=== PATIENT | female | born 1950 | race Caucasian/White ===

== ENCOUNTER → 2016-12-14 | Outpatient (CLI) | payer BC ==
[~2016-12-14] MED LIST: DICY20TA10 PO; Dulera Inhaler; FEXO1TAB49 PO; FEXO30OR PO; FLUT16SP22; FLUT1DIS28 IH; GLYC2TAB; HYDR-3583 PO; LIDO20SO20 PO; LOSA100T7 PO; LVT.025T PO; MOME13HF2 INH; NITR100C3 PO; OMEP-10 PO; ONDAN4ODT PO; PANT40TA PO; PHEN16.297 PO; ROBINAL; SPRN25T PO; SULF1TAB38 PO; TRM50T PO; ZOLP10TA5 PO; [UNRECOGNIZED DRUG - REMARK]
--- NOTE | 2016-12-14 15:50 | Diagnostic Imaging Report ---
PA and lateral views of the chest. INDICATION: Shortness of breath. FINDINGS: The lungs are clear. The heart size is normal. No effusion or pneumothorax. The mediastinum and yaneth appear unremarkable. IMPRESSION: Unremarkable exam. Dictated by: Dictated on workstation # [id number]
== END ==
LOC: RAD 14:52
PROVIDERS: ATTEND Nurse Practitioner Family
DX: R06.02 Shortness of breath (principal)
CPT/HCPCS: 71020

== ENCOUNTER → 2017-01-11 | Outpatient (CLI) | payer BC ==
--- NOTE | 2017-01-11 15:22 | Diagnostic Imaging Report ---
PROCEDURE: CT sinuses without contrast TECHNIQUE: Multiple contiguous axial images were obtained through the sinuses without the use of intravenous contrast. Coronal and sagittal reformations were then performed. INDICATION: Chronic sinusitis. FINDINGS: There is mild mucosal thickening seen in the inferior aspect of the maxillary sinus bilaterally. There is patency of the ostiomeatal complex on both sides. The frontal sinuses and the ethmoidal air cells are clear. There is mild nasal septal deviation to the right side and mild mucosal thickening in the middle and inferior turbinates. The sphenoidal sinuses are clear. The mastoid air cells visualized portions and the middle ear cavities appear clear. IMPRESSION: 1. Mild mucosal thickening in the inferior aspect of the maxillary sinus on both sides. 2. Mild mucosal thickening along the middle and inferior turbinates. Nasal septal deviation to the right side. Dictated by: Dictated on workstation # [id number]
== END ==
LOC: RAD 13:48
PROVIDERS: ATTEND Otolaryngology Otolaryngology/Facial Plastic Surgery
DX: J32.9 Chronic sinusitis, unspecified (principal); J34.2 Deviated nasal septum
CPT/HCPCS: 70486

== ENCOUNTER → 2017-05-17 | Outpatient (CLI) | payer BC ==
[~2017-05-17] MED LIST changes: +ALBU2.5V4 NEB; +ALPR0.5T7 PO; +CEFD300C3 PO; +DILT120C53 PO; +FLUT16SP22 NS; +FLUT1BLS INH; +GUAI600T43 PO; +IPRA3AMP IH; +L.AC1CAP6 PO; +LEVO25TA5 PO; +LEVO5TAB12 PO; +LOSA100T28 PO; +MELA10TA2 PO; +MONT10TA24 PO; +PANT40TA3 PO; +PRD20T PO; +RT-ALBUINH INH; +TIOT4MIS5 IH; +[UNRECOGNIZED DRUG - REMARK] MC
--- NOTE | 2017-05-17 18:08 | Diagnostic Imaging Report ---
Bilateral screening mammogram 2D views with tomosynthesis. The current study was also evaluated with a Computer Aided Detection (CAD) system. INDICATION: Screening. No current complaints stated on the questionnaire. COMPARISON: 04/01/2015. FINDINGS: The breasts are composed of heterogeneously dense parenchyma which may decrease mammographic sensitivity. There are occasional benign-appearing calcifications seen. Allowing for technique and positional differences, no suspicious change is seen. IMPRESSION: Dense breasts with no definite change. ACR BI-RADS Category 2: Benign findings. Result letter will be mailed to the patient. Note: At least 10% of breast cancer is not imaged by mammography. Dictated by: Dictated on workstation # [id number]
== END ==
LOC: RAD 15:52
PROVIDERS: ATTEND Nurse Practitioner Family
DX: Z12.31 Encounter for screening mammogram for malignant neoplasm of breast (principal)
CPT/HCPCS: 77067

== ENCOUNTER → 2017-08-01 | Outpatient (CLI) | payer BC, MEDICARE ==
[~2017-08-01] MED LIST changes: +IOHEXOL 350 MG/ML 150 ML (OMNIPAQUE 350) VIAL IV ONE; +NS 100 ML (IVPB) BAG IV ONE
[2017-08-01 08:32] LABS: CREATININE SERUM 0.97 MG/DL (0.60-1.30)
--- NOTE | 2017-08-01 10:21 | Diagnostic Imaging Report ---
PROCEDURE: CT angiography of the chest with contrast. TECHNIQUE: Multiple contiguous axial images were obtained through the chest after uneventful bolus administration of intravenous contrast. Reconstructed CTA MIP acquisitions were also performed. INDICATION: Allergic rhinitis. Cough. 125 mL of Omnipaque 350 is administered intravenously. FINDINGS: The pulmonary arteries demonstrate good opacification with no filling defects to suggest pulmonary embolism. The thoracic aorta is normal in caliber with no dissection or aneurysm. The heart size is normal. No pericardial or pleural effusion. There is no mediastinal mass. No axillary, mediastinal or hilar lymphadenopathy seen. Calcified granuloma in the infracarinal region and in the right hilum however is noted. The lungs demonstrate no significant consolidation. There is scarring and mild bronchiectasis however in the lung bases more prominent on the left side similar to 03/07/2014 exam. No emphysema changes. No mass or suspicious pulmonary nodule is identified. Sections in the upper abdomen demonstrate a large hepatic cyst in the upper lobe and bilobed hepatic cyst exophytic from the upper pole of the right kidney up to 3.7 cm in size. Cholecystectomy clips are seen. The osseous structures appear grossly unremarkable. IMPRESSION: 1. No PE or aortic dissection. 2. Mild bibasilar scarring and bronchiectasis more prominent on the left side, stable from 2014 exam. Dictated by: Dictated on workstation # [id number]
== END ==
LOC: RAD 07:44
PROVIDERS: ATTEND Nurse Practitioner Family
DX: J47.9 Bronchiectasis, uncomplicated (principal); J45.909 Unspecified asthma, uncomplicated; B37.0 Candidal stomatitis
CPT/HCPCS: 36415; 71275; 82565; 84520

== ENCOUNTER → 2017-08-23 | Outpatient (CLI) | payer BC, MEDICARE ==
[~2017-08-23] MED LIST changes: -IOHEXOL 350 MG/ML 150 ML (OMNIPAQUE 350) VIAL IV ONE; -NS 100 ML (IVPB) BAG IV ONE
[2017-08-23 12:49] LABS: BASOPHILS # (AUTO) 0.1 10^3/uL (0.0-0.1); BASOPHILS % (AUTO) 1 % (0-10); EOSINOPHILS # (AUTO) 0.3 10^3/uL (0.0-0.3); EOSINOPHILS % (AUTO) 4 % (0-10); LYMPHOCYTES # (AUTO) 2.1 X 10^3 (1.0-4.0); LYMPHOCYTES % (AUTO) 30 % (12-44); MEAN CORPUSCULAR HEMOGLOBIN 30 PG (25-34); MEAN CORPUSCULAR HGB CONC 33 G/DL (32-36); MEAN CORPUSCULAR VOLUME 92 FL (80-99); MEAN PLATELET VOLUME 9.9 FL (7.4-10.4); MONOCYTES # (AUTO) 0.5 X 10^3 (0.0-1.0); MONOCYTES % (AUTO) 7 % (0-12); NEUTROPHILS # (AUTO) 4.1 X 10^3 (1.8-7.8); NEUTROPHILS % (AUTO) 59 % (42-75); PLATELET COUNT 326 10^3/uL (130-400); RED BLOOD COUNT 4.59 10^6/uL (4.35-5.85); RED CELL DISTRIBUTION WIDTH 14.3 % (10.0-14.5); WHITE BLOOD COUNT 6.9 10^3/uL (4.3-11.0)
[2017-08-23 22:23] LABS: IGE DETAIL 11.2 IU/mL
[2017-08-24 06:32] LABS: INT IGE See Footnote
[2017-08-24 12:45] LABS: ANCA PATTERN Not Indicated; ANTI NEUTROPHIL CYTOPLASM <1:20 (<1:20)
[2017-08-25 07:13] LABS: ALLERGEN INTERP SEE FOOTNOTE; CAT DANDER CL CLASS 0; CAT DANDER RAST <0.35 kU/L (<0.35); DOG DANDER CL CLASS 2; DOG DANDER RAST 0.77 H KU/L (0.00-0.34); DUST MITE CL CLASS 0; DUST MITE RAST <0.35 kU/L (<0.35)
[2017-08-25 07:14] LABS: BERMUDA CL CLASS 0; BERMUDA GRASS RAST <0.35 kU/L (<0.35); ELM TREE <0.35 kU/L (<0.35); ELM TREE CL CLASS 0; JOHNSON GR CL CLASS 0; JOHNSON GRASS RAST <0.35 kU/L (<0.35); MARSH ELDER RAST <0.35 kU/L (<0.35); PECAN TR CL CLASS 0; RAGWEED CL CLASS 0; RAGWEED RAST <0.35 kU/L (<0.35); ROUGH MARSH CL CLASS 0
[2017-08-25 07:15] LABS: ALT TEN CL CLASS 1; CLADOSPORIUM CL CLASS 0; CLADOSPORIUM MOLD RAST <0.35 kU/L (<0.35); KENT BLUE CL CLASS 0; KENTUCKY BLUE GRASS RAST <0.35 kU/L (<0.35); OAK TREE <0.35 kU/L (<0.35); OAK TREE CL CLASS 0
== END ==
LOC: LAB 12:12
PROVIDERS: ATTEND Nurse Practitioner Family
DX: J45.909 Unspecified asthma, uncomplicated (principal); R05 Cough
CPT/HCPCS: 36415; 82785; 85025; 86003; 86021; 86606

== ENCOUNTER → 2018-01-15 | Outpatient (CLI) | payer BC, MEDICARE ==
--- NOTE | 2018-01-15 14:40 | Diagnostic Imaging Report ---
PROCEDURE: US Renal Bilateral. TECHNIQUE: Multiple real-time grayscale images were obtained over the kidneys in various projections bilaterally. INDICATION: Microscopic hematuria and back pain. FINDINGS: Right kidney measures 9.1 x 4.7 x 4.8 cm and the left kidney measures 8.9 x 5.1 x 5.8 cm. Cortical thickness and echogenicity is normal bilaterally. No calculi or hydronephrosis is identified. Images of the urinary bladder unremarkable. The ureteral jets were not visualized. IMPRESSION: Unremarkable renal ultrasound. Dictated by: Dictated on workstation # [id number]
== END ==
LOC: RAD 12:06
PROVIDERS: ATTEND Nurse Practitioner Family
DX: N39.0 Urinary tract infection, site not specified (principal); I10 Essential (primary) hypertension
CPT/HCPCS: 76770

== ENCOUNTER → 2018-01-19 | Outpatient (CLI) | payer BC, MEDICARE ==
--- NOTE | 2018-01-19 16:28 | Diagnostic Imaging Report ---
EXAMINATION: Supine abdomen at 2:05 p.m. INDICATION: Left flank pain. Two supine views were obtained. FINDINGS: There is some gas in both the large and small bowel in a nonspecific fashion. There also appears to be a fair amount of fecal material throughout the colon. These findings are similar to the rubber press tender film from the CT abdomen/pelvis exam of 05/22/2016. There is no evidence for a bowel obstruction. There is no mass or organomegaly appreciated. There are no pathological calcifications identified either. The renal ultrasound exam performed on 01/15/2018 failed to show any sign of nephrolithiasis or for an acute abnormality of either kidney. The postsurgical changes involving the lower lumbar spine seen previously are again evident and no different. Surgical clips are also again visualized overlying the right upper quadrant and right pelvis. IMPRESSION: 1. The bowel gas pattern is nonspecific. There is no acute abnormality identified. 2. If clinical concern regarding an underlying abnormality persists, then CT of the abdomen and pelvis would be recommended for further study. Dictated by: Dictated on workstation # [id number]
== END ==
LOC: RAD 13:32
PROVIDERS: ATTEND Nurse Practitioner Family
DX: R10.9 Unspecified abdominal pain (principal)
CPT/HCPCS: 74018

== ENCOUNTER → 2018-06-21 | Outpatient (CLI) | payer BC, MEDICARE ==
[~2018-06-21] MED LIST changes: -IPRA3AMP IH; +IPRA3AMP31 IH; -LOSA100T28 PO; +LOSA100T8 PO
--- NOTE | 2018-06-21 15:51 | Diagnostic Imaging Report ---
PROCEDURE: CT abdomen and pelvis without contrast. TECHNIQUE: Multiple contiguous axial images were obtained through the abdomen and pelvis without the use of intravenous contrast. INDICATION: Persistent left-sided abdominal pain. Comparison is made with prior CT from 05/22/2016. FINDINGS: The lung bases are clear. Large cyst involving the dome of the liver has increased in size measuring 7.4 cm AP compared with 6.4 cm on prior. No new liver mass is seen. The gallbladder is surgically absent. No biliary ductal dilatation is seen. The pancreas and spleen are unremarkable. No adrenal mass is identified. The bilobed cyst at the upper pole of right kidney appears stable. No renal calculi are identified. There is no hydronephrosis. The aorta is nonaneurysmal. Bowel loops are nondilated and without evidence of obstruction. There is moderate stool in the colon. There is no ascites. No inflammatory process is identified. 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 No herniated bowel loops are seen. The bladder is decompressed. There are postop changes in the lower lumbosacral spine with spinal instrumentation noted. IMPRESSION: 1. Slight increase in size of large hepatic cyst since exam from 05/22/2016. A right renal bilobed cyst is stable. 2. Otherwise, stable CT of the abdomen and pelvis without contrast. No acute feature is detected. Dictated by: Dictated on workstation # [id number]
== END ==
LOC: RAD 15:04
PROVIDERS: ATTEND Internal Medicine Nephrology
DX: N28.1 Cyst of kidney, acquired (principal); K76.89 Other specified diseases of liver; I12.9 Hypertensive chronic kidney disease with stage 1 through stage 4 chronic kidney disease, or unspecified chronic kidney disease; J45.909 Unspecified asthma, uncomplicated; N17.9 Acute kidney failure, unspecified; N18.2 Chronic kidney disease, stage 2 (mild); Z79.1 Long term (current) use of non-steroidal anti-inflammatories (NSAID)
CPT/HCPCS: 74176

== ENCOUNTER → 2018-09-04 | Outpatient (CLI) | payer BC, MEDICARE ==
--- NOTE | 2018-09-04 10:29 | Diagnostic Imaging Report ---
PROCEDURE: US Hepatic (Liver). TECHNIQUE: Multiple real-time grayscale images were obtained over the right upper quadrant in various projections. INDICATION: Hepatic cyst. The CT abdomen/pelvis exam performed on 06/21/2018 noted that the cyst in the right lobe of the liver seen on the previous CT exam of 05/22/2016 had increased in size somewhat. The cyst measures approximately 7.4 cm in maximum diameter. On this exam this cyst is again identified. The cyst measures 5.5 x 6.9 cm and has a generally benign appearance. The liver is otherwise unremarkable. It is noted on the CT exam that the gallbladder is surgically absent. The common bile duct is not dilated although the distal portion of the duct was obscured. The pancreas was also secured by bowel gas. The CT exam also identified a cyst associated with the right kidney. On this study there is a bilobed cyst along the superior pole of the right kidney. The cyst was not measured but it appears similar in size to the previous CT chest exam of 08/01/2017. At that time the cyst measured approximately 3.7 cm. The right kidney is otherwise unremarkable. IMPRESSION: 1. There are benign-appearing cysts in the right lobe of the liver and along the superior pole of the right kidney. 2. There is no acute abnormality of the right upper quadrant. 3. The gallbladder is surgically absent. Dictated by: Dictated on workstation # [id number]
== END ==
LOC: RAD 08:05
PROVIDERS: ATTEND Nurse Practitioner Family
DX: K76.89 Other specified diseases of liver (principal); N28.1 Cyst of kidney, acquired; Z90.49 Acquired absence of other specified parts of digestive tract
CPT/HCPCS: 76705

== ENCOUNTER → 2019-03-11 | Outpatient (CLI) | payer BC, MEDICARE ==
[~2019-03-11] MED LIST changes: +LOSA100T57 PO; -LOSA100T8 PO
--- NOTE | 2019-03-11 17:02 | Diagnostic Imaging Report ---
CLINICAL INDICATION: Evaluate thyroid nodules. COMPARISONS: Ultrasound of the thyroid gland dated 04/12/2016. FINDINGS: THYROID NODULES: There is a 7 mm x 5 mm x 7 mm anechoic nodule involving the mid to upper portion of the left thyroid gland. This nodule has slightly increased in size compared to the prior study measured at 5 mm x 5 mm x 4 mm. There is a 5 mm x 5 mm x 8mm heterogeneous nodule involving the upper pole of the left thyroid gland which has significantly changed in size or appearance. There is a 3 mm x 3 mm x 4 mm hypoechoic nodule involving the inferior portion of the right thyroid gland which previously measured 4 mm x 5 mm x 4 mm and has not significantly changed in size. THYROID GLAND: Besides the thyroid nodules, the thyroid gland has normal size, shape and echogenicity. The right lobe measures 3.7 cm x 1.6 cm x 1.3 cm and the left lobe measures 3.7 cm x 1.4 cm x 1.1 cm in their three dimensions. ISTHMUS: The isthmus is unremarkable and measures 3 mm in thickness. IMPRESSION: There are multiple bilateral subcentimeter thyroid nodules involving the thyroid gland. There is slight increased size of the 7 mm nodule involving the right thyroid gland. Otherwise , there is no significant change in size of the other nodules. The thyroid nodules do not have suspicious characteristics. Dictated by: Dictated on workstation # [id number]
== END ==
LOC: RAD 15:27
PROVIDERS: ATTEND Nurse Practitioner Family
DX: E04.2 Nontoxic multinodular goiter (principal)
CPT/HCPCS: 76536

== ENCOUNTER → 2019-03-12 | Outpatient (CLI) | payer BC, MEDICARE ==
--- NOTE | 2019-03-12 16:58 | Diagnostic Imaging Report ---
INDICATION: Right hand injury FINDINGS: Three views of the right hand show no fracture, dislocation or other acute abnormalities. IMPRESSION: Negative right hand. Dictated by: Dictated on workstation # [id number]
== END ==
LOC: RAD 15:20
PROVIDERS: ATTEND Nurse Practitioner Family
DX: S69.91XA Unspecified injury of right wrist, hand and finger(s), initial encounter (principal)
CPT/HCPCS: 73130

== ENCOUNTER → 2019-10-02 | Outpatient (CLI) | payer BC, MEDICARE ==
--- NOTE | 2019-10-02 11:00 | Diagnostic Imaging Report ---
PROCEDURE: US Hepatic (Liver). TECHNIQUE: Multiple real-time grayscale images were obtained over the right upper quadrant in various projections. INDICATION: Liver cyst. COMPARISON: Comparison is made with CT study from 06/21/2018. FINDINGS: Liver is normal in size at 16.1 cm. There is a cyst in the dome of the liver measuring 6.5 x 6.5 x 6.7 cm. This compares with approximately 7.4 x 6.[address] No other liver lesions are seen. The gallbladder is surgically absent. No biliary ductal dilatation is seen. The pancreas, aorta, and IVC are obscured by bowel gas. There are cysts in the upper pole of the right kidney, largest approximately 3.3 x 2.7 cm. No calculus or hydronephrosis is seen. There is no ascites. IMPRESSION: 1. Large hepatic cyst, measuring smaller than prior CT from 06/21/2018. 2. Right renal cysts. Dictated by: Dictated on workstation # [id number]
== END ==
LOC: RAD 08:01
PROVIDERS: ATTEND Nurse Practitioner Family
DX: K76.89 Other specified diseases of liver (principal); N28.1 Cyst of kidney, acquired
CPT/HCPCS: 76705

== ENCOUNTER → 2020-04-03 | Outpatient (CLI) | payer BC, MEDICARE ==
[~2020-04-03] MED LIST changes: -MONT10TA24 PO; +MONT10TA26 PO
--- NOTE | 2020-04-03 15:14 | Diagnostic Imaging Report ---
PROCEDURE: US Thyroid. TECHNIQUE: Multiple real-time grayscale images were obtained of the thyroid in various projections. INDICATION: Thyroid nodules, follow-up. CORRELATION is made with prior thyroid ultrasound from 03/11/2019. Right lobe of the thyroid measures 4.7 x 1.5 x 1.3 cm and the left lobe measures 4.1 x 0.9 x 1.0 cm. Isthmus is 2 mm in thickness. Right lobe of the thyroid contains a small cyst in the lower pole approximately 4 mm in size. There are 2 nodules in the left lobe. A cystic nodule upper pole measures approximately 10 mm x 9 mm x 7 mm. This is minimally larger when compared with prior exam with measurements of 7 mm x 5 mm x 7 mm. Solid nodule lower poles approximately 9 mm x 7 mm x 5 mm. This correlates with 5 mm x 5 mm x 8 mm on prior. No new nodules are seen. IMPRESSION: Bilateral thyroid nodules, similar to perhaps minimally increased since one year earlier. Continued follow-up is recommended. Dictated by: Dictated on workstation # [id number]
== END ==
LOC: RAD 12:26
PROVIDERS: ATTEND Nurse Practitioner Family
DX: E04.2 Nontoxic multinodular goiter (principal)
CPT/HCPCS: 76536

== ENCOUNTER → 2020-08-04 | Outpatient (CLI) | payer BC, MEDICARE ==
[~2020-08-04] MED LIST changes: -MONT10TA26 PO; +MONT10TA97 PO; -PANT40TA3 PO; +PANT40TA52 PO
[2020-08-04 09:48] LABS: BILIRUBIN,TOTAL 0.4 MG/DL (0.1-1.0); CALCIUM 8.7 MG/DL (8.5-10.1); CREATININE SERUM 1.02 MG/DL (0.60-1.30); POTASSIUM 4.1 MMOL/L (3.6-5.0); TOTAL PROTEIN 6.4 GM/DL (6.4-8.2)
== END ==
LOC: RAD 09:45
PROVIDERS: ATTEND Internal Medicine Gastroenterology
DX: K46.9 Unspecified abdominal hernia without obstruction or gangrene (principal); K31.84 Gastroparesis
CPT/HCPCS: 36415; 80053

== ENCOUNTER → 2020-08-06 | Outpatient (CLI) | payer BC, MEDICARE ==
[~2020-08-06] MED LIST changes: +HOLD METFORMIN - RECEIVED CONTRAST 20 ML VIAL IV SCH; +IOHEXOL 350 MG/ML 100 ML (OMNIPAQUE 350) VIAL IV ONE; +NS 100 ML (IVPB) BAG IV ONE
--- NOTE | 2020-08-06 09:30 | Diagnostic Imaging Report ---
PROCEDURE: CT abdomen and pelvis with and without contrast. TECHNIQUE: Precontrast acquisitions were acquired through the abdomen and pelvis. Multiple contiguous axial images were obtained through the abdomen and pelvis after the administration of intravenous contrast. Auto Exposure Controls were utilized during the CT exam to meet ALARA standards for radiation dose reduction. INDICATION: Left lower quadrant pain and abdominal discomfort. COMPARISON: Comparison is made with prior CT from 06/21/2018. FINDINGS: Lung bases are clear. Large cyst in right lobe of the liver measures approximately 9.9 cm AP x 8.0 cm transverse compared with 7.4 cm x 6.9 cm. No other liver masses are seen. The gallbladder is surgically absent. No biliary ductal dilatation is seen. Pancreas and spleen are unremarkable. No adrenal mass is detected. A bilobed cyst in the upper pole of the right kidney measures 2.7 x 4.1 cm compared with 3.3 x 2.5 cm. Kidneys are otherwise unremarkable. Aorta is nonaneurysmal. No central retroperitoneal or mesenteric lymphadenopathy is detected. Small and large bowel loops are normal in caliber. There appears to be a small hernia at the level of the umbilicus in midline. Small bowel loops protrude slightly through the defect. No definite strangulation or evidence of bowel obstruction is seen. There is moderate stool throughout the colon. No free fluid or fluid collection is identified. Bladder is decompressed. There are fat-containing inguinal hernias bilaterally. No pelvic lymphadenopathy is identified. Postop changes to the lower lumbar spine are noted. IMPRESSION: 1. Slight increase in size of hepatic and renal cysts. 2. Umbilical hernia containing small bowel loop. No strangulation or obstruction is identified. 3. Bilateral fat-containing inguinal hernias. Dictated by: Dictated on workstation # [id number]
--- NOTE | 2020-08-06 14:01 | Diagnostic Imaging Report ---
GASTRIC EMPTYING TIME SCAN Technique: Anterior and posterior planar scintigraphic images of the stomach were obtained after the patient ingested 0.99 mCi of technetium 99m sulfur collate mixed with eggs. Indication: Gastroparesis Comparison: None available. Findings: A time activity curve was calculated for the stomach with the following values of retained activity in the stomach post ingestion: 1 hour: 75% (delayed if greater than 90% retained) 2 hour: 69% (delayed if greater than 60% retained) 3 hour: 40% (delayed if greater than 30% retained) 4 hour: 20% (delayed if greater than 10%) The half-time (T1/2) for gastric emptying was 152 minutes, which is delayed. Impression:Delayed gastric emptying is compatible with gastroparesis. Dictated by: Dictated on workstation # [id number]
== END ==
LOC: CARD 08:15
PROVIDERS: ATTEND Internal Medicine Gastroenterology
DX: K31.84 Gastroparesis (principal); N28.1 Cyst of kidney, acquired; K76.89 Other specified diseases of liver; K42.9 Umbilical hernia without obstruction or gangrene; K40.20 Bilateral inguinal hernia, without obstruction or gangrene, not specified as recurrent; K46.9 Unspecified abdominal hernia without obstruction or gangrene
CPT/HCPCS: 74178; 78264; A9541

== ENCOUNTER → 2020-08-06 | Outpatient (CLI) | payer MEDICARE ==
[~2020-08-06] MED LIST changes: +CATHETER FLUSH 10 ML SYR IV PRN
== END ==
LOC: RAD 08:15
PROVIDERS: ATTEND Internal Medicine Gastroenterology
DX: Z53.9 Procedure and treatment not carried out, unspecified reason (principal)

== ENCOUNTER → 2021-01-12 | Outpatient (CLI) | payer MEDICARE ==
[~2021-01-12] MED LIST changes: -CATHETER FLUSH 10 ML SYR IV PRN; -HOLD METFORMIN - RECEIVED CONTRAST 20 ML VIAL IV SCH; -IOHEXOL 350 MG/ML 100 ML (OMNIPAQUE 350) VIAL IV ONE; +MONT10TA32 PO; -MONT10TA97 PO; -NS 100 ML (IVPB) BAG IV ONE
--- NOTE | 2021-01-12 18:52 | Diagnostic Imaging Report ---
INDICATION: Chronic low back pain. History of previous lumbar fusion and laminectomy. Comparison with 09/17/2014 lumbar spine series. FINDINGS: Three views. There is fusion at L4-L5 with bilateral pedicle screws and rods. Intervertebral disc spacer is present in good position. No evidence of hardware loosening or fractures. Laminectomy noted. There is good alignment of the lumbar vertebral bodies. Body heights are well-maintained. Disc spaces are well-preserved. Facets show good alignment. No hypertrophic bony changes are demonstrated. The SI joints are symmetrical with minimal sclerotic change. IMPRESSION: Postsurgical laminectomy and fusion at L4-L5 with no evidence of hardware complications. Remaining vertebral bodies and disc spaces appear normal without hypertrophic change. Dictated by: Dictated on workstation # [id number]
== END ==
LOC: RAD 13:16
PROVIDERS: ATTEND Nurse Practitioner Family
DX: M54.40 Lumbago with sciatica, unspecified side (principal); Z98.1 Arthrodesis status
CPT/HCPCS: 72100

== ENCOUNTER → 2021-01-21 | Outpatient (CLI) | payer MEDICARE ==
--- NOTE | 2021-01-21 15:13 | Diagnostic Imaging Report ---
Clinical indication: Patient with low back pain with history of previous lumbar spine surgery. Exam: MRI of the lumbar spine performed without IV contrast. Sagittal T2, sagittal T1, sagittal T2 fat-sat, and axial T2. Comparison: MRI of the lumbar spine without contrast dated 11/16/2010. Findings: There is interval postoperative changes with placement of L4-L5 posterior lumbar interbody fusion and L4-L5 laminectomies. There is no significant paraspinal fluid collection. There is interval decompression of thecal sac posteriorly. Besides postoperative changes, there is no significant paraspinal soft tissue abnormality. The visualized portions of the distal thoracic spinal cord, conus medullaris, and cauda equina nerve roots are unremarkable. The conus medullaris tip is seen at the T12-L1 intervertebral level. L1-L2: There is no significant central spinal canal or neural foramen narrowing. L2-L3: There is no significant central spinal canal or neural foramen narrowing. L3-L4: There is interval development of grade 1 retrolisthesis of L3 on L4. There is interval development of a diffuse disk bulge and slight progression of moderate bilateral facet arthropathy. There are bilateral facet effusions which has increased in the right. There is no significant central canal stenosis. There is moderate right neural foramen narrowing and severe left neural foramen narrowing which has progressed. There is no significant central canal stenosis. L4-L5: There is interval decompression of thecal sac with no significant central canal stenosis. There is bilateral facet arthropathy. There is no significant neural foramen narrowing which has improved in the interim. L5-S1: There is no significant disk bulge. There is moderate right facet arthropathy and mild left facet arthropathy. There is no significant central canal stenosis. IMPRESSION: 1: There is interval posterior changes with placement of L4-L5 posterior lumbar interbody fusion and L4-L5 laminectomies. There is interval decompression of the central canal at this level. There is also improved size of the bilateral neural foramen regions. 2: There is interval development of grade 1 retrolisthesis of L3 on L4 with progression of diffuse disk bulge and progression of facet arthropathy. There is interval progression of now moderate right neural foramen narrowing and severe left neural foramen narrowing. 3: The remainder of the lumbar spine changes are described above. Dictated by: Dictated on workstation # [id number]
== END ==
LOC: RAD 14:00
PROVIDERS: ATTEND Nurse Practitioner Family
DX: M47.816 Spondylosis without myelopathy or radiculopathy, lumbar region (principal); M43.16 Spondylolisthesis, lumbar region; G95.29 Other cord compression; Z98.1 Arthrodesis status
CPT/HCPCS: 72148

== ENCOUNTER → 2021-04-07 | Outpatient (CLI) | payer MEDICARE ==
--- NOTE | 2021-04-07 15:03 | Diagnostic Imaging Report ---
INDICATION: Low back pain. EXAMINATION: Lumbar spine. FINDINGS: AP and lateral views of the lumbar spine show post surgical changes from laminectomy, discectomy, and dorsal fusion of L4-L5. The patient has bipedicular screws and rods which appear to be in good position. There is some narrowing of the L3-L4 disc space posteriorly. There are no compression fractures. IMPRESSION: Postop changes from dorsal fusion and discectomy at L4-L5 with some adjacent level degenerative disc changes at L3-L4. Dictated by: Dictated on workstation # [id number]
== END ==
LOC: RAD 14:08
PROVIDERS: ATTEND Nurse Practitioner
DX: M51.36 Other intervertebral disc degeneration, lumbar region (principal); M70.62 Trochanteric bursitis, left hip; Z98.1 Arthrodesis status
CPT/HCPCS: 72100

== ENCOUNTER → 2021-04-07 | Outpatient (CLI) | payer MEDICARE ==
--- NOTE | 2021-04-07 15:42 | Diagnostic Imaging Report ---
PROCEDURE: US Thyroid. TECHNIQUE: Multiple real-time grayscale images were obtained of the thyroid in various projections. INDICATION: Thyroid nodules. COMPARISON: 04/03/2020. FINDINGS: Right thyroid lobe measures an unchanged 4.6 x 1.4 x 1.1 cm. It contains a tiny 5 mm cystic nodule in its lower pole, unchanged, benign. The left thyroid lobe measured 4.1 x 0.9 x 1.4 cm. It contains a midpole nodule of 8 mm, cystic, stable and benign. A left lower pole nodule has mixed solid and cystic component with few coarse calcifications unchanged at 9 mm. IMPRESSION: Stable subcentimeter benign thyroid nodules. Dictated by: Dictated on workstation # [id number]
== END ==
LOC: RAD 14:11
PROVIDERS: ATTEND Family Medicine
DX: E04.2 Nontoxic multinodular goiter (principal)
CPT/HCPCS: 76536

== ENCOUNTER 2021-06-05 11:15 | Emergency (ER) | payer MEDICARE, BC ==
[~2021-06-05] VITALS: Ht 162.5 cm; Wt 63.0 kg
--- NOTE | 2021-06-05 11:27 | ED Head Injury ---
General Chief Complaint: Head/Cervical Problems Stated Complaint: FALL/HEAD LAC Source: patient Exam Limitations: no limitations History of Present Illness Date Seen by Provider: Jun 05, 2021 Time Seen by Provider: 11:24 Initial Comments To ER by private vehicle with reports of a head injury. She was out seeing her horse when it turned its head causing her to fall backwards and strike her head on the concrete. She has a bruise over the right elbow but full range of motion. No loss of consciousness no vomiting. No anticoagulants. She complains of a severe headache. She is not sure when her last tetanus vaccine was. I did suggest that we update that today but she states "no, I dont want you to". Occurred: just prior to arrival Severity: moderate Location: parietal Method of Injury: fell Loss of Consciousness: no loss of consciousness Associated Systoms: Headaches Allergies and Home Medications Allergies Coded Allergies: ciprofloxacin (Verified Allergy, Mild, 03/07/14) clarithromycin (Verified Allergy, Mild, 03/07/14) codeine (Verified Allergy, Mild, 03/07/14) Penicillins (Verified Allergy, Unknown, 03/07/14) iodine (Verified Allergy, Unknown, 03/07/14) facial swelling meperidine HCl (Verified Allergy, Unknown, 03/07/14) Nitrofurantoin Macrocrystal (Verified Adverse Reaction, Mild, N/V, 03/07/14) chlorthalidone (Verified Adverse Reaction, Unknown, BODY ACHES;MUSCLE ACHE S;JOINT ACHES;SOA;COULDN'T MOVE ARMS, 03/07/14) tramadol (Verified Adverse Reaction, Unknown, 03/07/14) Patient Home Medication List Home Medication List Reviewed: Yes Albuterol Sulfate (Proair Hfa) 1 Puff Puff, 1-2 PUFF INH Q4H PRN for SHORTNESS OF BREATH Prescribed by: RAMIN SULLIVAN on 06/02/17937 Alprazolam (Alprazolam) 0.5 Mg Tablet, 0.5 MG PO DAILY PRN for FLYING Prescribed by: RAMIN SULLIVAN on 06/02/17937 Cefdinir (Cefdinir) 300 Mg Capsule, 300 MG PO BID Prescribed by: RAMIN SULLIVAN on 06/02/17937 Dicyclomine HCl (Dicyclomine HCl) 20 Mg Tablet, 20 MG PO DAILY PRN for CRAMPS, (Reported) Entered as Reported by: WILBERT ORDAZ on 06/01/17 1431 Diltiazem HCl (Cartia Xt) 120 Mg Cap.er.24h, 120 MG PO DAILY, (Reported) Entered as Reported by: WILBERT ORDAZ on 06/01/17 133 Fluticasone Propionate (Fluticasone Propionate) 16 Gm [place].susp, 1 SPRAY NS DAILY, (Reported) Entered as Reported by: WILBERT ORDAZ on 06/01/17 124 Fluticasone/Vilanterol (Breo Ellipta 200-25 Mcg INH) 1 Each Blst.w.dev, 1 PUFF INH DAILY, (Reported) Entered as Reported by: WILBERT ORDAZ on 06/01/17 124 Guaifenesin (Mucinex) 600 Mg Tab.er.12h, 600 MG PO BID PRN for CONGESTION, (Reported) Entered as Reported by: WILBERT ORDAZ on 06/01/17 133 Ipratropium/Albuterol Sulfate (Iprat-Albut 0.5-3(2.5) mg/3 ml) 3 Ml Ampul.neb, 3 ML IH QID Prescribed by: RAMIN SULLIVAN on 06/02/17 0938 L.acidoph & Paracasei,B.lactis (Probiotic) 1 Each Capsule, 1 CAP PO DAILY, (Reported) Entered as Reported by: WILBERT ORDAZ on 06/01/17 1338 Levocetirizine Dihydrochloride (Levocetirizine Dihydrochloride) 5 Mg Tablet, 5 MG PO HS, (Reported) Entered as Reported by: WILBERT ORDAZ on 06/01/17 1248 Levothyroxine Sodium (Levothyroxine Sodium) 25 Mcg Tablet, 25 MCG PO DAILY, (Reported) Entered as Reported by: WILBERT ORDAZ on 06/01/17 1418 Losartan Potassium (Losartan Potassium) 100 Mg Tablet, 100 MG PO HS, (Reported) Entered as Reported by: WILBERT ORDAZ on 06/01/17 124 Melatonin (Melatonin) 10 Mg Tablet, 20 MG PO HS, (Reported) Entered as Reported by: WILBERT ORDAZ on 06/01/17 133 Montelukast Sodium (Montelukast Sodium) 10 Mg Tablet, 10 MG PO HS, (Reported) Entered as Reported by: WILBERT ORDAZ on 06/01/171247 Pantoprazole Sodium (Pantoprazole Sodium) 40 Mg Tablet.dr, 40 MG PO BID Prescribed by: RAMIN SULLIVAN on 06/02/17937 Prednisone (Prednisone) 20 Mg Tab, 20 MG PO DAILY Prescribed by: RAMIN SULLIVAN on 06/02/17937 Tiotropium [place] (Spiriva Respimat 1.25MCG/ACTUATION) 4 Gm Mist.inhal, 2 PUFF IH DAILY Prescribed by: RAMIN SULLIVAN on 06/02/17937 Zolpidem Tartrate (Zolpidem Tartrate) 10 Mg Tablet, 5-10 MG PO HS PRN for SLEEP, (Reported) Entered as Reported by: WILBERT ORDAZ on 06/01/171247 [ Note] 1 PATCH, 1 MC 1 Prescribed by: RAMIN SULLIVAN on 06/02/17937 Review of Systems Review of Systems Constitutional: see HPI Eyes: No Symptoms Reported Ears, Nose, Mouth, Throat: no symptoms reported Respiratory: no symptoms reported Cardiovascular: no symptoms reported Genitourinary: no symptoms reported Musculoskeletal: no symptoms reported Skin: no symptoms reported Psychiatric/Neurological: No Symptoms Reported Past Ooiiahw-Fjszwl-Bfkvjh Hx Seasonal Allergies Seasonal Allergies: No Past Medical History Surgeries: Yes (BUNION SURG) Orthopedic Respiratory: Yes Asthma Cardiac: Yes Hypertension Neurological: Yes Reproductive Disorders: No 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, 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 Sexually Transmitted Disease: No HIV/AIDS: No Genitourinary: No Kidney Infection Gastrointestinal: Yes Gastroesophageal Reflux Musculoskeletal: Yes Arthritis, Chronic Back Pain Endocrine: Yes Hypothyroidsim Cancer: No Psychosocial: No Integumentary: No Blood Disorders: No Family Medical History Cancer (dad had kidney cancer) 19 FATHER Cataract 19 FATHER 19 MOTHER Chest pain 19 FATHER Dementia 19 MOTHER Family history: Allergy 19 MOTHER Family history: Arthritis 19 MOTHER Family history: Asthma (daughter and son have asthma) 19 MOTHER Family history: Cardiovascular disease 19 FATHER Family history: Diabetes mellitus 19 FATHER 19 MOTHER Family history: Gastrointestinal disease 19 MOTHER Family history: Hypertension 19 FATHER Family history: Osteoporosis 19 MOTHER Family history: Thyroid disorder 19 MOTHER Headache (daughter) Heart disease 19 FATHER History of - anemia (daughter) History of - respiratory disease 19 MOTHER Kidney disease 19 FATHER Myocardial infarction 19 FATHER Stroke 19 FATHER Heart Disease, Cancer, CVA, Diabetes, Hypertension Physical Exam Vital Signs Vital Signs - First Documented 06/05/21 11:20 Temp 35.9 Pulse 63 Resp 20 B/P (MAP) 118/67 (84) Capillary Refill : Height, Weight, BMI Height: 5'4.00" Weight: 127lbs. 4.0oz. 57.172052he; 21.6 BMI Method:Stated General Appearance: WD/WN, no apparent distress, other (Alert and oriented, controlled bleeding to the posterior scalp) HEENT: PERRL/EOMI, normal ENT inspection, TMs normal Neck: non-tender, full range of motion Respiratory: normal breath sounds, no respiratory distress, no accessory muscle use Extremities: normal range of motion, non-tender Psychiatric: alert, oriented x 3 Crainal Nerves: normal hearing, normal speech, PERRL Coordination/Gait: normal finger to nose Motor/Sensory: no motor deficit, no sensory deficit Skin: normal color, warm/dry Sushma Coma Score Best Eye Response: (4) Open Spontaneously Best Verbal Response: (5) Oriented Best Motor Response: (6) Obeys Commands [place] Total: 15 Progress/Results/Core Measures Results/Orders My Orders Orders - DALLIN BETHEA APRN Ct Head/Cervical Spine Wo (06/05/21 11:22) Ct Maxillofacial Wo (06/05/21 11:36) Hydrocodone/Apap 5/325 Tablet (Lortab 5 (06/05/21 12:15) Medications Given in ED Current Medications Medications Dose Ordered Sig/Jose Rafael Route Start Time Stop Time Status Last Admin Dose Admin Acetaminophen/ Hydrocodone Bitart 1 ea ONCE ONCE PO 06/05/21 12:15 06/05/21 12:17 DC 06/05/21 12:09 1 EA Vital Signs/I&O 06/05/21 11:20 Temp 35.9 Pulse 63 Resp 20 B/P (MAP) 118/67 (84) Departure Communication (Admissions) Posterior right sided scalp laceration was anesthetized with 1 mL of lidocaine on each side totaling 2 mL of lidocaine without epinephrine. Scrubbed with chlorhexidine/saline solution and irrigated with 60 mL of saline. No foreign body identified. Closed loosely with 6 gretchen. I did discuss with the patient and the possibility of a nondisplaced occult fracture versus nutrient channel within the bone. No treatment even if this is a skull fracture. Impression Primary Impression: Scalp laceration Disposition: 01 HOME, SELF-CARE Condition: Stable Departure-Patient Inst. Decision time for Depature: 12:31 Referrals: RAMIN SULLIVAN MD (PCP/Family) Primary Care Physician Patient Instructions: Laceration Repair With Gretchen (DC) Add. Discharge Instructions: 1. Return to ER in about 7 days to have the gretchen removed. You can shower letting water run over your hair starting this evening. Pain medication as directed. All discharge instructions reviewed with patient and/or family. Voiced understanding. Scripts Oxycodone HCl/Acetaminophen (Percocet 5-325 mg Tablet) 1 Each Tablet 1 TAB PO Q4H for PAIN-MODERATE MDD 6 TABS for 7 Days, #14 TAB Prov: DALLIN BETHEA APRN 06/05/21 Ondansetron (Ondansetron Odt) 8 Mg Tab.rapdis 8 MG PO Q6H PRN for NAUSEA/VOMITING, #14 TAB Prov: DALLIN BETHEA APRN 06/05/21 DALLIN BETHEA APRN Jun 05, 2021 11:27
--- NOTE | 2021-06-05 12:02 | Diagnostic Imaging Report ---
PROCEDURE: CT head and CT cervical spine without contrast. TECHNIQUE: Multiple contiguous axial images were obtained through the brain and cervical spine without the use of intravenous contrast. Sagittal and coronal reformations through the cervical spine were then performed. Auto Exposure Controls were utilized during the CT exam to meet ALARA standards for radiation dose reduction. INDICATION: Injury. Head and neck pain. CT HEAD: There are small linear lucencies along the posterior aspect of the occipital bone near midline (image 12 of 60). These findings are more likely related to vascular grooves than to fractures. Even so, clinical follow-up is recommended. There is no intracranial mass, shift of the midline or hemorrhage noted. The ventricles are not abnormally dilated and stable in size when compared to the prior exam of 03/07/2014. The orbits are symmetrical and within normal limits. The sinuses where visualized are clear. IMPRESSION: 1. The small linear lucencies involving the occipital bone near midline are more likely due to vascular grooves than to nondisplaced fractures. Clinical follow-up is recommended. 2. There is no acute intracranial abnormality noted. 3. If clinical concern regarding an underlying abnormality persists, MRI would be recommended for further study. CT CERVICAL SPINE There are no prior studies available for comparison. The reconstructed parasagittal images show reversal of the normal lordosis of the cervical spine. This may be secondary to muscle spasm and/or positioning. There is moderate degenerative disc and bony disease at C5-C6 and C6-C7 and mild degenerative disc and bony disease at C4-C5. The thecal sac seems relatively generous and there is no evidence for a high-grade central stenosis. There is no fracture or acute bony abnormality appreciated. There is no sign of retropharyngeal edema. The thyroid gland was not well-visualized. There does appear to be a low density nodule measuring approximately 7 mm in the inferior pole of the left lobe. Ultrasound would be recommended for further study. The lung apices are clear. IMPRESSION: 1. There is no evidence for an acute bony abnormality of the cervical spine. 2. The small area of low density in the inferior pole of the left lobe of the thyroid is of uncertain etiology. Ultrasound would be recommended to better characterize this finding. Dictated by: Dictated on workstation # [id number]
--- NOTE | 2021-06-05 12:03 | Diagnostic Imaging Report ---
PROCEDURE: CT maxillofacial without contrast. TECHNIQUE: Multiple contiguous axial images were obtained through the facial bones without the use of intravenous contrast. Auto Exposure Controls were utilized during the CT exam to meet ALARA standards for radiation dose reduction. INDICATION: Fall. Head pain. Jaw pain. COMPARISON: 01/11/2017. FINDINGS: No acute facial fractures are identified. The mandible, zygomatic arches, and pterygoid plates are intact. The bilateral TMJs demonstrate normal alignment. The bilateral nasal bones are unremarkable without acute fracture. There is rightward deviation of the nasal septum without fracture. A lucency is seen in the anterior aspect of the right maxillary sinus, stable compared to the prior exam from 2017 and representing a prominent nutrient foramen. No acute fractures are seen in the paranasal sinuses. Retained secretions are seen in the antrum of the bilateral maxillary sinuses. The globes and orbits are symmetric and unremarkable. The included intracranial contents demonstrate no acute abnormalities. The upper cervical spine is unremarkable. IMPRESSION: 1. No acute facial fractures are identified. 2. Small amount of retained secretions in the antrum of the bilateral maxillary sinuses. Dictated by: Dictated on workstation # [id number]
[2021-06-05] MEDS ORDERED: HYDROcodone/APAP 5 MG/325 MG (LORTAB) TAB PO ONE (12:15)
[2021-06-05] MEDS ORDERED: ONDA8TAB13 PO ×2 (12:33→12:49)
[2021-06-05] MEDS ORDERED: OXYC1TAB87 PO ×2 (12:33→12:49)
[2021-06-05 12:56] VITALS: BP 118/67
[2021-06-05] MEDS ORDERED: ONDANSETRON 4 MG (ZOFRAN) ORAL DISSOLVE TAB PO ONE (13:00)
== END 2021-06-05 12:58 | disposition home or self-care (01) ==
LOC: EDUNIT# 11:15 → ER 11:16
DX: S01.01XA Laceration without foreign body of scalp, initial encounter (principal); J45.909 Unspecified asthma, uncomplicated; I10 Essential (primary) hypertension; E03.9 Hypothyroidism, unspecified; K21.9 Gastro-esophageal reflux disease without esophagitis; R40.2410 Glasgow coma scale score 13-15, unspecified time; Z79.890 Hormone replacement therapy; Z79.52 Long term (current) use of systemic steroids; Z79.899 Other long term (current) drug therapy; W22.8XXA Striking against or struck by other objects, initial encounter
CPT/HCPCS: 12001; 70450; 70486; 72125

== ENCOUNTER 2021-06-12 14:54 | Emergency (ER) | payer MEDICARE, BC ==
[~2021-06-12] VITALS: Ht 167.7 cm; Wt 64.4 kg
[~2021-06-12 14:54] MED LIST changes: +ONDA8TAB13 PO; +OXYC1TAB87 PO
[2021-06-12 15:05] VITALS: BP 139/73
== END 2021-06-12 15:21 | disposition home or self-care (01) ==
LOC: EDUNIT# 14:54 → ER 14:56
DX: Z48.02 Encounter for removal of sutures (principal)

== ENCOUNTER → 2021-07-01 | Outpatient (CLI) | payer MEDICARE ==
--- NOTE | 2021-07-01 16:33 | Diagnostic Imaging Report ---
PROCEDURE: US carotid duplex, bilateral. TECHNIQUE: Multiple real-time grayscale images were obtained over the carotid arteries in various projections, bilaterally. Additional spectral analysis and color Doppler duplex images were also obtained. INDICATION: Carotid bruit. COMPARISON: 09/16/2013 FINDINGS: Minimal scattered plaque is noted within the bilateral carotid and arterial systems. Peak systolic velocities throughout the bilateral carotid and arterial systems are within normal limits. Additionally, the bilateral internal carotid artery to common carotid artery ratios are within normal limits. Antegrade flow within the bilateral vertebral arteries. IMPRESSION: No evidence of hemodynamically significant stenosis. Antegrade flow within the bilateral vertebral arteries. Parameters based on the consensus panel Vo-Scale and Doppler ultrasound criteria published June 2003, Radiology, Volume 229. DOPPLER (peak systolic velocity M/S Right Left CCA 0.53 0.61 ICA Proximal .50 .55 ICA Mid .57 .46 ICA Distal .38 .52 RATIO 1.08 .91 ECA .63 .40 VERT .32 .36 Dictated by: Dictated on workstation # [id number]
== END ==
LOC: RAD 12:30
PROVIDERS: ATTEND Nurse Practitioner Family
DX: R09.89 Other specified symptoms and signs involving the circulatory and respiratory systems (principal); R07.9 Chest pain, unspecified
CPT/HCPCS: 93005; 93880

== ENCOUNTER → 2021-09-02 | Outpatient (CLI) | payer MEDICARE ==
[~2021-09-02] MED LIST changes: +DICY20TA PO; +MONT-40 PO; -MONT10TA32 PO
--- NOTE | 2021-09-02 14:08 | Diagnostic Imaging Report ---
INDICATION: Cough and wheezing PA and lateral chest Heart size and pulmonary vascularity are normal. Lungs are clear. There are no effusions or pneumothoraces. IMPRESSION: No acute abnormalities in the chest. Dictated by: Dictated on workstation # [id number]
== END ==
LOC: RAD 13:31
PROVIDERS: ATTEND Family Medicine
DX: J45.909 Unspecified asthma, uncomplicated (principal)
CPT/HCPCS: 71046

== ENCOUNTER → 2021-11-24 | Outpatient (CLI) | payer MEDICARE ==
--- NOTE | 2021-11-25 18:50 | Diagnostic Imaging Report ---
PROCEDURE: MRI left joint lower extremity without contrast. TECHNIQUE: Multiplanar, multisequence non contrast-enhanced MRI of the left lower extremity was accomplished. INDICATION: Chronic left hip pain. EXAMINATION: MRI of the left hip 11/24/2021 FINDINGS: The osseous structures demonstrate normal signal intensity with no fractures appreciated. There are no dislocations. The hip joint spaces bilaterally symmetric in appearance. Labrum poorly characterized without contrast. There is mild T2 hyperintensity at the origin of the left hamstrings tendons likely due to a strain or small partial tear. There is no discontinuity or retraction. The hamstrings tendon origin on the right unremarkable. Iliopsoas tendons and musculature unremarkable as visualized. The insertion of the tendons at the left greater trochanter intact. The visualized intrapelvic structures unremarkable. Postoperative changes noted in the visualized lumbar spine causing susceptibility artifact. There is a fat-containing right inguinal hernia. The visualized intrapelvic structures appear unremarkable. IMPRESSION: 1. Likely strain if not partial tear of the hamstrings tendon origin on the left with no discontinuity or retraction. 2. Incidentally noted is a fat-containing right inguinal hernia. Dictated by: Dictated on workstation # [id number]
== END ==
LOC: RAD 13:15
PROVIDERS: ATTEND Nurse Practitioner Family
DX: M25.552 Pain in left hip (principal); K40.90 Unilateral inguinal hernia, without obstruction or gangrene, not specified as recurrent; G89.29 Other chronic pain
CPT/HCPCS: 73721

== ENCOUNTER → 2022-05-09 | Outpatient (CLI) | payer MEDICARE ==
[~2022-05-09] VITALS: Ht 162 cm; Wt 62.7 kg
[~2022-05-09] MED LIST changes: +FLUT1BLS3 IH
== END | disposition home or self-care (01) ==
LOC: PREOP 05:33
PROVIDERS: ATTEND Specialist
DX: Z01.818 Encounter for other preprocedural examination (principal)

== ENCOUNTER 2022-05-13 07:42 | Day surgery (SDC) | payer MEDICARE ==
[~2022-05-13] VITALS: Ht 162 cm; Wt 62.7 kg
[2022-05-13] MEDS: TETRACAINE 0.5% OPHTH SOLN 4 ML BTL (SINGLE DOSE ONLY) OU PRN ×4 (07:57→08:16)
[2022-05-13 08:00] VITALS: BP 122/83
[2022-05-13] MEDS ORDERED: TIMOLOL MALEATE 0.5% 5 ML (TIMOPTIC) BTL OU PRN (08:00)
[2022-05-13] MEDS ORDERED: MOXIFLOXACIN OPHTH SOLN 5 MG/ML 0.3 ML SYRINGE OP ONE (08:00)
[2022-05-13] MEDS ORDERED: POVIDONE (BETADINE) OPHTH SOLN 5% 30 ML OP ONE (08:00)
[2022-05-13] MEDS ORDERED: acetaZOLAMIDE ER 500 MG CAP (DIAMOX SEQUELS) PO ONE (08:00)
[2022-05-13] MEDS: TROPICAMIDE 1% OPH SOLN (MYDRIACYL) 15 ML BTL OP SCH ×3 (08:03→08:16)
[2022-05-13] MEDS: PHENYLEPHRINE 10% OPHTH (NEO-SYN) 5 ML BTL OU SCH ×3 (08:03→08:16)
[2022-05-13] MEDS ORDERED: MIDAZOLAM 2 MG/2 ML (VERSED) VIAL ONE (08:22)
--- NOTE | 2022-05-13 08:40 | Ophthalmologist Pre-Op Note ---
Pre-Operative Progress Note H&P Reviewed The H&P was reviewed, patient examined and no changes noted. Date H&P Reviewed: May 13, 2022 Time H&P Reviewed: 08:40 Pre-Op Dx Cataract, Right Eye SAMEERA RASHID MD May 13, 2022 08:40
--- NOTE | 2022-05-13 09:00 | Ophthalmology Operative Report ---
Cataract removal/placement IOL PREOPERATIVE DIAGNOSIS: Cataract Right Eye POSTOPERATIVE DIAGNOSIS: Cataract Right Eye PROCEDURE: Cataract removal and placement of posterior chamber implant, right eye SURGEON: Manav Rashid ANESTHESIA: Topical with sedation COMPLICATIONS: None ESTIMATED BLOOD LOSS: Minimal DESCRIPTION OF PROCEDURE: After proper informed consent was obtained, the patient, a 71 female, was taken to the Operating Room and the right eye was anesthetized with tetracaine. The right eye was then prepped and draped in the usual manner. A wire lid speculum was placed. A paracentesis was made at the left hand position. Preservative free lidocaine was injected into the anterior chamber followed by viscoelastic. A clear corneal incision was made in the temporal position. A capsulorrhexis was preformed and the central nuclear and cortical material were removed. The posterior capsule was polished and Kike AU00T0 20.0 IOL was placed into the capsular bag. The residual viscoelastic was aspirated and balanced saline solution was injected into the anterior chamber. Moxifloxacin was injected into the anterior chamber. The wound was checked and found to be water tight. The patient tolerated the procedure well without complications. MANAV RASHID MD May 13, 2022 09:00
[2022-05-13 09:06] VITALS: BP 123/72
--- NOTE | 2022-05-13 14:40 | Anesthesia-General Post-Op ---
MAC Patient Condition Mental Status/LOC: Same as Preop Cardiovascular: Satisfactory Nausea/Vomiting: Absent Respiratory: Satisfactory Pain: Controlled Complications: Absent Post Op Complications Complications None Follow Up Care/Instructions Patient Instructions None needed. Anesthesiology Discharge Order Discharge Order Patient is doing well, no complaints, stable vital signs, no apparent adverse anesthesia problems. No complications reported per nursing. MANSI ARMAS CRNA May 13, 2022 14:40
== END 2022-05-13 09:07 | disposition home or self-care (01) ==
LOC: SDC 07:42
PROVIDERS: ATTEND Specialist
DX: H25.9 Unspecified age-related cataract (principal)
CPT/HCPCS: 66984; V2632

== ENCOUNTER 2022-06-24 11:44 | Outpatient (CLI) | payer MEDICARE ==
[~2022-06-24 11:44] MED LIST changes: +ALBU8.5H6 INH; -RT-ALBUINH INH
== END 2022-06-29 18:23 | disposition home or self-care (01) ==
LOC: PREOP 11:44
PROVIDERS: ATTEND Specialist
DX: Z01.818 Encounter for other preprocedural examination (principal)

== ENCOUNTER 2022-07-01 06:40 | Day surgery (SDC) | payer MEDICARE ==
[~2022-07-01] VITALS: Ht 162 cm; Wt 62.7 kg
[2022-07-01 06:40] VITALS: BP 108/80
[2022-07-01] MEDS ORDERED: MIDAZOLAM 2 MG/2 ML (VERSED) VIAL ONE (06:51)
[2022-07-01] MEDS: TETRACAINE 0.5% OPHTH SOLN 4 ML BTL (SINGLE DOSE ONLY) OU PRN ×4 (06:57→07:09)
[2022-07-01] MEDS ORDERED: POVIDONE (BETADINE) OPHTH SOLN 5% 30 ML OP ONE (07:00)
[2022-07-01] MEDS ORDERED: MOXIFLOXACIN OPHTH SOLN 5 MG/ML 0.3 ML SYRINGE OP ONE (07:00)
[2022-07-01] MEDS ORDERED: TIMOLOL MALEATE 0.5% 5 ML (TIMOPTIC) BTL OU PRN (07:00)
[2022-07-01] MEDS: PHENYLEPHRINE 10% OPHTH (NEO-SYN) 5 ML BTL OU SCH ×3 (07:04→07:10)
[2022-07-01] MEDS: TROPICAMIDE 1% OPH SOLN (MYDRIACYL) 15 ML BTL OP SCH ×3 (07:04→07:10)
--- NOTE | 2022-07-01 07:42 | Ophthalmologist Pre-Op Note ---
Pre-Operative Progress Note H&P Reviewed The H&P was reviewed, patient examined and no changes noted. Date H&P Reviewed: Jul 01, 2022 Time H&P Reviewed: 07:42 Pre-Op Dx Cataract, Left Eye SAMEERA RASHID MD Jul 01, 2022 07:42
--- NOTE | 2022-07-01 08:04 | Ophthalmology Operative Report ---
Cataract removal/placement IOL PREOPERATIVE DIAGNOSIS: Cataract Left Eye POSTOPERATIVE DIAGNOSIS: Cataract Left Eye PROCEDURE: Cataract removal and placement of posterior chamber implant, left eye SURGEON: Manav Rashid ANESTHESIA: Topical with sedation COMPLICATIONS: None ESTIMATED BLOOD LOSS: Minimal DESCRIPTION OF PROCEDURE: After proper informed consent was obtained, the patient, a 71 female, was taken to the Operating Room and the left eye was anesthetized with tetracaine. The left eye was then prepped and draped in the usual manner. A wire lid speculum was placed. A paracentesis was made at the left hand position. Preservative free lidocaine was injected into the anterior chamber followed by viscoelastic. A clear corneal incision was made in the temporal position. A capsulorrhexis was preformed and the central nuclear and cortical material were removed. The posterior capsule was polished and an Kike 19.5 AU00T0 was placed into the capsular bag. The residual viscoelastic was aspirated and balanced saline solution was injected into the anterior chamber. Moxifloxacin was injected into the anterior chamber. The wound was checked and found to be water tight. The patient tolerated the procedure well without complications. MANAV RASHID MD Jul 01, 2022 08:04
[2022-07-01 08:12] VITALS: BP 122/79
[2022-07-01] MEDS ORDERED: acetaZOLAMIDE ER 500 MG CAP (DIAMOX SEQUELS) PO ONE (09:30)
--- NOTE | 2022-07-01 12:35 | Anesthesia-General Post-Op ---
MAC Patient Condition Mental Status/LOC: Same as Preop Cardiovascular: Satisfactory Nausea/Vomiting: Absent Respiratory: Satisfactory Pain: Controlled Complications: Absent Post Op Complications Complications None Follow Up Care/Instructions Patient Instructions None needed. Anesthesiology Discharge Order Discharge Order Patient is doing well, no complaints, stable vital signs, no apparent adverse anesthesia problems. No complications reported per nursing. GONZALO DESAI CRNA Jul 01, 2022 12:35
== END 2022-07-01 08:13 | disposition home or self-care (01) ==
LOC: SDC 06:40
PROVIDERS: ATTEND Specialist
DX: H25.9 Unspecified age-related cataract (principal)
CPT/HCPCS: 66984; V2632

== ENCOUNTER → 2022-07-04 | Outpatient (CLI) | payer MEDICARE ==
--- NOTE | 2022-07-04 17:39 | Diagnostic Imaging Report ---
PROCEDURE: MRI lumbar spine. TECHNIQUE: Multiplanar, multisequence MRI of the lumbar spine was performed without contrast. INDICATION: Lumbar pain COMPARISON: Lumbar spine MRI from 01/21/2021. FINDINGS: Alignment of the lumbar spine is unchanged with laminectomies and posterior instrumented fusion of L4-L5. Interbody fusion has also been performed at L4-L5. The interbody spacers in stable position without subsidence. Modic type II endplate changes at L4-L5 are stable in appearance. No fracture or concerning marrow replacing process. No sacral insufficiency fracture. L1-L2: No spinal canal or neuroforaminal stenosis. L2-L3: No spinal canal or neuroforaminal stenosis. L3-L4: Disc bulge with posterior annular tear causes mild spinal canal stenosis and narrowing of the neural foramen. Overall appearance has not changed since the prior examination. L4-L5: Discectomy with no residual posterior disc material. Laminectomy results in good spinal canal decompression. There is no intrathecal nerve root impingement. No impingement of the exiting nerve roots. L5-S1: No spinal canal or neuroforaminal stenosis. IMPRESSION: 1. Stable posterior lumbar interbody fusion with instrument supplementation of L4-L5. No residual spinal canal stenosis or neuroforaminal narrowing at this level. 2. Adjacent segment disease of L3-L4 is similar in appearance to prior examination of 2020 with results in mild spinal canal and [id number] neuroforaminal stenosis. Dictated by: Dictated on workstation # [id number]
--- NOTE | 2022-07-05 08:38 | Diagnostic Imaging Report ---
3-D bilateral screening mammogram with coronary artery disease CAD is utilized. The current study was also evaluated with a Computer Aided Detection (CAD) system. This study was compared to the prior exams of 05/17/2017 and 04/01/2015. At this time there are no current complaints. The current study was also evaluated with a Computer Aided Detection (CAD) system. FINDINGS: The fibroglandular tissue in both breasts is heterogeneously dense. This does limit the sensitivity of this exam. Overall, there does not appear to have been any significant change when compared to the prior study. No primary or secondary sign of malignancy is noted. IMPRESSION: There is no radiographic evidence for malignancy. Patient should have her annual bilateral screening mammogram on schedule in June 2023 ACR BI-RADS Category 1: Negative. Result letter will be mailed to the patient. Note: At least 10% of breast cancer is not imaged by mammography. Dictated by: Dictated on workstation # [id number]
== END ==
LOC: RAD 09:52
PROVIDERS: ATTEND Nurse Practitioner Family
DX: Z12.31 Encounter for screening mammogram for malignant neoplasm of breast (principal); M48.061 Spinal stenosis, lumbar region without neurogenic claudication; Z98.1 Arthrodesis status
CPT/HCPCS: 72148; 77063; 77067

== ENCOUNTER 2022-08-23 15:55 | Outpatient (RCR) | payer MEDICARE ==
[~2022-08-23] VITALS: Ht 162.6 cm; Wt 62.7 kg
[2022-08-23 16:00] VITALS: BP 110/78
[2022-08-23] MEDS ORDERED: MEPOLIZUMAB 100 MG (NUCALA) VIAL SQ SCH (16:30)
== END 2022-08-27 | disposition home or self-care (01) ==
LOC: SDC 15:55
PROVIDERS: ATTEND Internal Medicine Critical Care Medicine
DX: J82.83 Eosinophilic asthma (principal)
CPT/HCPCS: 96372

== ENCOUNTER 2022-09-22 11:25 | Outpatient (RCR) | payer MEDICARE ==
[~2022-09-22] VITALS: Wt 62.7 kg
[2022-09-22 11:37] VITALS: BP 126/78
[2022-09-22] MEDS ORDERED: CATHETER FLUSH 10 ML SYR IVP PRN (11:45)
[2022-09-22] MEDS ORDERED: NS IV 1000 ML 1,000 ML IV SCH (12:00)
[2022-09-22] MEDS ORDERED: MEPOLIZUMAB 100 MG (NUCALA) VIAL SQ SCH (12:00)
== END 2022-09-27 | disposition home or self-care (01) ==
LOC: SDC 11:25
PROVIDERS: ATTEND Internal Medicine Critical Care Medicine
DX: J82.83 Eosinophilic asthma (principal); J45.998 Other asthma
CPT/HCPCS: 96372

== ENCOUNTER 2022-10-21 12:01 | Outpatient (RCR) | payer MEDICARE ==
[2022-10-21 12:20] VITALS: BP 118/97
[2022-10-21] MEDS ORDERED: MEPOLIZUMAB 100 MG (NUCALA) VIAL SQ SCH (12:20)
[2022-10-21] MEDS ORDERED: CATHETER FLUSH 10 ML SYR IVP PRN (12:20)
[2022-10-21] MEDS ORDERED: NS IV 1000 ML 1,000 ML IV SCH (12:20)
== END 2022-10-25 | disposition home or self-care (01) ==
LOC: SDC 12:01
PROVIDERS: ATTEND Internal Medicine Critical Care Medicine
DX: J45.998 Other asthma (principal); J82.83 Eosinophilic asthma
CPT/HCPCS: 96372

== ENCOUNTER 2022-11-21 13:58 | Outpatient (RCR) | payer MEDICARE ==
[~2022-11-21] VITALS: Ht 162.6 cm; Wt 61.8 kg
[2022-11-21] MEDS ORDERED: NS IV 1000 ML 1,000 ML IV SCH (14:15)
[2022-11-21] MEDS ORDERED: CATHETER FLUSH 10 ML SYR IVP PRN (14:15)
[2022-11-21] MEDS ORDERED: MEPOLIZUMAB 100 MG (NUCALA) VIAL SQ SCH (14:15)
[2022-11-21 14:40] VITALS: BP 119/82
== END 2022-11-21 14:40 | disposition home or self-care (01) ==
LOC: SDC 13:58
PROVIDERS: ATTEND Internal Medicine Critical Care Medicine
DX: J45.998 Other asthma (principal); J82.83 Eosinophilic asthma
CPT/HCPCS: 96372

== ENCOUNTER → 2022-12-20 | Outpatient (CLI) | payer MEDICARE ==
[~2022-12-20] VITALS: Wt 61.8 kg
[~2022-12-20] MED LIST changes: +CATHETER FLUSH 10 ML SYR IVP PRN; +MEPOLIZUMAB 100 MG (NUCALA) VIAL SQ SCH; +NS IV 1000 ML 1,000 ML IV SCH
[2022-12-20 11:29] VITALS: BP 132/78
== END ==
LOC: EDSTATUS 12-19 11:00 → SDC 11:16
PROVIDERS: ATTEND Internal Medicine Critical Care Medicine
DX: J82.83 Eosinophilic asthma (principal); J45.998 Other asthma
CPT/HCPCS: 96372

== ENCOUNTER → 2023-01-24 | Outpatient (CLI) | payer MEDICARE ==
[~2023-01-24] MED LIST changes: -CATHETER FLUSH 10 ML SYR IVP PRN; -MEPOLIZUMAB 100 MG (NUCALA) VIAL SQ SCH; -NS IV 1000 ML 1,000 ML IV SCH
--- NOTE | 2023-01-24 08:56 | Diagnostic Imaging Report ---
INDICATION: Postmenopausal screening COMPARISON: None FINDINGS: AP Spine L1-L4: [BMD (g/cm2): na] [T-Score: na] [Z-Score: na] [BMD Previous: na] [BMD % Change: na] LT Hip Neck: [BMD (g/cm2): 0.702] [T-Score: -2.4] [Z-Score: -0.7] LT Hip Total: [BMD (g/cm2):0.811] [T-Score:-1.6] [Z-Score: 0.0] [BMD Previous: na] [BMD % Change: na] RT Hip Neck: [BMD (g/cm2):0.767] [T-Score:-1.9] [Z-Score:-0.2] RT Hip Total: [BMD (g/cm2):0.896] [T-score:-0.9] [Z-Score:0.7] [BMD Previous:na] [BMD % Change:na] *Indicates significant change from prior examination based on 95% confidence level. World Health Organization criteria for BMD interpretation classify patients as Normal (T-score at or above -1.0), Osteopenic (T-score between -1.0 and -2.5) or Osteoporotic (T-score at or below -2.5). LIMITATIONS AND MODIFICATION: None. FRACTURE RISK (FRAX SCORE): The ten year probability of (%): Major Osteoporotic Fracture: [22.9] Hip Fracture: [8.2] IMPRESSION: 1. Osteopenia (Low bone mass). 2. See below National Osteoporosis Foundation guidelines on when to potentially initiate pharmacologic therapy. Based on the National Osteoporosis Foundation Guidelines, pharmacologic treatment should be initiated in any of the following, unless clinical conditions suggest otherwise: * Any patient with prior fragility fracture of the hip or vertebrae. A spine fracture indicates 5X risk for subsequent spine fracture and 2X risk for subsequent hip fracture. * Osteoporosis (T-score <-2.5). * Postmenopausal women and men age 50 and older with low bone mass/osteopenia (T-score between -1.0 and -2.5) by DXA and 10-year major osteoporotic fracture greater than 20% or a 10-year probability of hip fracture greater than 3%. These fracture risks are supplied above in the FRAX score, if applicable. * Clinician judgement and/or patient preferences may indicate treatment for people with 10-year fracture probabilities above or below these levels. Dictated by: Dictated on workstation # [id number]
== END ==
LOC: RAD 08:30
PROVIDERS: ATTEND Family Medicine
DX: M85.80 Other specified disorders of bone density and structure, unspecified site (principal); Z79.51 Long term (current) use of inhaled steroids
CPT/HCPCS: 77080

== ENCOUNTER 2023-01-25 11:36 | Outpatient (RCR) | payer MEDICARE ==
[2023-01-25] MEDS ORDERED: MEPOLIZUMAB 100 MG (NUCALA) VIAL SQ SCH (12:00)
[2023-01-25 12:07] VITALS: BP 119/82
== END 2023-01-25 12:15 | disposition home or self-care (01) ==
LOC: SDC 11:36
PROVIDERS: ATTEND Internal Medicine Critical Care Medicine
DX: J45.998 Other asthma (principal); J82.83 Eosinophilic asthma
CPT/HCPCS: 96372

== ENCOUNTER 2023-02-24 11:39 | Outpatient (RCR) | payer MEDICARE ==
[~2023-02-24 11:39] MED LIST changes: -LOSA100T57 PO; +LOSA100T58 PO
[2023-02-24 11:50] VITALS: BP 121/73
[2023-02-24] MEDS ORDERED: MEPOLIZUMAB 100 MG (NUCALA) VIAL SQ SCH (12:00)
== END 2023-02-24 12:25 | disposition home or self-care (01) ==
LOC: SDC 11:39
PROVIDERS: ATTEND Internal Medicine Critical Care Medicine
DX: J82.83 Eosinophilic asthma (principal); J45.998 Other asthma
CPT/HCPCS: 96372

== ENCOUNTER 2023-03-08 22:20 | Emergency (ER) | payer MEDICARE ==
[2023-03-08] MEDS ORDERED: NS IV 500 ML 500 ML IV STA (22:38)
--- NOTE | 2023-03-08 22:44 | ED Abdominal Pain ---
General Chief Complaint: Abdominal/GI Problems Stated Complaint: LEFT SIDE PAIN/VOMITING Nursing Triage Note: PT TO RM 6 BY WC WITH CC OF LLQ ABD PAIN APPROX 1930 THIS EVENING. PT REPORTS NAUSEA AND VOMITING. PT STATES PAIN RADIATES TO MIDDLE ABD. PT A&OX4 Source of Information: Patient Exam Limitations: No Limitations History of Present Illness Date Seen by Provider: Mar 08, 2023 Time Seen by Provider: 22:22 Initial Comments 72-year-old female with left-sided abdominal and left flank pain with associated nausea and nonbloody nonbilious vomiting that started over 3 hours prior to arrival. Has never really had pain like this before, its been more constant, she does have hematuria but that is chronic for her. Denies any dysuria associated with this, fever, chest pain, shortness of breath, or any other concerns. She has had a hysterectomy in the past, no history of bowel obstructions. Last ate earlier this morning, had a bowel movement this morning, is passing flatus today. Allergies and Home Medications Allergies Coded Allergies: ciprofloxacin (Verified Allergy, Mild, 05/10/22) clarithromycin (Verified Allergy, Mild, 05/10/22) codeine (Verified Allergy, Mild, 05/10/22) Penicillins (Verified Allergy, Unknown, 05/10/22) iodine (Verified Allergy, Unknown, 05/10/22) facial swelling meperidine HCl (Verified Allergy, Unknown, 05/10/22) Nitrofurantoin Macrocrystal (Verified Adverse Reaction, Mild, N/V, 05/10/22) chlorthalidone (Verified Adverse Reaction, Unknown, BODY ACHES;MUSCLE AC HES;JOINT ACHES;SOA;COULDN'T MOVE ARMS, 05/10/22) tramadol (Verified Adverse Reaction, Unknown, 05/10/22) Patient Home Medication List Home Medication List Reviewed: Yes Albuterol Sulfate (Ventolin Hfa) 1 Puff Puff, 1-2 PUFF INH Q4H PRN for SHORTNESS OF BREATH Prescribed by: RAMIN SULLIVAN on 06/02/17937 Alprazolam (Alprazolam) 0.5 Mg Tablet, 0.5 MG PO DAILY PRN for FLYING Prescribed by: RAMIN SULLIVAN on 06/02/17937 Dicyclomine HCl (Dicyclomine HCl) 20 Mg Tablet, 20 MG PO DAILY PRN for CRAMPS, (Reported) Entered as Reported by: WILBERT ORDAZ on 06/01/17 1431 Diltiazem HCl (Cartia Xt) 120 Mg Cap.er.24h, 120 MG PO DAILY, (Reported) Entered as Reported by: WILBERT ORDAZ on 06/01/17 1338 Fluticasone/Umeclidin/Vilanter (Trelegy Ellipta 100-62.5-25) 100-62.5 Blst.w.dev, 1 EACH IH, (Reported) Entered as Reported by: ALONDRA TERAN on 05/10/22 1715 Hydrocodone/Acetaminophen (Hydrocodone-Acetamin 5-325 mg) 5 Mg-325 Mg Tablet, 1 TAB PO Q6H PRN for PAIN-MODERATE (5-7) Prescribed by: TERRA GORDON on 03/09/23 0059 Ipratropium/Albuterol Sulfate (Iprat-Albut 0.5-3(2.5) mg/3 ml) 3 Ml Ampul.neb, 3 ML IH QID Prescribed by: RAMIN SULLIVAN on 06/02/17 0938 L.acidoph & Paracasei,B.lactis (Probiotic) 1 Each Capsule, 1 CAP PO DAILY, (Reported) Entered as Reported by: WILBERT ORDAZ on 06/01/17 1338 Levocetirizine Dihydrochloride (Levocetirizine Dihydrochloride) 5 Mg Tablet, 5 MG PO HS, (Reported) Entered as Reported by: WILBERT ORDAZ on 06/01/17 1248 Levothyroxine Sodium (Levothyroxine Sodium) 25 Mcg Tablet, 25 MCG PO DAILY, (Reported) Entered as Reported by: WILBERT ORDAZ on 06/01/17 1418 Losartan Potassium (Losartan Potassium) 100 Mg Tablet, 100 MG PO HS, (Reported) Entered as Reported by: WILBERT ORDAZ on 06/01/17 1248 Melatonin (Melatonin) 10 Mg Tablet, 20 MG PO HS, (Reported) Entered as Reported by: WILBERT ORDAZ on 06/01/17 1338 Montelukast Sodium (Montelukast Sodium) 10 Mg Tablet, 10 MG PO HS, (Reported) Entered as Reported by: WILBERT ORDAZ on 06/01/17 1248 Ondansetron (Ondansetron Odt) 4 Mg Tab.rapdis, 4 MG SL Q4H PRN for NAUSEA/VOMITING-1ST LINE Prescribed by: TERRA GORDON on 03/09/2355 Pantoprazole Sodium (Pantoprazole Sodium) 40 Mg Tablet.dr, 40 MG PO BID Prescribed by: RAMIN SULLIVAN on 06/02/17937 Promethazine HCl (Promethazine Suppository) 25 Mg Supp.rect, 25 MG RC Q8H PRN for NAUSEA/VOMITING-2ND LINE Prescribed by: TERRA GORDON on 03/09/2355 Sulfamethoxazole/Trimethoprim (Bactrim Ds Tablet) 1 Each Tablet, 1 EACH PO BID Prescribed by: TERRA GORDON on 03/09/2355 Zolpidem Tartrate (Zolpidem Tartrate) 10 Mg Tablet, 5-10 MG PO HS PRN for SLEEP, (Reported) Entered as Reported by: WILBERT ORDAZ on 06/01/171247 [Dr Note] 1 PATCH, 1 MC 1 Prescribed by: ARMIN SULLIVAN on 06/02/17937 Review of Systems Review of Systems Constitutional: No fever EENTM: No Symptoms Reported Respiratory: No Symptoms Reported Cardiovascular: No Symptoms Reported Gastrointestinal: See HPI Genitourinary: See HPI Musculoskeletal: no symptoms reported Skin: no symptoms reported Psychiatric/Neurological: No Symptoms Reported Endocrine: No Symptoms Reported Hematologic/Lymphatic: No Symptoms Reported Past Lmvjprx-Uzzpfa-Rwqren Hx Patient Social History Tobacco Use?: No Substance use?: No Alcohol Use?: Yes Alcohol type: Beer Alcohol Frequency: Rarely Pt feels they are or have been: No Immunizations Up To Date First/Initial COVID19 Vaccinat: OCTOBER 2020 Second COVID19 Vaccination Shawn: NOVEMBER 2020 Third COVID19 Vaccination Date: OCTOBER 2020 Seasonal Allergies Seasonal Allergies: No Past Medical History Surgery/Hospitalization HX: ASTHMA, HTN Surgeries: Yes (BUNION SURG) Orthopedic Respiratory: Yes Asthma Cardiac: Yes Hypertension Neurological: Yes Reproductive Disorders: No DISEASE AND INSECT CONTROL BOSS History: Hysterectomy, Menopausal Sexually Transmitted Disease: No HIV/AIDS: No Genitourinary: No Kidney Infection Gastrointestinal: Yes Gastroesophageal Reflux Musculoskeletal: Yes Arthritis, Chronic Back Pain Endocrine: Yes Hypothyroidsim Cancer: No Psychosocial: No Integumentary: No Blood Disorders: No Family Medical History Cancer (dad had kidney cancer) 19 FATHER Cataract 19 FATHER 19 MOTHER Chest pain 19 FATHER Dementia 19 MOTHER Family history: Allergy 19 MOTHER Family history: Arthritis 19 MOTHER Family history: Asthma (daughter and son have asthma) 19 MOTHER Family history: Cardiovascular disease 19 FATHER Family history: Diabetes mellitus 19 FATHER 19 MOTHER Family history: Gastrointestinal disease 19 MOTHER Family history: Hypertension 19 FATHER Family history: Osteoporosis 19 MOTHER Family history: Thyroid disorder 19 MOTHER Headache (daughter) Heart disease 19 FATHER History of - anemia (daughter) History of - respiratory disease 19 MOTHER Kidney disease 19 FATHER Myocardial infarction 19 FATHER Stroke 19 FATHER Heart Disease, Cancer, CVA, Diabetes, Hypertension Physical Exam Vital Signs Vital Signs - First Documented 03/08/23 22:25 Pulse 71 Resp 18 B/P (MAP) 121/71 (88) Pulse Ox 93 O2 Delivery Room Air Capillary Refill : Less Than 3 Seconds Height/Weight/BMI Height: 5'4.00" Weight: 127lbs. 4.0oz. 57.032417rk; 23.71 BMI Method:Actual General Appearance: WD/WN, mild distress HEENT: PERRL/EOMI, normal ENT inspection, pharynx normal Neck: non-tender, full range of motion, supple, normal inspection Respiratory: chest non-tender, lungs clear, normal breath sounds, no respiratory distress, no accessory muscle use Cardiovascular: regular rate, rhythm, no edema Gastrointestinal: normal bowel sounds, non tender, soft; No distended, No guarding, No rebound Extremities: normal range of motion, non-tender, normal inspection, no pedal edema, no calf tenderness, normal capillary refill Back: normal inspection, CVA tenderness (L) Neurologic/Psychiatric: no motor/sensory deficits, alert, normal mood/affect Skin: normal color, warm/dry Focused Exam Lactate Level 03/09/23 01:09: Lactic Acid Level 2.22*H Lactic Acid Level Laboratory Tests Test 03/09/23 01:09 Lactic Acid Level 2.22 MMOL/L (0.50-2.00) *H Progress/Results/Core Measures Results/Orders Lab Results Laboratory Tests Test 03/08/23 22:40 03/09/23 01:09 03/09/23 01:20 Range/Units White Blood Count 18.1 H 4.3-11.0 10^3/uL Red Blood Count 4.23 3.80-5.11 10^6/uL Hemoglobin 13.1 11.5-16.0 g/dL Hematocrit 40 35-52 % Mean Corpuscular Volume 95 80-99 fL Mean Corpuscular Hemoglobin 31 25-34 pg Mean Corpuscular Hemoglobin Concent 33 32-36 g/dL Red Cell Distribution Width 12.6 10.0-14.5 % Platelet Count 294 130-400 10^3/uL Mean Platelet Volume 9.7 9.0-12.2 fL Immature Granulocyte % (Auto) 0 % Neutrophils (%) (Auto) 76 H 42-75 % Lymphocytes (%) (Auto) 21 12-44 % Monocytes (%) (Auto) 2 0-12 % Eosinophils (%) (Auto) 0 0-10 % Basophils (%) (Auto) 0 0-10 % Neutrophils # (Auto) 13.7 H 1.8-7.8 10^3/uL Lymphocytes # (Auto) 3.8 1.0-4.0 10^3/uL Monocytes # (Auto) 0.4 0.0-1.0 10^3/uL Eosinophils # (Auto) 0.0 0.0-0.3 10^3/uL Basophils # (Auto) 0.0 0.0-0.1 10^3/uL Immature Granulocyte # (Auto) 0.1 0.0-0.1 10^3/uL Neutrophils % (Manual) 65 % Lymphocytes % (Manual) 23 % Monocytes % (Manual) 3 % Band Neutrophils 8 % Reactive Lymphocytes 1 % Platelet Estimate ADEQUATE Poikilocytosis SLIGHT Moon Cells SLIGHT Sodium Level 140 135-145 MMOL/L Potassium Level 3.9 3.6-5.0 MMOL/L Chloride Level 109 H 98-107 MMOL/L Carbon Dioxide Level 20 L 21-32 MMOL/L Anion Gap 11 5-14 MMOL/L Blood Urea Nitrogen 24 H 7-18 MG/DL Creatinine 1.05 0.60-1.30 MG/DL Estimat Glomerular Filtration Rate 57 BUN/Creatinine Ratio 23 Glucose Level 115 H 70-105 MG/DL Calcium Level 10.1 8.5-10.1 MG/DL Corrected Calcium 10.2 H 8.5-10.1 MG/DL Magnesium Level 2.8 H 1.6-2.4 MG/DL Total Bilirubin 0.4 0.1-1.0 MG/DL Aspartate Amino Transf (AST/SGOT) 23 5-34 U/L Alanine Aminotransferase (ALT/SGPT) 17 0-55 U/L Alkaline Phosphatase 63 40-136 U/L Total Protein 6.5 6.4-8.2 GM/DL Albumin 3.9 3.2-4.5 GM/DL Lipase 34 8-78 U/L Lactic Acid Level 2.22 *H 0.50-2.00 MMOL/L Urine Color YELLOW Urine Clarity CLEAR Urine pH 6.0 5-9 Urine Specific [place] 1.025 H 1.016-1.022 Urine Protein 1+ H NEGATIVE Urine Glucose (UA) NEGATIVE NEGATIVE Urine Ketones TRACE H NEGATIVE Urine Nitrite NEGATIVE NEGATIVE Urine Bilirubin 1+ H NEGATIVE Urine Urobilinogen 4.0 < = 1.0 MG/DL Urine Leukocyte Esterase NEGATIVE NEGATIVE Urine RBC (Auto) NEGATIVE NEGATIVE Urine RBC NONE /HPF Urine WBC 0-2 /HPF Urine Squamous Epithelial Cells 0-2 /HPF Urine Crystals NONE /LPF Urine Bacteria FEW H /HPF Urine Casts PRESENT /LPF Urine Hyaline Casts 0-2 H /LPF Urine Mucus NEGATIVE /LPF Urine Culture Indicated YES My Orders Orders - TERRA GORDON MD Cbc With Automated Diff (03/08/23 22:38) Comprehensive Metabolic Panel (03/08/23 22:38) Lipase (03/08/23 22:38) Magnesium (03/08/23 22:38) Ua Culture If Indicated (03/08/23 22:38) Fentanyl Inj (Sublimaze Injection) (03/08/23 22:45) Ondansetron Injection (Zofran Injectio (03/08/23 22:45) Ns Iv 500 Ml (Sodium Chloride 0.9%) (03/08/23 22:38) Ct Abd/Pelvis Wo(Kidney Stone) (03/08/23 22:38) Manual Differential (03/08/23 22:40) Morphine Injection (Morphine Injection (03/08/23 23:25) Ketorolac Injection (Toradol Injection) (03/08/23 23:30) Promethazine Injection (Phenergan Injec (03/08/23 23:30) Lactated Ringers (Lr 1000 Ml Iv Solution (03/09/23 00:11) Lactic Acid Analyzer (03/09/23 00:59) Urine Culture (03/09/23 01:20) Medications Given in ED Current Medications Medications Dose Ordered Sig/Jose Rafael Route Start Time Stop Time Status Last Admin Dose Admin Fentanyl Citrate 50 mcg ONCE ONCE IVP 03/08/23 22:45 03/08/23 22:46 DC 03/08/23 22:50 50 MCG Ketorolac Tromethamine 15 mg ONCE ONCE IVP 03/08/23 23:30 03/08/23 23:31 DC 03/08/23 23:36 15 MG Ondansetron HCl 4 mg ONCE ONCE IVP 03/08/23 22:45 03/08/23 22:46 DC 03/08/23 22:51 4 MG Promethazine HCl 12.5 mg ONCE ONCE IVP 03/08/23 23:30 03/08/23 23:31 DC 03/08/23 23:34 12.5 MG Vital Signs/I&O 03/08/23 22:25 Pulse 71 Resp 18 B/P (MAP) 121/71 (88) Pulse Ox 93 O2 Delivery Room Air Blood Pressure Mean: 88 Progress Progress Note : Progress Note 72-year-old female with above history coming in due to abdominal pain and vomiting. ABCs were intact and vitals were stable on presentation although the patient was actively vomiting. An IV was placed and she was initially given Zofran and fentanyl for pain control. Pain continued and she continued to vomit. She was then given morphine and Phenergan. She became very relaxed and sedated at that point, blood pressure did trend down with her sedation. When she woke up, blood pressure trended up appropriately. She was then given a bolus of IV fluids. Basic labs significant for leukocytosis, normal kidney function, electrolytes unremarkable. CT abdomen pelvis via stat rad concerning for transverse and descending colitis with no perforation. There was a questionable read for a very small amounts of pneumatosis, but they favor that it was peripherally oriented gas. The patient is feeling much better, clinically does not have any signs of symptoms of pneumatosis or ischemic colitis. Lactic acid just above 2 which is reassuring as well. Patient feeling significantly better, she states she is essentially back to her baseline. Rep eat abdominal exam reassuring with no signs of peritonitis. Due to numerous allergies, she will go home on Bactri for this. I believe she is otherwise stable for discharge with outpatient follow-up. She was sent home with strict return precautions. Diagnostic Imaging Diagonstic Imaging: CT (abd/pelvis) Departure Impression Primary Impression: Colitis Additional Impression: Vomiting in adult Disposition: 01 HOME, SELF-CARE Condition: Improved Departure-Patient Inst. Decision time for Depature: 01:45 Referrals: RAMIN SULLIVAN MD (PCP/Family) Primary Care Physician Patient Instructions: Colitis (DC) Add. Discharge Instructions: Antibiotics will be sent to your pharmacy as well as nausea medications. If things are getting worse, particularly if the abdominal pain is not showing improvement in the next day or so, we would want you to be referred back to the ER or your regular doctor. Take hydrocodone as needed for severe pain. Scripts Oxycodone HCl/Acetaminophen (Percocet 5-325 mg Tablet) 1 Each Tablet 1 TAB PO Q6H for PAIN-MODERATE MDD 6 TABS for 3 Days, #12 TAB Prov: TERRA GORDON MD 03/09/23 Promethazine HCl (Promethazine Suppository) 25 Mg Supp.rect 25 MG RC Q8H PRN for NAUSEA/VOMITING-2ND LINE for 5 Days, #15 SUPP.RECT Prov: TERRA GORDON MD 03/09/23 Ondansetron (Ondansetron Odt) 4 Mg Tab.rapdis 4 MG SL Q4H PRN for NAUSEA/VOMITING-1ST LINE for 5 Days, #20 TAB Prov: TERRA GORDON MD 03/09/23 Sulfamethoxazole/Trimethoprim (Bactrim Ds Tablet) 1 Each Tablet 1 EACH PO BID for 7 Days, #14 TAB Prov: TERRA GORDON MD 03/09/23 TERRA GORDON MD Mar 08, 2023 22:44
[2023-03-08] MEDS ORDERED: ONDANSETRON 4 MG/2 ML (SDV) Z0FRAN IVP ONE (22:45)
[2023-03-08] MEDS ORDERED: fentaNYL INJ 100 MCG/2 ML AMP IVP ONE (22:45)
[2023-03-08 22:48] LABS: BASOPHILS % (AUTO) 0 % (0-10); EOSINOPHILS % (AUTO) 0 % (0-10); HEMATOCRIT 40 % (35-52); HEMOGLOBIN 13.1 g/dL (11.5-16.0); LYMPHOCYTES # (AUTO) 3.8 10^3/uL (1.0-4.0); LYMPHOCYTES % (AUTO) 21 % (12-44); MEAN CORPUSCULAR HEMOGLOBIN 31 pg (25-34); MEAN CORPUSCULAR HGB CONC 33 g/dL (32-36); MEAN CORPUSCULAR VOLUME 95 fL (80-99); MEAN PLATELET VOLUME 9.7 fL (9.0-12.2); MONOCYTES # (AUTO) 0.4 10^3/uL (0.0-1.0); MONOCYTES % (AUTO) 2 % (0-12); NEUTROPHILS # (AUTO) 13.7 10^3/uL (1.8-7.8); NEUTROPHILS % (AUTO) 76 % (42-75); PLATELET COUNT 294 10^3/uL (130-400); WHITE BLOOD COUNT 18.1 10^3/uL (4.3-11.0)
[2023-03-08 23:02] LABS: ALBUMIN 3.9 GM/DL (3.2-4.5); POTASSIUM 3.9 MMOL/L (3.6-5.0)
[2023-03-08 23:03] LABS: CALCIUM 10.1 MG/DL (8.5-10.1)
[2023-03-08 23:05] LABS: TOTAL PROTEIN 6.5 GM/DL (6.4-8.2)
[2023-03-08 23:07] LABS: BILIRUBIN,TOTAL 0.4 MG/DL (0.1-1.0)
[2023-03-08 23:08] LABS: CREATININE SERUM 1.05 MG/DL (0.60-1.30)
[2023-03-08 23:11] LABS: MAGNESIUM 2.8 MG/DL (1.6-2.4)
[2023-03-08] MEDS ORDERED: morphine INJ 10 MG/ML 1ML (SYR OR VIAL) IVP STA (23:25)
[2023-03-08] MEDS ORDERED: PROMETHAZINE INJ 25 MG/ML (PHENERGAN) AMP IVP ONE (23:30)
[2023-03-08] MEDS ORDERED: KETOROLAC 30 MG/ML VIAL IVP ONE (23:30)
[2023-03-09 00:03] LABS: BAND NEUTROPHILS 8 %; LYMPHOCYTES % (MANUAL) 23 %; MONOCYTES % (MANUAL) 3 %; NEUTROPHILS % (MANUAL) 65 %
[2023-03-09 00:04] LABS: BURR CELLS SLIGHT; PLATELET ESTIMATE ADEQUATE; POIKILOCYTOSIS SLIGHT; REACTIVE LYMPHOCYTES 1 %
[2023-03-09] MEDS ORDERED: LACTATED RINGERS 1,000 ML IV STA (00:11)
[2023-03-09] MEDS ORDERED: SULF1TAB38 PO (00:56)
[2023-03-09] MEDS ORDERED: ONDA4TAB11 SL (00:56)
[2023-03-09] MEDS ORDERED: PROM25SU44 RC (00:56)
[2023-03-09] MEDS ORDERED: ACHD5005 PO (00:58)
[2023-03-09 01:25] LABS: BILIRUBIN,URINE 1+ (NEGATIVE); CLARITY,URINE CLEAR; COLOR,URINE YELLOW; GLUCOSE, URINE (UA) NEGATIVE (NEGATIVE); KETONES,URINE TRACE (NEGATIVE); LEUKOCYTE ESTERASE ,URINE NEGATIVE (NEGATIVE); NITRITE,URINE NEGATIVE (NEGATIVE); PROTEIN,URINE 1+ (NEGATIVE)
[2023-03-09 01:29] LABS: BACTERIA,URINE FEW /HPF; HYALINE CASTS, URINE 0-2 /LPF; SQUAMOUS EPITHELIAL CELL,UR 0-2 /HPF; WBC,URINE 0-2 /HPF
[2023-03-09] MEDS ORDERED: OXYC1TAB87 PO (01:43)
[2023-03-09 01:47] VITALS: BP 94/78
--- NOTE | 2023-03-09 08:22 | Diagnostic Imaging Report ---
PROCEDURE: CT urinary tract, rule out kidney stone. TECHNIQUE: Multiple contiguous axial images were obtained through the abdomen and pelvis without the use of intravenous contrast. Auto Exposure Controls were utilized during the CT exam to meet ALARA standards for radiation dose reduction. INDICATION: Abdominal pain. COMPARISON: CT abdomen pelvis 08/06/2022 Included views of the lung bases demonstrate bibasilar dependent atelectasis. Moderate hiatal hernia. Cardiomegaly. The liver demonstrates a 3 cm cyst. Gallbladder is postsurgical. The spleen, adrenal glands, and pancreas are normal. The kidneys demonstrate bilateral renal cysts. There is diffuse wall thickening throughout the transverse and descending colon with possible pneumatosis involving the splenic flexure. No free intraperitoneal air or loculated fluid collections. No ascites in the abdomen. Moderate fat-containing right inguinal hernia. The osseous structures demonstrate no lytic or sclerotic bone lesion. Post surgical changes from prior posterior fusion laminectomy at L4-L5. IMPRESSION: Diffuse wall thickening of the transverse and descending colon with possible pneumatosis at the splenic flexure concerning for infectious, inflammatory, or ischemic colitis. Recommend clinical correlation with lactic acid and other laboratory markers as well as close imaging and clinical follow-up. Dictated by: Dictated on workstation # [id number]
[2023-03-09] MEDS ORDERED: FLUT1BLS15 INH (15:57)
[2023-03-09] MEDS ORDERED: PRAV20TA3 PO (15:57)
[2023-03-09] MEDS ORDERED: LORA10TA7 PO (15:57)
[2023-03-09] MEDS ORDERED: DIPH25CA79 PO (15:57)
[2023-03-09] MEDS ORDERED: FLUT16SP22 NSEACH (15:57)
[2023-03-09] MEDS ORDERED: SERT-413 PO (15:57)
[2023-03-09] MEDS ORDERED: FURO20TA4 PO (15:57)
[2023-03-09] MEDS ORDERED: RALO60TA12 PO (15:57)
[2023-03-09] MEDS ORDERED: PANT40TA52 PO (15:57)
[2023-03-09] MEDS ORDERED: ALPR0.5T7 PO (15:57)
[2023-03-09] MEDS ORDERED: DILT-27 PO (15:57)
== END 2023-03-09 01:49 | disposition home or self-care (01) ==
LOC: EDUNIT# 22:20 → ER 22:22
DX: K52.9 Noninfective gastroenteritis and colitis, unspecified (principal); R11.2 Nausea with vomiting, unspecified; Z88.2 Allergy status to sulfonamides; Z88.0 Allergy status to penicillin; Z88.5 Allergy status to narcotic agent
CPT/HCPCS: 36415; 74176; 80053; 81000; 83605; 83690; 83735; 85007; 85027; 87088

== ENCOUNTER 2023-03-09 09:00 | Inpatient (IN) | payer MEDICARE ==
[~2023-03-09] VITALS: Ht 162 cm; Wt 67.9 kg
[2023-03-09] VITALS (9 sets, daily range): BP systolic 93–115; BP diastolic 70–99
[~2023-03-09 09:00] MED LIST changes: +ACHD5005 PO; +ONDA4TAB11 SL; +PROM25SU44 RC
[2023-03-09] MEDS ORDERED: NS IV 1000 ML 1,000 ML IV STA (09:41)
--- NOTE | 2023-03-09 09:53 | Diagnostic Imaging Report ---
EXAM: CHEST 1 VIEW, AP/PA ONLY INDICATION: Central line placement. COMPARISON: 06/02/2017 FINDINGS: Normal heart size and central pulmonary vascularity. Stable elevation of the right hemidiaphragm. Mild atelectasis or infiltrate in the right lung base. No pleural effusion or pneumothorax. Right IJ CVC tip near the RA/SVC junction. No acute osseous findings. IMPRESSION: 1. Right IJ CVC tip near the RA/SVC junction. 2. Low lung volumes and elevation of the right hemidiaphragm. Mild atelectasis or infiltrate in the right lung base. Dictated by: Dictated on workstation # [id number]
[2023-03-09] MEDS ORDERED: metroNIDAZOLE 500MG/100ML IVPB 100 ML IV ONE (10:00)
[2023-03-09] MEDS ORDERED: CIPROFLOXACIN IV 400MG/200ML 200 ML IV ONE (10:00)
[2023-03-09 10:01] LABS: BASOPHILS % (AUTO) 0 % (0-10); EOSINOPHILS % (AUTO) 0 % (0-10); HEMATOCRIT 47 % (35-52); HEMOGLOBIN 15.1 g/dL (11.5-16.0); LYMPHOCYTES # (AUTO) 1.2 10^3/uL (1.0-4.0); LYMPHOCYTES % (AUTO) 13 % (12-44); MEAN CORPUSCULAR HEMOGLOBIN 31 pg (25-34); MEAN CORPUSCULAR HGB CONC 32 g/dL (32-36); MEAN CORPUSCULAR VOLUME 96 fL (80-99); MEAN PLATELET VOLUME 10.2 fL (9.0-12.2); MONOCYTES % (AUTO) 11 % (0-12); NEUTROPHILS % (AUTO) 76 % (42-75); PLATELET COUNT 310 10^3/uL (130-400); WHITE BLOOD COUNT 9.2 10^3/uL (4.3-11.0)
[2023-03-09 10:05] LABS: BILIRUBIN,URINE 1+ (NEGATIVE); CLARITY,URINE CLEAR; COLOR,URINE DARK YELLOW; GLUCOSE, URINE (UA) NEGATIVE (NEGATIVE); KETONES,URINE TRACE (NEGATIVE); LEUKOCYTE ESTERASE ,URINE NEGATIVE (NEGATIVE); NITRITE,URINE NEGATIVE (NEGATIVE); PH,URINE 5.5 (5-9); PROTEIN,URINE NEGATIVE (NEGATIVE)
[2023-03-09 10:11] LABS: ALBUMIN 3.1 GM/DL (3.2-4.5)
[2023-03-09 10:12] LABS: INR 1.1 (0.8-1.4); POTASSIUM 4.5 MMOL/L (3.6-5.0); PROTHROMBIN TIME PATIENT 14.4 SEC (12.2-14.7)
[2023-03-09 10:13] LABS: CALCIUM 9.6 MG/DL (8.5-10.1)
[2023-03-09 10:14] LABS: TOTAL PROTEIN 5.2 GM/DL (6.4-8.2)
[2023-03-09 10:18] LABS: CREATININE SERUM 1.96 MG/DL (0.60-1.30)
[2023-03-09 10:23] LABS: BACTERIA,URINE NEGATIVE /HPF; CALCIUM OXALATE CRYSTALS,UR RARE /LPF; RBC,URINE 0-2 /HPF; SQUAMOUS EPITHELIAL CELL,UR 0-2 /HPF
--- NOTE | 2023-03-09 10:44 | History & Physical ---
History of Present Illness Exam Limitations: clinical condition Date Seen 03/09/23 Time Seen by a Provider: 11:00 Attending Physician Liliana Nguyen MD PCP Admitting Physician: Attending Physician: Referring Physician Date of Admission Home Medications & Allergies Home Medications Reviewed patient Home Medication Reconciliation performed by pharmacy medication reconciliations environmental services technician and/or nursing. Patients Allergies have been reviewed. Allergies Allergies Coded Allergies ciprofloxacin (Verified Allergy, Mild, 05/10/22) clarithromycin (Verified Allergy, Mild, 05/10/22) codeine (Verified Allergy, Mild, 05/10/22) Penicillins (Verified Allergy, Unknown, 05/10/22) iodine (Verified Allergy, Unknown, 05/10/22) facial swelling meperidine HCl (Verified Allergy, Unknown, 05/10/22) Nitrofurantoin Macrocrystal (Verified Adverse Reaction, Mild, N/V, 05/10/22) chlorthalidone (Verified Adverse Reaction, Unknown, BODY ACHES;MUSCLE ACHES;JOINT ACHES;SOA;COULDN'T MOVE ARMS, 05/10/22) tramadol (Verified Adverse Reaction, Unknown, 05/10/22) Past Bbcylrg-Uivusg-Vfyhyt Hx Patient Social History 2nd Hand Smoke Exposure: No Recent Hopitalizations: No Immunizations Up To Date Date of Pneumonia Vaccine: Aug 28, 2009 Seasonal Allergies Seasonal Allergies: No Past Medical History Surgeries: Orthopedic Respiratory: Asthma Cardiac: Hypertension Reproductive: No Sexually Transmitted Disease: No HIV/AIDS: No Hysterectomy, Menopausal Genitourinary: Kidney Infection Gastrointestinal: Gastroesophageal Reflux Musculoskeletal: Arthritis, Chronic Back Pain Endocrine: Hypothyroidsim History of Blood Disorders: No Family History Cancer (dad had kidney cancer) 19 FATHER Cataract 19 FATHER 19 MOTHER Chest pain 19 FATHER Dementia 19 MOTHER Family history: Allergy 19 MOTHER Family history: Arthritis 19 MOTHER Family history: Asthma (daughter and son have asthma) 19 MOTHER Family history: Cardiovascular disease 19 FATHER Family history: Diabetes mellitus 19 FATHER 19 MOTHER Family history: Gastrointestinal disease 19 MOTHER Family history: Hypertension 19 FATHER Family history: Osteoporosis 19 MOTHER Family history: Thyroid disorder 19 MOTHER Headache (daughter) Heart disease 19 FATHER History of - anemia (daughter) History of - respiratory disease 19 MOTHER Kidney disease 19 FATHER Myocardial infarction 19 FATHER Stroke 19 FATHER Heart Disease, Cancer, CVA, Diabetes, Hypertension Physical Exam Physical Exam Vital Signs Vital Signs - First Documented 03/09/23 03/09/23 03/09/23 09:07 09:10 13:48 Temp 37.6 Pulse 90 Resp 26 B/P (MAP) 71/43 (52) Pulse Ox 86 O2 Delivery Nasal Cannula O2 Flow Rate 6.00 FiO2 40 Capillary Refill : Less Than 3 Seconds Height, Weight, BMI Height: 5'4.00" Weight: 127lbs. 4.0oz. 57.271363gw; 23.00 BMI Method:Actual Results Results/Procedures Labs Laboratory Tests 03/09/23 09:54 Patient resulted labs reviewed. LARISA GONZALEZ DO Mar 09, 2023 10:44
--- NOTE | 2023-03-09 11:05 | Diagnostic Imaging Report ---
Clinical indications: Patient with increased abdominal pain and low blood pressure. Patient has history of hysterectomy. Exam: CT exam of the abdomen and pelvis is performed without IV or oral contrast using stone protocol. Coronal and sagittal reformatted images were created. Auto Exposure Controls were utilized during the CT exam to meet ALARA standards for radiation dose reduction. Comparisons: CT scan of the abdomen and pelvis without contrast dated 03/08/2023. Findings: There is interval progression of atelectasis and/or scarring involving the posterior aspects of both lung bases with the right-side more than the left. There is lower lumbar spine facet arthropathy. There is L4-L5 posterior lumbar interbody fusion hardware noted. Stable cyst involving the right lobe of the liver. Liver is otherwise unremarkable and stable. There is interval development of free fluid adjacent to the liver. The spleen, adrenal glands, and pancreas are unremarkable. Gallbladder is surgically resected. Again seen, lobulated cystic structure involving the upper aspect of the right kidney. There is a grossly 1.5 cm cyst involving the inferior aspect of the left kidney. Both kidneys are otherwise stable with no interval acute abnormality. There is no hydronephrosis. There is interval development of a small amount of free fluid in the pelvis. There is diffuse wall thickening involving the rectum extending all the way to the cecum. The previously seen stool load throughout the colon has significantly decreased with air-fluid levels which are mildly distended. Previously seen concern for pneumatosis in the region of the splenic flexure has resolved. The terminal ileum and the small bowel showed no significant abnormality. There is a Nair catheter within the bladder. Bladder is decompressed and unremarkable, as visualized. The remainder of this exam shows no significant interval change compared to the prior study of comparison. IMPRESSION: 1: There is diffuse wall thickening seen from the rectum all the way through to the cecum which is also noted on the prior study. Previously seen stool load throughout the colon has significantly decreased. There is now mildly fluid-distended air-fluid levels throughout the colon. The previously seen area concerning for pneumatosis in the region of the splenic flexure is not seen on this exam and resolved. These findings are concerning for colitis. 2: There is interval development of a small amount of free fluid within the pelvis and perihepatic region. 3: The remainder of this exam shows no significant interval change compared to the prior study of comparison. Dictated by: Dictated on workstation # [id number]
[2023-03-09 11:18] LABS: BAND NEUTROPHILS 18 %; BASOPHILS % (MANUAL) 0 %; EOSINOPHILS % (MANUAL) 0 %; LYMPHOCYTES % (MANUAL) 19 %; MONOCYTES % (MANUAL) 9 %; NEUTROPHILS % (MANUAL) 54 %; RBC MORPH NORMAL
--- NOTE | 2023-03-09 11:18 | ED General ---
General Chief Complaint: Cardiac/General Problems Stated Complaint: ABD PAIN Nursing Triage Note: PT TO RM 3 BY [facility] WITH CC OF ABD PAIN AND HYPOTENSION, 50"S OVER 30'S BY EMS, FLUIDS RUNING ON ARRIVAL. PT WAS SEEN HERE LAST NIGHT FOR CONSTIPATION, PT STATES DIARRHEA THAT STARTED LAST NIGHT, 71/43 ON ARRIVAL TO ER. PT IS ALERT X'S 4 Source of Information: EMS History of Present Illness Date Seen by Provider: Mar 09, 2023 Time Seen by Provider: 08:50 Initial Comments Patient is a 72-year-old female who presents to the emergency department with a chief complaint of abdominal pain, diarrhea all night long. EMS called and reported blood pressures in the 50s systolic. IVs established prior to arrival, normal saline running and her blood pressure is 77 systolic upon arrival to the emergency department. Patient is complaining of severe diffuse abdominal pain. She is awake, alert, oriented. She is not tachycardic. She states that she had diarrhea all night long. She was seen in the emergency department last evening around 10 PM with complaints of abdominal pain and nausea. Had CT abdomen and pelvis done which showed findings concerning for colitis. Placed on antibiotics, given nausea medications, pain medications. Patient has been unable to eat or drink. Feels profoundly weak. Timing/Duration: 12 Hours Severity: Severe Associated Systoms: Malaise, Weakness, Other (abdominal pain) Allergies and Home Medications Allergies Coded Allergies: ciprofloxacin (Verified Allergy, Mild, 05/10/22) clarithromycin (Verified Allergy, Mild, 05/10/22) codeine (Verified Allergy, Mild, 05/10/22) Penicillins (Verified Allergy, Unknown, 05/10/22) iodine (Verified Allergy, Unknown, 05/10/22) facial swelling meperidine HCl (Verified Allergy, Unknown, 05/10/22) Nitrofurantoin Macrocrystal (Verified Adverse Reaction, Mild, N/V, 05/10) chlorthalidone (Verified Adverse Reaction, Unknown, BODY ACHES;MUSCLE ACHES;JOINT ACHES;SOA;COULDN'T MOVE ARMS, 05/10/22) tramadol (Verified Adverse Reaction, Unknown, 05/10/22) Patient Home Medication List Home Medication List Reviewed: Yes Albuterol Sulfate (Ventolin Hfa) 1 Puff Puff, 1-2 PUFF INH Q4H PRN for SHORTNESS OF BREATH Prescribed by: RAMIN SULLIVAN on 06/02/17 0938 Alprazolam (Alprazolam) 0.5 Mg Tablet, 0.5 MG PO DAILY PRN for FLYING Prescribed by: RAMIN SULLIVAN on 06/02/17 0938 Dicyclomine HCl (Dicyclomine HCl) 20 Mg Tablet, 20 MG PO DAILY PRN for CRAMPS, (Reported) Entered as Reported by: WILBERT ORDAZ on 06/01/17 1431 Diltiazem HCl (Cartia Xt) 120 Mg Cap.er.24h, 120 MG PO DAILY, (Reported) Entered as Reported by: WILBERT ORDAZ on 06/01/17 1338 Fluticasone/Umeclidin/Vilanter (Trelegy Ellipta 100-62.5-25) 100-62.5 Blst.w.dev, 1 EACH IH, (Reported) Entered as Reported by: ALONDRA TERAN on 05/10/22 1715 Ipratropium/Albuterol Sulfate (Iprat-Albut 0.5-3(2.5) mg/3 ml) 3 Ml Ampul.neb, 3 ML IH QID Prescribed by: RAMIN SULLIVAN on 06/02/17 09 L.acidoph & Paracasei,B.lactis (Probiotic) 1 Each Capsule, 1 CAP PO DAILY, (Reported) Entered as Reported by: WILBERT ORDAZ on 06/01/17 1338 Levocetirizine Dihydrochloride (Levocetirizine Dihydrochloride) 5 Mg Tablet, 5 MG PO HS, (Reported) Entered as Reported by: WILBERT ORDAZ on 06/01/17 1248 Levothyroxine Sodium (Levothyroxine Sodium) 25 Mcg Tablet, 25 MCG PO DAILY, (Reported) Entered as Reported by: WILBERT ORDAZ on 06/01/17 1418 Losartan Potassium (Losartan Potassium) 100 Mg Tablet, 100 MG PO HS, (Reported) Entered as Reported by: WILBERT ORDAZ on 06/01/17 1248 Melatonin (Melatonin) 10 Mg Tablet, 20 MG PO HS, (Reported) Entered as Reported by: WILBERT ORDAZ on 06/01/17 1338 Montelukast Sodium (Montelukast Sodium) 10 Mg Tablet, 10 MG PO HS, (Reported) Entered as Reported by: WILBERT ORDAZ on 06/01/171247 Ondansetron (Ondansetron Odt) 4 Mg Tab.rapdis, 4 MG SL Q4H PRN for NAUSEA/VOMITING-1ST LINE Prescribed by: TERRA GORDON on 03/09/2355 Oxycodone HCl/Acetaminophen (Percocet 5-325 mg Tablet) 1 Each Tablet, 1 TAB PO Q6H Prescribed by: TERRA GORDON on 03/09/23 014 Pantoprazole Sodium (Pantoprazole Sodium) 40 Mg Tablet.dr, 40 MG PO BID Prescribed by: RAMIN SULLIVAN on 06/02/17937 Promethazine HCl (Promethazine Suppository) 25 Mg Supp.rect, 25 MG RC Q8H PRN for NAUSEA/VOMITING-2ND LINE Prescribed by: TERRA GORDON on 03/09/2355 Sulfamethoxazole/Trimethoprim (Bactrim Ds Tablet) 1 Each Tablet, 1 EACH PO BID Prescribed by: TERRA GORDON on 03/09/2355 Zolpidem Tartrate (Zolpidem Tartrate) 10 Mg Tablet, 5-10 MG PO HS PRN for SLEEP, (Reported) Entered as Reported by: WILBERT ORDAZ on 06/01/171247 [Dr Note] 1 PATCH, 1 MC 1 Prescribed by: RAMIN SULLIVAN on 06/02/17937 Discontinued Medications Hydrocodone/Acetaminophen (Hydrocodone-Acetamin 5-325 mg) 5 Mg-325 Mg Tablet, 1 TAB PO Q6H PRN for PAIN-MODERATE (5-7) Prescribed by: TERRA GORDON on 03/09/2358 Review of Systems Review of Systems Constitutional: see HPI, malaise, weakness EENTM: no symptoms reported Respiratory: no symptoms reported Cardiovascular: no symptoms reported Gastrointestinal: abdominal pain, diarrhea, nausea Genitourinary: no symptoms reported Musculoskeletal: back pain, joint pain (Right shoulder pain) Skin: no symptoms reported All Other Systems Reviewed Negative Unless Noted: Yes Past Orxjgej-Lfpbgs-Gwjcby Hx Patient Social History Tobacco Use?: No Substance use?: No Alcohol Use?: No Immunizations Up To Date First/Initial COVID19 Vaccinat: OCTOBER 2020 Second COVID19 Vaccination Shawn: NOVEMBER 2020 Third COVID19 Vaccination Date: OCTOBER 2020 Seasonal Allergies Seasonal Allergies: No Past Medical History Surgery/Hospitalization HX: ASTHMA, HTN Surgeries: Yes (BUNION SURG) Orthopedic Respiratory: Yes Asthma Cardiac: Yes Hypertension Neurological: Yes Reproductive Disorders: 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, 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 Sexually Transmitted Disease: No HIV/AIDS: No Genitourinary: No Kidney Infection Gastrointestinal: Yes Gastroesophageal Reflux Musculoskeletal: Yes Arthritis, Chronic Back Pain Endocrine: Yes Hypothyroidsim Cancer: No Psychosocial: No Integumentary: No Blood Disorders: No Family Medical History Cancer (dad had kidney cancer) 19 FATHER Cataract 19 FATHER 19 MOTHER Chest pain 19 FATHER Dementia 19 MOTHER Family history: Allergy 19 MOTHER Family history: Arthritis 19 MOTHER Family history: Asthma (daughter and son have asthma) 19 MOTHER Family history: Cardiovascular disease 19 FATHER Family history: Diabetes mellitus 19 FATHER 19 MOTHER Family history: Gastrointestinal disease 19 MOTHER Family history: Hypertension 19 FATHER Family history: Osteoporosis 19 MOTHER Family history: Thyroid disorder 19 MOTHER Headache (daughter) Heart disease 19 FATHER History of - anemia (daughter) History of - respiratory disease 19 MOTHER Kidney disease 19 FATHER Myocardial infarction 19 FATHER Stroke 19 FATHER Heart Disease, Cancer, CVA, Diabetes, Hypertension Physical Exam Vital Signs Vital Signs - First Documented 03/09/23 03/09/23 09:07 09:10 Temp 37.6 Pulse 90 Resp 26 B/P (MAP) 71/43 (52) Pulse Ox 86 O2 Delivery Nasal Cannula O2 Flow Rate 6.00 Capillary Refill : Less Than 3 Seconds Height, Weight, BMI Height: 5'4.00" Weight: 127lbs. 4.0oz. 57.608078tz; 23.00 BMI Method:Actual General Appearance: WD/WN, Moderate Distress Eyes: Bilateral Eye Normal Inspection, Bilateral Eye PERRL, Bilateral Eye EOMI HEENT: PERRL/EOMI Neck: Normal Inspection Respiratory: Lungs Clear, Normal Breath Sounds, No Accessory Muscle Use, No Respiratory Distress Cardiovascular: Regular Rate, Rhythm, Normal Peripheral Pulses (We will pulses bilaterally) Gastrointestinal: Soft, Abnormal Bowel Sounds (no audible BS), Distended, Guarding, Tenderness (diffuse) Extremity: Normal Inspection, Non Tender, No Pedal Edema Neurologic/Psychiatric: Alert, Oriented x3, No Motor/Sensory Deficits Skin: Warm/Dry, Pallor Focused Exam Lactate Level 03/09/23 09:54: Lactic Acid Level 3.29*H Lactic Acid Level Laboratory Tests Test 03/09/23 09:54 Lactic Acid Level 3.29 MMOL/L (0.50-2.00) *H Procedures/Interventions Lumen: triple Central Line Procedure: betadine prep, sterile drapes applied, sterile dressing applied Position: internal jugular (R) Anesthesia: Lidocaine Volume Anesthetic (ccs): 2 Complications: none Post Position: sutured, good blood return, position confirmed w/ CXR Progress/Results/Core Measures Suspected Sepsis SIRS Temperature: Pulse: 90 Respiratory Rate: 26 Laboratory Tests 03/09/23 09:54: White Blood Count 9.2 Blood Pressure 71 /43 Mean: 52 03/09/23 09:54: Lactic Acid Level 3.29*H Laboratory Tests 03/09/23 09:54: Creatinine 1.96H, INR Comment 1.1, Platelet Count 310, Total Bilirubin 1.0 Results/Orders Lab Results Laboratory Tests Test 03/09/23 09:54 03/09/23 09:59 Range/Units White Blood Count 9.2 4.3-11.0 10^3/uL Red Blood Count 4.89 3.80-5.11 10^6/uL Hemoglobin 15.1 11.5-16.0 g/dL Hematocrit 47 35-52 % Mean Corpuscular Volume 96 80-99 fL Mean Corpuscular Hemoglobin 31 25-34 pg Mean Corpuscular Hemoglobin Concent 32 32-36 g/dL Red Cell Distribution Width 13.0 10.0-14.5 % Platelet Count 310 130-400 10^3/uL Mean Platelet Volume 10.2 9.0-12.2 fL Immature Granulocyte % (Auto) 0 % Neutrophils (%) (Auto) 76 H 42-75 % Lymphocytes (%) (Auto) 13 12-44 % Monocytes (%) (Auto) 11 0-12 % Eosinophils (%) (Auto) 0 0-10 % Basophils (%) (Auto) 0 0-10 % Neutrophils # (Auto) 7.0 1.8-7.8 10^3/uL Lymphocytes # (Auto) 1.2 1.0-4.0 10^3/uL Monocytes # (Auto) 1.0 0.0-1.0 10^3/uL Eosinophils # (Auto) 0.0 0.0-0.3 10^3/uL Basophils # (Auto) 0.0 0.0-0.1 10^3/uL Immature Granulocyte # (Auto) 0.0 0.0-0.1 10^3/uL Neutrophils % (Manual) 54 % Lymphocytes % (Manual) 19 % Monocytes % (Manual) 9 % Eosinophils % (Manual) 0 % Basophils % (Manual) 0 % Band Neutrophils 18 % Toxic Granulation 1+ Blood Morphology Comment NORMAL Prothrombin Time 14.4 12.2-14.7 SEC INR Comment 1.1 0.8-1.4 Activated Partial Thromboplast Time 36 H 24-35 SEC Sodium Level 138 135-145 MMOL/L Potassium Level 4.5 3.6-5.0 MMOL/L Chloride Level 113 H 98-107 MMOL/L Carbon Dioxide Level 14 L 21-32 MMOL/L Anion Gap 11 5-14 MMOL/L Blood Urea Nitrogen 35 H 7-18 MG/DL Creatinine 1.96 H 0.60-1.30 MG/DL Estimat Glomerular Filtration Rate 27 BUN/Creatinine Ratio 18 Glucose Level 125 H 70-105 MG/DL Lactic Acid Level 3.29 *H 0.50-2.00 MMOL/L Calcium Level 9.6 8.5-10.1 MG/DL Corrected Calcium 10.3 H 8.5-10.1 MG/DL Total Bilirubin 1.0 0.1-1.0 MG/DL Aspartate Amino Transf (AST/SGOT) 62 H 5-34 U/L Alanine Aminotransferase (ALT/SGPT) 33 0-55 U/L Alkaline Phosphatase 52 40-136 U/L Total Protein 5.2 L 6.4-8.2 GM/DL Albumin 3.1 L 3.2-4.5 GM/DL Urine Color DARK YELLOW Urine Clarity CLEAR Urine pH 5.5 5-9 Urine Specific [place] 1.020 1.016-1.022 Urine Protein NEGATIVE NEGATIVE Urine Glucose (UA) NEGATIVE NEGATIVE Urine Ketones TRACE H NEGATIVE Urine Nitrite NEGATIVE NEGATIVE Urine Bilirubin 1+ H NEGATIVE Urine Urobilinogen 1.0 < = 1.0 MG/DL Urine Leukocyte Esterase NEGATIVE NEGATIVE Urine RBC (Auto) NEGATIVE NEGATIVE Urine RBC 0-2 /HPF Urine WBC NONE /HPF Urine Squamous Epithelial Cells 0-2 /HPF Urine Crystals PRESENT H /LPF Urine Calcium Oxalate Crystals RARE H /LPF Urine Bacteria NEGATIVE /HPF Urine Casts NONE /LPF Urine Mucus NEGATIVE /LPF Urine Culture Indicated NO My Orders Orders - JOSHUA DELCID MD Chest 1 View, Ap/Pa Only (03/09/23 09:30) Cbc With Automated Diff (03/09/23 09:41) Comprehensive Metabolic Panel (03/09/23 09:41) Blood Culture (03/09/23 09:41) Sputum Culture (03/09/23 09:41) Urinalysis (03/09/23 09:41) Urine Culture (03/09/23 09:41) Protime With Inr (03/09/23 09:41) Partial Thromboplastin Time (03/09/23 09:41) Ed Iv/Invasive Line Start (03/09/23 09:41) Ed Iv/Invasive Line Start (03/09/23 09:41) Vital Signs Adult Sepsis Patie Q15M (03/09/23 09:41) O2 (03/09/23 09:41) Remove Rings In Anticipation O (03/09/23 09:41) Lactic Acid Analyzer (03/09/23 09:41) Ns Iv 1000 Ml (Sodium Chloride 0.9%) (03/09/23 09:41) Ciprofloxacin Iv 400mg/200ml (Cipro Iv S (03/09/23 10:00) Metronidazole 500mg/100ml Ivpb (Flagyl 5 (03/09/23 10:00) Ct Abdomen/Pelvis Wo (03/09/23 09:46) Manual Differential (03/09/23 09:54) Ed Admission (Communication) (03/09/23 11:19) Norepinephrine 8 Mg/250 Ml (Norepinephri (03/09/23 11:45) Ondansetron Injection (Zofran Injectio (03/09/23 11:45) Medications Given in ED Current Medications Medications Dose Ordered Sig/Jose Rafael Route Start Time Stop Time Status Last Admin Dose Admin Ciprofloxacin/ Dextrose 200 ml @ 200 mls/hr ONCE ONCE IV 03/09/23 10:00 03/09/23 10:59 DC 03/09/23 10:18 200 MLS/HR Metronidazole 100 ml @ 100 mls/hr ONCE ONCE IV 03/09/23 10:00 03/09/23 10:59 DC 03/09/23 10:18 100 MLS/HR Ondansetron HCl 4 mg ONCE ONCE IVP 03/09/23 11:45 03/09/23 11:46 DC 03/09/23 11:54 4 MG Vital Signs/I&O 03/09/23 03/09/23 03/09/23 09:07 09:10 11:50 Temp 37.6 Pulse 90 90 Resp 26 B/P (MAP) 71/43 (52) 86/57 Pulse Ox 86 O2 Delivery Nasal Cannula OxyMask O2 Flow Rate 6.00 Capillary Refill : Less Than 3 Seconds Blood Pressure Mean: 52 Progress Note : Time: 11:27 Progress Note Patient seen and evaluated by me. Evaluation today includes review of medical record from last evening, physical exam, "sepsis work-up" to include CBC, blood cultures, Chem-12, lactic acid, urinalysis, chest x-ray, CT abdomen and pelvis noncontrast. Pertinent physical exam findings -patient appears somnolent/weak and pale. She does open her eyes and answer questions and follow commands. Heart is regular, lungs are clear. Abdomen is significantly tender to even light palpation and appears distended. I cannot auscultate any bowel sounds. No focal neurologic deficits. She is quite hypotensive with blood pressure of 7 0 systolic. Differential diagnosis based on history and physical exam, septic shock, perforated viscus, acute intra-abdominal hemorrhage. Labs independently reviewed and interpreted by me, her CBC shows a total white blood count of 9.2 with a hemoglobin of 15.1, hematocrit of 47. Platelet count of 310. 76% neutrophils. Chem-12 shows a sodium of 138 potassium of 4.5, chloride 113, CO2 of 14 BUN of 35 creatinine of 1.96. Her glucose is 125. AST slightly elevated at 62 otherwise normal liver functions. PT of 14.4 INR 1.1 PTT of 36. Lactic acid increased from last night from 2.2-3.29. Urinalysis shows specific gravity 1.020, trace ketones and 1+ bilirubin no evidence of infection. Central line was placed due to patient's persistent hypotension in spite of EMS fluid challenge. Right IJ central line placed without difficulty confirmed on chest x-ray. She appears to have some atelectasis in the right lung base. Patient was treated with aggressive fluid hydration and seemed to be a little responsive. However once fluid boluses were discontinued and prior to maintenance fluids being hung her pressure dropped back down into the low 70s. Levophed was started and additional fluids given. CT scan of the abdomen and pelvis shows new collection of fluid around the liver in the right upper quadrant according to the radiology read. No concerning findings of significant inflammatory change in the colon. No significant amount of free fluid in the pelvis. No perforation identified. Patient was also given ciprofloxacin 400 mg IV, she states that she has an allergy to Cipro however this is only "nausea". Confirmed by her . She was also given 500 mg of Flagyl IV. Case was discussed with Dr. Glasgow on for the hospitalist service for [facility] who accepts the patient for admission to the ICU. I also discussed the case with Dr. Fountain general surgery who will consult. Consultation also made to the ICU for ICU management. I updated the family on findings and plan of care. They are agreeable. Uncertain etiology specifically of the patient's circulatory shock however no identifiable bowel acute hemorrhage, certainly no significant bacterial infection suspected at this time. Familyno recent out of country travel or cruises. She did have a trip to [facility] a couple of weeks ago. No sick contacts at home. [place]. No similar symptoms in the past. Diagnostic Imaging Diagonstic Imaging: CT Comments [facility] [place], [place] NAME: [facility] REC#: [id number] PT STATUS: REG ER : 1950 PHYSICIAN: JOSHUA DELCID MD ADMIT DATE: 03/09/23/ER Draft Date of Exam:03/09/23 CT ABDOMEN/PELVIS WO Clinical indications: Patient with increased abdominal pain and low blood pressure. Patient has history of hysterectomy. Exam: CT exam of the abdomen and pelvis is performed without IV or oral contrast using stone protocol. Coronal and sagittal reformatted images were created. Auto Exposure Controls were utilized during the CT exam to meet ALARA standards for radiation dose reduction. Comparisons: CT scan of the abdomen and pelvis without contrast dated 03/08/2023. Findings: There is interval progression of atelectasis and/or scarring involving the posterior aspects of both lung bases with the right-side more than the left. There is lower lumbar spine facet arthropathy. There is L4-L5 posterior lumbar interbody fusion hardware noted. Stable cyst involving the right lobe of the liver. Liver is otherwise unremarkable and stable. There is interval development of free fluid adjacent to the liver. The spleen, adrenal glands, and pancreas are unremarkable. Gallbladder is surgically resected. Again seen, lobulated cystic structure involving the upper aspect of the right kidney. There is a grossly 1.5 cm cyst involving the inferior aspect of the left kidney. Both kidneys are otherwise stable with no interval acute abnormality. There is no hydronephrosis. There is interval development of a small amount of free fluid in the pelvis. There is diffuse wall thickening involving the rectum extending all the way to the cecum. The previously seen stool load throughout the colon has significantly decreased with air-fluid levels which are mildly distended. Previously seen concern for pneumatosis in the region of the splenic flexure has resolved. The terminal ileum and the small bowel showed no significant abnormality. The remainder of this exam shows no significant interval change compared to the prior study of comparison. IMPRESSION: 1: There is diffuse wall thickening seen from the rectum all the way through to the cecum which is also noted on the prior study. Previously seen stool load throughout the colon has significantly decreased. There is now mildly fluid-distended air-fluid levels throughout the colon. The previously seen area concerning for pneumatosis in the region of the splenic flexure is not seen on this exam and resolved. These findings are concerning for colitis. 2: There is interval development of a small amount of free fluid within the pelvis and perihepatic region. 3: The remainder of this exam shows no significant interval change compared to the prior study of comparison. There is a Nair catheter within the bladder. Bladder is decompressed and unremarkable, as visualized. Dictated on workstation # [id number] Dict: 03/09/23 1047 Trans: 03/09/23 1104 [facility] [id number] Interpreted by: MITCHELL CHRISTIANSON MD Electronically signed by: Diagonstic Imaging: Xray Plain Films/CT/US/NM/MRI: chest Comments [facility] [place], [place] NAME: [facility] REC#: [id number] PT STATUS: REG ER : 1950 PHYSICIAN: JOSHUA DELCID MD ADMIT DATE: 03/09/23/ER Signed Date of Exam:03/09/23 CHEST 1 VIEW, AP/PA ONLY EXAM: CHEST 1 VIEW, AP/PA ONLY INDICATION: Central line placement. COMPARISON: 06/02/2017 FINDINGS: Normal heart size and central pulmonary vascularity. Stable elevation of the right hemidiaphragm. Mild atelectasis or infiltrate in the right lung base. No pleural effusion or pneumothorax. Right IJ CVC tip near the RA/SVC junction. No acute osseous findings. IMPRESSION: 1. Right IJ CVC tip near the RA/SVC junction. 2. Low lung volumes and elevation of the right hemidiaphragm. Mild atelectasis or infiltrate in the right lung base. Dictated by: Dictated on workstation # [id number] Dict: 03/09/23 0950 Trans: 03/09/23 1000 [facility] [id number] Interpreted by: DEWEY CATHERINE MD Electronically signed by: DEWEY CATHERINE MD 03/09/23 1000 Departure Communication (Admissions) Time/Spoke to Admitting Phy: 10:[address] Glasgow (hospitalist) Time/Spoke to Consulting Phy: 10:[address] Fountain (general surgery) Impression Primary Impression: Shock circulatory Additional Impressions: Abdominal pain Qualified Codes: R10.84 - Generalized abdominal pain Colitis Acute kidney injury Disposition: ADMITTED INPATIENT Condition: Critical Admissions Decision to Admit Reason: Admit from ER (General) Decision to Admit/Date: Mar 09, 2023 Time/Decision to Admit Time: 11:21 Departure-Patient Inst. Referrals: RAMIN SULLIVAN MD (PCP/Family) Primary Care Physician JOSHUA DELCID MD Mar 09, 2023 11:18
[2023-03-09 11:19] LABS: TOXIC GRANULATION/VACUOLAZATIO 1+
[2023-03-09] MEDS ORDERED: NOREPINEPHRINE 8 MG/250 ML 250 ML IV SCH ×2 (11:45→12:30)
[2023-03-09] MEDS ORDERED: ONDANSETRON 4 MG/2 ML (SDV) Z0FRAN IVP ONE (11:45)
--- NOTE | 2023-03-09 12:20 | History & Physical ---
MELVIN PANDYA 03/09/23 1220: History of Present Illness History of Present Illness Reason for visit/HPI Yari Grove is a 72yo F with past medical history of asthma, HTN, GERD, and hypothyroidism who presented to the ED on 03/09. She was recently seen in the ED on 03/08 with complaints of abdominal pain, N/V, and diarrhea that began the evening of 03/08. She was examined and found to have leukocytosis, elevated lactic acid, and a CT of the abdomen revealed evidence of transverse and descending colitis with potential area of pneumatosis. According to previous ED report this area was thought to be peripherally oriented gas rather than true pneumatosis. She was discharged after receiving pain medication, anti nausea medication, and was given a script for bactrim. She did not take any of the bactrim and came back to the ED this morning with worsening of her abdominal pain, N/V, and diarrhea. She was hypotensive at home with EMS reporting a systolic of 50. In the ED she was given metronidazole, ciprofloxacin, fluids and zofran. She remained hypotensive and required initiation of a pressor. CT ab/pelv revealed evidence for colitis with wall thickening from the rectum to cecum. No pneumatosis. Some free fluid in the pelvis and around the liver. Patient was seen at bedside with complaints of continued abdominal pain that is diffuse and worsened since her ED visit last night. She still feels nauseous like she could vomit any minute. Her and her report she had several episodes of diarrhea and emesis since her symptom onset around 7pm 03/08. The diarrhea is brown and liquid according to the . Denies blood in stool or purulence. Vomit has been mostly clear/green liquid with no blood identified by patient or her . She reports shortness of breath and is currently on an oxymask. Does wear oxygen at home at night. She has no appetite and has not eaten much since her symptom onset. She denies any chest pain, palpitations, fever, or chills. She denies any episodes like this in the past. She has not been on abx recently. Reports hx of diverticulitis but has not had abdominal surgery other than hernia repair in [place] several years ago and a hysterectomy. Denies personal and family hx of colon cancer, Chron's, and ulcerative colitis. Date of Admission Mar 09, 2023 at 12:07 Date Seen by a Provider: Mar 09, 2023 Time Seen by a Provider: 12:15 I consulted on this patient on 03/09/23 12:15 Attending Physician Ramin Nguyen MD Admitting Physician Admitting Physician: Azalea Gonzalez DO Attending Physician: Azalea Gonzalez DO Consult Allergies and Home Medications Allergies Coded Allergies: ciprofloxacin (Verified Allergy, Mild, 05/10/22) clarithromycin (Verified Allergy, Mild, 05/10/22) codeine (Verified Allergy, Mild, 05/10/22) Penicillins (Verified Allergy, Unknown, 05/10/22) iodine (Verified Allergy, Unknown, 05/10/22) facial swelling meperidine HCl (Verified Allergy, Unknown, 05/10/22) Nitrofurantoin Macrocrystal (Verified Adverse Reaction, Mild, N/V, 05/10/22) chlorthalidone (Verified Adverse Reaction, Unknown, BODY ACHES;MUSCLE ACHES;JOINT ACHES;SOA;COULDN'T MOVE ARMS, 05/10/22) tramadol (Verified Adverse Reaction, Unknown, 05/10/22) Patient Home Medication List Home Medication List Reviewed: Yes Alprazolam (Alprazolam) 0.5 Mg Tablet, 0.5 MG PO HS PRN for ANXIETY, (Reported) Entered as Reported by: RHA EARLY on 03/09/231556 Last Action: Reviewed Diltiazem HCl (Diltiazem 24Hr ER) 120 Mg Cap.er.24h, 120 MG PO DAILY, (Reported) Entered as Reported by: RAH EARLY on 03/09/231556 Last Action: Reviewed Diphenhydramine HCl (Benadryl) 25 Mg Capsule, 25-50 MG PO Q8H PRN for ALLERGY SYMPTOMS, (Reported) Entered as Reported by: RAH EARLY on 03/09/231556 Last Action: Reviewed Fluticasone Propionate (Fluticasone Propionate) 50 Mcg/Actuation [place].susp, 1 SPRAY NSEACH DAILY, (Reported) Entered as Reported by: RAH EARLY on 03/09/231556 Last Action: Reviewed Fluticasone/Umeclidin/Vilanter (Trelegy Ellipta 200-62.5-25) 200-62.5 Blst.w.dev, 1 PUFF INH DAILY, (Reported) Entered as Reported by: RAH EARLY on 03/09/231556 Last Action: Reviewed Furosemide (Furosemide) 20 Mg Tablet, 20 MG PO DAILY PRN for FLUID RETENTION, (Reported) Entered as Reported by: RAH EARLY on 03/09/231556 Last Action: Reviewed Levothyroxine Sodium (Levothyroxine Sodium) 25 Mcg Tablet, 25 MCG PO DAILY, (Reported) Entered as Reported by: WILBERT ORDAZ on 06/01/17 1418 Last Action: Reviewed Loratadine (Loratadine) 10 Mg Tablet, 10 MG PO DAILY PRN for ALLERGY SYMPTOMS, (Reported) Entered as Reported by: RAH EARLY on 03/09/231556 Last Action: Reviewed Losartan Potassium (Losartan Potassium) 100 Mg Tablet, 100 MG PO DAILY, (Reported) Entered as Reported by: WILBERT ORDAZ on 06/01/17 1248 Last Action: Reviewed Pantoprazole Sodium (Pantoprazole Sodium) 40 Mg Tablet.dr, 40 MG PO DAILY, (Reported) Entered as Reported by: RAH EARLY on 03/09/231556 Last Action: Reviewed Pravastatin Sodium (Pravastatin Sodium) 20 Mg Tablet, 20 MG PO HS, (Reported) Entered as Reported by: RAH EARLY on 03/09/231556 Last Action: Reviewed Raloxifene HCl (Raloxifene HCl) 60 Mg Tablet, 60 MG PO DAILY, (Reported) Entered as Reported by: RAH EARLY on 03/09/231556 Last Action: Reviewed Sertraline HCl (Sertraline HCl) 50 Mg Tablet, 50 MG PO HS, (Reported) Entered as Reported by: RAH EARLY on 03/09/231556 Last Action: Reviewed Discontinued Medications Albuterol Sulfate (Ventolin Hfa) 1 Puff Puff, 1-2 PUFF INH Q4H PRN for SHORTNESS OF BREATH Discontinued Reason: No Longer Taking Prescribed by: RAMIN NGUYEN on 06/02/17937 Last Action: Discontinued Alprazolam (Alprazolam) 0.5 Mg Tablet, 0.5 MG PO DAILY PRN for FLYING Discontinued Reason: No Longer Taking Prescribed by: RAMIN NGUYEN on 06/02/17937 Last Action: Discontinued Dicyclomine HCl (Dicyclomine HCl) 20 Mg Tablet, 20 MG PO DAILY PRN for CRAMPS, (Reported) Discontinued Reason: No Longer Taking Entered as Reported by: WILBERT ORDAZ on 06/01/17 1431 Last Action: Discontinued Diltiazem HCl (Cartia Xt) 120 Mg Cap.er.24h, 120 MG PO DAILY, (Reported) Discontinued Reason: No Longer Taking Entered as Reported by: WILBERT ORDAZ on 06/01/171337 Last Action: Discontinued Fluticasone/Umeclidin/Vilanter (Trelegy Ellipta 100-62.5-25) 100-62.5 Blst.w.dev, 1 EACH IH, (Reported) Discontinued Reason: No Longer Taking Entered as Reported by: ALONDRA TERAN on 05/10/22 1715 Last Action: Discontinued Hydrocodone/Acetaminophen (Hydrocodone-Acetamin 5-325 mg) 5 Mg-325 Mg Tablet, 1 TAB PO Q6H PRN for PAIN-MODERATE (5-7) Prescribed by: TERRA GORDON on 03/09/23 0059 Ipratropium/Albuterol Sulfate (Iprat-Albut 0.5-3(2.5) mg/3 ml) 3 Ml Ampul.neb, 3 ML IH QID Discontinued Reason: No Longer Taking Prescribed by: RAMIN NGUYEN on 06/02/17 0938 Last Action: Discontinued L.acidoph & Paracasei,B.lactis (Probiotic) 1 Each Capsule, 1 CAP PO DAILY, (Reported) Discontinued Reason: No Longer Taking Entered as Reported by: WILBERT ORDAZ on 06/01/171337 Last Action: Discontinued Levocetirizine Dihydrochloride (Levocetirizine Dihydrochloride) 5 Mg Tablet, 5 MG PO HS, (Reported) Discontinued Reason: No Longer Taking Entered as Reported by: WILBERT ORDAZ on 06/01/17 1248 Last Action: Discontinued Melatonin (Melatonin) 10 Mg Tablet, 20 MG PO HS, (Reported) Discontinued Reason: No Longer Taking Entered as Reported by: WILBERT ORDAZ on 06/01/171337 Last Action: Discontinued Montelukast Sodium (Montelukast Sodium) 10 Mg Tablet, 10 MG PO HS, (Reported) Discontinued Reason: No Longer Taking Entered as Reported by: WILBERT ORDAZ on 06/01/171247 Last Action: Discontinued Ondansetron (Ondansetron Odt) 4 Mg Tab.rapdis, 4 MG SL Q4H PRN for [place] SEA/VOMITING-1ST LINE Discontinued Reason: No Longer Taking Prescribed by: TERRA GORDON on 03/09/2355 Last Action: Discontinued Oxycodone HCl/Acetaminophen (Percocet 5-325 mg Tablet) 1 Each Tablet, 1 TAB PO Q6H Discontinued Reason: No Longer Taking Prescribed by: TERRA GORDON on 03/09/23142 Last Action: Discontinued Pantoprazole Sodium (Pantoprazole Sodium) 40 Mg Tablet.dr, 40 MG PO BID Discontinued Reason: No Longer Taking Prescribed by: RAMIN NGUYEN on 06/02/17937 Last Action: Discontinued Promethazine HCl (Promethazine Suppository) 25 Mg Supp.rect, 25 MG RC Q8H PRN for NAUSEA/VOMITING-2ND LINE Discontinued Reason: No Longer Taking Prescribed by: TERRA GORDON on 03/09/2355 Last Action: Discontinued Sulfamethoxazole/Trimethoprim (Bactrim Ds Tablet) 1 Each Tablet, 1 EACH PO BID Discontinued Reason: No Longer Taking Prescribed by: TERRA GORDON on 03/09/2355 Last Action: Discontinued Zolpidem Tartrate (Zolpidem Tartrate) 10 Mg Tablet, 5-10 MG PO HS PRN for SLEEP, (Reported) Discontinued Reason: No Longer Taking Entered as Reported by: WILBERT ORDAZ on 06/01/171247 Last Action: Discontinued [ Note] 1 PATCH, 1 MC 1 Discontinued Reason: No Longer Taking Prescribed by: RAMIN NGUYEN on 06/02/17937 Last Action: Discontinued Past Zymaion-Zzppkf-Hkbymy Hx Patient Social History Marrital Status: Tobacco Use?: No Substance use?: No Alcohol Use?: No Immunizations Up To Date First/Initial COVID19 Vaccinat: OCTOBER 2020 Second COVID19 Vaccination Shawn: NOVEMBER 2020 Tetanus Booster (TDap): More Than 5 Years Date of Pneumonia Vaccine: Aug 28, 2009 Seasonal Allergies Seasonal Allergies: No Current Status Primary Language: Icelandic Preferred Spoken Language: Icelandic Past Medical History Surgeries: Abdominal (Hernia repair. 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 Sexually Transmitted Disease: No HIV/AIDS: No Kidney Infection Gastroesophageal Reflux Arthritis, Chronic Back Pain Hypothyroidsim Blood Disorders: No Family Medical History Cancer (dad had kidney cancer) 19 FATHER Cataract 19 FATHER 19 MOTHER Chest pain 19 FATHER Dementia 19 MOTHER Family history: Allergy 19 MOTHER Family history: Arthritis 19 MOTHER Family history: Asthma (daughter and son have asthma) 19 MOTHER Family history: Cardiovascular disease 19 FATHER Family history: Diabetes mellitus 19 FATHER 19 MOTHER Family history: Gastrointestinal disease 19 MOTHER Family history: Hypertension 19 FATHER Family history: Osteoporosis 19 MOTHER Family history: Thyroid disorder 19 MOTHER Headache (daughter) Heart disease 19 FATHER History of - anemia (daughter) History of - respiratory disease 19 MOTHER Kidney disease 19 FATHER Myocardial infarction 19 FATHER Stroke 19 FATHER Heart Disease (father), Cancer (father had renal cancer), CVA (father), Diabetes (father and mother), Hypertension (father), Other Conditions/Hx Review of Systems Constitutional: chills; No diaphoresis; fever (improved) EENTM: No hearing loss, No vision loss, No hoarseness Respiratory: No cough; short of breath; No wheezing Cardiovascular: No chest pain, No palpitations Gastrointestinal: abdominal pain (diffuse, began in [place]), diarrhea; No hematemesis; loss of appetite; No melena; nausea, vomiting Genitourinary: No dysuria; hematuria (chronic issue according to patient, unclear cause) Skin: No change in color, No dryness, No hx of skin cancer Psychiatric/Neurological: Denies Headache, Denies Pre-Existing Deficit Physical Exam Vital Signs Vital Signs - First Documented 03/09/23 03/09/23 09:07 09:10 Temp 37.6 Pulse 90 Resp 26 B/P (MAP) 71/43 (52) Pulse Ox 86 O2 Delivery Nasal Cannula O2 Flow Rate 6.00 Capillary Refill : Less Than 3 Seconds Height, Weight, BMI Height: 5'4.00" Weight: 127lbs. 4.0oz. [id number]; 23.00 BMI Method:Actual General Appearance: WD/WN, Mild Distress HEENT: PERRL/EOMI, Moist Mucous Membranes Neck: Supple Respiratory: Lungs Clear, Normal Breath Sounds, No Accessory Muscle Use Cardiovascular: Regular Rate, Rhythm, No Edema; No JVD Gastrointestinal: Soft; No Distended, No Guarding, No Mass; Tenderness Rectal: Deferred Extremity: No Pedal Edema Neurologic/Psychiatric: Alert, Oriented x3, Normal Mood/Affect Skin: Normal Color (may have slight pallor), Warm/Dry; No Diaphoresis Assessment/Plan Assessment and Plan Colitis Sepsis with septic shock Lactic acidosis Admit to ICU TeleICU and general surgery consulted appreciate recs CT abdomen/pelvis revealed evidence of extensive colitis with some free fluid in pelvis and around liver. Air fluid levels present in distended colon Hypotension in spite of adequate fluid bolus, Norepi started in ED Continue to monitor blood pressure and titrate pressors as needed WBC was 18 yesterday with 9.2 today Lactic acid elevated at 3.29 Blood cultures pending Started empirically on metronidazole and cipro Afebrile ABG pending UA negative CXR revealed atelectasis in R base Central line in place No recent abx use, do not suspect psuedomembranous colitis NPO in case of need for surgical intervention Nausea with Vomit Diarrhea Abdominal pain zofran prn pain control EDDIE creatinine elevated at 1.96 from baseline around 1 likely prerenal eddie due to kidney hypoperfusion in setting of hypotension continue to monitor Blood pressure support and IV fluids will hopefully correct catheter in place, monitor urine output DVT ppx- lovenox Diet- npo for now Admission Diagnosis Admission Status: Inpatient Order (span 2 midnights) Reason for Inpatient Admission: colitis septic shock GONZALEZBRANDEE DUGANNelly ST 03/09/232126: Allergies and Home Medications Allergies Coded Allergies: ciprofloxacin (Verified Allergy, Mild, 05/10/22) clarithromycin (Verified Allergy, Mild, 05/10/22) codeine (Verified Allergy, Mild, 05/10/22) Penicillins (Verified Allergy, Unknown, 05/10/22) iodine (Verified Allergy, Unknown, 05/10/22) facial swelling meperidine HCl (Verified Allergy, Unknown, 05/10/22) Nitrofurantoin Macrocrystal (Verified Adverse Reaction, Mild, N/V, 05/10/22) chlorthalidone (Verified Adverse Reaction, Unknown, BODY ACHES;MUSCLE ACHES;JOINT ACHES;SOA;COULDN'T MOVE ARMS, 05/10/22) tramadol (Verified Adverse Reaction, Unknown, 05/10/22) Patient Home Medication List Alprazolam (Alprazolam) 0.5 Mg Tablet, 0.5 MG PO HS PRN for ANXIETY, (Reported) Entered as Reported by: RAH EARLY on 03/09/231556 Last Action: Reviewed Diltiazem HCl (Diltiazem 24Hr ER) 120 Mg Cap.er.24h, 120 MG PO DAILY, (Reported) Entered as Reported by: RAH EARLY on 03/09/231556 Last Action: Reviewed Diphenhydramine HCl (Benadryl) 25 Mg Capsule, 25-50 MG PO Q8H PRN for ALLERGY SYMPTOMS, (Reported) Entered as Reported by: RAH EARLY on 03/09/231556 Last Action: Reviewed Fluticasone Propionate (Fluticasone Propionate) 50 Mcg/Actuation [place].susp, 1 SPRAY NSEACH DAILY, (Reported) Entered as Reported by: RAH EARLY on 03/09/231556 Last Action: Reviewed Fluticasone/Umeclidin/Vilanter (Trelegy Ellipta 200-62.5-25) 200-62.5 Blst.w.dev, 1 PUFF INH DAILY, (Reported) Entered as Reported by: RAH EARLY on 03/09/231556 Last Action: Reviewed Furosemide (Furosemide) 20 Mg Tablet, 20 MG PO DAILY PRN for FLUID RETENTION, (Reported) Entered as Reported by: RAH EARLY on 03/09/231556 Last Action: Reviewed Levothyroxine Sodium (Levothyroxine Sodium) 25 Mcg Tablet, 25 MCG PO DAILY, (Reported) Entered as Reported by: WILBERT ORDAZ on 06/01/17 1418 Last Action: Reviewed Loratadine (Loratadine) 10 Mg Tablet, 10 MG PO DAILY PRN for ALLERGY SYMPTOMS, (Reported) Entered as Reported by: RAH EARLY on 03/09/231556 Last Action: Reviewed Losartan Potassium (Losartan Potassium) 100 Mg Tablet, 100 MG PO DAILY, (Reported) Entered as Reported by: WILBERT ORDAZ on 06/01/17 1248 Last Action: Reviewed Pantoprazole Sodium (Pantoprazole Sodium) 40 Mg Tablet.dr, 40 MG PO DAILY, (Reported) Entered as Reported by: RAH EARLY on 03/09/231556 Last Action: Reviewed Pravastatin Sodium (Pravastatin Sodium) 20 Mg Tablet, 20 MG PO HS, (Reported) Entered as Reported by: RAH EARLY on 03/09/231556 Last Action: Reviewed Raloxifene HCl (Raloxifene HCl) 60 Mg Tablet, 60 MG PO DAILY, (Reported) Entered as Reported by: RAH EARLY on 03/09/231556 Last Action: Reviewed Sertraline HCl (Sertraline HCl) 50 Mg Tablet, 50 MG PO HS, (Reported) Entered as Reported by: RAH EARLY on 03/09/231556 Last Action: Reviewed Discontinued Medications Albuterol Sulfate (Ventolin Hfa) 1 Puff Puff, 1-2 PUFF INH Q4H PRN for SHORTNESS OF BREATH Discontinued Reason: No Longer Taking Prescribed by: RAMIN NGUYEN on 06/02/17937 Last Action: Discontinued Alprazolam (Alprazolam) 0.5 Mg Tablet, 0.5 MG PO DAILY PRN for FLYING Discontinued Reason: No Longer Taking Prescribed by: RAMIN NGUYEN on 06/02/17937 Last Action: Discontinued Dicyclomine HCl (Dicyclomine HCl) 20 Mg Tablet, 20 MG PO DAILY PRN for CRAMPS, (Reported) Discontinued Reason: No Longer Taking Entered as Reported by: WILBERT ORDAZ on 06/01/17 1431 Last Action: Discontinued Diltiazem HCl (Cartia Xt) 120 Mg Cap.er.24h, 120 MG PO DAILY, (Reported) Discontinued Reason: No Longer Taking Entered as Reported by: WILBERT ORDAZ on 06/01/17 1338 Last Action: Discontinued Fluticasone/Umeclidin/Vilanter (Trelegy Ellipta 100-62.5-25) 100-62.5 Blst.w.dev, 1 EACH IH, (Reported) Discontinued Reason: No Longer Taking Entered as Reported by: ALONDRA TERAN on 05/10/22 1715 Last Action: Discontinued Hydrocodone/Acetaminophen (Hydrocodone-Acetamin 5-325 mg) 5 Mg-325 Mg Tablet, 1 TAB PO Q6H PRN for PAIN-MODERATE (5-7) Prescribed by: TERRA GORDON on 03/09/23 0059 Ipratropium/Albuterol Sulfate (Iprat-Albut 0.5-3(2.5) mg/3 ml) 3 Ml Ampul.neb, 3 ML IH QID Discontinued Reason: No Longer Taking Prescribed by: RAMIN NGUYEN on 06/02/17937 Last Action: Discontinued L.acidoph & Paracasei,B.lactis (Probiotic) 1 Each Capsule, 1 CAP PO DAILY, (Reported) Discontinued Reason: No Longer Taking Entered as Reported by: WILBERT ORDAZ on 06/01/171337 Last Action: Discontinued Levocetirizine Dihydrochloride (Levocetirizine Dihydrochloride) 5 Mg Tablet, 5 MG PO HS, (Reported) Discontinued Reason: No Longer Taking Entered as Reported by: WILBERT ORDAZ on 06/01/171247 Last Action: Discontinued Melatonin (Melatonin) 10 Mg Tablet, 20 MG PO HS, (Reported) Discontinued Reason: No Longer Taking Entered as Reported by: WILBERT ORDAZ on 06/01/171337 Last Action: Discontinued Montelukast Sodium (Montelukast Sodium) 10 Mg Tablet, 10 MG PO HS, (Reported) Discontinued Reason: No Longer Taking Entered as Reported by: WILBERT ORDAZ on 06/01/171247 Last Action: Discontinued Ondansetron (Ondansetron Odt) 4 Mg Tab.rapdis, 4 MG SL Q4H PRN for NAUSEA/VOMITING-1ST LINE Discontinued Reason: No Longer Taking Prescribed by: TERRA GORDON on 03/09/2355 Last Action: Discontinued Oxycodone HCl/Acetaminophen (Percocet 5-325 mg Tablet) 1 Each Tablet, 1 TAB PO Q6H Discontinued Reason: No Longer Taking Prescribed by: TERRA GORDON on 03/09/23 014 Last Action: Discontinued Pantoprazole Sodium (Pantoprazole Sodium) 40 Mg Tablet.dr, 40 MG PO BID Discontinued Reason: No Longer Taking Prescribed by: RAMIN NGUYEN on 06/02/17937 Last Action: Discontinued Promethazine HCl (Promethazine Suppository) 25 Mg Supp.rect, 25 MG RC Q8H PRN for NAUSEA/VOMITING-2ND LINE Discontinued Reason: No Longer Taking Prescribed by: TERRA GORDON on 03/09/2355 Last Action: Discontinued Sulfamethoxazole/Trimethoprim (Bactrim Ds Tablet) 1 Each Tablet, 1 EACH PO BID Discontinued Reason: No Longer Taking Prescribed by: TERRA GORDON on 03/09/23 0056 Last Action: Discontinued Zolpidem Tartrate (Zolpidem Tartrate) 10 Mg Tablet, 5-10 MG PO HS PRN for SLEEP, (Reported) Discontinued Reason: No Longer Taking Entered as Reported by: WILBERT ORDAZ on 06/01/17 1248 Last Action: Discontinued [Dr Note] 1 PATCH, 1 MC 1 Discontinued Reason: No Longer Taking Prescribed by: RAMIN NGUYEN on 06/02/17 0938 Last Action: Discontinued Past Lmvosxy-Tfmxfs-Msybbc Hx Family Medical History Cancer (dad had kidney cancer) 19 FATHER Cataract 19 FATHER 19 MOTHER Chest pain 19 FATHER Dementia 19 MOTHER Family history: Allergy 19 MOTHER Family history: Arthritis 19 MOTHER Family history: Asthma (daughter and son have asthma) 19 MOTHER Family history: Cardiovascular disease 19 FATHER Family history: Diabetes mellitus 19 FATHER 19 MOTHER Family history: Gastrointestinal disease 19 MOTHER Family history: Hypertension 19 FATHER Family history: Osteoporosis 19 MOTHER Family history: Thyroid disorder 19 MOTHER Headache (daughter) Heart disease 19 FATHER History of - anemia (daughter) History of - respiratory disease 19 MOTHER Kidney disease 19 FATHER Myocardial infarction 19 FATHER Stroke 19 FATHER Assessment/Plan Assessment and Plan assessment: Septic shock Acute colitis Acute kidney injury Dehydration Plan: ICU care Septic shock management Admission Diagnosis Admission Status: Inpatient Order (span 2 midnights) Reason for Inpatient Admission: septic shock Supervisory-Addendum Brief Verification & Attestation Participated in pt care: history, MDM, physical Personally performed: exam, history, MDM, supervision of care Care discussed with: Medical Student Procedures: n/a Results interpretation: Verified all documentation Verification and Attestation of Medical Student E/M Service A medical student performed and documented this service in my presence. I reviewed and verified all information documented by the medical student and made modifications to such information, when appropriate. I personally performed the physical exam and medical decision making. Azalea Gonzalez, Mar 09, 2023,21:25 MELVIN PANDYA Mar 09, 2023 12:20 AZALEA GONZALEZ DO Mar 09, 2023 21:27
[2023-03-09] MEDS ORDERED: ONDANSETRON 4 MG/2 ML (SDV) Z0FRAN IV PRN (12:30)
[2023-03-09] MEDS ORDERED: diphenhydrAMINE 50 MG/ML INJ (BENADRYL) IVP PRN (12:30)
[2023-03-09] MEDS ORDERED: MELATONIN 3 MG TABLET PO PRN (12:30)
[2023-03-09] MEDS: NS IV 1000 ML 1,000 ML IV SCH ×4 (12:30→23:11)
[2023-03-09] MEDS ORDERED: ENOXAPARIN 40 MG/0.4 ML (LOVENOX) SYR SC SCH (12:30)
[2023-03-09] MEDS ORDERED: ONDANSETRON 4 MG (ZOFRAN) ORAL DISSOLVE TAB PO PRN (12:30)
[2023-03-09] MEDS ORDERED: MILK OF MAGNESIA 400 MG/5 ML 30 ML UDC PO PRN (12:30)
[2023-03-09] MEDS ORDERED: BISACODYL 10 MG SUPP (DULCOLAX) PR PRN (12:30)
[2023-03-09] MEDS ORDERED: diphenhydrAMINE 25 MG TAB (BENADRYL) PO PRN (12:30)
[2023-03-09] MEDS ORDERED: DexMEDEtomidine 250 ML DRIP 250 ML IV SCH (12:30)
[2023-03-09] MEDS ORDERED: NS IV 500 ML 500 ML IV PRN (12:30)
[2023-03-09] MEDS ORDERED: CALCIUM CARBONATE 500 MG (TUMS) TAB.CHEW PO PRN (12:30)
[2023-03-09] MEDS ORDERED: LACTULOSE SYRUP 10GM/15ML (ENULOSE) 30ML UDC PO PRN (12:30)
[2023-03-09] MEDS ORDERED: ACETAMINOPHEN 325 MG TABLET PO PRN (12:30)
[2023-03-09] MEDS ORDERED: polyethylene glycoL POWDER 17 GM (MIRALAX) PACK PO PRN (12:30)
[2023-03-09] MEDS ORDERED: ANTACID SUSP 30 ML UDC (MYLANTA) PO PRN (12:30)
[2023-03-09] MEDS ORDERED: ENOXAPARIN INJECTION 30 MG/0.3 ML SYR SC SCH (13:00)
[2023-03-09 13:59] LABS: ABG PCO2 47 MMHG (35-45); ABG TCO2 16.8 MMOL/L (21.0-31.0)
[2023-03-09 14:06] LABS: ABG PH 7.14 (7.37-7.43); ABG PO2 34 MMHG (79-93)
[2023-03-09 14:09] LABS: ALLENS TEST YES-POS; INSPIRED O2 5; PATIENT TEMP 36.8; VENTILATOR NO
[2023-03-09 14:11] LABS: ABG OXYGEN SATURATION 45 % (94-100)
[2023-03-09] MEDS ORDERED: RT-ALBUTEROL HFA 8.5 GM INHALER IH PRN (14:15)
--- NOTE | 2023-03-09 14:22 | Tele-ICU Consult ---
History of Present Illness History of Present Illness Date Seen by Provider: Mar 09, 2023 Time Seen by Provider: 14:19 History of Present Illness (Tele-ICU Physician , consultation as per request of PCP Service provided via interactive audio and video telecommunications E-CARE system to a patient admitted to ICU bed in [facility], [place]. Available chart/ vitals / labs / Images reviewed H&P is from ER notes Patient's information available about PMH, Shx, Fhx allergy reviewed inEMR. ROS as per chart and RN report Now in ICU, hemodynamically stable Video assessment done using teleICU camera, rest of exam as per RN Discussed with RN. Hospital course: 03/08- to ER N/V - Tx with meds for nausea, IVF , Bactrim 03/09 - back to ER hypotensive with sever abd pain and worsening of diarrhea - to ICU on LEVO A/P Abd pain ,N/V , elevated lactate , worsening of diarrhea - CT abd pelvis donex2 : 03/09 - -diffuse wall thickening seen from the rectum through to the cecum which is also seen on 03/08 ( ? colitis ) and NEW -small amount of free fluid within the pelvis and perihepatic region. 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 Discussed with RN to reach out if any questions or concerns A total of 31 minutes of critical care time was devoted to this patient today, required to treat and/or prevent further deterioration of critical care condition ( as above ) . I am remotely monitoring this patient from another state. I am unable to do the bedside exam, and history/physical and pertinent information is taken from other notes in the computer and bedside staff. . Allergies and Home Medications Allergies Coded Allergies: ciprofloxacin (Verified Allergy, Mild, 05/10/22) clarithromycin (Verified Allergy, Mild, 05/10/22) codeine (Verified Allergy, Mild, 05/10/22) Penicillins (Verified Allergy, Unknown, 05/10/22) iodine (Verified Allergy, Unknown, 05/10/22) facial swelling meperidine HCl (Verified Allergy, Unknown, 05/10/22) Nitrofurantoin Macrocrystal (Verified Adverse Reaction, Mild, N/V, 05/10/22) chlorthalidone (Verified Adverse Reaction, Unknown, BODY ACHES;MUSCLE ACH ES;JOINT ACHES;SOA;COULDN'T MOVE ARMS, 05/10/22) tramadol (Verified Adverse Reaction, Unknown, 05/10/22) Home Medications Albuterol Sulfate 1 Puff Puff, 1-2 PUFF INH Q4H PRN for SHORTNESS OF BREATH Prescribed by: RAMIN SULLIVAN on 06/02/17937 Alprazolam 0.5 Mg Tablet, 0.5 MG PO DAILY PRN for FLYING Prescribed by: RAMIN SULLIVAN on 06/02/17937 Dicyclomine HCl 20 Mg Tablet, 20 MG PO DAILY PRN for CRAMPS, (Reported) Diltiazem HCl 120 Mg Cap.er.24h, 120 MG PO DAILY, (Reported) Ipratropium/Albuterol Sulfate 3 Ml Ampul.neb, 3 ML IH QID 4 X/DAY X3DAYS, THEN 3X/DAY X3DAYS IF SHORT OF AIR IMPROVED, THEN NEEDED, USE EVERY 2 HOURS IF SHORT OF AIR INCREASED Prescribed by: RAMIN SULLIVAN on 06/02/17937 L.acidoph & Paracasei,B.lactis 1 Each Capsule, 1 CAP PO DAILY, (Reported) Levocetirizine Dihydrochloride 5 Mg Tablet, 5 MG PO HS, (Reported) Levothyroxine Sodium 25 Mcg Tablet, 25 MCG PO DAILY, (Reported) Losartan Potassium 100 Mg Tablet, 100 MG PO HS, (Reported) Melatonin 10 Mg Tablet, 20 MG PO HS, (Reported) TAKES 2 (10MG) TABLETS Montelukast Sodium 10 Mg Tablet, 10 MG PO HS, (Reported) Ondansetron 4 Mg Tab.rapdis, 4 MG SL Q4H PRN for NAUSEA/VOMITING-1ST LINE Prescribed by: TERRA GORDON on 03/09/23 0056 Oxycodone HCl/Acetaminophen 1 Each Tablet, 1 TAB PO Q6H Prescribed by: TERRA GORDON on 03/09/23 0143 Pantoprazole Sodium 40 Mg Tablet.dr, 40 MG PO BID Prescribed by: RAMIN SULLIVAN on 06/02/17937 Promethazine HCl 25 Mg Supp.rect, 25 MG RC Q8H PRN for NAUSEA/VOMITING-2ND LINE Prescribed by: TERRA GORDON on 03/09/2355 Sulfamethoxazole/Trimethoprim 1 Each Tablet, 1 EACH PO BID Prescribed by: TERRA GORDON on 03/09/2355 Zolpidem Tartrate 10 Mg Tablet, 5-10 MG PO HS PRN for SLEEP, (Reported) [ Note] 1 PATCH, 1 MC 1 PLEASE ALLOW PT TO TAKE NEBULIZER, MEDICATION FOR INHALATION, AND ALBUTEROL INHALER ON PLANE DUE TO HER SEVERE ASTHMA Prescribed by: RAMIN SULLIVAN on 06/02/17937 Past Medical/Social/Family Hx Patient Social History Marrital Status: Tobacco Use?: No Use of E-Cig and/or Vaping dev: No Substance use?: No Alcohol Use?: No Pt stated abuse/neglect: No Immunizations Up To Date First/Initial COVID19 Vaccinat: OCTOBER 2020 Second COVID19 Vaccination Shawn: NOVEMBER 2020 Tetanus Booster (TDap): More Than 5 Years Date of Pneumonia Vaccine: Aug 28, 2009 Current Status Advance Directives: No Communicates: Verbally Primary Language: Icelandic Preferred Spoken Language: Icelandic Review of Systems Constitutional: see HPI, other Focused Exam Sepsis Stage: Septic Shock Possible Source: Unknown Lactate Level 03/09/23 09:54: Lactic Acid Level 3.29*H 03/09/23 12:55: Lactic Acid Level 2.62*H Height, Weight, BMI Height: 5'4.00" Weight: 127lbs. 4.0oz. [id number]; 25.52 BMI Method:Actual Time of Focused Exam: 14:21 Respiratory: Other Cardiovascular: Other Capillary Refill: Less Than 3 Seconds Lactic Acid Level Laboratory Tests Test 03/09/23 12:55 Lactic Acid Level 2.62 MMOL/L (0.50-2.00) *H Within 3hrs of presentation: Admin fluids, Admin 30ml/kg IBW due to BMI>30, Admin ABX, Blood cultures prior to ABX's, Lactate level, Vasopressin therapy Exam Exam Patient acknowledged, consented, and participated in this virtual visit which was conducted using real time audio/video Vital Signs Date Time Temp Pulse Resp B/P (MAP) Pulse Ox O2 Delivery O2 Flow Rate FiO2 03/09/23 13:48 35.8 98 94 40 03/09/23 13:48 94 OxyMask 5.00 03/09/23 13:00 35.8 03/09/23 12:38 95 03/09/23 12:30 OxyMask 5.00 03/09/23 12:26 101 20 121/90 (100) 91 OxyMask 5.00 03/09/23 12:20 36.2 94 22 75/44 93 OxyMask 4.00 6.00 03/09/23 11:50 90 86/57 03/09/23 09:15 OxyMask 6.00 03/09/23 09:10 OxyMask 6.00 03/09/23 09:07 37.6 90 26 71/43 (52) 86 Nasal Cannula Height & Weight Height: 5'4.00" Weight: 127lbs. 4.0oz. 57.912733fe; 25.52 BMI Method:Actual General Appearance: WD/WN, Mild Distress HEENT: PERRL/EOMI, Moist Mucous Membranes Neck: Supple Respiratory: Lungs Clear, Normal Breath Sounds, No Accessory Muscle Use Cardiovascular: Regular Rate, Rhythm, No Edema; No JVD Capillary Refill: Less Than 3 Seconds Extremity: No Pedal Edema Neurologic/Psychiatric: Alert, Oriented x3, Normal Mood/Affect Skin: Normal Color (may have slight pallor), Warm/Dry; No Diaphoresis Results Lab Laboratory Tests 03/09/23 09:54 Assessment/Plan Assessment/Plan 1 DORETHA GRANT MD Mar 09, 2023 14:22
[2023-03-09] MEDS ORDERED: SODIUM BICARB 8.4% 50 MEQ/50 ML (ABBOTT) SYR ONE (14:59)
[2023-03-09] MEDS: SODIUM BICARBONATE 8.4% VIAL 75 MEQ in 1/2 NS IV SOLUTION 1,000 ML IV SCH (15:00)
[2023-03-09] MEDS ORDERED: SODIUM BICARB 8.4% 50 MEQ/50 ML (ABBOTT) SYR IV ONE (15:00)
[2023-03-09] MEDS: VASOPRESSIN IV SCH (15:24)
[2023-03-09] MEDS: NS IV SCH (15:24)
[2023-03-09] MEDS ORDERED: SERT-413 PO (15:57)
[2023-03-09] MEDS ORDERED: LORA10TA7 PO (15:57)
[2023-03-09] MEDS ORDERED: FLUT16SP22 NSEACH (15:57)
[2023-03-09] MEDS ORDERED: FLUT1BLS15 INH (15:57)
[2023-03-09] MEDS ORDERED: PANT40TA52 PO (15:57)
[2023-03-09] MEDS ORDERED: ALPR0.5T7 PO (15:57)
[2023-03-09] MEDS ORDERED: FURO20TA4 PO (15:57)
[2023-03-09] MEDS ORDERED: DILT-27 PO (15:57)
[2023-03-09] MEDS ORDERED: PRAV20TA3 PO (15:57)
[2023-03-09] MEDS ORDERED: RALO60TA12 PO (15:57)
[2023-03-09] MEDS ORDERED: DIPH25CA79 PO (15:57)
[2023-03-09] MEDS: NOREPINEPHRINE 8 MG/250 ML 250 ML IV SCH ×3 (16:55→23:13)
[2023-03-09] MEDS ORDERED: RT-ALBUTEROL/IPRATROPIUM 3 ML (DUONEB) VIAL INH PRN (17:00)
[2023-03-09] MEDS: metroNIDAZOLE 500MG/100ML IVPB 100 ML IV SCH (17:40)
[2023-03-09] MEDS: RT-ALBUTEROL/IPRATROPIUM 3 ML (DUONEB) VIAL INH SCH (19:26)
[2023-03-09] MEDS ORDERED: LIDOCAINE/EPI 1%-1:100,000 (XYLOCAINE) 20ML ONE (20:05)
--- NOTE | 2023-03-09 20:05 | Consultation - Surgery ---
History of Present Illness History of Present Illness Patient Consulted On(luis/time) 03/09/23 20:00 Time Seen by Provider: 17:31 History of Present Illness Surgery asked to consult regarding Abdominal pain. HPI per IM: Yari Grove is a 72yo F with past medical history of asthma, HTN, GERD, and hypothyroidism who presented to the ED on 03/09. She was recently seen in the ED on 03/08 with complaints of abdominal pain, N/V, and diarrhea that began the evening of 03/08. She was examined and found to have leukocytosis, elevated lactic acid, and a CT of the abdomen revealed evidence of transverse and descending colitis with potential area of pneumatosis. According to previous ED report this area was thought to be peripherally oriented gas rather than true pneumatosis. She was discharged after receiving pain medication, anti nausea medication, and was given a script for bactrim. She did not take any of the bactrim and came back to the ED this morning with worsening of her abdominal pain, N/V, and diarrhea. She was hypotensive at home with EMS reporting a s ystolic of 50. In the ED she was given metronidazole, ciprofloxacin, fluids and zofran. She remained hypotensive and required initiation of a pressor. CT ab/pelv revealed evidence for colitis with wall thickening from the rectum to cecum. No pneumatosis. Some free fluid in the pelvis and around the liver. Patient was seen at bedside with complaints of continued abdominal pain that is diffuse and worsened since her ED visit last night. She still feels nauseous like she could vomit any minute. Her and her report she had several episodes of diarrhea and emesis since her symptom onset around 7pm 03/08. The diarrhea is brown and liquid according to the . Denies blood in stool or purulence. Vomit has been mostly clear/green liquid with no blood identified by patient or her . She reports shortness of breath and is currently on an oxymask. Does wear oxygen at home at night. She has no appetite and has not eaten much since her symptom onset. She denies any chest pain, palpitations, fever, or chills. She denies any episodes like this in the past. She has not been on abx recently. Reports hx of diverticulitis but has not had abdominal surgery other than hernia repair in [place] several years ago and a hysterectomy. Denies personal and family hx of colon cancer, Chron's, and ulcerative colitis. When I initially saw pt this evening she was in the ICU, appeared to be in pain and was on Levophed for blood pressure support. However, her BP was still in the 60's systolic. She states the pain has continued to get worse, rating it 10 out of 10. She has never had pain like this before. Allergies and Home Medications Allergies Coded Allergies: ciprofloxacin (Verified Allergy, Mild, 05/10/22) clarithromycin (Verified Allergy, Mild, 05/10/22) codeine (Verified Allergy, Mild, 05/10/22) Penicillins (Verified Allergy, Unknown, 05/10/22) iodine (Verified Allergy, Unknown, 05/10/22) facial swelling meperidine HCl (Verified Allergy, Unknown, 05/10/22) Nitrofurantoin Macrocrystal (Verified Adverse Reaction, Mild, N/V, 05/10/22) chlorthalidone (Verified Adverse Reaction, Unknown, BODY ACHES;MUSCLE ACHES;JOINT ACHES;SOA;COULDN'T MOVE ARMS, 05/10/22) tramadol (Verified Adverse Reaction, Unknown, 05/10/22) Patient Home Medication List Home Medication List Reviewed: Yes Alprazolam (Alprazolam) 0.5 Mg Tablet, 0.5 MG PO HS PRN for ANXIETY, (Reported) Entered as Reported by: RAH EARLY on 03/09/231556 Last Action: Reviewed Diltiazem HCl (Diltiazem 24Hr ER) 120 Mg Cap.er.24h, 120 MG PO DAILY, (Reported) Entered as Reported by: RAH EARLY on 03/09/231556 Last Action: Reviewed Diphenhydramine HCl (Benadryl) 25 Mg Capsule, 25-50 MG PO Q8H PRN for ALLERGY SYMPTOMS, (Reported) Entered as Reported by: RAH EARLY on 03/09/231556 Last Action: Reviewed Fluticasone Propionate (Fluticasone Propionate) 50 Mcg/Actuation [place].susp, 1 SPRAY NSEACH DAILY, (Reported) Entered as Reported by: RAH EARLY on 03/09/231556 Last Action: Reviewed Fluticasone/Umeclidin/Vilanter (Trelegy Ellipta 200-62.5-25) 200-62.5 Blst.w.dev, 1 PUFF INH DAILY, (Reported) Entered as Reported by: RAH EARLY on 03/09/231556 Last Action: Reviewed Furosemide (Furosemide) 20 Mg Tablet, 20 MG PO DAILY PRN for FLUID RETENTION, (Reported) Entered as Reported by: RAH EARLY on 03/09/231556 Last Action: Reviewed Levothyroxine Sodium (Levothyroxine Sodium) 25 Mcg Tablet, 25 MCG PO DAILY, (Reported) Entered as Reported by: WILBERT ORDAZ on 06/01/17 1418 Last Action: Reviewed Loratadine (Loratadine) 10 Mg Tablet, 10 MG PO DAILY PRN for ALLERGY SYMPTOMS, (Reported) Entered as Reported by: RAH EARLY on 03/09/231556 Last Action: Reviewed Losartan Potassium (Losartan Potassium) 100 Mg Tablet, 100 MG PO DAILY, (Reported) Entered as Reported by: WILBERT ORDAZ on 06/01/17 1248 Last Action: Reviewed Pantoprazole Sodium (Pantoprazole Sodium) 40 Mg Tablet.dr, 40 MG PO DAILY, (Reported) Entered as Reported by: RAH EARLY on 03/09/231556 Last Action: Reviewed Pravastatin Sodium (Pravastatin Sodium) 20 Mg Tablet, 20 MG PO HS, (Reported) Entered as Reported by: RAH EARLY on 03/09/231556 Last Action: Reviewed Raloxifene HCl (Raloxifene HCl) 60 Mg Tablet, 60 MG PO DAILY, (Reported) Entered as Reported by: RAH EARLY on 03/09/231556 Last Action: Reviewed Sertraline HCl (Sertraline HCl) 50 Mg Tablet, 50 MG PO HS, (Reported) Entered as Reported by: RAH EARLY on 03/09/231556 Last Action: Reviewed Discontinued Medications Albuterol Sulfate (Ventolin Hfa) 1 Puff Puff, 1-2 PUFF INH Q4H PRN for SHORTNESS OF BREATH Discontinued Reason: No Longer Taking Prescribed by: RAMIN SULLIVAN on 06/02/17937 Last Action: Discontinued Alprazolam (Alprazolam) 0.5 Mg Tablet, 0.5 MG PO DAILY PRN for FLYING Discontinued Reason: No Longer Taking Prescribed by: RAMIN SULLIVAN on 06/02/17937 Last Action: Discontinued Dicyclomine HCl (Dicyclomine HCl) 20 Mg Tablet, 20 MG PO DAILY PRN for CRAMPS, (Reported) Discontinued Reason: No Longer Taking Entered as Reported by: WILBERT ORDAZ on 06/01/17 1431 Last Action: Discontinued Diltiazem HCl (Cartia Xt) 120 Mg Cap.er.24h, 120 MG PO DAILY, (Reported) Discontinued Reason: No Longer Taking Entered as Reported by: WILBERT ORDAZ on 06/01/171337 Last Action: Discontinued Fluticasone/Umeclidin/Vilanter (Trelegy Ellipta 100-62.5-25) 100-62.5 Blst.w.dev, 1 EACH IH, (Reported) Discontinued Reason: No Longer Taking Entered as Reported by: ALONDRA TERAN on 05/10/22 1715 Last Action: Discontinued Hydrocodone/Acetaminophen (Hydrocodone-Acetamin 5-325 mg) 5 Mg-325 Mg Tablet, 1 TAB PO Q6H PRN for PAIN-MODERATE (5-7) Prescribed by: TERRA GORDON on 03/09/23 0059 Ipratropium/Albuterol Sulfate (Iprat-Albut 0.5-3(2.5) mg/3 ml) 3 Ml Ampul.neb, 3 ML IH QID Discontinued Reason: No Longer Taking Prescribed by: RAMIN SULLIVAN on 06/02/17937 Last Action: Discontinued L.acidoph & Paracasei,B.lactis (Probiotic) 1 Each Capsule, 1 CAP PO DAILY, (Reported) Discontinued Reason: No Longer Taking Entered as Reported by: WILBERT ORDAZ on 06/01/171337 Last Action: Discontinued Levocetirizine Dihydrochloride (Levocetirizine Dihydrochloride) 5 Mg Tablet, 5 MG PO HS, (Reported) Discontinued Reason: No Longer Taking Entered as Reported by: WILBERT ORDAZ on 06/01/17 1248 Last Action: Discontinued Melatonin (Melatonin) 10 Mg Tablet, 20 MG PO HS, (Reported) Discontinued Reason: No Longer Taking Entered as Reported by: WILBERT ORDAZ on 06/01/171337 Last Action: Discontinued Montelukast Sodium (Montelukast Sodium) 10 Mg Tablet, 10 MG PO HS, (Reported) Discontinued Reason: No Longer Taking Entered as Reported by: WILBERT ORDAZ on 06/01/171247 Last Action: Discontinued Ondansetron (Ondansetron Odt) 4 Mg Tab.rapdis, 4 MG SL Q4H PRN for NAUSEA/VOMITING-1ST LINE Discontinued Reason: No Longer Taking Prescribed by: TERRA GORDON on 03/09/2355 Last Action: Discontinued Oxycodone HCl/Acetaminophen (Percocet 5-325 mg Tablet) 1 Each Tablet, 1 TAB PO Q6H Discontinued Reason: No Longer Taking Prescribed by: TERRA GORDON on 03/09/23142 Last Action: Discontinued Pantoprazole Sodium (Pantoprazole Sodium) 40 Mg Tablet.dr, 40 MG PO BID Discontinued Reason: No Longer Taking Prescribed by: RAMIN SULLIVAN on 06/02/17937 Last Action: Discontinued Promethazine HCl (Promethazine Suppository) 25 Mg Supp.rect, 25 MG RC Q8H PRN for NAUSEA/VOMITING-2ND LINE Discontinued Reason: No Longer Taking Prescribed by: TERRA GORDON on 03/09/2355 Last Action: Discontinued Sulfamethoxazole/Trimethoprim (Bactrim Ds Tablet) 1 Each Tablet, 1 EACH PO BID Discontinued Reason: No Longer Taking Prescribed by: TERRA GORDON on 03/09/2355 Last Action: Discontinued Zolpidem Tartrate (Zolpidem Tartrate) 10 Mg Tablet, 5-10 MG PO HS PRN for SLEEP, (Reported) Discontinued Reason: No Longer Taking Entered as Reported by: WILBERT ORDAZ on 06/01/171247 Last Action: Discontinued [Dr Note] 1 PATCH, 1 MC 1 Discontinued Reason: No Longer Taking Prescribed by: RAMIN SULLIVAN on 06/02/17937 Last Action: Discontinued Past Uzofgxk-Gzfbxd-Rwuhnc Hx Patient Social History Smoking Status: Never a Smoker 2nd Hand Smoke Exposure: No Recent Hopitalizations: No Alcohol Use?: No Immunizations Up To Date Date of Pneumonia Vaccine: Aug 28, 2009 Seasonal Allergies Seasonal Allergies: No Surgeries History of Surgeries: Yes (BUNION SURG) Surgeries: Abdominal (Hernia repair. 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 Genitourinary History of Genitourinary Disor: No Genitourinary Disorders: Kidney Infection Gastrointestinal History of Gastrointestinal Di: Yes Gastrointestinal Disorders: Gastroesophageal Reflux Musculoskeletal History of Musculoskeletal Dis: Yes Musculoskeletal Disorders: Arthritis, Chronic Back Pain Endocrine History of Endocrine Disorders: Yes Endocrine Disorders: Hypothyroidsim Cancer History of Cancer: No Psychosocial History of Psychiatric Problem: No Integumentary History of Skin or Integumenta: No Blood Transfusions History of Blood Disorders: No Family Medical History Significant Family History: Heart Disease (father), Cancer (father had renal cancer), CVA (father), Diabetes (father and mother), Hypertension (father), Other Conditions/Hx Family Medial History: Cancer (dad had kidney cancer) 19 FATHER Cataract 19 FATHER 19 MOTHER Chest pain 19 FATHER Dementia 19 MOTHER Family history: Allergy 19 MOTHER Family history: Arthritis 19 MOTHER Family history: Asthma (daughter and son have asthma) 19 MOTHER Family history: Cardiovascular disease 19 FATHER Family history: Diabetes mellitus 19 FATHER 19 MOTHER Family history: Gastrointestinal disease 19 MOTHER Family history: Hypertension 19 FATHER Family history: Osteoporosis 19 MOTHER Family history: Thyroid disorder 19 MOTHER Headache (daughter) Heart disease 19 FATHER History of - anemia (daughter) History of - respiratory disease 19 MOTHER Kidney disease 19 FATHER Myocardial infarction 19 FATHER Stroke 19 FATHER Review of Systems-General Constitutional: malaise, weakness EENTM: No blurred vision, No epistaxis, No throat swelling Respiratory: No cough, No dyspnea on exertion, No short of breath Cardiovascular: No chest pain, No edema, No palpitations Gastrointestinal: abdominal pain, diarrhea, nausea; No vomiting Genitourinary: No dysuria, No frequency; hematuria (chronic) Musculoskeletal: joint pain, joint swelling, muscle stiffness, muscle cramps Skin: No change in color, No change in hair/nails Psychiatric/Neurological: Anxiety; Denies Headache, Denies Pre-Existing Deficit Physical Exam-General Problems Physical Exam Vital Signs Vital Signs - First Documented 03/09/23 03/09/23 03/09/23 09:07 09:10 13:48 Temp 37.6 Pulse 90 Resp 26 B/P (MAP) 71/43 (52) Pulse Ox 86 O2 Delivery Nasal Cannula O2 Flow Rate 6.00 FiO2 40 Capillary Refill : Less Than 3 Seconds General Appearance: severe distress, obese Eyes: Bilateral Eye PERRL, Bilateral Eye EOMI HEENT: pharynx normal; No scleral icterus (R), No scleral icterus (L) Neck: non-tender, supple Respiratory: lungs clear, normal breath sounds, no respiratory distress, no accessory muscle use Cardiovascular: no murmur, tachycardia Gastrointestinal: soft, no organomegaly, distended, hernia Rectal: deferred, other (rectal tube in place) Genital/Rectal: other (dunbar placed) Back: no CVA tenderness, no vertebral tenderness Extremities: no pedal edema, no calf tenderness Neurologic/Psychiatric: no motor/sensory deficits, oriented x 3 Skin: normal color, warm/dry Lymphatic: no adenopathy (neck, axilla or groin) Data Review Labs Laboratory Tests 03/09/23 09:54: White Blood Count 9.2, Red Blood Count 4.89, Hemoglobin 15.1, Hematocrit 47, Mean Corpuscular Volume 96, Mean Corpuscular Hemoglobin 31, Mean Corpuscular Hemoglobin Concent 32, Red Cell Distribution Width 13.0, Platelet Count 310, Mean Platelet Volume 10.2, Immature Granulocyte % (Auto) 0, Neutrophils (%) (Auto) 76H, Lymphocytes (%) (Auto) 13, Monocytes (%) (Auto) 11, Eosinophils (%) (Auto) 0, Basophils (%) (Auto) 0, Neutrophils # (Auto) 7.0, Lymphocytes # (Auto) 1.2, Monocytes # (Auto) 1.0, Eosinophils # (Auto) 0.0, Basophils # (Auto) 0.0, Immature Granulocyte # (Auto) 0.0, Neutrophils % (Manual) 54, Lymphocytes % (Manual) 19, Monocytes % (Manual) 9, Eosinophils % (Manual) 0, Basophils % (Manual) 0, Band Neutrophils 18, Toxic Granulation 1+, Blood Morphology Comment NORMAL, Prothrombin Time 14.4, INR Comment 1.1, Activated Partial Thromboplast Time 36H, Sodium Level 138, Potassium Level 4.5, Chloride Level 113H, Carbon Dioxide Level 14L, Anion Gap 11, Blood Urea Nitrogen 35H, Creatinine 1.96H, Estimat Glomerular Filtration Rate 27, BUN/Creatinine Ratio 18, Glucose Level 125H, Lactic Acid Level 3.29*H, Calcium Level 9.6, Corrected Calcium 10.3H, Total Bilirubin 1.0, Aspartate Amino Transf (AST/SGOT) 62H, Alanine Aminotransferase (ALT/SGPT) 33, Alkaline Phosphatase 52, Total Protein 5.2L, Albumin 3.1L 03/09/23 09:59: Urine Color DARK YELLOW, Urine Clarity CLEAR, Urine pH 5.5, Urine Specific Manning 1.020, Urine Protein NEGATIVE, Urine Glucose (UA) NEGATIVE, Urine Ketones TRACEH, Urine Nitrite NEGATIVE, Urine Bilirubin 1+H, Urine Urobilinogen 1.0, Urine Leukocyte Esterase NEGATIVE, Urine RBC (Auto) NEGATIVE, Urine RBC 0- 2, Urine WBC NONE, Urine Squamous Epithelial Cells 0-2, Urine Crystals PRESENTH, Urine Calcium Oxalate Crystals RAREH, Urine Bacteria NEGATIVE, Urine Casts NONE, Urine Mucus NEGATIVE, Urine Culture Indicated NO 03/09/23 12:55: Lactic Acid Level 2.62*H 03/09/23 13:49: Blood Gas Puncture Site LEFT RADIAL, Blood Gas Patient Temperature 36.8, Arterial Blood pH 7.14*L, Arterial Blood Partial Pressure CO2 47H, Arterial Blood Partial Pressure O2 34*L, Arterial Blood HCO3 15*L, Arterial Blood Total CO2 16.8L, Arterial Blood Oxygen Saturation 45L, Arterial Blood Base Excess - 12.0L, [place] Test YES-POS, Blood Gas Ventilator Setting NO, Blood Gas Inspired Oxygen 5 03/09/23 16:45: Lactic Acid Level 2.37*H 03/09/23 18:00: Stool Occult Blood Immunoassay POSITIVEH 03/09/23 19:10: Lactic Acid Level 2.65*H Radiology Date of Exam:03/09/23 CT ABDOMEN/PELVIS WO Clinical indications: Patient with increased abdominal pain and low blood pressure. Patient has history of hysterectomy. Exam: CT exam of the abdomen and pelvis is performed without IV or oral contrast using stone protocol. Coronal and sagittal reformatted images were created. Auto Exposure Controls were utilized during the CT exam to meet ALARA standards for radiation dose reduction. Comparisons: CT scan of the abdomen and pelvis without contrast dated 03/08/2023. Findings: There is interval progression of atelectasis and/or scarring involving the posterior aspects of both lung bases with the right-side more than the left. There is lower lumbar spine facet arthropathy. There is L4-L5 posterior lumbar interbody fusion hardware noted. Stable cyst involving the right lobe of the liver. Liver is otherwise unremarkable and stable. There is interval development of free fluid adjacent to the liver. The spleen, adrenal glands, and pancreas are unremarkable. Gallbladder is surgically resected. Again seen, lobulated cystic structure involving the upper aspect of the right kidney. There is a grossly 1.5 cm cyst involving the inferior aspect of the left kidney. Both kidneys are otherwise stable with no interval acute abnormality. There is no hydronephrosis. There is interval development of a small amount of free fluid in the pelvis. There is diffuse wall thickening involving the rectum extending all the way to the cecum. The previously seen stool load throughout the colon has significantly decreased with air-fluid levels which are mildly distended. Previously seen concern for pneumatosis in the region of the splenic flexure has resolved. The terminal ileum and the small bowel showed no significant abnormality. There is a Dunbar catheter within the bladder. Bladder is decompressed and unremarkable, as visualized. The remainder of this exam shows no significant interval change compared to the prior study of comparison. IMPRESSION: 1: There is diffuse wall thickening seen from the rectum all the way through to the cecum which is also noted on the prior study. Previously seen stool load throughout the colon has significantly decreased. There is now mildly fluid-distended air-fluid levels throughout the colon. The previously seen area concerning for pneumatosis in the region of the splenic flexure is not seen on this exam and resolved. These findings are concerning for colitis. 2: There is interval development of a small amount of free fluid within the pelvis and perihepatic region. 3: The remainder of this exam shows no significant interval change compared to the prior study of comparison. Dictated by: Dictated on workstation # [id number] Dict: 03/09/23 1047 Trans: 03/09/[address] [facility] [id number] Interpreted by: MITCHELL CHRISTIANSON MD Electronically signed by: MITCHELL CHRISTIANSON MD 03/09/23 1748 Assessment/Plan Assessment/Plan Assessment/Plan Abdominal pain Lactic Acidosis Hypotension I spoke ER physician and went over CT from today and last night; as well as went through all her labs. I sat down and spoke with the , going over what is going on. She is very sick, but there is not an obvious source. I don't think it is pulmonary or cardiac, but her lactic acid did go down and her white count is within normal range. I am very concerned about her hypotension and need for a pressor. I discussed with him the options of monitoring overnight (with fluids, IV ABX, pressor support, etc) vs going to the OR. I was at a loss because nothing was pointing definitively to convince me to go to the OR. I told him I would come back after I finished the surgery I was about to do. I came back up after surgery to assess the pt and talk to family, both daughters and now at bedside. She has gotten worse, because she is now on two pressors and in severe pain. Her lactic acid only came back at 2.6. I again gave them the options and talked about what I thought might be going on. I also said that now I was leaning to at least try a diagnostic laparoscopy. That could lead to nothing or it could lead to open surgery, possible bowel resection and even ostomy. I also talked about the fact that intubation is a major stress on the heart and will drop blood pressure; which could cause . Family discussed it and pt stated she wants surgery because she can't handle the pain and needs to do something. Will take her to OR for Diagnostic laparoscopy, possible laparotomy and all other indicated procedures. ABIMAEL ZHU DO Mar 09, 2023 20:05
[2023-03-09] MEDS ORDERED: fentaNYL INJ 100 MCG/2 ML AMP ONE (20:30)
[2023-03-09] MEDS ORDERED: MIDAZOLAM 2 MG/2 ML (VERSED) VIAL ONE (20:30)
[2023-03-09] MEDS ORDERED: LIDOCAINE/EPI 1%-1:100,000 (XYLOCAINE) 20ML INJ ONE (20:56)
[2023-03-09] MEDS ORDERED: LACTATED RINGERS 1,000 ML IV PRN (21:15)
--- NOTE | 2023-03-09 21:32 | Progress Note-Post Operative ---
Post-Operative Progess Note Surgeon (s)/Lithographic Press Feeder (s) Surgeon ABIMAEL ZHU DO Lithographic Press Feeder: none Pre-Operative Diagnosis Abdominal pain, Hypotension Post-Operative Diagnosis Possible ruptured hepatic cyst hydroperitoneum - ??purulent bile Procedure & Operative Findings Date of Procedure 03/09/23 Procedure Performed/Findings Diagnostic Laparoscopy with abdominal washout and drain placement Anesthesia Type GET Estimated Blood Loss Estimated blood loss (mL): scant Specimens/Packing Specimens Removed abdominal fluid, sent for culture ABIMAEL ZHU DO Mar 09, 2023 21:32
[2023-03-09] MEDS ORDERED: SUGAMMADEX 500 MG/5 ML VIAL (BRIDION) IV ONE (21:39)
[2023-03-09] MEDS ORDERED: ROCURONIUM 50 MG/5 ML (ZEMURON) VIAL IV ONE (21:39)
[2023-03-09] MEDS ORDERED: SEVOFLURANE (ULTANE) 15 ML INHAL SOLN ONE (21:39)
[2023-03-09] MEDS ORDERED: ETOMIDATE IV SOLN 20 MG/10 ML VIAL ONE (21:39)
[2023-03-09] MEDS ORDERED: SUCCINYLCHOLINE INJ 20 MG/1 ML 10 ML VIAL ONE (21:39)
[2023-03-09] MEDS ORDERED: ONDANSETRON 4 MG/2 ML (SDV) Z0FRAN ONE (21:39)
[2023-03-09 22:45] LABS: ABG BASE EXCESS -10.9 MMOL/L (-2.5-2.5); ABG OXYGEN SATURATION 95 % (94-100); ABG PCO2 31 MMHG (35-45); ABG PO2 80 MMHG (79-93); ABG TCO2 15.5 MMOL/L (21.0-31.0)
[2023-03-09 22:46] LABS: ALLENS TEST YES-POS; INSPIRED O2 60%; PATIENT TEMP 36.4; VENTILATOR NO
[2023-03-09 22:47] LABS: ABG PH 7.28 (7.37-7.43)
[2023-03-09] MEDS: DOCUSATE SODIUM 100 MG (COLACE) CAP PO SCH (23:10)
[2023-03-09] MEDS: SENNOSIDES 8.6 MG (SENOKOT) TAB PO SCH (23:11)
[2023-03-10] MEDS: HYDROmorphone 2 MG/ML VIAL (DILAUDID) IV PRN ×4 (00:43→22:30)
[2023-03-10] MEDS: NOREPINEPHRINE 8 MG/250 ML 250 ML IV SCH ×4 (02:06→16:52)
[2023-03-10] MEDS: metroNIDAZOLE 500MG/100ML IVPB 100 ML IV SCH (02:07)
[2023-03-10] MEDS: NS IV SCH ×2 (02:07→13:26)
[2023-03-10] MEDS: VASOPRESSIN IV SCH ×2 (02:07→13:26)
[2023-03-10] MEDS: SODIUM BICARBONATE 8.4% VIAL 75 MEQ in 1/2 NS IV SOLUTION 1,000 ML IV SCH ×2 (03:52→22:41)
[2023-03-10] MEDS: NS IV 1000 ML 1,000 ML IV SCH ×3 (03:53→17:01)
[2023-03-10 04:06] LABS: BASOPHILS # (AUTO) 0.1 10^3/uL (0.0-0.1); BASOPHILS % (AUTO) 1 % (0-10); EOSINOPHILS % (AUTO) 0 % (0-10); HEMATOCRIT 39 % (35-52); HEMOGLOBIN 12.7 g/dL (11.5-16.0); LYMPHOCYTES # (AUTO) 1.7 10^3/uL (1.0-4.0); LYMPHOCYTES % (AUTO) 22 % (12-44); MEAN CORPUSCULAR HEMOGLOBIN 31 pg (25-34); MEAN CORPUSCULAR HGB CONC 33 g/dL (32-36); MEAN CORPUSCULAR VOLUME 94 fL (80-99); MEAN PLATELET VOLUME 10.1 fL (9.0-12.2); MONOCYTES # (AUTO) 0.6 10^3/uL (0.0-1.0); MONOCYTES % (AUTO) 8 % (0-12); NEUTROPHILS # (AUTO) 5.4 10^3/uL (1.8-7.8); NEUTROPHILS % (AUTO) 69 % (42-75); PLATELET COUNT 243 10^3/uL (130-400); WHITE BLOOD COUNT 7.8 10^3/uL (4.3-11.0)
[2023-03-10 04:18] LABS: ALBUMIN 2.2 GM/DL (3.2-4.5); POTASSIUM 4.2 MMOL/L (3.6-5.0)
[2023-03-10 04:22] LABS: BILIRUBIN,TOTAL 0.4 MG/DL (0.1-1.0)
[2023-03-10 04:24] LABS: CREATININE SERUM 1.34 MG/DL (0.60-1.30); PHOSPHORUS 4.2 MG/DL (2.3-4.7)
[2023-03-10 04:27] LABS: MAGNESIUM 2.1 MG/DL (1.6-2.4)
[2023-03-10] MEDS ORDERED: MAGNESIUM 1 GM/100 ML IVPB 100 ML IV SCH (06:00)
[2023-03-10] MEDS ORDERED: POTASSIUM CL 10MEQ/50ML IVPB 50 ML IV SCH (06:00)
[2023-03-10] MEDS ORDERED: KCL 20 MEQ TAB (K-DUR) PO SCH (06:00)
[2023-03-10] MEDS: RT-ALBUTEROL/IPRATROPIUM 3 ML (DUONEB) VIAL INH SCH ×4 (07:08→18:55)
[2023-03-10] MEDS: SENNOSIDES 8.6 MG (SENOKOT) TAB PO SCH ×2 (07:52→21:27)
[2023-03-10] MEDS: DOCUSATE SODIUM 100 MG (COLACE) CAP PO SCH ×2 (07:52→21:27)
[2023-03-10] MEDS ORDERED: PATIENT MAY USE OWN MED,SINGLE MED INH SCH (08:00)
[2023-03-10] MEDS ORDERED: TRELEGY ELLIPTA 200/62.5/25 MCG INHALER INH SCH (08:00)
--- NOTE | 2023-03-10 08:53 | Diagnostic Imaging Report ---
EXAMINATION: Chest, 1 view. HISTORY: NG tube placement. COMPARISON: Radiograph performed earlier this same date. FINDINGS/ IMPRESSION: NG tube is seen with the tip overlying the stomach. Dictated by: Dictated on workstation # [id number]
--- NOTE | 2023-03-10 08:56 | Anesthesia-General Post-Op ---
General Patient Condition Mental Status/LOC: Same as Preop Cardiovascular: Unsatisfactory (on vasopressors as preop) Nausea/Vomiting: Absent Respiratory: Satisfactory Pain: Controlled Complications: Absent Post Op Complications Complications None Follow Up Care/Instructions Patient Instructions None needed. Anesthesia/Patient Condition Patient Condition Patient is in ICU on O2 via mask. She does answer questions but is not quick to respond. She does not C/O pain or nausea. She is on vasopressin and levophed, as she was preop. She has no apparent adverse anesthesia problems. SWATI DURBIN DO Mar 10, 2023 08:56
[2023-03-10] MEDS ORDERED: PANTOPRAZOLE 40 MG (PROTONIX) VIAL IV SCH (09:00)
[2023-03-10] MEDS ORDERED: CIPROFLOXACIN IV 400MG/200ML 200 ML IV SCH (10:00)
--- NOTE | 2023-03-10 10:01 | Progress Note ---
MELVIN PANDYA 03/10/23 1001: Subjective Date Seen by a Provider: Mar 10, 2023 Time Seen by a Provider: 09:56 Subjective/Events-last exam Patient seen and examined at bedside this morning. Oxymask in place. She is very slow to respond to my questions. She denies any pain. She mumbles when asked ab out how she is breathing and her symptoms of diarrhea, N/V. Very difficult to get much information on her subjective status. Answers with short 1 word responses. Her is not present in the room at this time. Blood pressure remains borderline low on 2 pressors. Had diagnostic lap last night which revealed hydroperitoneum. She received a washout with drain placement. Clinical condition is overall poor. Review of Systems Pulmonary: Dyspnea Cardiovascular: No: Chest Pain cannot obtain due to patient's condition. Denies pain and says she does not feel short of breath. Does not answer my questions about other symptoms including fever/chills, N/V/D. Focused Exam Lactate Level 03/09/23 12:55: Lactic Acid Level 2.62*H 03/09/23 16:45: Lactic Acid Level 2.37*H 03/09/23 19:10: Lactic Acid Level 2.65*H Time of Focused Exam: 14:21 Objective Exam Last Set of Vital Signs Vital Signs Date Time Temp Pulse Resp B/P (MAP) Pulse Ox O2 Delivery O2 Flow Rate FiO2 03/10/23 09:41 94 109/80 03/10/23 09:00 92 Simple Mask 12.00 03/10/23 08:00 17 03/10/23 07:53 36.0 03/09/23 23:59 60 Capillary Refill : Less Than 3 Seconds I&O Intake and Output 03/10/23 00:00 Intake Total 400 ml Output Total 1450 ml Balance -1050 ml Intake Oral 0 ml IV Total 400 ml Output Urine Total 550 ml Stool Total 900 ml Daily Weight Change No General: Alert (patient cannot answer questions well due to her clinical condition. Eyes appear ), Other (will not lood at me to answer questions, responds in one word answers) HEENT: Atraumatic Lungs: Other (crackles diffusely, occasional wheeze heard on the L upper post) Heart: Normal S1, Normal S2, Other (tachycardia) Abdomen: Soft Extremities: No Cyanosis, No Edema Results Lab Laboratory Tests 03/09/23 09:59: Urine Color DARK YELLOW, Urine Clarity CLEAR, Urine pH 5.5, Urine Specific [place] 1.020, Urine Protein NEGATIVE, Urine Glucose (UA) NEGATIVE, Urine Ketones TRACEH, Urine Nitrite NEGATIVE, Urine Bilirubin 1+H, Urine Urobilinogen 1.0, Urine Leukocyte Esterase NEGATIVE, Urine RBC (Auto) NEGATIVE, Urine RBC 0- 2, Urine WBC NONE, Urine Squamous Epithelial Cells 0-2, Urine Crystals PRESENTH, Urine Calcium Oxalate Crystals RAREH, Urine Bacteria NEGATIVE, Urine Casts NONE, Urine Mucus NEGATIVE, Urine Culture Indicated NO 03/09/23 12:55: Lactic Acid Level 2.62*H 03/09/23 13:49: Blood Gas Puncture Site LEFT RADIAL, Blood Gas Patient Temperature 36.8, Arterial Blood pH 7.14*L, Arterial Blood Partial Pressure CO2 47H, Arterial Blood Partial Pressure O2 34*L, Arterial Blood HCO3 15*L, Arterial Blood Total CO2 16.8L, Arterial Blood Oxygen Saturation 45L, Arterial Blood Base Excess - 12.0L, Catracho Test YES-POS, Blood Gas Ventilator Setting NO, Blood Gas Inspired Oxygen 5 03/09/23 16:45: Lactic Acid Level 2.37*H 03/09/23 18:00: Stool Occult Blood Immunoassay POSITIVEH 03/09/23 19:10: Lactic Acid Level 2.65*H 03/09/23 22:41: Blood Gas Puncture Site RIGHT RADIAL, Blood Gas Patient Temperature 36.4, Arterial Blood pH 7.28*L, Arterial Blood Partial Pressure CO2 31L, Arterial Blood Partial Pressure O2 80, Arterial Blood HCO3 15*L, Arterial Blood Total CO2 15.5L, Arterial Blood Oxygen Saturation 95, Arterial Blood Base Excess -10.9L, Catracho Test YES-POS, Blood Gas Ventilator Setting NO, Blood Gas Inspired Oxygen 60% 03/10/23 03:55: White Blood Count 7.8, Red Blood Count 4.15, Hemoglobin 12.7, Hematocrit 39, Mean Corpuscular Volume 94, Mean Corpuscular Hemoglobin 31, Mean Corpuscular Hemoglobin Concent 33, Red Cell Distribution Width 13.2, Platelet Count 243, Mean Platelet Volume 10.1, Immature Granulocyte % (Auto) 1, Neutrophils (%) (Auto) 69, Lymphocytes (%) (Auto) 22, Monocytes (%) (Auto) 8, Eosinophils (%) (Auto) 0, Basophils (%) (Auto) 1, Neutrophils # (Auto) 5.4, Lymphocytes # (Auto) 1.7, Monocytes # (Auto) 0.6, Eosinophils # (Auto) 0.0, Basophils # (Auto) 0.1, Immature Granulocyte # (Auto) 0.1, Sodium Level 138, Potassium Level 4.2, Chloride Level 114H, Carbon Dioxide Level 18L, Anion Gap 6, Blood Urea Nitrogen 31H, Creatinine 1.34H, Estimat Glomerular Filtration Rate 43, BUN/Creatinine Ratio 23, Glucose Level 119H, Calcium Level 7.0L, Corrected Calcium 8.4L, Phosphorus Level 4.2, Magnesium Level 2.1, Total Bilirubin 0.4, Aspartate Amino Transf (AST/SGOT) 80H, Alanine Aminotransferase (ALT/SGPT) 45, Alkaline Phosphatase 32L, Total Protein 4.0L, Albumin 2.2L Microbiology 03/09/23 C. difficile GDH Antigen & Toxins - Final, Resulted 03/09/23 Stool Culture, Resulted Pending 03/09/23 MRSA Screen - Final, Complete MRSA not isolated Assessment/Plan Assessment/Plan Assess & Plan/Chief Complaint Colitis vs hepatic abscess/cyst rupture Peritonitis Sepsis with septic shock Lactic acidosis Acute respiratory failure requiring bipap Remains in poor condition in ICU TeleICU and general surgery consulted appreciate recs CT abdomen/pelvis revealed evidence of extensive colitis with some free fluid in pelvis and around liver. Air fluid levels present in distended colon Hypotension in spite of adequate fluid bolus, Norepi started in ED Now on 2 pressors, norepi and vasopressin with blood pressures soft but improved Continue to monitor blood pressure and titrate pressors as needed WBC was 18 on first ER visit, 7 this morning Lactic acid elevated at 3.29, has fallen to 2.6 Blood cultures pending Started empirically on metronidazole and cipro Switched to meropenem Afebrile ABG showed metabolic acidosis, receiving sodium bicarb, slight improvement on most recent ABG UA negative CXR revealed atelectasis in R base Central line in place No recent abx use, do not suspect psuedomembranous colitis Had diagnostic laparoscopy with washout and drain placement last night per general surgery Possible hepatic cyst rupture with hydroperitoneum and questionable purulent bile according to operative record fluid sent for culture, pending results stool occult blood was positive, Hgb stable c diff toxin negative MRSA in the nares negative rectal catheter in place, stool culture pending placed on bipap again this morning due to low O2 sats continue duoneb Nausea with Vomit Diarrhea Abdominal pain zofran prn pain control EDDIE creatinine elevated at 1.96 from baseline around 1 Improved to 1.3 likely prerenal eddie due to kidney hypoperfusion in setting of hypotension continue to monitor Blood pressure support and IV fluids will hopefully correct catheter in place, monitor urine output DVT ppx- lovenox code status- full Clinical Quality Measures Admission Status Admission Dx Colitis Sepsis with septic shock Lactic acidosis Admit to ICU TeleICU and general surgery consulted appreciate recs CT abdomen/pelvis revealed evidence of extensive colitis with some free fluid in pelvis and around liver. Air fluid levels present in distended colon Hypotension in spite of adequate fluid bolus, Norepi started in ED Continue to monitor blood pressure and titrate pressors as needed WBC was 18 yesterday with 9.2 today Lactic acid elevated at 3.29 Blood cultures pending Started empirically on metronidazole and cipro Afebrile ABG pending UA negative CXR revealed atelectasis in R base Central line in place No recent abx use, do not suspect psuedomembranous colitis NPO in case of need for surgical intervention Nausea with Vomit Diarrhea Abdominal pain zofran prn pain control EDDIE creatinine elevated at 1.96 from baseline around 1 likely prerenal eddie due to kidney hypoperfusion in setting of hypotension continue to monitor Blood pressure support and IV fluids will hopefully correct catheter in place, monitor urine output DVT ppx- lovenox Diet- npo for now GONZALEZBRANDEE DUGANNelly ST 03/10/237: Objective Exam General: Alert (patient cannot answer questions well due to her clinical condition. Eyes appear ) Lungs: Other (crackles diffusely, occasional wheeze heard on the L upper post, on bipap) Assessment/Plan Assessment/Plan Assess & Plan/Chief Complaint Updated spouse at bedside after Dr Fountain had updated spouse All vitals stable but still critical Monitor closely, high risk for intubation Monitor UOP Supervisory-Addendum Brief Verification & Attestation Participated in pt care: history, MDM, physical Personally performed: exam, history, MDM, supervision of care Care discussed with: Medical Student Procedures: n/a Results interpretation: Verified all documentation Verification and Attestation of Medical Student E/M Service A medical student performed and documented this service in my presence. I reviewed and verified all information documented by the medical student and made modifications to such information, when appropriate. I personally performed the physical exam and medical decision making. Azalea Gonzalez, Mar 10, 2023,22:37 MELVIN PANDYA Mar 10, 2023 10:01 AZALEA GONZALEZ DO Mar 10, 2023 22:37
[2023-03-10] MEDS: MEROPENEM 500 MG/NS 100 ML IVPB IV SCH ×6 (10:30→22:41)
[2023-03-10 10:48] VITALS: BP 104/73
--- NOTE | 2023-03-10 10:50 | Diagnostic Imaging Report ---
INDICATION: Hypoxia. TECHNIQUE: Single view chest at 10:07 AM. CORRELATION STUDY: 03/09/2023. FINDINGS: Gastric tube and right IJ central line remain in place. The gastric tube tip extends beyond the [id number]. The IJ central line is deep in the right atrium. Additional tubing, likely over the right upper quadrant, is also present. There is hypoventilation with some crowding at the lung bases. No overt infiltrate. No pneumothorax or significant effusion. Heart size and mediastinum are enlarged and prominent, likely accentuated by hypoventilation. IMPRESSION: Stable appearance about the support lines and tubes. Hypoventilation without evidence for acute cardiopulmonary abnormality. Dictated by: Dictated on workstation # [id number]
--- NOTE | 2023-03-10 10:52 | Tele-ICU Progress Note ---
Subjective Date Seen by a Provider: Mar 10, 2023 Time Seen by a Provider: 10:51 Subjective/Events-last exam (Tele-ICU Physician , Progress Note ) Service provided via interactive audio and video telecommunications E-CARE system to a patient admitted to ICU bed in [facility]. Patient is seen today due to persistent need of ICU care Available chart/ vitals / labs / Images reviewed Video assessment done using teleICU camera, rest of exam as per RN Discussed with RN Events overnight : Afebrile hemodynamically stable Respiratory - 12 L I/O = Drips: bicarb 75 ml / ( 1.5 amp NS 175 Pressors- vaso levo Hospital course: 03/08- to ER N/V - Tx with meds for nausea, IVF , Bactrim 03/09 - back to ER hypotensive with sever abd pain and worsening of diarrhea - to ICU on LEVO , CT abd pelvis donex2 : 03/09 - -diffuse wall thickening seen from the rectum through to the cecum which is also seen on 03/08 ( ? colitis ) and NEW -small amount of free fluid within the pelvis and perihepatic region.- OR expl lap 03/10 - post on on BIPAP --> 12 L FM--> back to BIPAP 10 am , LEVO , VASO A/P Abd pain ,N/V, shock - s/p Laparoscopy with abdominal washout and drain placement 03/09 - Possible ruptured hepatic cyst , hydroperitoneum - ??purulent bile- as per Sx note - cont - empiric abx - MERREM - pain controlled Severe sepsis, shock - stop hydration with VO, but cont bicarb for acidosis correction - cont levo - to wean off , vaso - empiric anx started Acurte resp failure - suspected due to volume overload ( with > 5 l resuscitation ) - also elevated right RIGHT hemidiaphragm - NOT NEW - ? paralized - cont NIPPV - follow closely , stop IVF EDDIE - hypoperfusion - improved with hydration - cont bicarn gtt today Met Acidosis - with all above -bicarb gtt with shock physiology Diarrhea - flexy seal in place 03/09 - c dif neg Asthma, allergic rhinitis - nebs Nocturnal hypoxia - on o2 NC 2 L -PSG 2017 - no kaylan Lines : R IGJ 03/09 , (Central Line Necessity Reviewed) Nair: + 03/09 OG: Nutrition: npo Analgesia: Anxiety/ delirium VTE Prophylaxis: avery 40 Stress Ulcer Prophylaxis: Plans in collaboration with bedside consultants and IM MDs. Discussed with RN to reach out if any questions or concerns A total of 31 minutes of critical care time was devoted to this patient today, required to treat and/or prevent further deterioration of critical care condition ( as above ) . I am remotely monitoring this patient from another state. I am unable to do the bedside exam, and history/physical and pertinent information is taken from other notes in the computer and bedside staff. . Sepsis Event Evaluation Height, Weight, BMI Height: 5'4.00" Weight: 127lbs. 4.0oz. 57.932001ul; 25.52 BMI Method:Actual Focused Exam Lactate Level 03/09/23 12:55: Lactic Acid Level 2.62*H 03/09/23 16:45: Lactic Acid Level 2.37*H 03/09/23 19:10: Lactic Acid Level 2.65*H Time of Focused Exam: 14:21 Exam Exam Patient acknowledged, consented, and participated in this virtual visit which was conducted using real time audio/video Vital Signs Date Time Temp Pulse Resp B/P (MAP) Pulse Ox O2 Delivery O2 Flow Rate FiO2 03/10/23 10:33 98 101/68 03/10/23 10:21 96 122/62 03/10/23 10:20 98 NIV Bilevel 90.00 03/10/23 10:12 95 110/71 03/10/23 10:00 95 23 122/62 (82) 93 Simple Mask 12.00 03/10/23 09:41 94 109/80 03/10/23 09:00 113 101/71 (81) 92 Simple Mask 12.00 03/10/23 08:17 94 Simple Mask 15.00 03/10/23 08:00 98 17 106/61 (76) 93 Simple Mask 12.00 03/10/23 07:53 36.0 03/10/23 07:08 92 OxyMask 10.00 03/10/23 07:00 98 03/10/23 07:00 98 16 90/63 (72) 91 Simple Mask 12.00 03/10/23 06:05 95 113/74 03/10/23 06:00 96 22 106/70 (82) 94 Simple Mask 12.00 03/10/23 05:00 99 29 120/72 (88) 92 Simple Mask 12.00 03/10/23 04:00 95 113/74 (87) 92 Simple Mask 12.00 03/10/23 04:00 91 OxyMask 12.00 03/10/23 03:15 36.6 Simple Mask 12.00 03/10/23 03:00 95 104/70 (81) 92 Simple Mask 10.00 03/10/23 02:07 85 102/70 03/10/23 02:06 85 102/70 03/10/23 02:00 101 99/65 (76) 89 Simple Mask 10.00 03/10/23 01:00 100 03/10/23 01:00 100 92/60 (71) 89 Simple Mask 10.00 03/10/23 00:50 OxyMask 10.00 03/10/23 00:42 85 98 90.00 03/10/23 00:39 Simple Mask 10.00 03/10/23 00:22 NIV Bilevel 90.00 03/10/23 00:00 93 38 114/86 (95) 97 NIV Bilevel 100.00 03/09/23 23:59 93 NIV Bilevel 5.00 60 03/09/23 23:30 NIV Bilevel 100.00 03/09/23 23:13 90 102/70 03/09/23 23:00 91 33 113/56 (75) 97 OxyMask 5.00 03/09/23 22:50 NIV Bilevel 03/09/23 22:50 36.4 21 102/70 (81) 98 NIV Bilevel 03/09/23 22:44 90 21 95 100.00 03/09/23 22:40 21 111/71 (84) 97 NIV Bilevel 03/09/23 22:35 NIV Bilevel 03/09/23 22:30 21 105/83 (90) 93 NIV Bilevel 03/09/23 22:20 NIV Bilevel 03/09/23 22:20 19 103/75 (84) 92 NIV Bilevel 03/09/23 22:10 19 102/83 (89) 91 OxyMask 15 03/09/23 22:05 OxyMask 15 03/09/23 22:00 93 21 106/80 (89) 97 OxyMask 5.00 03/09/23 22:00 20 110/94 (99) 84 OxyMask 15 03/09/23 21:50 37.6 20 115/99 (104) 88 OxyMask 15 03/09/23 21:50 OxyMask 15 03/09/23 21:00 93 94/74 (81) OxyMask 5.00 03/09/23 20:10 36.5 03/09/23 20:00 108 16 109/89 (96) 94 OxyMask 5.00 03/09/23 20:00 94 OxyMask 5.00 03/09/23 19:26 94 OxyMask 5.00 03/09/23 19:00 101 03/09/23 19:00 100 21 114/87 (96) 94 OxyMask 5.00 03/09/23 18:00 99 19 120/95 (103) 95 OxyMask 5.00 03/09/23 17:41 100 117/86 03/09/23 17:00 101 19 99/70 (80) 94 OxyMask 5.00 03/09/23 16:00 107 19 76/47 (57) 92 OxyMask 5.00 03/09/23 16:00 94 OxyMask 5.00 03/09/23 15:28 36.6 03/09/23 15:24 104 84/53 03/09/23 15:11 71/59 (63) 03/09/23 15:00 93/75 (81) 03/09/23 14:54 68/35 (46) 03/09/23 14:45 56/44 (48) 03/09/23 14:00 100 20 104/72 (83) 91 OxyMask 5.00 03/09/23 13:48 35.8 98 94 40 03/09/23 13:48 94 OxyMask 5.00 03/09/23 13:00 35.8 03/09/23 12:38 95 03/09/23 12:30 OxyMask 5.00 03/09/23 12:26 101 20 121/90 (100) 91 OxyMask 5.00 03/09/23 12:20 36.2 94 22 75/44 93 OxyMask 4.00 6.00 03/09/23 11:50 90 86/57 I & O 03/10/23 07:00 Intake Total 400 ml Output Total 2340 ml Balance -1940 ml Height & Weight Height: 5'4.00" Weight: 127lbs. 4.0oz. 57.578739co; 25.52 BMI Method:Actual General Appearance: WD/WN, Mild Distress HEENT: PERRL/EOMI, Moist Mucous Membranes Neck: Supple Respiratory: Lungs Clear, Normal Breath Sounds, No Accessory Muscle Use Cardiovascular: Regular Rate, Rhythm, No Edema; No JVD Capillary Refill: Less Than 3 Seconds Gastrointestinal: soft, no organomegaly, distended, hernia Extremity: No Pedal Edema Neurologic/Psychiatric: Alert, Oriented x3, Normal Mood/Affect Skin: Normal Color (may have slight pallor), Warm/Dry; No Diaphoresis Results Lab Laboratory Tests 03/09/23 09:54 03/10/23 03:55 Assessment/Plan Assessment/Plan 1 DORETHA GRANT MD Mar 10, 2023 10:52
--- NOTE | 2023-03-10 11:46 | Progress Note - Surgery ---
Subjective Time Seen by a Provider: 10:32 Subjective/Events-last exam Pt seen and examined, still does not look good. She is somnolent and moans in pain with any motion or touching of her abdomen. Nurse states they have gone down very little on the Levophed, but still on two pressors. Review of Systems General: Fatigue, Malaise Pulmonary: Dyspnea; No Cough Cardiovascular: No: Chest Pain, Palpitations Gastrointestinal: Abdominal Pain, Diarrhea; No: Nausea, Vomiting Focused Exam Lactate Level 03/09/23 12:55: Lactic Acid Level 2.62*H 03/09/23 16:45: Lactic Acid Level 2.37*H 03/09/23 19:10: Lactic Acid Level 2.65*H Time of Focused Exam: 14:21 Objective Exam Vital Signs Date Time Temp Pulse Resp B/P (MAP) Pulse Ox O2 Delivery O2 Flow Rate FiO2 03/10/23 11:14 97 111/65 03/10/23 11:00 98 21 117/80 (92) 98 NIV Bilevel 90.00 03/10/23 10:48 97 21 98 90.00 03/10/23 10:33 98 101/68 03/10/23 10:21 96 122/62 03/10/23 10:20 98 NIV Bilevel 90.00 03/10/23 10:12 95 110/71 03/10/23 10:00 95 23 122/62 (82) 93 Simple Mask 12.00 03/10/23 09:41 94 109/80 03/10/23 09:00 113 101/71 (81) 92 Simple Mask 12.00 03/10/23 08:17 94 Simple Mask 15.00 03/10/23 08:00 98 17 106/61 (76) 93 Simple Mask 12.00 03/10/23 07:53 36.0 03/10/23 07:08 92 OxyMask 10.00 03/10/23 07:00 98 03/10/23 07:00 98 16 90/63 (72) 91 Simple Mask 12.00 03/10/23 06:05 95 113/74 03/10/23 06:00 96 22 106/70 (82) 94 Simple Mask 12.00 03/10/23 05:00 99 29 120/72 (88) 92 Simple Mask 12.00 03/10/23 04:00 95 113/74 (87) 92 Simple Mask 12.00 03/10/23 04:00 91 OxyMask 12.00 03/10/23 03:15 36.6 Simple Mask 12.00 03/10/23 03:00 95 104/70 (81) 92 Simple Mask 10.00 03/10/23 02:07 85 102/70 03/10/23 02:06 85 102/70 03/10/23 02:00 101 99/65 (76) 89 Simple Mask 10.00 03/10/23 01:00 100 03/10/23 01:00 100 92/60 (71) 89 Simple Mask 10.00 03/10/23 00:50 OxyMask 10.00 03/10/23 00:42 85 98 90.00 03/10/23 00:39 Simple Mask 10.00 03/10/23 00:22 NIV Bilevel 90.00 03/10/23 00:00 93 38 114/86 (95) 97 NIV Bilevel 100.00 03/09/23 23:59 93 NIV Bilevel 5.00 60 03/09/23 23:30 NIV Bilevel 100.00 03/09/23 23:13 90 102/70 03/09/23 23:00 91 33 113/56 (75) 97 OxyMask 5.00 03/09/23 22:50 NIV Bilevel 03/09/23 22:50 36.4 21 102/70 (81) 98 NIV Bilevel 03/09/23 22:44 90 21 95 100.00 03/09/23 22:40 21 111/71 (84) 97 NIV Bilevel 03/09/23 22:35 NIV Bilevel 03/09/23 22:30 21 105/83 (90) 93 NIV Bilevel 03/09/23 22:20 NIV Bilevel 03/09/23 22:20 19 103/75 (84) 92 NIV Bilevel 03/09/23 22:10 19 102/83 (89) 91 OxyMask 15 03/09/23 22:05 OxyMask 15 03/09/23 22:00 93 21 106/80 (89) 97 OxyMask 5.00 03/09/23 22:00 20 110/94 (99) 84 OxyMask 15 03/09/23 21:50 37.6 20 115/99 (104) 88 OxyMask 15 03/09/23 21:50 OxyMask 15 03/09/23 21:00 93 94/74 (81) OxyMask 5.00 03/09/23 20:10 36.5 03/09/23 20:00 108 16 109/89 (96) 94 OxyMask 5.00 03/09/23 20:00 94 OxyMask 5.00 03/09/23 19:26 94 OxyMask 5.00 03/09/23 19:00 101 03/09/23 19:00 100 21 114/87 (96) 94 OxyMask 5.00 03/09/23 18:00 99 19 120/95 (103) 95 OxyMask 5.00 03/09/23 17:41 100 117/86 03/09/23 17:00 101 19 99/70 (80) 94 OxyMask 5.00 03/09/23 16:00 107 19 76/47 (57) 92 OxyMask 5.00 03/09/23 16:00 94 OxyMask 5.00 03/09/23 15:28 36.6 03/09/23 15:24 104 84/53 03/09/23 15:11 71/59 (63) 03/09/23 15:00 93/75 (81) 03/09/23 14:54 68/35 (46) 03/09/23 14:45 56/44 (48) 03/09/23 14:00 100 20 104/72 (83) 91 OxyMask 5.00 03/09/23 13:48 35.8 98 94 40 03/09/23 13:48 94 OxyMask 5.00 03/09/23 13:00 35.8 03/09/23 12:38 95 03/09/23 12:30 OxyMask 5.00 03/09/23 12:26 101 20 121/90 (100) 91 OxyMask 5.00 03/09/23 12:20 36.2 94 22 75/44 93 OxyMask 4.00 6.00 03/09/23 11:50 90 86/57 I & O 03/10/23 07:00 Intake Total 400 ml Output Total 2340 ml Balance -1940 ml Capillary Refill : Less Than 3 Seconds General Appearance: Chronically ill, Moderate Distress Respiratory: Accessory Muscle Use, Crackles (at bases mostly), Decreased Breath Sounds, Respiratory Distress (mild) Cardiovascular: Regular Rate, Rhythm, No Murmur Gastrointestinal: soft, no organomegaly, distended, tenderness (diffusely), hernia, other (SWAPNA is serosanguinous, supraumbilical incision is c/d/i) Extremity: No Pedal Edema Skin: Diaphoresis Results Lab Laboratory Tests 03/09/23 12:55: Lactic Acid Level 2.62*H 03/09/23 13:49: Blood Gas Puncture Site LEFT RADIAL, Blood Gas Patient Temperature 36.8, Arterial Blood pH 7.14*L, Arterial Blood Partial Pressure CO2 47H, Arterial Blood Partial Pressure O2 34*L, Arterial Blood HCO3 15*L, Arterial Blood Total CO2 16.8L, Arterial Blood Oxygen Saturation 45L, Arterial Blood Base Excess - 12.0L, Catracho Test YES-POS, Blood Gas Ventilator Setting NO, Blood Gas Inspired Oxygen 5 03/09/23 16:45: Lactic Acid Level 2.37*H 03/09/23 18:00: Stool Occult Blood Immunoassay POSITIVEH 03/09/23 19:10: Lactic Acid Level 2.65*H 03/09/23 22:41: Blood Gas Puncture Site RIGHT RADIAL, Blood Gas Patient Temperature 36.4, Arterial Blood pH 7.28*L, Arterial Blood Partial Pressure CO2 31L, Arterial Blood Partial Pressure O2 80, Arterial Blood HCO3 15*L, Arterial Blood Total CO2 15.5L, Arterial Blood Oxygen Saturation 95, Arterial Blood Base Excess -10.9L, Catracho Test YES-POS, Blood Gas Ventilator Setting NO, Blood Gas Inspired Oxygen 60% 03/10/23 03:55: White Blood Count 7.8, Red Blood Count 4.15, Hemoglobin 12.7, Hematocrit 39, Mean Corpuscular Volume 94, Mean Corpuscular Hemoglobin 31, Mean Corpuscular Hemoglobin Concent 33, Red Cell Distribution Width 13.2, Platelet Count 243, Mean Platelet Volume 10.1, Immature Granulocyte % (Auto) 1, Neutrophils (%) (Auto) 69, Lymphocytes (%) (Auto) 22, Monocytes (%) (Auto) 8, Eosinophils (%) (Auto) 0, Basophils (%) (Auto) 1, Neutrophils # (Auto) 5.4, Lymphocytes # (Auto) 1.7, Monocytes # (Auto) 0.6, Eosinophils # (Auto) 0.0, Basophils # (Auto) 0.1, Immature Granulocyte # (Auto) 0.1, Sodium Level 138, Potassium Level 4.2, Chloride Level 114H, Carbon Dioxide Level 18L, Anion Gap 6, Blood Urea Nitrogen 31H, Creatinine 1.34H, Estimat Glomerular Filtration Rate 43, BUN/Creatinine Ratio 23, Glucose Level 119H, Calcium Level 7.0L, Corrected Calcium 8.4L, Phosphorus Level 4.2, Magnesium Level 2.1, Total Bilirubin 0.4, Aspartate Amino Transf (AST/SGOT) 80H, Alanine Aminotransferase (ALT/SGPT) 45, Alkaline Phosphatase 32L, Total Protein 4.0L, Albumin 2.2L Microbiology 03/09/23 C. difficile GDH Antigen & Toxins - Final, Resulted 03/09/23 Stool Culture, Resulted Pending 03/09/23 MRSA Screen - Final, Complete MRSA not isolated Assessment/Plan Assessment/Plan Assessment/Plan Hypotension requiring two Pressors - ??septic shock (unsure source) Colitis -stool occult blood was positive, Hgb stable, c diff toxin negative will await other enteric organisms Hepatic cyst rupture _ I spoke with Radiology and Pathology; I also did some research to find out how often simple cysts cause severe distress like this (only 21 case reports from 1974 -2019). It also could be Echinococcus, spoke with pathology to make sure the look for it and will order serum test. Also waiting on fluid sent for culture. EDDIE has improve creatinine to 1.3 (from 1.95), likely prerenal eddie due to kidney hypoperfusion in setting of hypotension DVT ppx- lovenox I again had long talk with going over what I think is going on....unfortunately, don't really know. Will continue supportive care and see if lab tests return anything helpful. At this point nothing else to do; maybe a liver MRI once she gets better. ABIMAEL ZHU DO Mar 10, 2023 11:46
[2023-03-10 12:30] LABS: ABG OXYGEN SATURATION 98 % (94-100); ABG PCO2 32 MMHG (35-45); ABG PO2 167 MMHG (79-93); ABG TCO2 17.9 MMOL/L (21.0-31.0)
[2023-03-10 12:34] LABS: ABG PH 7.34 (7.37-7.43); ALLENS TEST POSITIVE; INSPIRED O2 90% BIPAP
[2023-03-10 12:35] LABS: PATIENT TEMP 36; VENTILATOR NO
[2023-03-10] MEDS ORDERED: ENOXAPARIN 40 MG/0.4 ML (LOVENOX) SYR SC SCH (13:00)
[2023-03-10 13:39] LABS: AMMONIA 29 UMOL/L (11-32)
[2023-03-10 15:07] VITALS: BP 110/53
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
[2023-03-10 16:52] VITALS: BP 104/68
--- NOTE | 2023-03-10 19:04 | OPERATIVE REPORT ---
DATE OF SERVICE: 03/09/2023 PREOPERATIVE DIAGNOSES: Abdominal pain, hypotension. POSTOPERATIVE DIAGNOSIS: Ruptured hepatic cyst, colitis, hypotension. PROCEDURE: Diagnostic laparoscopy with washout and drain placement. SURGEON: Baljit Fountain DO DEVELOPMENT TRAINER: None. ANESTHESIA: General endotracheal tube. SPECIMENS: Fluid sent for culture as well as ova and parasites. BLOOD LOSS: Scant. FLUIDS: Per anesthesia. POSTOPERATIVE CONDITION: Stable. INDICATIONS FOR PROCEDURE: The patient is a 72-year-old female who came in with severe abdominal pain, but normal white count, had a little bit of fluid in the belly. She may have also had some colitis. She was on Levophed, not getting any better, elected to take her to the OR to make sure that she did not have necrotic or ischemic bowel. Also, noted on the CT scan that she had a cyst and I thought that maybe it had ruptured. FINDINGS: The patient did have a ruptured cyst. She had some murky bile, almost like purulent in bile that was all over the abdomen, even though CT scan, which showed above the liver and the liver appeared odd, looking almost like three lobed liver up at the dome where the cyst had been. I did not see a cyst. DESCRIPTION OF PROCEDURE: After informed consent was obtained, the patient was brought to the operating room and placed on the table in supine position. She was sterilely prepped and draped in normal fashion. A midline incision was made, first making a small incision above the umbilicus with #11 blade after first infiltrating local, then carrying the incision down through the skin and subcutaneous tissue, deepened down to subcutaneous tissue with electrocautery down to fascia. Fascia was incised bluntly into the abdomen, swept a finger around placed a 11 mm trocar port under direct visualization. Upon entry noted a lot of bile, but it was murky. The intestine looked okay, elected to place another port, subxiphoid with local lidocaine 11 blade for stab incision and the VersaStep system, all done under direct visualization. This was a 5-mm port, placed a suction through this, and then suctioned out some of this fluid to be sent to pathology for culture as well as ova and parasites. We then started looking around, ran the intestine. Small intestine looked fine, had moved the omentum a little bit out of the way, looked at the ascending colon, transverse colon, descending colon and sigmoid, again looked a little bit thickened, but not really that much inflamed, definitely looked viable and no ischemia. Stomach looked good, had an NG tube placed and then switched to a 5-mm camera to get a better view of what the dome of the liver looked like and it was very hard to describe, it looked like there was 3 lobes. This definitely looked like the cyst had ruptured. I did not really see any bile draining out. One of the lobes looked larger. In one area, it looked like there is some hypergranulation tissue, and then in one area, there was almost like a whitish cap, could not tell whether this is fibrinous material or if this was a mass, which was very hard to determine what is going on. It was hard to get up to see in this area, because it was so high at the top of the dome of the right side of the liver. At this point, after washing everything, suctioned all the fluid out and then washing copiously with normal saline, elected to place a drain, put a 15-Sing[place]an drain through the supraumbilical port, pushed this into the abdomen and placed up on the top of the dome of the liver, sutured this in place with a 3-0 nylon suture. At this point then, the patient had been in Trendelenburg and then reverse Trendelenburg. She was placed supine and then closed the supraumbilical incision, closing that with a 0 Vicryl [id number] suture, copiously irrigated this incision and then closed this incision with 3 interrupted 4-0 undyed Monocryl subcuticular stitches. Area was cleaned and dried, dressing placed as well as dressing on the other incision and the patient was then transferred back to ICU in stable condition. Sponge and needle count correct at the end of the case. Job ID: [id number] DocumentID: [id number] Dictated Date: 03/10/2023 12:15:00 Aerial Lineman Date: 03/10/2023 19:02:00 Dictated By: BALJIT FOUNTAIN DO
== END 2023-03-11 00:17 | disposition short-term general hospital (02) | DRG 853 ==
LOC: EDUNIT# 09:00 → ER 09:01 → ICU 12:07
PROVIDERS: ADMIT Internal Medicine; ATTEND Family Medicine
PROC: 02HV33Z Insertion of Infusion Device into Superior Vena Cava, Percutaneous Approach (ICD-10-PCS; 2023-03-09)
PROC: 5A09357 Assistance with Respiratory Ventilation, Less than 24 Consecutive Hours, Continuous Positive Airway Pressure (ICD-10-PCS; 2023-03-09)
PROC: 0W9G40Z Drainage of Peritoneal Cavity with Drainage Device, Percutaneous Endoscopic Approach (ICD-10-PCS; principal; 2023-03-09 20:30)
DX: A41.9 Sepsis, unspecified organism (principal); J96.01 Acute respiratory failure with hypoxia; R65.21 Severe sepsis with septic shock; K65.9 Peritonitis, unspecified; N17.9 Acute kidney failure, unspecified; E87.20 Acidosis, unspecified; Z79.01 Long term (current) use of anticoagulants; Z79.899 Other long term (current) drug therapy; I10 Essential (primary) hypertension; J45.909 Unspecified asthma, uncomplicated; K21.9 Gastro-esophageal reflux disease without esophagitis; M19.90 Unspecified osteoarthritis, unspecified site; G89.29 Other chronic pain; M54.9 Dorsalgia, unspecified; E03.9 Hypothyroidism, unspecified; K52.9 Noninfective gastroenteritis and colitis, unspecified; E86.0 Dehydration; K76.89 Other specified diseases of liver
CPT/HCPCS: 36415; 36556; 36600; 71045; 74176; 80053; 81000; 82140; 82274; 82805; 83605; 83735; 84100; 84484; 85007; 85025; 85027; 85610; 85730; 87015; 87040; 87045; 87046; 87070; 87075; 87081; 87088; 87177; 87205; 87324; 87328; 87329; 87449; 87899; 94640

== ENCOUNTER 2023-04-15 20:30 | Inpatient (IN) | payer MEDICARE ==
[~2023-04-15] VITALS: Ht 162.6 cm; Wt 57.7 kg
[~2023-04-15 20:30] MED LIST changes: +DILT-27 PO; +DIPH25CA79 PO; +FLUT16SP22 NSEACH; +FLUT1BLS15 INH; +FURO20TA4 PO; +LORA10TA7 PO; +PRAV20TA3 PO; +RALO60TA12 PO; +SERT-413 PO
[2023-04-15] MEDS ORDERED: ONDANSETRON INJECTION 4 MG/2 ML (SDV) IVP ONE (21:15)
[2023-04-15] MEDS ORDERED: NS IV 1000 ML 1,000 ML IV SCH (21:15)
[2023-04-15 21:16] LABS: BASOPHILS % (AUTO) 1 % (0-10); EOSINOPHILS # (AUTO) 0.1 10^3/uL (0.0-0.3); EOSINOPHILS % (AUTO) 1 % (0-10); HEMATOCRIT 26 % (35-52); HEMOGLOBIN 8.2 g/dL (11.5-16.0); LYMPHOCYTES # (AUTO) 4.2 10^3/uL (1.0-4.0); LYMPHOCYTES % (AUTO) 48 % (12-44); MEAN CORPUSCULAR HEMOGLOBIN 29 pg (25-34); MEAN CORPUSCULAR HGB CONC 32 g/dL (32-36); MEAN CORPUSCULAR VOLUME 90 fL (80-99); MEAN PLATELET VOLUME 9.4 fL (9.0-12.2); MONOCYTES # (AUTO) 0.9 10^3/uL (0.0-1.0); MONOCYTES % (AUTO) 10 % (0-12); NEUTROPHILS # (AUTO) 3.5 10^3/uL (1.8-7.8); NEUTROPHILS % (AUTO) 40 % (42-75); PLATELET COUNT 299 10^3/uL (130-400); WHITE BLOOD COUNT 8.7 10^3/uL (4.3-11.0)
[2023-04-15 21:29] LABS: INR 1.1 (0.8-1.4); PROTHROMBIN TIME PATIENT 14.4 SEC (12.2-14.7)
[2023-04-15 21:36] LABS: ALBUMIN 2.2 GM/DL (3.2-4.5); BILIRUBIN,TOTAL 0.4 MG/DL (0.1-1.0); CALCIUM 7.6 MG/DL (8.5-10.1); CREATININE SERUM 1.08 MG/DL (0.60-1.30); POTASSIUM 3.6 MMOL/L (3.6-5.0)
--- NOTE | 2023-04-15 21:42 | Diagnostic Imaging Report ---
CHEST 1 VIEW, AP/PA ONLY INDICATION: Hypoxia. COMPARISON: Chest radiograph on 03/10/2023. FINDINGS: Lungs: Low lung volume. No focal consolidation. Stable pulmonary vasculature. Pleura: No pleural effusion or pneumothorax. Heart and Mediastinum: Cardiomegaly. Pulmonary vascularity is within normal limits. Osseous Structures and Soft Tissues: No acute osseous abnormality. Normal soft tissues. IMPRESSION: Low lung volume. No focal consolidation or rogelio pulmonary edema. Dictated by: Dictated on workstation # [id number]
[2023-04-15 21:55] LABS: BACTERIA,URINE FEW /HPF; BILIRUBIN,URINE NEGATIVE (NEGATIVE); CLARITY,URINE CLEAR; COLOR,URINE YELLOW; GLUCOSE, URINE (UA) NEGATIVE (NEGATIVE); KETONES,URINE NEGATIVE (NEGATIVE); LEUKOCYTE ESTERASE ,URINE 1+ (NEGATIVE); NITRITE,URINE NEGATIVE (NEGATIVE); PH,URINE 5.5 (5-9); PROTEIN,URINE NEGATIVE (NEGATIVE); SQUAMOUS EPITHELIAL CELL,UR 25-50 /HPF
--- NOTE | 2023-04-15 21:55 | ED General ---
General Chief Complaint: General Problems/Pain Stated Complaint: BLOOD PRESSURE PROBLEMS/ DEHYDRATED Nursing Triage Note: TO ED VIA POV AND W/C TO ROOM 3. PT VOMITED IN WAITING ROOM AND LAST VOMITED THIS MORNING AT APPROX 0400. PT DAUGHTER IN LAW IN ROOM AND STATES PT WAS RECENTLY IN THIS ICU, THEN FLOW TO [facility] AND IN ICU THERE FOR SEVERAL DAYS, AND THEN AT A REHAB FACILITY. PT ALSO STATES SHE HAS HAD LOW BP TODAY WITH SBP IN 80s. Source of Information: Patient, Family, Old Records Exam Limitations: No Limitations History of Present Illness Date Seen by Provider: Apr 15, 2023 Time Seen by Provider: 20:51 Initial Comments This 72-year-old woman presents to the emergency room via private vehicle from home with concerns about vomiting, left-sided abdominal pain, and general decline since being discharged from [facility] on April 01. She had been admitted to this facility in February. She developed septic shock which was thought to be caused by an intra-abdominal infection with source possibly originating from a hepatic cyst. She was transferred to [facility]. A peritoneal drain was placed and subsequently removed before discharge. Patient and family report that EGD and colonoscopy were performed. Ulcerations were noted on the colon which were thought to be induced from physiologic stress. Patient does not have any history of inflammatory bowel disease. She had a short stay in a rehab unit at [facility] before being discharged home. She has had outpatient follow-up appointments since her discharge and seem to be stable. Her temperature is just under a fever at 100 F. Her blood pressures are soft with initial blood pressure of 108/60. Family reports she has not been eating or drinking well since returning home. Her vomiting started 2 days ago. She has had a few episodes of vomiting during that time. She was vomiting in the waiting room and reports her left-sided abdominal pain improved after vomiting. She reports intermittent chronic hematuria and noted some pink tinge to her urine this morning. Dr. Nguyen is her primary care provider. She is to have follow-up with gastroenterology at [place] in [place]. Her medication list was reviewed and it was noted that several of her medications including blood pressure medications and diuretics were stopped in recent days due to her blood pressure. She is hypoxic on arrival with oxygen saturations around 88%. She reports normally using oxygen at 2 L at night. Her hypoxia was resolved with nasal cannula oxygen at 2 L. Patient is accompanied by her pchsxbie-qh-nom Glenna Farrell ([phone]) and later by her . Allergies and Home Medications Allergies Coded Allergies: ciprofloxacin (Verified Allergy, Mild, 05/10/22) clarithromycin (Verified Allergy, Mild, 05/10/22) codeine (Verified Allergy, Mild, 05/10/22) Penicillins (Verified Allergy, Unknown, 05/10/22) iodine (Verified Allergy, Unknown, 05/10/22) facial swelling meperidine HCl (Verified Allergy, Unknown, 05/10/22) Nitrofurantoin Macrocrystal (Verified Adverse Reaction, Mild, N/V, 05/10/22) chlorthalidone (Verified Adverse Reaction, Unknown, BODY ACHES;MUSCLE ACHES;JOINT ACHES;SOA;COULDN'T MOVE ARMS, 05/10/22) tramadol (Verified Adverse Reaction, Unknown, 05/10/22) Patient Home Medication List Home Medication List Reviewed: Yes Alprazolam (Alprazolam) 0.5 Mg Tablet, 0.5 MG PO HS PRN for ANXIETY, (Reported) Entered as Reported by: RAH EARLY on 03/09/231556 Diltiazem HCl (Diltiazem 24Hr ER) 120 Mg Cap.er.24h, 120 MG PO DAILY, (Reported) Entered as Reported by: RAH EARLY on 03/09/231556 Diphenhydramine HCl (Benadryl) 25 Mg Capsule, 25-50 MG PO Q8H PRN for ALLERGY SYMPTOMS, (Reported) Entered as Reported by: RAH EARLY on 03/09/231556 Fluticasone Propionate (Fluticasone Propionate) 50 Mcg/Actuation [place].susp, 1 SPRAY NSEACH DAILY, (Reported) Entered as Reported by: RAH EARLY on 03/09/231556 Fluticasone/Umeclidin/Vilanter (Trelegy Ellipta 200-62.5-25) 200-62.5 Blst.w.dev, 1 PUFF INH DAILY, (Reported) Entered as Reported by: RAH EARLY on 03/09/231556 Furosemide (Furosemide) 20 Mg Tablet, 20 MG PO DAILY PRN for FLUID RETENTION, (Reported) Entered as Reported by: RAH EARLY on 03/09/231556 Levothyroxine Sodium (Levothyroxine Sodium) 25 Mcg Tablet, 25 MCG PO DAILY, (Reported) Entered as Reported by: WILBERT ORDAZ on 06/01/17 1418 Loratadine (Loratadine) 10 Mg Tablet, 10 MG PO DAILY PRN for ALLERGY SYMPTOMS, (Reported) Entered as Reported by: RAH EARLY on 03/09/231556 Losartan Potassium (Losartan Potassium) 100 Mg Tablet, 100 MG PO DAILY, (Reported) Entered as Reported by: WILBERT ORDAZ on 06/01/17 1248 Pantoprazole Sodium (Pantoprazole Sodium) 40 Mg Tablet.dr, 40 MG PO DAILY, (Reported) Entered as Reported by: RAH EARLY on 03/09/231556 Pravastatin Sodium (Pravastatin Sodium) 20 Mg Tablet, 20 MG PO HS, (Reported) Entered as Reported by: RAH EARLY on 03/09/231556 Raloxifene HCl (Raloxifene HCl) 60 Mg Tablet, 60 MG PO DAILY, (Reported) Entered as Reported by: RAH EARLY on 03/09/231556 Sertraline HCl (Sertraline HCl) 50 Mg Tablet, 50 MG PO HS, (Reported) Entered as Reported by: RAH EARLY on 03/09/231556 Review of Systems Review of Systems Constitutional: see HPI EENTM: no symptoms reported Respiratory: see HPI Cardiovascular: see HPI Gastrointestinal: see HPI Genitourinary: see HPI : No Musculoskeletal: no symptoms reported Skin: no symptoms reported Psychiatric/Neurological: No Symptoms Reported Hematologic/Lymphatic: No Symptoms Reported Immunological/Allergic: no symptoms reported Past Jluvelx-Wygste-Zepafl Hx Patient Social History Tobacco Use?: No Substance use?: No Alcohol Use?: No Immunizations Up To Date First/Initial COVID19 Vaccinat: OCTOBER 2020 Second COVID19 Vaccination Shawn: NOVEMBER 2020 Third COVID19 Vaccination Date: OCTOBER 2020 Seasonal Allergies Seasonal Allergies: No Past Medical History Surgery/Hospitalization HX: ASTHMA, HTN HOME O2-2L HS Surgeries: Yes (BUNION SURG, peritoneal drain) Abdominal, Gallbladder, Hysterectomy, Orthopedic Respiratory: Yes (Nocturnal hypoxia) Asthma Cardiac: Yes Hypertension Neurological: Yes : No Reproductive Disorders: No [employer] 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, 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 Sexually Transmitted Disease: No HIV/AIDS: No Genitourinary: Yes Kidney Infection Gastrointestinal: Yes (Possible infected hepatic cyst resulting in peritonitis and sepsis) Colitis, Gastroesophageal Reflux Musculoskeletal: Yes Osteoporosis (Osteopenia), Arthritis, Chronic Back Pain Endocrine: Yes Hypothyroidsim Cancer: No Psychosocial: No Integumentary: No Blood Disorders: No Family Medical History Cancer (dad had kidney cancer) 19 FATHER Cataract 19 FATHER 19 MOTHER Chest pain 19 FATHER Dementia 19 MOTHER Family history: Allergy 19 MOTHER Family history: Arthritis 19 MOTHER Family history: Asthma (daughter and son have asthma) 19 MOTHER Family history: Cardiovascular disease 19 FATHER Family history: Diabetes mellitus 19 FATHER 19 MOTHER Family history: Gastrointestinal disease 19 MOTHER Family history: Hypertension 19 FATHER Family history: Osteoporosis 19 MOTHER Family history: Thyroid disorder 19 MOTHER Headache (daughter) Heart disease 19 FATHER History of - anemia (daughter) History of - respiratory disease 19 MOTHER Kidney disease 19 FATHER Myocardial infarction 19 FATHER Stroke 19 FATHER Heart Disease, Cancer, CVA, Diabetes, Hypertension, Other Conditions/Hx Physical Exam Vital Signs Vital Signs - First Documented 04/15/23 20:49 Temp 37.8 Pulse 96 Resp 16 B/P (MAP) 108/60 (76) Pulse Ox 88 O2 Delivery Room Air O2 Flow Rate 2.00 Capillary Refill : Less Than 3 Seconds Height, Weight, BMI Height: 5'4.00" Weight: 127lbs. 4.0oz. [id number]; 25.52 BMI Method:Actual General Appearance: WD/WN, Mild Distress HEENT: PERRL/EOMI, Normal ENT Inspection, Other (Oropharynx dry) Neck: Normal Inspection Respiratory: Lungs Clear, Normal Breath Sounds, No Accessory Muscle Use Cardiovascular: Regular Rate, Rhythm, No Murmur, Other (Mild lower extremity pitting edema) Gastrointestinal: Soft, Abnormal Bowel Sounds (Decreased); No Distended; Tenderness (Mild in the left lower quadrant) Rectal: Normal Rectal Tone, Heme Positive Stool (Faintly) Extremity: Normal Inspection, No Pedal Edema Neurologic/Psychiatric: Alert, Oriented x3, No Motor/Sensory Deficits, Normal Mood/Affect Skin: Normal Color, Warm/Dry Focused Exam Lactate Level 04/15/23 21:00: Lactic Acid Level 1.43 Lactic Acid Level Laboratory Tests Test 04/15/23 21:00 Lactic Acid Level 1.43 MMOL/L (0.50-2.00) Progress/Results/Core Measures Suspected Sepsis SIRS Temperature: Pulse: 96 Respiratory Rate: 16 Laboratory Tests 04/15/23 21:00: White Blood Count 8.7 Blood Pressure 108 /60 Mean: 76 04/15/23 21:00: Lactic Acid Level 1.43 Laboratory Tests 04/15/23 21:00: Creatinine 1.08, INR Comment 1.1, Platelet Count 299, Total Bilirubin 0.4 Results/Orders Lab Results Laboratory Tests Test 04/15/23 21:00 04/15/23 21:08 04/15/23 21:30 Range/Units White Blood Count 8.7 4.3-11.0 10^3/uL Red Blood Count 2.85 L 3.80-5.11 10^6/uL Hemoglobin 8.2 L 11.5-16.0 g/dL Hematocrit 26 L 35-52 % Mean Corpuscular Volume 90 80-99 fL Mean Corpuscular Hemoglobin 29 25-34 pg Mean Corpuscular Hemoglobin Concent 32 32-36 g/dL Red Cell Distribution Width 14.5 10.0-14.5 % Platelet Count 299 130-400 10^3/uL Mean Platelet Volume 9.4 9.0-12.2 fL Immature Granulocyte % (Auto) 0 % Neutrophils (%) (Auto) 40 L 42-75 % Lymphocytes (%) (Auto) 48 H 12-44 % Monocytes (%) (Auto) 10 0-12 % Eosinophils (%) (Auto) 1 0-10 % Basophils (%) (Auto) 1 0-10 % Neutrophils # (Auto) 3.5 1.8-7.8 10^3/uL Lymphocytes # (Auto) 4.2 H 1.0-4.0 10^3/uL Monocytes # (Auto) 0.9 0.0-1.0 10^3/uL Eosinophils # (Auto) 0.1 0.0-0.3 10^3/uL Basophils # (Auto) 0.0 0.0-0.1 10^3/uL Immature Granulocyte # (Auto) 0.0 0.0-0.1 10^3/uL Prothrombin Time 14.4 12.2-14.7 SEC INR Comment 1.1 0.8-1.4 Activated Partial Thromboplast Time 33 24-35 SEC Sodium Level 132 L 135-145 MMOL/L Potassium Level 3.6 3.6-5.0 MMOL/L Chloride Level 100 98-107 MMOL/L Carbon Dioxide Level 22 21-32 MMOL/L Anion Gap 10 5-14 MMOL/L Blood Urea Nitrogen 19 H 7-18 MG/DL Creatinine 1.08 0.60-1.30 MG/DL Estimat Glomerular Filtration Rate 55 BUN/Creatinine Ratio 18 Glucose Level 98 70-105 MG/DL Lactic Acid Level 1.43 0.50-2.00 MMOL/L Calcium Level 7.6 L 8.5-10.1 MG/DL Corrected Calcium 9.0 8.5-10.1 MG/DL Total Bilirubin 0.4 0.1-1.0 MG/DL Aspartate Amino Transf (AST/SGOT) 14 5-34 U/L Alanine Aminotransferase (ALT/SGPT) 12 0-55 U/L Alkaline Phosphatase 79 40-136 U/L C-Reactive Protein High Sensitivity 28.16 H 0.00-0.50 MG/DL Total Protein 5.0 L 6.4-8.2 GM/DL Albumin 2.2 L 3.2-4.5 GM/DL Lipase 25 8-78 U/L Thyroid Stimulating Hormone (TSH) 6.99 H 0.35-4.94 UIU/ML Free Thyroxine 0.82 0.70-1.48 NG/DL Influenza Type A (RT-PCR) Not Detected Not Detecte Influenza Type B (RT-PCR) Not Detected Not Detecte SARS-CoV-2 RNA (RT-PCR) Not Detected Not Detecte Urine Color YELLOW Urine Clarity CLEAR Urine pH 5.5 5-9 Urine Specific [place] 1.010 L 1.016-1.022 Urine Protein NEGATIVE NEGATIVE Urine Glucose (UA) NEGATIVE NEGATIVE Urine Ketones NEGATIVE NEGATIVE Urine Nitrite NEGATIVE NEGATIVE Urine Bilirubin NEGATIVE NEGATIVE Urine Urobilinogen 0.2 < = 1.0 MG/DL Urine Leukocyte Esterase 1+ H NEGATIVE Urine RBC (Auto) 2+ H NEGATIVE Urine RBC 10-25 H /HPF Urine WBC 5-10 H /HPF Urine Squamous Epithelial Cells 25-50 H /HPF Urine Crystals NONE /LPF Urine Bacteria FEW H /HPF Urine Casts NONE /LPF Urine Mucus NEGATIVE /LPF Urine Other TRANS EPI 25-50 /HPF Urine Culture Indicated YES My Orders Orders - SYDNEE RUBIN MD Cbc With Automated Diff (04/15/23 21:07) Comprehensive Metabolic Panel (04/15/23 21:07) Blood Culture (04/15/23 21:07) Sputum Culture (04/15/23 21:07) Urinalysis (04/15/23 21:07) Urine Culture (04/15/23 21:07) Protime With Inr (04/15/23 21:07) Partial Thromboplastin Time (04/15/23 21:07) Chest 1 View, Ap/Pa Only (04/15/23 21:07) Ed Iv/Invasive Line Start (04/15/23 21:07) Vital Signs Adult Sepsis Patie Q15M (04/15/23 21:07) O2 (04/15/23 21:07) Remove Rings In Anticipation O (04/15/23 21:07) Lactic Acid Analyzer (04/15/23 21:07) Covid 19 Inhouse Test (04/15/23 21:07) Influenza A And B By Pcr (04/15/23 21:07) Ondansetron Injection (Zofran Injectio (04/15/23 21:15) Ns Iv 1000 Ml (Sodium Chloride 0.9%) (04/15/23 21:15) Ct Abdomen/Pelvis Wo (04/15/23 21:53) Hs C Reactive Protein (04/15/23 21:56) Lipase (04/15/23 21:56) Thyroid Stimulating Hormone (04/15/23 21:56) Free T4 (Free Thyroxine) (04/15/23 21:56) Lactated Ringers (Lr 1000 Ml Iv Solution (04/15/23 23:00) Fecal Occult Bedside (04/15/23 22:59) Meropenem Injection (Meropenem Injection (04/16/23 00:15) Lactated Ringers (Lr 1000 Ml Iv Solution (04/16/23 01:30) Medications Given in ED Current Medications Medications Dose Ordered Sig/Jose Rafael Route Start Time Stop Time Status Last Admin Dose Admin Lactated Ringer's 1,000 ml @ 0 mls/hr Q0M ONCE IV 04/15/23 23:00 04/15/23 23:02 DC 04/15/23 23:12 999 MLS/HR Lactated Ringer's 1,000 ml @ 0 mls/hr Q0M ONCE IV 04/16/23 01:30 04/16/23 01:31 DC 04/16/23 01:29 999 MLS/HR Meropenem 1000 mg/ Sodium Chloride 100 ml @ 200 mls/hr ONCE ONCE IV 04/16/23 00:15 04/16/23 00:44 DC 04/16/23 00:24 200 MLS/HR Ondansetron HCl 4 mg ONCE ONCE IVP 04/15/23 21:15 04/15/23 21:16 DC 04/15/23 21:25 4 MG Vital Signs/I&O 04/15/23 04/15/23 04/15/23 20:49 20:49 20:55 Temp 37.8 Pulse 96 Resp 16 B/P (MAP) 108/60 (76) Pulse Ox 88 88 O2 Delivery Room Air Nasal Cannula Nasal Cannula O2 Flow Rate 2.00 2.00 04/16/23 00:00 Intake Total 1000 ml Balance 1000 ml Capillary Refill : Less Than 3 Seconds Blood Pressure Mean: 76 Progress Note : Time: 02:20 Progress Note Patient was interviewed and examined at 2050. I escorted the patient to the room when she was triaged. Family was also interviewed. Chart was reviewed from her prior ER visit and admission to the ICU followed by transfer. Patient was thoroughly evaluated. Labs were obtained and interpreted by me. Hemoglobin of 8.2 demonstrated a significant drop from greater than 12 on her prior admission. WBC was normal. CMP and lipase were relatively unremarkable. There were no clinically significant abnormalities. CRP was notably elevated at 28. Urinalysis demonstrated faint suggestion of urinary tract infection with slight ly elevated WBC and bacteria present. However, epithelial cells were noted which could suggest contamination. Fecal occult test was faintly positive as collected on digital rectal exam. TIM was performed with female nurse physician gynecologist. CT scan was obtained. Contrast was avoided due to iodine allergy. CT was viewed by me. By my interpretation there were some inflammatory changes of the distal colon. This was noted on the radiologist's interpretation as well as possible colitis. Patient was treated with meropenem after review of prior cultures, allergies, and the collection of blood cultures. Patient received 2 L of IV fluid but still had soft blood pressures with occasional hypotensive measurements. I discussed patient's case with Dr. Ibarra, admitting hospitalist and with Dr. Mcfarland, eICU project management advisor. At this time we will start a third L of fluid. Potential for transfusion was discussed if hemoglobin drops notably. Pressors may be started at the ICU staff's discretion should she not respond favorably to the third liter of fluid. Case was also discussed with Dr. Ross. He is in agreement with admission to this facility and treatment with meropenem. I discussed the follow-up plan with patient and family. They noted that [facility] had only recommended that she follow-up with a fitness management director, there was no specific concern and follow-up instructions that would prompt an immediate transfer to [facility]. Admission to this hospital was excepted. I discussed CODE STATUS with the patient and her family. She was indecisive but ultimately decided on a full CODE STATUS for the time being. Patient received Zofran for her nausea but did not require any pain medication. Care and evaluation of this patient was protracted due to prolonged CT read times. Diagnostic Imaging Diagonstic Imaging: Xray Plain Films/CT/US/NM/MRI: chest Comments NAME: NAUN FARRELL [facility] REC#: [id number] PT STATUS: REG ER : 1950 PHYSICIAN: SYDNEE RUBIN MD ADMIT DATE: 04/15/23/ER Signed Date of Exam:04/15/23 CHEST 1 VIEW, AP/PA ONLY INDICATION: Hypoxia. COMPARISON: Chest radiograph on 03/10/2023. FINDINGS: Lungs: Low lung volume. No focal consolidation. Stable pulmonary vasculature. Pleura: No pleural effusion or pneumothorax. Heart and Mediastinum: Cardiomegaly. Pulmonary vascularity is within normal limits. Osseous Structures and Soft Tissues: No acute osseous abnormality. Normal soft tissues. IMPRESSION: Low lung volume. No focal consolidation or rogelio pulmonary edema. Dictated by: Dictated on workstation # [id number] Dict: 04/15/232139 Trans: 04/15/232139 [facility] [place] [phone] Interpreted by: LUCIA TAYLOR DO Electronically signed by: LUCIA TAYLOR DO 04/15/232139 Diagonstic Imaging: CT Plain Films/CT/US/NM/MRI: abdomen, pelvis Comments NAME: NAUN FARRELL [facility] REC#: [id number] PT STATUS: REG ER : 1950 PHYSICIAN: SYDNEE RUBIN MD ADMIT DATE: 04/15/23/ER Signed Date of Exam:04/15/23 CT ABDOMEN/PELVIS WO PROCEDURE: CT abdomen and pelvis without contrast. TECHNIQUE: Multiple contiguous axial images were obtained through the abdomen and pelvis without the use of intravenous contrast. Auto Exposure Controls were utilized during the CT exam to meet ALARA standards for radiation dose reduction. INDICATION: Abdominal pain COMPARISON: CT of the abdomen pelvis on 03/09/2023. FINDINGS: 0.7 cm pulmonary nodule within the lingula (image 5 series 2). It is enlarged. The liver demonstrates a medium hepatic cyst. Gallbladder is postsurgical. Spleen, pancreas, and adrenal glands are normal. The kidneys are normal. The nephrolithiasis or hydronephrosis. Redemonstration of diffuse colonic wall thickening within the descending colon may be seen with colitis. No free air, loculated fluid collections, or ascites. Scattered diverticula noted throughout the colon. The urinary bladder is decompressed. Small fat-containing right inguinal hernia. The osseous structures demonstrate no lytic or sclerotic bone lesion. Postsurgical changes from prior posterior fusion and laminectomy at L4-L5. IMPRESSION: Circumferential wall thickening and around the sigmoid colon with surrounding fat stranding concerning for colitis. Underlying neoplasm would be difficult to exclude. 0.7 cm pulmonary nodule within the lingula of the lung. Small bilateral pleural effusions. Dictated by: Dictated on workstation # [id number] Dict: 04/16/23 0040 Trans: 04/16/23 0046 [facility] [place] [place] [id number] Interpreted by: LUCIA TAYLOR DO Electronically signed by: LUCIA TAYLOR DO 04/16/23 0046 Departure Communication (Admissions) Time/Spoke to Admitting Phy: 01:15 Dr. Ibarra Time/Spoke to Consulting Phy: 01:10 Dr. Ross Impression Primary Impression: Hypotension Qualified Codes: I95.9 - Hypotension, unspecified Additional Impressions: Left sided abdominal pain Nausea & vomiting Qualified Codes: R11.2 - Nausea with vomiting, unspecified Anemia Qualified Codes: D64.9 - Anemia, unspecified Urinary tract infection Qualified Codes: N39.0 - Urinary tract infection, site not specified Heme positive stool Colitis Disposition: ADMITTED INPATIENT Condition: Improved Admissions Decision to Admit Reason: Admit from ER (General) Decision to Admit/Date: Apr 16, 2023 Time/Decision to Admit Time: 01:10 Departure-Patient Inst. Referrals: RAMIN NGUYEN MD (PCP/Family) Primary Care Physician Copy Copies To 1: RAMIN NGUYEN MD, JOSHUA T MD Apr 15, 2023 21:55
[2023-04-15 22:44] LABS: FREE T4 (FREE THYROXINE) 0.82 NG/DL (0.70-1.48)
[2023-04-15] MEDS ORDERED: LACTATED RINGERS 1,000 ML 1,000 ML IV ONE (23:00)
[2023-04-16] MEDS ORDERED: MEROPENEM INJECTION 1,000 MG in NS (IVPB) 100 ML 100 ML IV ONE (00:15)
--- NOTE | 2023-04-16 00:48 | Diagnostic Imaging Report ---
PROCEDURE: CT abdomen and pelvis without contrast. TECHNIQUE: Multiple contiguous axial images were obtained through the abdomen and pelvis without the use of intravenous contrast. Auto Exposure Controls were utilized during the CT exam to meet ALARA standards for radiation dose reduction. INDICATION: Abdominal pain COMPARISON: CT of the abdomen pelvis on 03/09/2023. FINDINGS: 0.7 cm pulmonary nodule within the lingula (image 5 series 2). It is enlarged. The liver demonstrates a medium hepatic cyst. Gallbladder is postsurgical. Spleen, pancreas, and adrenal glands are normal. The kidneys are normal. The nephrolithiasis or hydronephrosis. Redemonstration of diffuse colonic wall thickening within the descending colon may be seen with colitis. No free air, loculated fluid collections, or ascites. Scattered diverticula noted throughout the colon. The urinary bladder is decompressed. Small fat-containing right inguinal hernia. The osseous structures demonstrate no lytic or sclerotic bone lesion. Postsurgical changes from prior posterior fusion and laminectomy at L4-L5. IMPRESSION: Circumferential wall thickening and around the sigmoid colon with surrounding fat stranding concerning for colitis. Underlying neoplasm would be difficult to exclude. 0.7 cm pulmonary nodule within the lingula of the lung. Small bilateral pleural effusions. Dictated by: Dictated on workstation # [id number]
[2023-04-16] MEDS ORDERED: LACTATED RINGERS 1,000 ML 1,000 ML IV ONE (01:30)
[2023-04-16] MEDS ORDERED: NS IV 500 ML 500 ML IV PRN (03:00)
[2023-04-16] MEDS ORDERED: ACETAMINOPHEN 500 MG TABLET PO PRN (03:30)
[2023-04-16] MEDS ORDERED: ONDANSETRON INJECTION 4 MG/2 ML (SDV) IV PRN (03:30)
[2023-04-16] MEDS ORDERED: NOREPINEPHRINE 8 MG/250 ML 250 ML IV SCH (04:15)
[2023-04-16] MEDS ORDERED: PHENYLEPHRINE DRIP 250 ML IV SCH (04:15)
--- NOTE | 2023-04-16 04:24 | Tele-ICU Progress Note ---
Progress Note 72F with asthma, HTN, GERD, hypothyroidism recently admitted with sepsis related to infected hepatic cyst and colitis. After laparoscopic washout and drain placement she was transferred to for ongoing management. She was discharged from in early March. Reported has not been doing well since discharge home. She has had follow up appointments since discharge with no concerning findings. Today prioor to admission she developed left sided abdominal pain and vomiting x2 days. Her BP was borderline low in ED. Prior to transfer to ICU a 3rd liter was being started for BP 91/55. On arrival to ICU was 88/54, then 84/52. Also noted to have Hg from 12 to 8.2, although family reported this has been the recent level while at . CT ABD without contrast due to reported allergy showed left sided colitis around the sigmoid. Merrem was initiated. Mildly hypoxic but recovered with home 2L O2. A/P: - sepsis: cultures sent. Started on merrem per primary. CT completed but without contrast due to reported allergy. RUQ US ordered given recent history. BP warrants pressor support, having dropped after 3rd liter. Family apparently did not want pressors unless absolutely necessary due to prior afib secondary to pressors. Will order neosynephrine so there is no tachy stimuli. RN is calling family for consent. - anemia: does not appear acute. Willr repeat after volume resuscitation. Transfuse if <7. Patient assessed via real time audiovisual communication system. CCT 18 min Focused Exam Lactate Level 04/15/23 21:00: Lactic Acid Level 1.43 Height, Weight, BMI Height: 5'4.00" Weight: 127lbs. 4.0oz. 57.779373bv; 24.39 BMI Method:Actual CAROLYNN BARKER MD Apr 16, 2023 04:24
--- NOTE | 2023-04-16 07:20 | Consultation - Surgery ---
JOSELUISCOMPAKIRTI 04/16/23 0720: History of Present Illness History of Present Illness Patient Consulted On(luis/time) 04/16/23 07:17 Date Seen by Provider: Apr 16, 2023 Time Seen by Provider: 07:17 History of Present Illness 72-year-old woman presents with vomiting and left-sided abdominal pain. Patient says she was throwing up chunks of food, non-bilious, and nonbloody. She is not currently nauseous. Patient says that her pain is a 3/10, achy, and is constant. Nothing has alleviated her pain and movement makes her pain worse. Hypotensive now. Low MAP. Having difficulty placing an IV. Chest Xray Impression FINDINGS: Lungs: Low lung volume. No focal consolidation. Stable pulmonary vasculature. Pleura: No pleural effusion or pneumothorax. Heart and Mediastinum: Cardiomegaly. Pulmonary vascularity is within normal limits. Osseous Structures and Soft Tissues: No acute osseous abnormality. Normal soft tissues. IMPRESSION: Low lung volume. No focal consolidation or rogelio pulmonary edema. CT Impression 0.7 cm pulmonary nodule within the lingula (image 5 series 2). It is enlarged. The liver demonstrates a medium hepatic cyst. Gallbladder is postsurgical. Spleen, pancreas, and adrenal glands are normal. The kidneys are normal. The nephrolithiasis or hydronephrosis. Redemonstration of diffuse colonic wall thickening within the descending colon may be seen with colitis. No free air, loculated fluid collections, or ascites. Scattered diverticula noted throughout the colon. The urinary bladder is decompressed. Small fat-containing right inguinal hernia. The osseous structures demonstrate no lytic or sclerotic bone lesion. Postsurgical changes from prior posterior fusion and laminectomy at L4-L5. IMPRESSION: Circumferential wall thickening and around the sigmoid colon with surrounding fat stranding concerning for colitis. Underlying neoplasm would be difficult to exclude. 0.7 cm pulmonary nodule within the lingula of the lung. Small bilateral pleural effusions. Allergies and Home Medications Allergies Coded Allergies: ciprofloxacin (Verified Allergy, Mild, 05/10/22) clarithromycin (Verified Allergy, Mild, 05/10/22) codeine (Verified Allergy, Mild, 05/10/22) Penicillins (Verified Allergy, Unknown, 05/10/22) iodine (Verified Allergy, Unknown, 05/10/22) facial swelling meperidine HCl (Verified Allergy, Unknown, 05/10/22) Nitrofurantoin Macrocrystal (Verified Adverse Reaction, Mild, N/V, 05/10/22) chlorthalidone (Verified Adverse Reaction, Unknown, BODY ACHES;MUSCLE ACHES;JOINT ACHES;SOA;COULDN'T MOVE ARMS, 05/10/22) tramadol (Verified Adverse Reaction, Unknown, 05/10/22) Patient Home Medication List Alprazolam (Alprazolam) 0.5 Mg Tablet, 0.5 MG PO HS PRN for ANXIETY, (Reported) Entered as Reported by: RAH EARLY on 03/09/231556 Diltiazem HCl (Diltiazem 24Hr ER) 120 Mg Cap.er.24h, 120 MG PO DAILY, (Reported) Entered as Reported by: RAH EARLY on 03/09/231556 Diphenhydramine HCl (Benadryl) 25 Mg Capsule, 25-50 MG PO Q8H PRN for ALLERGY SYMPTOMS, (Reported) Entered as Reported by: RAH EARLY on 03/09/231556 Fluticasone Propionate (Fluticasone Propionate) 50 Mcg/Actuation Baker.susp, 1 SPRAY NSEACH DAILY, (Reported) Entered as Reported by: RAH EARLY on 03/09/231556 Fluticasone/Umeclidin/Vilanter (Trelegy Ellipta 200-62.5-25) 200-62.5 Blst.w.dev, 1 PUFF INH DAILY, (Reported) Entered as Reported by: RAH EARLY on 03/09/231556 Furosemide (Furosemide) 20 Mg Tablet, 20 MG PO DAILY PRN for FLUID RETENTION, (Reported) Entered as Reported by: ARH EARLY on 03/09/231556 Levothyroxine Sodium (Levothyroxine Sodium) 25 Mcg Tablet, 25 MCG PO DAILY, (Reported) Entered as Reported by: WILBERT ORDAZ on 06/01/17 1418 Loratadine (Loratadine) 10 Mg Tablet, 10 MG PO DAILY PRN for ALLERGY SYMPTOMS, (Reported) Entered as Reported by: RAH EARLY on 03/09/231556 Losartan Potassium (Losartan Potassium) 100 Mg Tablet, 100 MG PO DAILY, (Reported) Entered as Reported by: WILBERT ORDAZ on 06/01/17 1248 Pantoprazole Sodium (Pantoprazole Sodium) 40 Mg Tablet.dr, 40 MG PO DAILY, (Reported) Entered as Reported by: RAH EARLY on 03/09/23 155 Pravastatin Sodium (Pravastatin Sodium) 20 Mg Tablet, 20 MG PO HS, (Reported) Entered as Reported by: RAH EARLY on 03/09/23 155 Raloxifene HCl (Raloxifene HCl) 60 Mg Tablet, 60 MG PO DAILY, (Reported) Entered as Reported by: RAH EARLY on 03/09/231556 Sertraline HCl (Sertraline HCl) 50 Mg Tablet, 50 MG PO HS, (Reported) Entered as Reported by: RAH EARLY on 03/09/23 155 Past Blcvbzu-Glxjoo-Irucmt Hx Patient Social History Smoking Status: Never a Smoker 2nd Hand Smoke Exposure: No Recent Hopitalizations: No Alcohol Use?: No Immunizations Up To Date Date of Pneumonia Vaccine: Aug 28, 2009 Seasonal Allergies Seasonal Allergies: No Surgeries History of Surgeries: Yes (BUNION SURG, peritoneal drain) Surgeries: Abdominal, Gallbladder, Hysterectomy, Orthopedic (back surgery) Respiratory History of Respiratory Disorde: Yes Respiratory Disorders: Asthma Cardiovascular History of Cardiac Disorders: Yes Cardiac Disorders: Hypertension Neurological History of Neurological Disord: No Reproductive System : No Hx Reproductive Disorders: No Sexually Transmitted Disease: No HIV/AIDS: No 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 History: Hysterectomy, Menopausal Genitourinary History of Genitourinary Disor: Yes Genitourinary Disorders: Kidney Infection (Left sided pain) Gastrointestinal History of Gastrointestinal Di: Yes (Possible infected hepatic cyst resulting in peritonitis and sepsis) Gastrointestinal Disorders: Colitis, Gastroesophageal Reflux Musculoskeletal History of Musculoskeletal Dis: Yes Musculoskeletal Disorders: Osteoporosis (Osteopenia), Arthritis, Chronic Back Pain Endocrine History of Endocrine Disorders: Yes Endocrine Disorders: Hypothyroidsim Cancer History of Cancer: No Psychosocial History of Psychiatric Problem: No Integumentary History of Skin or Integumenta: No Blood Transfusions History of Blood Disorders: No Family Medical History Significant Family History: Heart Disease, Cancer, CVA, Diabetes, Hypertension, Other Conditions/Hx Family Medial History: Cancer (dad had kidney cancer) 19 FATHER Cataract 19 FATHER 19 MOTHER Chest pain 19 FATHER Dementia 19 MOTHER Family history: Allergy 19 MOTHER Family history: Arthritis 19 MOTHER Family history: Asthma (daughter and son have asthma) 19 MOTHER Family history: Cardiovascular disease 19 FATHER Family history: Diabetes mellitus 19 FATHER 19 MOTHER Family history: Gastrointestinal disease 19 MOTHER Family history: Hypertension 19 FATHER Family history: Osteoporosis 19 MOTHER Family history: Thyroid disorder 19 MOTHER Headache (daughter) Heart disease 19 FATHER History of - anemia (daughter) History of - respiratory disease 19 MOTHER Kidney disease 19 FATHER Myocardial infarction 19 FATHER Stroke 19 FATHER Review of Systems-General Constitutional: No fever; weakness; No weight loss EENTM: No ear discharge, No hearing loss, No eye pain Respiratory: cough; No hemoptysis Cardiovascular: No chest pain, No edema Gastrointestinal: LUQ (310 LUQ pain); No jaundice; vomiting (since yesterday) Genitourinary: No dysuria, No incontinence Musculoskeletal: No back pain, No joint swelling Skin: No change in color, No dryness Psychiatric/Neurological: Anxiety (pt says they are in distress); Denies Headache, Denies Numbness Physical Exam-General Problems Physical Exam Vital Signs Vital Signs - First Documented 04/15/23 20:49 Temp 37.8 Pulse 96 Resp 16 B/P (MAP) 108/60 (76) Pulse Ox 88 O2 Delivery Room Air O2 Flow Rate 2.00 Capillary Refill : Less Than 3 Seconds General Appearance: WD/WN, mild distress (pt is in discomfort) HEENT: PERRL/EOMI, normal ENT inspection; No photophobia, No TM abnormal (R) Neck: non-tender, full range of motion; No limited range of motion, No lymphadenopathy (R), No lymphadenopathy (L) Respiratory: chest non-tender, no accessory muscle use, expiration (pt is having deep coughing bouts), other Cardiovascular: regular rate, rhythm, no edema; No JVD, No irregularly irregular Peripheral Pulses: 2+ Radial Pulses (R), 2+ Radial Pulses (L) Gastrointestinal: non tender, no organomegaly; No distended, No hepatomegaly Back: no vertebral tenderness Neurologic/Psychiatric: expenditure requisition clerk II-XII nml as tested, no motor/sensory deficits, alert; No abnormal expenditure requisition clerk II-XII, No facial droop Data Review Labs Laboratory Tests 04/15/23 21:00: White Blood Count 8.7, Red Blood Count 2.85L, Hemoglobin 8.2L, Hematocrit 26L, Mean Corpuscular Volume 90, Mean Corpuscular Hemoglobin 29, Mean Corpuscular Hemoglobin Concent 32, Red Cell Distribution Width 14.5, Platelet Count 299, Mean Platelet Volume 9.4, Immature Granulocyte % (Auto) 0, Neutrophils (%) (Auto) 40L, Lymphocytes (%) (Auto) 48H, Monocytes (%) (Auto) 10, Eosinophils (%) (Auto) 1, Basophils (%) (Auto) 1, Neutrophils # (Auto) 3.5, Lymphocytes # (Auto) 4.2H, Monocytes # (Auto) 0.9, Eosinophils # (Auto) 0.1, Basophils # (Auto) 0.0, Immature Granulocyte # (Auto) 0.0, Prothrombin Time 14.4, INR Comment 1.1, Activated Partial Thromboplast Time 33, Sodium Level 132L, Potassium Level 3.6, Chloride Level 100, Carbon Dioxide Level 22, Anion Gap 10, Blood Urea Nitrogen 19H, Creatinine 1.08, Estimat Glomerular Filtration Rate 55, BUN/Creatinine Ratio 18, Glucose Level 98, Lactic Acid Level 1.43, Calcium Level 7.6L, Corrected Calcium 9.0, Total Bilirubin 0.4, Aspartate Amino Transf (AST/SGOT) 14, Alanine Aminotransferase (ALT/SGPT) 12, Alkaline Phosphatase 79, C-Reactive Protein High Sensitivity 28.16H, Total Protein 5.0L, Albumin 2.2L, Lipase 25, Thyroid Stimulating Hormone (TSH) 6.99H, Free Thyroxine 0.82 04/15/23 21:08: Influenza Type A (RT-PCR) Not Detected, Influenza Type B (RT-PCR) Not Detected, SARS-CoV-2 RNA (RT-PCR) Not Detected 04/15/23 21:30: Urine Color YELLOW, Urine Clarity CLEAR, Urine pH 5.5, Urine Specific [place] 1.010L, Urine Protein NEGATIVE, Urine Glucose (UA) NEGATIVE, Urine Ketones NE GATIVE, Urine Nitrite NEGATIVE, Urine Bilirubin NEGATIVE, Urine Urobilinogen 0.2, Urine Leukocyte Esterase 1+H, Urine RBC (Auto) 2+H, Urine RBC 10-25H, Urine WBC 5-10H, Urine Squamous Epithelial Cells 25-50H, Urine Crystals NONE, Urine Bacteria FEWH, Urine Casts NONE, Urine Mucus NEGATIVE, Urine Other TRANS EPI 25- 50, Urine Culture Indicated YES 04/16/23 03:44: C-Reactive Protein High Sensitivity 20.03H Assessment/Plan Assessment/Plan Assessment/Plan Poor venous access Abdominal Pain Asthma Hypotension Anemia Hepatic Cyst Colitis Hx of HTN Hx of Hypothyroidism Central line placement IV vasopressors IV fluids IV antibiotics NPO Workup hepatic cyst outpatient DANNY BERNARD 04/16/23 1129: History of Present Illness History of Present Illness History of Present Illness Consult requested for colitis and hypotension. Patient is a 72 year old female with recent history of infected hepatic cyst. Having left sided abdominal pain nausea and vomiting. Abodminal pain currenlty a 3/10. No radiation. Nothing makes better or worse. Found to have UTI and ct scan demonstrating area of sigmoid colon suggestive of colitis and pulmonary nodule. Patient lost IV access and needing IV, had multiple unsuccessful attempts. Allergies and Home Medications Allergies Coded Allergies: ciprofloxacin (Verified Allergy, Mild, 05/10/22) clarithromycin (Verified Allergy, Mild, 05/10/22) codeine (Verified Allergy, Mild, 05/10/22) Penicillins (Verified Allergy, Unknown, 05/10/22) iodine (Verified Allergy, Unknown, 05/10/22) facial swelling meperidine HCl (Verified Allergy, Unknown, 05/10/22) Nitrofurantoin Macrocrystal (Verified Adverse Reaction, Mild, N/V, 05/10/22) chlorthalidone (Verified Adverse Reaction, Unknown, BODY ACHES;MUSCLE ACHES;JOINT ACHES;SOA;COULDN'T MOVE ARMS, 05/10/22) tramadol (Verified Adverse Reaction, Unknown, 05/10/22) Patient Home Medication List Home Medication List Reviewed: Yes Alprazolam (Alprazolam) 0.5 Mg Tablet, 0.5 MG PO HS PRN for ANXIETY, (Reported) Entered as Reported by: RAH EARLY on 03/09/231556 Diltiazem HCl (Diltiazem 24Hr ER) 120 Mg Cap.er.24h, 120 MG PO DAILY, (Reported) Entered as Reported by: RAH EARLY on 03/09/231556 Diphenhydramine HCl (Benadryl) 25 Mg Capsule, 25-50 MG PO Q8H PRN for ALLERGY SYMPTOMS, (Reported) Entered as Reported by: RAH EARLY on 03/09/231556 Fluticasone Propionate (Fluticasone Propionate) 50 Mcg/Actuation Baker.susp, 1 SPRAY NSEACH DAILY, (Reported) Entered as Reported by: RAH EARLY on 03/09/231556 Fluticasone/Umeclidin/Vilanter (Trelegy Ellipta 200-62.5-25) 200-62.5 Blst.w.dev, 1 PUFF INH DAILY, (Reported) Entered as Reported by: RAH EARLY on 03/09/231556 Furosemide (Furosemide) 20 Mg Tablet, 20 MG PO DAILY PRN for FLUID RETENTION, (Reported) Entered as Reported by: RAH EARLY on 03/09/231556 Levothyroxine Sodium (Levothyroxine Sodium) 25 Mcg Tablet, 25 MCG PO DAILY, (Reported) Entered as Reported by: WILBERT ORDAZ on 06/01/17 1418 Loratadine (Loratadine) 10 Mg Tablet, 10 MG PO DAILY PRN for ALLERGY SYMPTOMS, (Reported) Entered as Reported by: RAH EARLY on 03/09/231556 Losartan Potassium (Losartan Potassium) 100 Mg Tablet, 100 MG PO DAILY, (Reported) Entered as Reported by: WILBERT ORDAZ on 06/01/17 1248 Pantoprazole Sodium (Pantoprazole Sodium) 40 Mg Tablet.dr, 40 MG PO DAILY, (Reported) Entered as Reported by: RAH EARLY on 03/09/231556 Pravastatin Sodium (Pravastatin Sodium) 20 Mg Tablet, 20 MG PO HS, (Reported) Entered as Reported by: RAH EARLY on 03/09/231556 Raloxifene HCl (Raloxifene HCl) 60 Mg Tablet, 60 MG PO DAILY, (Reported) Entered as Reported by: RAH EARLY on 03/09/231556 Sertraline HCl (Sertraline HCl) 50 Mg Tablet, 50 MG PO HS, (Reported) Entered as Reported by: RAH EARLY on 03/09/231556 Past Bmlutso-Bcgaut-Zlofrp Hx Reviewed Nursing Assessment Reviewed/Agree w Nursing PMH: Yes Family Medical History Significant Family History: No Pertinent Family Hx Family Medial History: Cancer (dad had kidney cancer) 19 FATHER Cataract 19 FATHER 19 MOTHER Chest pain 19 FATHER Dementia 19 MOTHER Family history: Allergy 19 MOTHER Family history: Arthritis 19 MOTHER Family history: Asthma (daughter and son have asthma) 19 MOTHER Family history: Cardiovascular disease 19 FATHER Family history: Diabetes mellitus 19 FATHER 19 MOTHER Family history: Gastrointestinal disease 19 MOTHER Family history: Hypertension 19 FATHER Family history: Osteoporosis 19 MOTHER Family history: Thyroid disorder 19 MOTHER Headache (daughter) Heart disease 19 FATHER History of - anemia (daughter) History of - respiratory disease 19 MOTHER Kidney disease 19 FATHER Myocardial infarction 19 FATHER Stroke 19 FATHER Review of Systems-General Constitutional: No fever; weakness EENTM: No blurred vision, No double vision Respiratory: cough; No hemoptysis Cardiovascular: No chest pain, No edema Gastrointestinal: LUQ (3/10 LUQ pain), LLQ Genitourinary: No decreased output, No discharge Musculoskeletal: No back pain, No joint pain Skin: No change in color, No change in hair/nails Psychiatric/Neurological: Anxiety (pt says they are in distress); Denies Depressed, Denies Emotional Problems All Other Systems Reviewed Negative Unless Noted: Yes (Negative excepted noted.) Physical Exam-General Problems Physical Exam General Appearance: mild distress (pt is in discomfort), thin HEENT: PERRL/EOMI, normal ENT inspection Neck: non-tender, full range of motion Respiratory: chest non-tender, no respiratory distress, no accessory muscle use Cardiovascular: regular rate, rhythm, no edema Gastrointestinal: no organomegaly, tenderness (minimal left side) Rectal: deferred Back: normal inspection, no vertebral tenderness Extremities: non-tender, normal inspection Neurologic/Psychiatric: alert, oriented x 3, other (anxious) Skin: normal color, warm/dry Lymphatic: no adenopathy Assessment/Plan Assessment/Plan Assessment/Plan Poor venous access Left sided Abdominal Pain Colitis UTI-Sepsis Hypotension Anemia History Hepatic Cyst Central line placement IV vasopressors IV fluids IV antibiotics NPO Chest x ray s/p central line. PROCEDURE: U/S guided right ij central line placement patient prepped and draped in sterile fashion. time out performed. 3 mL of 1 % lidcocaine used to anesthetize right neck under u//s guidance. The right IJ was then accessed under u/s. Dark nonpulsatile blood with drawn. Guidewire inserted and needle removed. 11 blade used to make small skin incision at insertion site. Dilator advanced over wire and removed. Catheter advanced over wire and wire removed. All ports of catheter talia blood and flushed without difficulty. Catheter sutured in place and sterile bandage applied. Chest x ray pending. Supervisory-Addendum Brief Verification & Attestation Participated in pt care: history, MDM, physical Personally performed: exam, history, MDM, supervision of care Care discussed with: Medical Student Procedures: n/a Results interpretation: Verified all documentation Verification and Attestation of Medical Student E/M Service A medical student performed and documented this service in my presence. I reviewed and verified all information documented by the medical student and made modifications to such information, when appropriate. I personally performed the physical exam and medical decision making. Danny Bernard, Apr 16, 2023,11:43 CAROLINE HUGGINS Apr 16, 2023 07:20 DANNY BERNARD DO Apr 16, 2023 11:29
--- NOTE | 2023-04-16 08:47 | Diagnostic Imaging Report ---
INDICATION: Central line placement. COMPARISON: 04/15/2023. DISCUSSION: Single portable upright view of the chest was obtained. New right IJ central line with tip in the mid right atrium. Stable normal heart size. Small left pleural effusion is stable. Some atelectasis within the left lung base. No pneumothorax. No osseous abnormality. IMPRESSION: 1. New right IJ central line with tip in the mid right atrium. No pneumothorax. Dictated by: Dictated on workstation # [id number]
[2023-04-16] MEDS: LACTATED RINGERS 1,000 ML 1,000 ML IV SCH ×3 (09:00→19:40)
[2023-04-16 09:16] LABS: BASOPHILS % (AUTO) 1 % (0-10); EOSINOPHILS # (AUTO) 0.1 10^3/uL (0.0-0.3); EOSINOPHILS % (AUTO) 1 % (0-10); HEMATOCRIT 22 % (35-52); HEMOGLOBIN 7.2 g/dL (11.5-16.0); LYMPHOCYTES # (AUTO) 2.7 10^3/uL (1.0-4.0); LYMPHOCYTES % (AUTO) 49 % (12-44); MEAN CORPUSCULAR HEMOGLOBIN 29 pg (25-34); MEAN CORPUSCULAR HGB CONC 32 g/dL (32-36); MEAN CORPUSCULAR VOLUME 89 fL (80-99); MEAN PLATELET VOLUME 8.9 fL (9.0-12.2); MONOCYTES # (AUTO) 0.6 10^3/uL (0.0-1.0); MONOCYTES % (AUTO) 11 % (0-12); NEUTROPHILS # (AUTO) 2.1 10^3/uL (1.8-7.8); NEUTROPHILS % (AUTO) 38 % (42-75); PLATELET COUNT 259 10^3/uL (130-400); WHITE BLOOD COUNT 5.5 10^3/uL (4.3-11.0)
[2023-04-16 09:27] LABS: ALBUMIN 1.8 GM/DL (3.2-4.5); POTASSIUM 3.5 MMOL/L (3.6-5.0)
[2023-04-16 09:28] LABS: CALCIUM 7.2 MG/DL (8.5-10.1)
[2023-04-16 09:30] LABS: TOTAL PROTEIN 3.9 GM/DL (6.4-8.2)
[2023-04-16 09:31] LABS: BILIRUBIN,TOTAL 0.4 MG/DL (0.1-1.0)
[2023-04-16 09:33] VITALS: BP 94/58
[2023-04-16 09:33] LABS: CREATININE SERUM 0.78 MG/DL (0.60-1.30)
[2023-04-16] MEDS: POTASSIUM CL 10MEQ/50ML IVPB 50 ML IV SCH ×5 (09:39→12:39)
[2023-04-16] MEDS: POTASSIUM CHLORIDE 20 MEQ TABLET PO SCH (09:39)
[2023-04-16] MEDS ORDERED: RT-Ipratropium/Albuterol NEB 3 ML VIAL INH PRN (09:45)
[2023-04-16] MEDS ORDERED: LACTATED RINGERS 1,000 ML 1,000 ML IV SCH ×2 (09:45→10:00)
[2023-04-16] MEDS: PANTOPRAZOLE INJECTION 40 MG VIAL IV SCH (09:57)
[2023-04-16] MEDS: MEROPENEM 1,000 MG/NS 100 ML IVPB IV SCH ×6 (09:57→23:47)
[2023-04-16] MEDS: MAGNESIUM 1 GM/100 ML IVPB 100 ML IV SCH (09:59)
[2023-04-16] MEDS ORDERED: ALBUMIN 25% 25 GM/100 ML 100 ML IV ONE (10:00)
--- NOTE | 2023-04-16 10:01 | Pulmonary Consultation ---
History of Present Illness History of Present Illness Date Seen by Provider: Apr 16, 2023 Time Seen by Provider: 09:59 Date of Admission 04/15/23 Reason for Visit: HYPOTENSION, PULMONARY NODULE Allergies and Home Medications Allergies Coded Allergies: ciprofloxacin (Verified Allergy, Mild, 05/10/22) clarithromycin (Verified Allergy, Mild, 05/10/22) codeine (Verified Allergy, Mild, 05/10/22) Penicillins (Verified Allergy, Unknown, 05/10/22) iodine (Verified Allergy, Unknown, 05/10/22) facial swelling meperidine HCl (Verified Allergy, Unknown, 05/10/22) Nitrofurantoin Macrocrystal (Verified Adverse Reaction, Mild, N/V, 05/10/22) chlorthalidone (Verified Adverse Reaction, Unknown, BODY ACHES;MUSCLE ACHES;JOINT ACHES;SOA;COULDN'T MOVE ARMS, 05/10/22) tramadol (Verified Adverse Reaction, Unknown, 05/10/22) Home Medications Alprazolam 0.5 Mg Tablet, 0.5 MG PO HS PRN for ANXIETY, (Reported) Diltiazem HCl 120 Mg Cap.er.24h, 120 MG PO DAILY, (Reported) Diphenhydramine HCl 25 Mg Capsule, 25-50 MG PO Q8H PRN for ALLERGY SYMPTOMS, (Reported) Fluticasone Propionate 50 Mcg/Actuation [place].susp, 1 SPRAY NSEACH DAILY, (Reported) Fluticasone/Umeclidin/Vilanter 200-62.5 Blst.w.dev, 1 PUFF INH DAILY, (Reported) Furosemide 20 Mg Tablet, 20 MG PO DAILY PRN for FLUID RETENTION, (Reported) Levothyroxine Sodium 25 Mcg Tablet, 25 MCG PO DAILY, (Reported) Loratadine 10 Mg Tablet, 10 MG PO DAILY PRN for ALLERGY SYMPTOMS, (Reported) Losartan Potassium 100 Mg Tablet, 100 MG PO DAILY, (Reported) Pantoprazole Sodium 40 Mg Tablet.dr, 40 MG PO DAILY, (Reported) Pravastatin Sodium 20 Mg Tablet, 20 MG PO HS, (Reported) Raloxifene HCl 60 Mg Tablet, 60 MG PO DAILY, (Reported) Sertraline HCl 50 Mg Tablet, 50 MG PO HS, (Reported) Past Medical/Social/Family Hx Patient Social History Tobacco Use?: No Smoking Status: Never a Smoker Smokeless Tobacco Frequency: Never a User Substance use?: No Alcohol Use?: No Pt stated abuse/neglect: No Immunizations Up To Date First/Initial COVID19 Vaccinat: OCTOBER 2020 Second COVID19 Vaccination Shawn: NOVEMBER 2020 Tetanus Booster (TDap): Unknown Hepatitis A: No Hepatitis B: No TB Skin Test: None Date of Pneumonia Vaccine: Aug 28, 2009 Current Status status: No status: No Advance Directives: No Communicates: Verbally Primary Language: Vincentian Preferred Spoken Language: Vincentian Is interpretation needed?: No Implanted or Applied Medical D: None Sepsis Event Evaluation Height, Weight, BMI Height: 5'4.00" Weight: 127lbs. 4.0oz. 57.453840xl; 24.51 BMI Method:Actual Exam Exam Patient acknowledged, consented, and participated in this virtual visit which was conducted using real time audio/video Vital Signs Date Time Temp Pulse Resp B/P (MAP) Pulse Ox O2 Delivery O2 Flow Rate FiO2 04/16/23 09:33 37.0 78 96 04/16/23 09:00 78 11 94/58 (70) 96 Nasal Cannula 2.00 04/16/23 08:00 75 10 81/59 (66) 98 Nasal Cannula 2.00 04/16/23 07:50 37.0 04/16/23 07:00 75 9 81/55 (64) 96 Nasal Cannula 2.00 04/16/23 07:00 75 04/16/23 06:00 66 16 117/71 (86) 96 Nasal Cannula 2.00 04/16/23 05:00 69 19 91/65 (74) 97 Nasal Cannula 2.00 04/16/23 04:27 71 86/55 04/16/23 04:00 75 20 84/52 (63) 97 Nasal Cannula 2.00 04/16/23 04:00 Nasal Cannula 2.00 04/16/23 03:45 84 17 87/57 (67) 94 Nasal Cannula 2.00 04/16/23 03:30 76 19 90/58 (69) 98 Nasal Cannula 2.00 04/16/23 03:15 77 04/16/23 03:15 76 14 92/54 (67) 96 Nasal Cannula 2.00 04/16/23 03:00 76 16 99/58 (72) 97 Nasal Cannula 2.00 04/16/23 02:46 96 Nasal Cannula 2.00 04/16/23 02:35 84 19 90/60 (70) 96 Nasal Cannula 2.00 04/16/23 02:10 36.9 77 16 92/55 95 Nasal Cannula 2.00 04/15/23 20:55 88 Nasal Cannula 2.00 04/15/23 20:49 Nasal Cannula 2.00 04/15/23 20:49 37.8 96 16 108/60 (76) 88 Room Air I & O 04/16/23 07:00 Intake Total 2100 ml Balance 2100 ml Height & Weight Height: 5'4.00" Weight: 127lbs. 4.0oz. 57.313424yp; 24.51 BMI Method:Actual General Appearance: WD/WN, Mild Distress HEENT: PERRL/EOMI, Normal ENT Inspection, Other (Oropharynx dry) Neck: Normal Inspection Respiratory: Lungs Clear, Normal Breath Sounds, No Accessory Muscle Use Cardiovascular: Regular Rate, Rhythm, No Murmur, Other (Mild lower extremity pitting edema) Capillary Refill: Less Than 3 Seconds Peripheral Pulses: 2+ Radial Pulses (R), 2+ Radial Pulses (L) Gastrointestinal: non tender, no organomegaly; No distended, No hepatomegaly Extremity: Normal Inspection, No Pedal Edema Neurologic/Psychiatric: Alert, Oriented x3, No Motor/Sensory Deficits, Normal Mood/Affect Skin: Normal Color, Warm/Dry Results Lab Laboratory Tests 04/15/23 21:00 04/16/23 09:00 SUMMER SILVER MD Apr 16, 2023 10:01
--- NOTE | 2023-04-16 10:22 | Pulmonary Consultation ---
History of Present Illness History of Present Illness Date Seen by Provider: Apr 16, 2023 Time Seen by Provider: 10:18 Reason for Visit: HYPOTENSION, PULMONARY NODULE History of Present Illness (Tele-ICU Physician , pulmonary consultation report.) Service provided via interactive audio and video telecommunications E-CARE system to a patient admitted to ICU bed in [facility]. 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 Now she is admitted via emergency room because of vomiting and left-sided abdominal pain and a general decline she was discharged from [facility] on April 01. She is found to have evidence of urinary tract infection and hypotension. A CT of the abdomen and pelvis, chest done which showed evidence of colitis, hepatic cyst and a 0.7 cm left lung lingular nodule which is apparently growing. This patient was seen by my associate earlier today for management of hypotension. A pulmonary c onsultation is requested to address the pulmonary nodule. She is apparently a non-smoker. Denies any chest pain. Impression 1. Urinary tract infection with hypotension possibly due to sepsis. 2. Left lingular pulmonary nodule 0.7 cm which is apparently growing. This is mainly concerning for possible underlying malignancy even though she is not a smoker This nodule has no relation to the currant symptomatology. 3. Colitis and abdominal pain. Recommendations 1. From pulmonary point of view I would suggest to get a PET scan as an outpatient once she is more stable and the treatment of infection is completed. If there is a significant uptake I would recommend a biopsy of the nodule. 2. Continue IV hydration and IV antibiotics 3. Surgical consultation appreciated. 4. DVT prophylaxis Coordination of care with primary care and bedside consultants. I am remotely monitoring this patient from Tele icu station in [place]. I am unable to do the bedside exam, and history/physical and pertinent information is taken from other notes in the computer and bedside staff. Certain portions of this document may have been dictated utilizing voice recognition technology such as [employer]. Inherent to this technology, typographical and grammatical errors may exist. As much as I am diligent to identify and correct to these mistakes, some errors may remain in the document. Critical care time devoted to this patient today is approximately is-25 minutes Allergies and Home Medications Allergies Coded Allergies: ciprofloxacin (Verified Allergy, Mild, 05/10/22) clarithromycin (Verified Allergy, Mild, 05/10/22) codeine (Verified Allergy, Mild, 05/10/22) Penicillins (Verified Allergy, Unknown, 05/10/22) iodine (Verified Allergy, Unknown, 05/10/22) facial swelling meperidine HCl (Verified Allergy, Unknown, 05/10/22) Nitrofurantoin Macrocrystal (Verified Adverse Reaction, Mild, N/V, 05/10/22) chlorthalidone (Verified Adverse Reaction, Unknown, BODY ACHES;MUSCLE ACHES;JOINT ACHES;SOA;COULDN'T MOVE ARMS, 05/10/22) tramadol (Verified Adverse Reaction, Unknown, 05/10/22) Home Medications Alprazolam 0.5 Mg Tablet, 0.5 MG PO HS PRN for ANXIETY, (Reported) Diltiazem HCl 120 Mg Cap.er.24h, 120 MG PO DAILY, (Reported) Diphenhydramine HCl 25 Mg Capsule, 25-50 MG PO Q8H PRN for ALLERGY SYMPTOMS, (Reported) Fluticasone Propionate 50 Mcg/Actuation Imler.susp, 1 SPRAY NSEACH DAILY, (Reported) Fluticasone/Umeclidin/Vilanter 200-62.5 Blst.w.dev, 1 PUFF INH DAILY, (Reported) Furosemide 20 Mg Tablet, 20 MG PO DAILY PRN for FLUID RETENTION, (Reported) Levothyroxine Sodium 25 Mcg Tablet, 25 MCG PO DAILY, (Reported) Loratadine 10 Mg Tablet, 10 MG PO DAILY PRN for ALLERGY SYMPTOMS, (Reported) Losartan Potassium 100 Mg Tablet, 100 MG PO DAILY, (Reported) Pantoprazole Sodium 40 Mg Tablet.dr, 40 MG PO DAILY, (Reported) Pravastatin Sodium 20 Mg Tablet, 20 MG PO HS, (Reported) Raloxifene HCl 60 Mg Tablet, 60 MG PO DAILY, (Reported) Sertraline HCl 50 Mg Tablet, 50 MG PO HS, (Reported) Past Medical/Social/Family Hx Patient Social History Tobacco Use?: No Smoking Status: Never a Smoker Smokeless Tobacco Frequency: Never a User Substance use?: No Alcohol Use?: No Pt stated abuse/neglect: No Immunizations Up To Date First/Initial COVID19 Vaccinat: OCTOBER 2020 Second COVID19 Vaccination Shawn: NOVEMBER 2020 Tetanus Booster (TDap): Unknown Hepatitis A: No Hepatitis B: No TB Skin Test: None Date of Pneumonia Vaccine: Aug 28, 2009 Current Status status: No status: No Advance Directives: No Communicates: Verbally Primary Language: [place] Preferred Spoken Language: [place] Is interpretation needed?: No Implanted or Applied Medical D: None Review of Systems Constitutional: see HPI, weakness Gastrointestinal: LUQ, abdominal pain (LUQ), vomiting Sepsis Event Evaluation Height, Weight, BMI Height: 5'4.00" Weight: 127lbs. 4.0oz. 57.045638ff; 24.51 BMI Method:Actual Exam Exam Patient acknowledged, consented, and participated in this virtual visit which was conducted using real time audio/video Vital Signs Date Time Temp Pulse Resp B/P (MAP) Pulse Ox O2 Delivery O2 Flow Rate FiO2 04/16/23 09:33 37.0 78 96 04/16/23 09:00 78 11 94/58 (70) 96 Nasal Cannula 2.00 04/16/23 08:00 75 10 81/59 (66) 98 Nasal Cannula 2.00 04/16/23 07:50 37.0 04/16/23 07:00 75 9 81/55 (64) 96 Nasal Cannula 2.00 04/16/23 07:00 75 04/16/23 06:00 66 16 117/71 (86) 96 Nasal Cannula 2.00 04/16/23 05:00 69 19 91/65 (74) 97 Nasal Cannula 2.00 04/16/23 04:27 71 86/55 04/16/23 04:00 75 20 84/52 (63) 97 Nasal Cannula 2.00 04/16/23 04:00 Nasal Cannula 2.00 04/16/23 03:45 84 17 87/57 (67) 94 Nasal Cannula 2.00 04/16/23 03:30 76 19 90/58 (69) 98 Nasal Cannula 2.00 04/16/23 03:15 77 04/16/23 03:15 76 14 92/54 (67) 96 Nasal Cannula 2.00 04/16/23 03:00 76 16 99/58 (72) 97 Nasal Cannula 2.00 04/16/23 02:46 96 Nasal Cannula 2.00 04/16/23 02:35 84 19 90/60 (70) 96 Nasal Cannula 2.00 04/16/23 02:10 36.9 77 16 92/55 95 Nasal Cannula 2.00 04/15/23 20:55 88 Nasal Cannula 2.00 04/15/23 20:49 Nasal Cannula 2.00 04/15/23 20:49 37.8 96 16 108/60 (76) 88 Room Air I & O 04/16/23 07:00 Intake Total 2100 ml Balance 2100 ml Height & Weight Height: 5'4.00" Weight: 127lbs. 4.0oz. 57.875220ta; 24.51 BMI Method:Actual General Appearance: WD/WN, Mild Distress HEENT: PERRL/EOMI, Normal ENT Inspection, Other (Oropharynx dry) Neck: Normal Inspection Respiratory: Lungs Clear, Normal Breath Sounds, No Accessory Muscle Use Cardiovascular: Regular Rate, Rhythm, No Murmur, Other (Mild lower extremity pitting edema) Capillary Refill: Less Than 3 Seconds Peripheral Pulses: 2+ Radial Pulses (R), 2+ Radial Pulses (L) Gastrointestinal: non tender, no organomegaly; No distended, No hepatomegaly Extremity: Normal Inspection, No Pedal Edema Neurologic/Psychiatric: Alert, Oriented x3, No Motor/Sensory Deficits, Normal Mood/Affect Skin: Normal Color, Warm/Dry Results Lab Laboratory Tests 04/15/23 21:00 04/16/23 09:00 Assessment/Plan Assessment/Plan as above Critical Care: Critically Ill Patient Time spent with patient (mins): 25 SUMMER SILVER MD Apr 16, 2023 10:22
[2023-04-16] MEDS: RT-Ipratropium/Albuterol NEB 3 ML VIAL INH SCH ×2 (14:38→21:29)
--- NOTE | 2023-04-16 14:45 | Diagnostic Imaging Report ---
PROCEDURE: US Abdomen, limited. TECHNIQUE: Multiple realtime grayscale images were obtained over the abdomen in various projections. INDICATION: Right upper quadrant pain, evaluate for hepatic abscess. COMPARISON: CT 04/15/2023. DISCUSSION: Within the right hepatic lobe there is a complex area measuring 3.0 x 2.4 x 2.97 m. This does appear to have some dirty shadowing present though on some of the images there is slight posterior acoustic enhancement suggesting this may be complex fluid such as an abscess. An underlying solid mass cannot be entirely excluded by ultrasound. No other liver mass identified. The liver is normal in echotexture and size otherwise. The gallbladder is surgically absent. Common bile duct is normal in caliber measuring 0.6 in cm. Pancreas is mostly obscured due to overlying bowel gas. The visualized aorta and IVC appear within normal limits. Probable exophytic cyst off the right kidney measuring 2.7 cm. The right kidney is otherwise normal in echotexture and size without hydronephrosis or solid mass. The right kidney measures 10.3 cm. No ascites. IMPRESSION: Rounded mass within the right hepatic lobe, as described, likely a complex fluid collection such as an abscess or hematoma. A solid mass cannot be entirely excluded by ultrasound. Dictated by: Dictated on workstation # [id number]
--- NOTE | 2023-04-16 14:54 | History & Physical-Hospitalist ---
History of Present Illness HPI/Chief Complaint Yari Grove is a 72 year old female with PMH HTN, hypothyroidism, GERD, asthma, who presented with abdominal pain. She had a hospitalization last month with septic shock and colitis. She was transferred to [facility] and evaluated by GI. She reports having endoscopies which showed some ulcers but nothing specific on the biopsies. According to her daughter, she had been doing better after she got home, but the past week she has declined. She is having weakness. Her blood pressures have been low at home. She denies lightheadedness and dizziness. She had nausea and vomiting. She denies hematemesis. She had left sided abdominal pain. She denies diarrhea recently. She denies fevers. She denies shortness of breath. She denies chest pain. She reports one episode of dysuria yesterday morning. She denies urinary urgency, frequency, or incontinence. Source: patient Exam Limitations: no limitations Date Seen 04/16/23 Time Seen by a Provider: 10:00 Attending Physician Liliana Nguyen MD PCP Admitting Physician: No Estevez MD Attending Physician: No Estevez MD Referring Physician Date of Admission Apr 16, 2023 at 01:56 Home Medications & Allergies Home Medications Reviewed patient Home Medication Reconciliation performed by pharmacy medication reconciliations manufacturing lab technician and/or nursing. Patients Allergies have been reviewed. Allergies Allergies Coded Allergies ciprofloxacin (Verified Allergy, Mild, 05/10/22) clarithromycin (Verified Allergy, Mild, 05/10/22) codeine (Verified Allergy, Mild, 05/10/22) Penicillins (Verified Allergy, Unknown, 05/10/22) iodine (Verified Allergy, Unknown, 05/10/22) facial swelling meperidine HCl (Verified Allergy, Unknown, 05/10/22) Nitrofurantoin Macrocrystal (Verified Adverse Reaction, Mild, N/V, 05/10/22) chlorthalidone (Verified Adverse Reaction, Unknown, BODY ACHES;MUSCLE ACHES;JOINT ACHES;SOA;COULDN'T MOVE ARMS, 05/10/22) tramadol (Verified Adverse Reaction, Unknown, 05/10/22) Past Zunlfai-Rqhogb-Hrqdip Hx Patient Social History Tobacco Use?: No Smoking Status: Never a Smoker Smokeless Tobacco Frequency: Never a User Substance use?: No Alcohol Use?: No Pt feels they are or have been: No Immunizations Up To Date First/Initial COVID19 Vaccinat: OCTOBER 2020 Second COVID19 Vaccination Shawn: NOVEMBER 2020 Tetanus Booster (TDap): Unknown Hepatitis A: No Hepatitis B: No Date of Pneumonia Vaccine: Aug 28, 2009 Seasonal Allergies Seasonal Allergies: No Current Status status: No status: No Advance Directives: No Communicates: Verbally Primary Language: [place] Preferred Spoken Language: [place] Is interpretation needed?: No Implanted or Applied Medical D: None Past Medical History Surgeries: Abdominal, Gallbladder, Hysterectomy, Orthopedic (back surgery) Asthma 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, 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 Sexually Transmitted Disease: No HIV/AIDS: No Kidney Infection (Left sided pain) Colitis, Gastroesophageal Reflux Osteoporosis (Osteopenia), Arthritis, Chronic Back Pain Hypothyroidsim Blood Disorders: No Family Medical History Cancer (dad had kidney cancer) 19 FATHER Cataract 19 FATHER 19 MOTHER Chest pain 19 FATHER Dementia 19 MOTHER Family history: Allergy 19 MOTHER Family history: Arthritis 19 MOTHER Family history: Asthma (daughter and son have asthma) 19 MOTHER Family history: Cardiovascular disease 19 FATHER Family history: Diabetes mellitus 19 FATHER 19 MOTHER Family history: Gastrointestinal disease 19 MOTHER Family history: Hypertension 19 FATHER Family history: Osteoporosis 19 MOTHER Family history: Thyroid disorder 19 MOTHER Headache (daughter) Heart disease 19 FATHER History of - anemia (daughter) History of - respiratory disease 19 MOTHER Kidney disease 19 FATHER Myocardial infarction 19 FATHER Stroke 19 FATHER No Pertinent Family Hx Review of Systems Constitutional: weakness Respiratory: no symptoms reported Cardiovascular: no symptoms reported Gastrointestinal: nausea, vomiting Genitourinary: dysuria Physical Exam Physical Exam Vital Signs Vital Signs - First Documented 04/15/23 20:49 Temp 37.8 Pulse 96 Resp 16 B/P (MAP) 108/60 (76) Pulse Ox 88 O2 Delivery Room Air O2 Flow Rate 2.00 Capillary Refill : Less Than 3 Seconds Height, Weight, BMI Height: 5'4.00" Weight: 127lbs. 4.0oz. 57.331335hh; 24.51 BMI Method:Actual General Appearance: No Apparent Distress, WD/WN HEENT: PERRL/EOMI, Pharynx Normal Neck: Normal Inspection, Supple Respiratory: Lungs Clear, Normal Breath Sounds, No Respiratory Distress Cardiovascular: Regular Rate, Rhythm, No Edema, No Murmur Gastrointestinal: Normal Bowel Sounds, Non Tender, Soft Extremity: Normal Inspection, No Pedal Edema Neurologic/Psychiatric: Alert, Normal Mood/Affect, Motor Weakness Skin: Normal Color, Warm/Dry Results Results/Procedures Labs Laboratory Tests 04/15/23 21:00 04/16/23 09:00 Patient resulted labs reviewed. Imaging: Reviewed Imaging Report Assessment/Plan Admission Diagnosis Shock Admission Status: Inpatient Order (span 2 midnights) Reason for Inpatient Admission: IV fluids IV antibiotics Assessment and Plan Shock Colitis EDDIE Not septic, no fever or leukocytosis, mild tachycardia CT with sigmoid colitis Surgery consulted TeleICU consulted NPO IV pressors as needed IV fluids IV Meropenem Check cortisol Anemia Fecal occult blood positive Hgb 8.2 on arrival, reportedly at baseline since discharge from per daughter Hgb trended down today to 7.2 Transfuse if needed to keep Hgb >7 HTN Hypothyroidism GERD Asthma Holding home meds DVT prophylaxis: Lovenox Critical Care Critically Ill Patient Diagnosis/Problems Diagnosis/Problems (1) Shock Status: Acute (2) Left sided colitis Status: Acute Qualifiers: Digestive disease complication type: unspecified complication Qualified Codes: K51.519 - Left sided colitis with unspecified complications (3) EDDIE (acute kidney injury) Status: Acute (4) HTN (hypertension) Status: Chronic (5) Hypothyroidism Status: Chronic (6) GERD (gastroesophageal reflux disease) Status: Chronic (7) Asthma Status: Chronic (8) History of recent hospitalization Status: Acute (9) Anemia Status: Acute NO ESTEVEZ MD Apr 16, 2023 14:54
[2023-04-16] MEDS: ENOXAPARIN 40 MG/0.4 ML SYRINGE SC SCH (17:35)
[2023-04-16] MEDS ORDERED: MELATONIN 10 MG TABLET PO SCH (21:00)
[2023-04-17 02:48] LABS: BASOPHILS % (AUTO) 1 % (0-10); EOSINOPHILS % (AUTO) 1 % (0-10); LYMPHOCYTES % (AUTO) 60 % (12-44); MEAN CORPUSCULAR HEMOGLOBIN 29 pg (25-34); MEAN CORPUSCULAR HGB CONC 32 g/dL (32-36); MEAN CORPUSCULAR VOLUME 89 fL (80-99); MEAN PLATELET VOLUME 8.5 fL (9.0-12.2); MONOCYTES # (AUTO) 0.5 10^3/uL (0.0-1.0); MONOCYTES % (AUTO) 10 % (0-12); NEUTROPHILS # (AUTO) 1.5 10^3/uL (1.8-7.8); NEUTROPHILS % (AUTO) 29 % (42-75); PLATELET COUNT 232 10^3/uL (130-400)
[2023-04-17 02:52] LABS: HEMATOCRIT 20 % (35-52); HEMOGLOBIN 6.5 g/dL (11.5-16.0)
[2023-04-17] MEDS ORDERED: NS IV 500 ML 500 ML IV SCH ×2 (03:00)
[2023-04-17 03:08] LABS: ALBUMIN 1.9 GM/DL (3.2-4.5); BILIRUBIN,TOTAL 0.3 MG/DL (0.1-1.0); CALCIUM 7.1 MG/DL (8.5-10.1); CREATININE SERUM 0.7 MG/DL (0.60-1.30); MAGNESIUM 1.6 MG/DL (1.6-2.4); PHOSPHORUS 3.3 MG/DL (2.3-4.7); POTASSIUM 3.8 MMOL/L (3.6-5.0); TOTAL PROTEIN 3.6 GM/DL (6.4-8.2)
[2023-04-17] MEDS: POTASSIUM CHLORIDE 20 MEQ TABLET PO SCH (03:22)
[2023-04-17] MEDS: POTASSIUM CL 10MEQ/50ML IVPB 50 ML IV SCH ×3 (03:22→04:25)
[2023-04-17] MEDS: MAGNESIUM 1 GM/100 ML IVPB 100 ML IV SCH ×5 (03:22→05:19)
[2023-04-17] MEDS ORDERED: POTASSIUM CL 10MEQ/50ML IVPB 100 ML IV ONE (03:24)
[2023-04-17] MEDS ORDERED: MAGNESIUM 1 GM/100 ML IVPB 400 ML IV ONE (03:24)
[2023-04-17] MEDS: LACTATED RINGERS 1,000 ML 1,000 ML IV SCH ×3 (03:31→23:00)
[2023-04-17 04:27] VITALS: BP 108/62
[2023-04-17 04:46] VITALS: BP 98/59
[2023-04-17 05:15] VITALS: BP 94/64
[2023-04-17] MEDS: RT-Ipratropium/Albuterol NEB 3 ML VIAL INH SCH ×3 (07:31→20:36)
[2023-04-17 08:05] VITALS: BP 100/63
[2023-04-17] MEDS: PANTOPRAZOLE INJECTION 40 MG VIAL IV SCH (08:08)
[2023-04-17] MEDS: MEROPENEM 1,000 MG/NS 100 ML IVPB IV SCH ×2 (08:08)
[2023-04-17] MEDS: IRON SUCROSE 200 MG/10 ML VIAL IV SCH (09:52)
--- NOTE | 2023-04-17 09:52 | Tele-ICU Progress Note ---
Subjective Date Seen by a Provider: Apr 17, 2023 Time Seen by a Provider: 09:52 Subjective/Events-last exam (Tele-ICU Physician , Progress Note ) Service provided via interactive audio and video telecommunications E-CARE system to a patient admitted to ICU bed in [facility]. Patient is seen today due to persistent need of ICU care Available chart/ vitals / labs / Images reviewed Video assessment done using teleICU camera, rest of exam as per RN Discussed with RN Events overnight : Afebrile hemodynamically stable Respiratory - I/O = Drips: Pressors- no Hospital course: 03/09 - shock , resp failure -BIPAP . pressors --> ex lap and transfer to - ?infected hepatic cyst-had peritoneal drain which was removed prior to DC- >transferred to rechab->home (04/16) 72F Admitted for septic shock, hypotensive, UTI, colitis, postiive stool occult blood. BEATRIZ , Merrem 04/17- anemia Hb 6.4 - t1 uPRNC transfused , off pressors A/P Abd pain . CT with suspected colitis - started on Merrem 04/16 - no abd pain now , stable - -sx consult pending Severe sepsis, shock - off beatriz 04/17 with > 5 l resuscitation ) - IVF to cont now Anemia - ? 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 This is mainly concerning for possible underlying malignancy even though she is not a smoker This nodule has no relation to the currant symptomatology. Lines : r IJ 04/16 , (Central Line Necessity Reviewed) Nair: void OG: Nutrition: npo Analgesia: Anxiety/ delirium VTE Prophylaxis: avery Stress Ulcer Prophylaxis: Plans in collaboration with bedside consultants and IM MDs. Discussed with RN to reach out if any questions or concerns Case and care daily discussed on multidisciplinary rounds ( RN, PharmD, Agricultural Specialist , Respiratory Therapy, electric utility lineworker ) A total of 31minutes of critical care time was devoted to this patient today, required to treat and/or prevent further deterioration of critical care condition ( as above ) . I am remotely monitoring this patient from another state. I am unable to do the bedside exam, and history/physical and pertinent information is taken from other notes in the computer and bedside staff. Sepsis Event Evaluation Height, Weight, BMI Height: 5'4.00" Weight: 127lbs. 4.0oz. 57.723307vv; 26.03 BMI Method:Actual Focused Exam Lactate Level 04/15/23 21:00: Lactic Acid Level 1.43 Exam Exam Patient acknowledged, consented, and participated in this virtual visit which was conducted using real time audio/video Vital Signs Date Time Temp Pulse Resp B/P (MAP) Pulse Ox O2 Delivery O2 Flow Rate FiO2 04/17/23 09:00 86 16 114/67 (83) 93 Nasal Cannula 2.00 04/17/23 08:05 36.1 83 19 100/63 93 Nasal Cannula 2.00 04/17/23 08:00 82 21 100/63 (75) 93 Nasal Cannula 2.00 04/17/23 07:46 36.2 04/17/23 07:31 96 Nasal Cannula 2.00 04/17/23 07:13 79 04/17/23 07:00 80 19 96/60 (72) 96 Nasal Cannula 2.00 04/17/23 06:00 79 20 95/58 (70) 96 Nasal Cannula 2.00 04/17/23 05:15 77 20 94/64 (74) 95 Nasal Cannula 2.00 04/17/23 05:15 36.6 78 21 94/64 95 Nasal Cannula 2.00 04/17/23 04:46 36.5 79 19 98/59 95 Nasal Cannula 2.00 04/17/23 04:27 36.4 81 20 108/62 95 Nasal Cannula 2.00 04/17/23 04:10 36.6 04/17/23 04:00 79 22 96/60 (72) 95 Nasal Cannula 2.00 04/17/23 03:30 95 Nasal Cannula 2.00 04/17/23 03:00 80 27 97/59 (72) 94 Nasal Cannula 2.00 04/17/23 02:00 80 21 95/62 (73) 94 Nasal Cannula 2.00 04/17/23 01:00 80 04/17/23 01:00 80 20 94/56 (69) 94 Nasal Cannula 2.00 04/17/23 00:00 82 22 106/66 (79) 94 Nasal Cannula 2.00 04/16/23 23:15 93 Nasal Cannula 2.00 04/16/23 23:10 36.4 87 21 94/57 (69) 93 Nasal Cannula 2.00 04/16/23 23:00 89 22 94/57 (69) 94 Nasal Cannula 2.00 04/16/23 22:00 87 20 105/61 (76) 93 Nasal Cannula 2.00 04/16/23 21:30 99 Nasal Cannula 2.00 04/16/23 21:00 80 34 97/62 (74) 94 Nasal Cannula 2.00 04/16/23 20:00 76 20 94/61 (72) 97 Nasal Cannula 2.00 04/16/23 19:45 96 Nasal Cannula 2.00 04/16/23 19:00 36.6 79 12 89/67 (74) 96 Nasal Cannula 2.00 04/16/23 19:00 77 04/16/23 18:00 80 14 103/67 (79) 90 Nasal Cannula 2.00 04/16/23 17:00 80 17 92/65 (74) 96 Nasal Cannula 2.00 04/16/23 16:00 78 21 95/56 (69) 95 Nasal Cannula 2.00 04/16/23 16:00 99 Nasal Cannula 2.00 04/16/23 15:00 79 13 95/61 (72) 96 Nasal Cannula 2.00 04/16/23 14:39 95 Nasal Cannula 2.00 04/16/23 14:00 74 20 95/70 (78) 97 Nasal Cannula 2.00 04/16/23 13:00 75 22 91/57 (68) 96 Nasal Cannula 2.00 04/16/23 12:32 81 04/16/23 12:00 74 18 84/50 (61) 97 Nasal Cannula 2.00 04/16/23 12:00 99 Nasal Cannula 2.00 04/16/23 11:53 36.0 04/16/23 11:00 82 16 98/60 (73) 95 Nasal Cannula 2.00 04/16/23 10:00 76 14 102/62 (75) 99 Nasal Cannula 2.00 I & O 04/17/23 07:00 Intake Total 4945 ml Output Total 1625 ml Balance 3320 ml Height & Weight Height: 5'4.00" Weight: 127lbs. 4.0oz. 57.954418hr; 26.03 BMI Method:Actual General Appearance: No Apparent Distress, WD/WN HEENT: PERRL/EOMI, Pharynx Normal Neck: Normal Inspection, Supple Respiratory: Lungs Clear, Normal Breath Sounds, No Respiratory Distress Cardiovascular: Regular Rate, Rhythm, No Edema, No Murmur Capillary Refill: Less Than 3 Seconds Peripheral Pulses: 2+ Radial Pulses (R), 2+ Radial Pulses (L) Gastrointestinal: no organomegaly, tenderness (minimal left side) Extremity: Normal Inspection, No Pedal Edema Neurologic/Psychiatric: Alert, Normal Mood/Affect, Motor Weakness Skin: Normal Color, Warm/Dry Results Lab Laboratory Tests 04/15/23 21:00 04/16/23 09:00 04/17/23 02:40 Assessment/Plan Assessment/Plan 1 DORETHA GRANT MD Apr 17, 2023 09:52
[2023-04-17] MEDS ORDERED: LOPE2CAP PO (10:23)
[2023-04-17] MEDS ORDERED: GUAI600T43 PO (10:23)
[2023-04-17] MEDS ORDERED: CETI10TA17 PO (10:23)
[2023-04-17] MEDS ORDERED: POTA8TAB64 PO (10:23)
[2023-04-17] MEDS ORDERED: MELA3TAB39 PO (10:23)
[2023-04-17] MEDS ORDERED: LEVA1.2543 NEB (10:23)
[2023-04-17] MEDS ORDERED: ALBU18HF2 INH (10:23)
[2023-04-17] MEDS ORDERED: FERR325T24 PO (10:23)
--- NOTE | 2023-04-17 11:06 | Progress Note - Surgery ---
MARGARITO ANGULO 04/17/23 1106: Subjective Date Seen by a Provider: Apr 17, 2023 Time Seen by a Provider: 10:40 Subjective/Events-last exam Patient is lying in bed comfortably at time of evaluation, speaking with family. The patient reports she feels she has been gradually improving since her admissi on, with no nausea, vomiting, and lessened abdominal pain at this time. She states she feels improved since her transfusion at around 0430 this morning as well. She endorses frequent loose stools since discharge from [facility], and the frequency of her stools have been decreasing back to her baseline prior to February. The patient notes she has not had any urinary symptoms since arrival to [facility], and though she endorses diaphoresis and chills at home for several days prior to admission, she does not currently have fever, chills, diaphoresis, headache, chest pain, shortness of breath, or focal weakness. She also denies any hematochezia or melena, stating that her stools for the past several weeks have been light brown in color. ICU nurse at this time does remark the patient passed gas while she was in the room, and her gas had an odor concerning for GI bleed. The patient notes she was told by GI in [facility] that she had an unremarkable EGD and a colonoscopy showing ulcers. These ulcers were biopsied [facility], suspected to be secondary to septic shock. Patient also remarks she was noted to be in atrial fibrillation when she arrived to , and she was told this was due to the pressors she had been on here; pressors were stopped, afib resolved, and the patient has not been in afib since. Patient's family also states the patient was discharged from with HGB around 9.5, and followed up in both rehab and with Dr. Nguyen with HGB around 8-9. Review of Systems General: No Chills, No Night Sweats, No Fatigue HEENT: No Head Aches Pulmonary: No Dyspnea Cardiovascular: No: Chest Pain, Palpitations Gastrointestinal: Abdominal Pain, Diarrhea ("loose stools"); No: Nausea, Vomiting, Constipation Genitourinary: No Dysuria, No Frequency, No Hematuria Musculoskeletal: No: leg pain, foot pain Neurological: No: Weakness Focused Exam Lactate Level 04/15/23 21:00: Lactic Acid Level 1.43 Objective Exam Vital Signs Date Time Temp Pulse Resp B/P (MAP) Pulse Ox O2 Delivery O2 Flow Rate FiO2 04/17/23 10:00 82 12 111/73 (86) 95 Nasal Cannula 2.00 04/17/23 09:00 86 16 114/67 (83) 93 Nasal Cannula 2.00 04/17/23 08:05 36.1 83 19 100/63 93 Nasal Cannula 2.00 04/17/23 08:00 82 21 100/63 (75) 93 Nasal Cannula 2.00 04/17/23 07:46 36.2 04/17/23 07:31 96 Nasal Cannula 2.00 04/17/23 07:13 79 04/17/23 07:00 80 19 96/60 (72) 96 Nasal Cannula 2.00 04/17/23 06:00 79 20 95/58 (70) 96 Nasal Cannula 2.00 04/17/23 05:15 77 20 94/64 (74) 95 Nasal Cannula 2.00 04/17/23 05:15 36.6 78 21 94/64 95 Nasal Cannula 2.00 04/17/23 04:46 36.5 79 19 98/59 95 Nasal Cannula 2.00 04/17/23 04:27 36.4 81 20 108/62 95 Nasal Cannula 2.00 04/17/23 04:10 36.6 04/17/23 04:00 79 22 96/60 (72) 95 Nasal Cannula 2.00 04/17/23 03:30 95 Nasal Cannula 2.00 04/17/23 03:00 80 27 97/59 (72) 94 Nasal Cannula 2.00 04/17/23 02:00 80 21 95/62 (73) 94 Nasal Cannula 2.00 04/17/23 01:00 80 04/17/23 01:00 80 20 94/56 (69) 94 Nasal Cannula 2.00 04/17/23 00:00 82 22 106/66 (79) 94 Nasal Cannula 2.00 04/16/23 23:15 93 Nasal Cannula 2.00 04/16/23 23:10 36.4 87 21 94/57 (69) 93 Nasal Cannula 2.00 04/16/23 23:00 89 22 94/57 (69) 94 Nasal Cannula 2.00 04/16/23 22:00 87 20 105/61 (76) 93 Nasal Cannula 2.00 04/16/23 21:30 99 Nasal Cannula 2.00 04/16/23 21:00 80 34 97/62 (74) 94 Nasal Cannula 2.00 04/16/23 20:00 76 20 94/61 (72) 97 Nasal Cannula 2.00 04/16/23 19:45 96 Nasal Cannula 2.00 04/16/23 19:00 36.6 79 12 89/67 (74) 96 Nasal Cannula 2.00 04/16/23 19:00 77 04/16/23 18:00 80 14 103/67 (79) 90 Nasal Cannula 2.00 04/16/23 17:00 80 17 92/65 (74) 96 Nasal Cannula 2.00 04/16/23 16:00 78 21 95/56 (69) 95 Nasal Cannula 2.00 04/16/23 16:00 99 Nasal Cannula 2.00 04/16/23 15:00 79 13 95/61 (72) 96 Nasal Cannula 2.00 04/16/23 14:39 95 Nasal Cannula 2.00 04/16/23 14:00 74 20 95/70 (78) 97 Nasal Cannula 2.00 04/16/23 13:00 75 22 91/57 (68) 96 Nasal Cannula 2.00 04/16/23 12:32 81 04/16/23 12:00 74 18 84/50 (61) 97 Nasal Cannula 2.00 04/16/23 12:00 99 Nasal Cannula 2.00 04/16/23 11:53 36.0 04/16/23 11:00 82 16 98/60 (73) 95 Nasal Cannula 2.00 I & O 04/17/23 07:00 Intake Total 4945 ml Output Total 1625 ml Balance 3320 ml Capillary Refill : Less Than 3 Seconds General Appearance: No Apparent Distress, WD/WN HEENT: PERRL/EOMI, Moist Mucous Membranes Neck: Non Tender, Supple, Other (Right IJ central line in place) Respiratory: Lungs Clear, No Accessory Muscle Use, No Respiratory Distress; No Crackles, No Rhonci, No Stridor, No Wheezing Cardiovascular: Regular Rate, Rhythm, No Murmur, Normal Peripheral Pulses Peripheral Pulses: 2+ Dorsalis Pedis (R), 2+ Left Dors-Pedis (L), 2+ Radial Pulses (R), 2+ Radial Pulses (L) Gastrointestinal: normal bowel sounds; No distended (patient and family state s he is at baseline); tenderness (LLQ, RLQ, mild) Extremity: Non Tender, Pedal Edema (1+ bilateral pitting pedal edema) Neurologic/Psychiatric: Alert, Normal Mood/Affect, Other (bilateral lower extremity tremor, baseline) Skin: Normal Color, Warm/Dry, Other (healed laparoscopic scars on the abdomen) Lymphatic: No Adenopathy (cervical) Results Lab Laboratory Tests 04/16/23 11:33: Glucometer 103 04/16/23 18:07: Glucometer 73 04/16/23 23:45: Glucometer 90 04/17/23 02:40: White Blood Count 5.0, Red Blood Count 2.28L, Hemoglobin 6.5*L, Hematocrit 20*L, Mean Corpuscular Volume 89, Mean Corpuscular Hemoglobin 29, Mean Corpuscular Hemoglobin Concent 32, Red Cell Distribution Width 14.6H, Platelet Count 232, Mean Platelet Volume 8.5L, Immature Granulocyte % (Auto) 0, Neutrophils (%) (Auto) 29L, Lymphocytes (%) (Auto) 60H, Monocytes (%) (Auto) 10, Eosinophils (%) (Auto) 1, Basophils (%) (Auto) 1, Neutrophils # (Auto) 1.5L, Lymphocytes # (Auto) 3.0, Monocytes # (Auto) 0.5, Eosinophils # (Auto) 0.0, Basophils # (Auto) 0.0, Immature Granulocyte # (Auto) 0.0, Sodium Level 137, Potassium Level 3.8, Chloride Level 109H, Carbon Dioxide Level 25, Anion Gap 3L, Blood Urea Nitrogen 9, Creatinine 0.70, Estimat Glomerular Filtration Rate 93, BUN/Creatinine Ratio 13, Glucose Level 79, Calcium Level 7.1L, Corrected Calcium 8.8, Phosphorus Level 3.3, Magnesium Level 1.6, Total Bilirubin 0.3, Aspartate Amino Transf (AST/SGOT) 10, Alanine Aminotransferase (ALT/SGPT) 6, Alkaline Phosphatase 53, Total Protein 3.6L, Albumin 1.9L 04/17/23 05:25: Glucometer 103 Microbiology 04/16/23 MRSA Screen - Final, Complete MRSA not isolated 04/15/23 Urine Culture - Preliminary, Resulted Culture In Progress 04/15/23 Blood Culture - Preliminary, Resulted No growth Assessment/Plan Assessment/Plan Assessment/Plan A: 1. Colitis 2. Hypotension, improved to 110/70 since 0900 on 04/17 3. Anemia: 6.5 on 04/17 4. Loose stools 5. Hx Hepatic Cyst P: Continue IV antibiotics, fluids, and analgesia as needed for colitis. Continue IV fluid resuscitation for hypotension, consider administering vasopressors as needed. Patient is currently post-blood transfusion, continue monitoring patient for symptoms of severe anemia, repeat HGB in the morning. Consider colonoscopy here for evaluation of new-onset colitis and anemia in the setting of known recent colonic ulcers. Continue monitoring stools for signs of GI bleed. BALJIT FOUNTAIN DO 04/18/23 1339: Subjective Time Seen by a Provider: 13:11 Subjective/Events-last exam Pt seen and examined, states she feels weak and can't eat because of nausea. Review of Systems General: No Chills, No Night Sweats; Fatigue Pulmonary: No Dyspnea Cardiovascular: No: Chest Pain, Palpitations Gastrointestinal: Abdominal Pain, Diarrhea ("loose stools"); No: Nausea, Vomiting, Constipation Genitourinary: No Dysuria, No Frequency, No Hematuria Objective Exam General Appearance: No Apparent Distress, WD/WN HEENT: PERRL/EOMI, Moist Mucous Membranes Respiratory: Lungs Clear, Normal Breath Sounds, No Accessory Muscle Use, No Respiratory Distress Cardiovascular: Regular Rate, Rhythm Gastrointestinal: normal bowel sounds; No distended (patient and family state she is at baseline); tenderness (LLQ, RLQ, mild) Extremity: Non Tender, Pedal Edema (1+ bilateral pitting pedal edema) Assessment/Plan Assessment/Plan Assessment/Plan 1. Colitis 2. Hypotension, improved to 110/70 since 0900 on 04/17 3. Anemia: 6.5 on 04/17 4. Loose stools 5. Hx Hepatic Cyst I reviewed the pts films and labs myself and then spoke with Daughter-in Law, and went over labs, OP report and pathology from . She was noted to have ulcers, thought to be ischemic in the Sigmoid colon. For now, continue IV antibiotics, fluids, and analgesia as needed for colitis. Continue IV fluid resuscitation for hypotension, consider administering vasopressors as needed. Patient is currently post-blood transfusion, continue monitoring patient for sy mptoms of severe anemia, repeat HGB in the morning. Consider colonoscopy here for evaluation of new-onset colitis and anemia in the setting of known recent colonic ulcers. Continue monitoring stools for signs of GI bleed. My main concern is that the bowel could be ischemica and she might need surgery; this will depend on whether she continues to drop Hg, if there is a change in WBC, BP or abdominal pain. Will monitor closely. Supervisory-Addendum Brief Verification & Attestation Participated in pt care: history, MDM, physical Personally performed: exam, history, MDM, supervision of care Care discussed with: Medical Student Procedures: n/a Verification and Attestation of Medical Student E/M Service A medical student performed and documented this service. I then reviewed and verified all information documented by the medical student and made modifications to such information, when appropriate. I personally performed a physical exam, medical decision making and then discussed any differences between the notes and made revisions as necessary to create one note. Baljit Fountain , 04/18/23 , 13:39 MARGARITO ANGULO Apr 17, 2023 11:06 BALJIT FOUNTAIN DO Apr 18, 2023 13:39
[2023-04-17] MEDS ORDERED: LORATADINE 10 MG TABLET PO PRN (11:15)
[2023-04-17] MEDS ORDERED: guaiFENesin 600 MG TABLET PO PRN (11:15)
[2023-04-17] MEDS ORDERED: ALPRAZolam 0.5 MG TABLET PO PRN (11:15)
[2023-04-17] MEDS ORDERED: LOPERAMIDE 2 MG CAPSULE PO PRN (11:15)
[2023-04-17] MEDS: SERTRALINE 50 MG TABLET PO SCH (11:53)
[2023-04-17] MEDS ORDERED: TIOTROPIUM INH 4 GM (SPIRIVA Respimat) IH SCH (12:00)
[2023-04-17] MEDS ORDERED: FLUTICASONE/VILANTEROL 200/25 MCG (7 DOSES) IH SCH (12:00)
--- NOTE | 2023-04-17 13:51 | Progress Note ---
DANYELL GIFFORD 04/17/23 1351: Subjective Date Seen by a Provider: Apr 17, 2023 Time Seen by a Provider: 08:20 Subjective/Events-last exam 72-year-old female h/o HTN, GERD, & asthma presents to ED with vomiting & left- sided abdominal pain. She had been to the hospital prior (March 08) for left-sided abdominal pain & left-flank pain with associated nausea & nonbilious vomiting. CT imaging showed transverse & descending colitis with no perforation at the time. Patient was discharge same day on pain medication, anti-emetic meds, and Bactrim. Patient then presented to ED very next day for abdominal pain & diarrhea. BP was in the 50's and required pressors during her stay. She ult imately underwent diagnostic laparoscopy with abdominal washout & drainage placement (March 09). Patient was found to have colitis vs. hepatic abscess/cyst rupture, peritonitis, and sepsis. Blood cultures were negative, C. diff stool was negative, no evidence of parasites, and urine culture was negative. During patient visit, she was not experiencing any pain at the moment. No nausea or vomiting since she had been admitted. Her last BM was a couple of days ago. Patient had been feeling weak, but there is improvement after she had received her blood transfusion early this morning. She has had loose stools since her discharge from [facility], but they are returning back to baseline, denies blood. Patient denies chills, fever, difficulties with swallowing, or chest pain. She has been able to tolerate liquids. [facility] GI colonoscopy showed ulcers which caused concern for ischemia possibly secondary to septic shock. Patient also noted about having Afib on arrival to [facility], was told it occurred to the pressors she was given during her March 09 visit mentioned above. Her Afib resolved after the pressors were discontinued. Patient was alert & oriented x3. Review of Systems General: No Chills, No Night Sweats; Fatigue; No Malaise, No Appetite, No Other HEENT: No Head Aches, No Visual Changes, No Eye Pain, No Ear Pain, No Dysphasia, No Sinus Congestion, No Post Nasal Drip, No Sore Throat, No Other Pulmonary: No Dyspnea, No Cough, No Pleuritic Chest Pain, No Other Cardiovascular: No: Chest Pain, Palpitations, Orthopnea, Paroxysmal Noc. Dyspnea, Edema, Lt Headedness, Other Gastrointestinal: Diarrhea; No: Nausea, Vomiting, Abdominal Pain, Constipation, Melena, Hematochezia, Other Genitourinary: No Dysuria, No Frequency, No Incontinence, No Hematuria, No Retention, No Other Musculoskeletal: No: other, neck pain, shoulder pain, arm pain, back pain, hand pain, leg pain, foot pain Neurological: No: Weakness, Numbness, Incoordination, Change in speech, Confusion, Seizures, Other Focused Exam Lactate Level 04/15/23 21:00: Lactic Acid Level 1.43 Objective Exam Last Set of Vital Signs Vital Signs Date Time Temp Pulse Resp B/P (MAP) Pulse Ox O2 Delivery O2 Flow Rate FiO2 04/17/23 13:32 Nasal Cannula 2.00 04/17/23 13:00 75 20 113/73 (86) 96 04/17/23 11:22 36.3 Capillary Refill : Less Than 3 Seconds I&O Intake and Output 04/17/23 00:00 Intake Total 4625 ml Output Total 1050 ml Balance 3575 ml Intake Oral 25 ml IV Total 4600 ml Output Urine Total 1050 ml # Voids 2 Daily Weight Change No General: Alert, Oriented X3, Cooperative, Mild Distress HEENT: Atraumatic, PERRLA, EOMI, Mucous Memb Moist/[place] Lungs: Clear to Auscultation, Normal Air Movement Heart: Regular Rate, Normal S1, Normal S2, No Murmurs Abdomen: Other (LLQ, RLQ tenderness) Extremities: No Clubbing, No Cyanosis, Normal Pulses Neuro: Normal Speech Psych/Mental Status: Mental Status NL, Mood NL Results Lab Laboratory Tests 04/16/23 18:07: Glucometer 73 04/16/23 23:45: Glucometer 90 04/17/23 02:40: White Blood Count 5.0, Red Blood Count 2.28L, Hemoglobin 6.5*L, Hematocrit 20*L, Mean Corpuscular Volume 89, Mean Corpuscular Hemoglobin 29, Mean Corpuscular Hemoglobin Concent 32, Red Cell Distribution Width 14.6H, Platelet Count 232, Mean Platelet Volume 8.5L, Immature Granulocyte % (Auto) 0, Neutrophils (%) (Auto) 29L, Lymphocytes (%) (Auto) 60H, Monocytes (%) (Auto) 10, Eosinophils (%) (Auto) 1, Basophils (%) (Auto) 1, Neutrophils # (Auto) 1.5L, Lymphocytes # (Auto) 3.0, Monocytes # (Auto) 0.5, Eosinophils # (Auto) 0.0, Basophils # (Auto) 0.0, Immature Granulocyte # (Auto) 0.0, Sodium Level 137, Potassium Level 3.8, Chloride Level 109H, Carbon Dioxide Level 25, Anion Gap 3L, Blood Urea Nitrogen 9, Creatinine 0.70, Estimat Glomerular Filtration Rate 93, BUN/Creatinine Ratio 13, Glucose Level 79, Calcium Level 7.1L, Corrected Calcium 8.8, Phosphorus Level 3.3, Magnesium Level 1.6, Total Bilirubin 0.3, Aspartate Amino Transf (AST/SGOT) 10, Alanine Aminotransferase (ALT/SGPT) 6, Alkaline Phosphatase 53, Total Protein 3.6L, Albumin 1.9L 04/17/23 05:25: Glucometer 103 04/17/23 11:21: Glucometer 85 04/17/23 13:20: Lab Scanned Report Transfusion Reaction Form Microbiology 04/16/23 MRSA Screen - Final, Complete MRSA not isolated 04/15/23 Urine Culture - Final, Complete Mixed Bacterial Kimberly See Comments 04/15/23 Blood Culture - Preliminary, Resulted No growth Assessment/Plan Assessment/Plan Assess & Plan/Chief Complaint Assessment: Shock Left-sided colitis UTI with mixed bacterial kimberly Colonic ulcers found on GI workup KUM EDDIE resolved Hx of hepatic cyst Hx of HTN Hypothyroidsim GERD Asthma Anemia treated with blood Plan: Iron IV Surgery consult Continue IV antibiotics Continue IVF Recheck Hgb Monitor in ICU LARISA GONZALEZ DO 04/18/23 0454: Supervisory-Addendum Brief Verification & Attestation Participated in pt care: history, MDM, physical Personally performed: exam, history, MDM, supervision of care Care discussed with: Medical Student Procedures: n/a Results interpretation: Verified all documentation Verification and Attestation of Medical Student E/M Service A medical student performed and documented this service in my presence. I reviewed and verified all information documented by the medical student and made modifications to such information, when appropriate. I personally performed the physical exam and medical decision making. Larisa Gonzalez Apr 18, 2023,04:54 DANYELL GIFFORD Apr 17, 2023 13:51 LARISA GONZALEZ DO Apr 18, 2023 04:54
[2023-04-17] MEDS: ENOXAPARIN 40 MG/0.4 ML SYRINGE SC SCH (14:43)
[2023-04-17] MEDS: MEROPENEM 500 MG/NS 100 ML IVPB IV SCH ×4 (15:59→23:00)
[2023-04-17] MEDS ORDERED: MEROPENEM INJECTION 500 MG in NS (IVPB) 100 ML 100 ML IV SCH (16:00)
[2023-04-17] MEDS: LOSARTAN 100 MG TABLET PO SCH (20:58)
[2023-04-17] MEDS: MELATONIN 3 MG TABLET PO SCH (20:58)
[2023-04-17] MEDS ORDERED: NON-FORMULARY MEDICATION 1 EA EA (Pravastatin Sodium 20 MG) PO SCH (21:00)
[2023-04-18 02:32] LABS: BASOPHILS % (AUTO) 1 % (0-10); EOSINOPHILS # (AUTO) 0.1 10^3/uL (0.0-0.3); EOSINOPHILS % (AUTO) 2 % (0-10); HEMATOCRIT 26 % (35-52); HEMOGLOBIN 8.2 g/dL (11.5-16.0); LYMPHOCYTES # (AUTO) 3.1 10^3/uL (1.0-4.0); LYMPHOCYTES % (AUTO) 58 % (12-44); MEAN CORPUSCULAR HEMOGLOBIN 28 pg (25-34); MEAN CORPUSCULAR HGB CONC 32 g/dL (32-36); MEAN CORPUSCULAR VOLUME 87 fL (80-99); MEAN PLATELET VOLUME 8.4 fL (9.0-12.2); MONOCYTES # (AUTO) 0.6 10^3/uL (0.0-1.0); MONOCYTES % (AUTO) 11 % (0-12); NEUTROPHILS # (AUTO) 1.5 10^3/uL (1.8-7.8); NEUTROPHILS % (AUTO) 28 % (42-75); PLATELET COUNT 266 10^3/uL (130-400); WHITE BLOOD COUNT 5.3 10^3/uL (4.3-11.0)
[2023-04-18 02:55] LABS: ALBUMIN 1.9 GM/DL (3.2-4.5); BILIRUBIN,TOTAL 0.4 MG/DL (0.1-1.0); CALCIUM 7.1 MG/DL (8.5-10.1); CREATININE SERUM 0.65 MG/DL (0.60-1.30); MAGNESIUM 1.9 MG/DL (1.6-2.4); PHOSPHORUS 2.7 MG/DL (2.3-4.7); TOTAL PROTEIN 3.6 GM/DL (6.4-8.2)
[2023-04-18] MEDS: MAGNESIUM 1 GM/100 ML IVPB 100 ML IV SCH ×2 (02:57→03:10)
[2023-04-18] MEDS: POTASSIUM CL 10MEQ/50ML IVPB 50 ML IV SCH (02:57)
[2023-04-18] MEDS: POTASSIUM CHLORIDE 20 MEQ TABLET PO SCH (02:58)
[2023-04-18] MEDS: LEVOTHYROXINE 25 MCG TABLET PO SCH (05:07)
[2023-04-18] MEDS: FERROUS SULFATE 325 MG (IRON) TABLET PO SCH (08:04)
[2023-04-18] MEDS: SERTRALINE 50 MG TABLET PO SCH (08:05)
[2023-04-18] MEDS: PANTOPRAZOLE INJECTION 40 MG VIAL IV SCH (08:06)
[2023-04-18] MEDS: MEROPENEM 500 MG/NS 100 ML IVPB IV SCH ×6 (08:06→20:12)
[2023-04-18] MEDS: dilTIAZem ER 120 MG CAPSULE PO SCH (08:06)
[2023-04-18] MEDS: FLUTICASONE NASAL SPRAY (120 SPRAYS) NS SCH (08:12)
[2023-04-18] MEDS ORDERED: PANTOPRAZOLE 40 MG TABLET PO SCH (09:00)
[2023-04-18] MEDS ORDERED: NON-FORMULARY MEDICATION 1 EA EA (Fluticasone/Umeclidin/Vilanter (Trelegy Ellipta 200-62.5 INH SCH (09:00)
--- NOTE | 2023-04-18 09:59 | Tele-ICU Progress Note ---
Subjective Date Seen by a Provider: Apr 18, 2023 Time Seen by a Provider: 09:59 Subjective/Events-last exam (Tele-ICU Physician , Progress Note ) Service provided via interactive audio and video telecommunications E-CARE system to a patient admitted to ICU bed in [facility]. Patient is seen today due to persistent need of ICU care Available chart/ vitals / labs / Images reviewed Video assessment done using teleICU camera, rest of exam as per RN Discussed with RN Events overnight : Afebrile hemodynamically stable Respiratory - ra I/O =pos 3 L Drips: ns 60 Pressors- no Hospital course: 03/09 - shock , resp failure -BIPAP . pressors --> ex lap and transfer to - ?infected hepatic cyst-had peritoneal drain which was removed prior to DC- [facility] 72F Admitted for septic shock, hypotensive, UTI, colitis, postiive stool occult blood. BEATRIZ , Merrem 04/17- anemia Hb 6.4 - t1 uPRNC transfused , off pressors 04/17- no pain , eating A/P Abd pain . CT with suspected colitis - started on Merrem 04/16 - no abd pain now , stable vitals , - -sx consult follow Severe sepsis, shock - off beatriz 04/17 with > 5 l resuscitation ) RESOLVED - IVF to stop if toletationg PO Anemia - ? 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 This is mainly concerning for possible underlying malignancy even though she is not a smoker This nodule has no relation to the currant symptomatology.- as per bedside md Lines : r IJ 04/16 , (Central Line Necessity Reviewed) Nair: void OG: Nutrition: npo Analgesia: Anxiety/ delirium VTE Prophylaxis: avery Stress Ulcer Prophylaxis: Plans in collaboration with bedside consultants and IM MDs. Discussed with RN to reach out if any questions or concerns Case and care daily discussed on multidisciplinary rounds ( RN, PharmD, Nu tritionist , Respiratory Therapy, contact worker lithography ) A total of 31minutes of critical care time was devoted to this patient today, required to treat and/or prevent further deterioration of critical care condition ( as above ) . I am remotely monitoring this patient from another state. I am unable to do the bedside exam, and history/physical and pertinent information is taken from other notes in the computer and bedside staff. Sepsis Event Evaluation Height, Weight, BMI Height: 5'4.00" Weight: 127lbs. 4.0oz. 57.546935eu; 27.78 BMI Method:Actual Focused Exam Lactate Level 04/15/23 21:00: Lactic Acid Level 1.43 Exam Exam Patient acknowledged, consented, and participated in this virtual visit which was conducted using real time audio/video Vital Signs Date Time Temp Pulse Resp B/P (MAP) Pulse Ox O2 Delivery O2 Flow Rate FiO2 04/18/23 08:10 Room Air 04/18/23 08:00 36.6 04/18/23 08:00 78 23 111/69 (83) 89 Nasal Cannula 2.00 04/18/23 07:17 75 04/18/23 07:00 75 15 98/70 (79) 95 Nasal Cannula 2.00 04/18/23 06:00 75 19 105/71 (82) 94 Nasal Cannula 2.00 04/18/23 05:00 87 26 115/77 (90) 93 Nasal Cannula 2.00 04/18/23 04:00 79 19 99/65 (76) 94 Nasal Cannula 2.00 04/18/23 03:10 94 Nasal Cannula 2.00 04/18/23 03:00 36.4 80 19 105/65 (78) 94 Nasal Cannula 2.00 04/18/23 02:00 81 20 101/66 (78) 94 Nasal Cannula 2.00 04/18/23 01:00 82 21 109/64 (79) 93 Nasal Cannula 2.00 04/18/23 01:00 82 04/18/23 00:00 79 21 108/68 (81) 95 Nasal Cannula 2.00 04/17/23 23:00 96 Nasal Cannula 2.00 04/17/23 23:00 36.6 83 20 100/63 (75) 96 Nasal Cannula 2.00 04/17/23 22:00 83 21 102/65 (77) 94 Nasal Cannula 2.00 04/17/23 21:00 87 120/78 (92) 93 Nasal Cannula 2.00 04/17/23 20:38 96 Nasal Cannula 2.00 04/17/23 20:00 75 20 118/73 (88) 96 Nasal Cannula 2.00 04/17/23 19:40 96 Nasal Cannula 2.00 04/17/23 19:38 36.5 04/17/23 19:00 79 18 122/71 (88) 96 Nasal Cannula 2.00 04/17/23 19:00 80 04/17/23 18:00 76 21 109/68 (82) 95 Nasal Cannula 2.00 04/17/23 17:00 81 16 106/76 (86) 95 Nasal Cannula 2.00 04/17/23 16:00 80 18 109/67 (81) 94 Nasal Cannula 2.00 04/17/23 15:45 36.3 04/17/23 15:10 94 Nasal Cannula 2.00 04/17/23 15:00 80 15 103/77 (86) 92 Nasal Cannula 2.00 04/17/23 14:39 96 Nasal Cannula 2.00 04/17/23 14:00 72 15 115/70 (85) 94 Nasal Cannula 2.00 04/17/23 13:32 Nasal Cannula 2.00 04/17/23 13:00 75 20 113/73 (86) 96 Nasal Cannula 2.00 04/17/23 12:48 Nasal Cannula 2.00 04/17/23 12:31 81 04/17/23 12:00 93 Room Air 04/17/23 12:00 79 14 108/78 (88) 96 Room Air 04/17/23 11:22 36.3 Room Air 04/17/23 11:00 73 13 109/77 (88) 96 Nasal Cannula 2.00 04/17/23 10:00 82 12 111/73 (86) 95 Nasal Cannula 2.00 I & O 04/18/23 07:00 Intake Total 3845 ml Output Total 2075 ml Balance 1770 ml Height & Weight Height: 5'4.00" Weight: 127lbs. 4.0oz. 57.327955mp; 27.78 BMI Method:Actual General Appearance: No Apparent Distress, WD/WN HEENT: PERRL/EOMI, Moist Mucous Membranes Neck: Non Tender, Supple, Other (Right IJ central line in place) Respiratory: Lungs Clear, No Accessory Muscle Use, No Respiratory Distress; No Crackles, No Rhonci, No Stridor, No Wheezing Cardiovascular: Regular Rate, Rhythm, No Murmur, Normal Peripheral Pulses Capillary Refill: Less Than 3 Seconds Peripheral Pulses: 2+ Dorsalis Pedis (R), 2+ Left Dors-Pedis (L), 2+ Radial P ulses (R), 2+ Radial Pulses (L) Gastrointestinal: normal bowel sounds; No distended (patient and family state she is at baseline); tenderness (LLQ, RLQ, mild) Extremity: Non Tender, Pedal Edema (1+ bilateral pitting pedal edema) Neurologic/Psychiatric: Alert, Normal Mood/Affect, Other (bilateral lower extremity tremor, baseline) Skin: Normal Color, Warm/Dry, Other (healed laparoscopic scars on the abdomen) Lymphatic: No Adenopathy (cervical) Results Lab Laboratory Tests 04/17/23 02:40 04/18/23 02:25 Assessment/Plan Assessment/Plan 1 DORETHA GRANT MD Apr 18, 2023 09:59
[2023-04-18] MEDS: RT-Ipratropium/Albuterol NEB 3 ML VIAL INH SCH ×3 (10:35→18:58)
--- NOTE | 2023-04-18 11:21 | Progress Note - Surgery ---
MARGARITO ANGULO 04/18/23 1121: Subjective Date Seen by a Provider: Apr 18, 2023 Time Seen by a Provider: 10:55 Subjective/Events-last exam Patient is seated in bed comfortably at time of evaluation. The patient reports she feels overall improved compared to yesterday, and significantly improved compared to arrival. She states she her fatigue is significantly better, and she does not have any abdominal pain at rest. The patient notes she has stooled twice this morning, once loose, and once diarrhea, without any hematochezia or melena. She denies any difficulty eating or drinking, decreased appetite, fever, chills, headache, sore throat, chest pain, shortness of breath, or urinary symptoms. The patient remarks she did have an asthma exacerbation just prior to my evaluation, for which she was treated with inhaled bronchodilators. She does endorse swelling in her legs and feet that is unchanged from previous days in the hospital. The patient's HGB today post-transfusion is 8.2, improved from 6.5 yesterday. Review of Systems General: No Chills, No Fatigue, No Appetite (normal appetite) HEENT: No Head Aches Pulmonary: Dyspnea (secondary to asthma), Cough (secondary to asthma) Cardiovascular: Edema; No: Chest Pain Gastrointestinal: Diarrhea; No: Nausea, Vomiting, Abdominal Pain, Constipation, Melena, Hematochezia Genitourinary: No Dysuria, No Incontinence, No Retention Neurological: No: Weakness Focused Exam Lactate Level 04/15/23 21:00: Lactic Acid Level 1.43 Objective Exam Vital Signs Date Time Temp Pulse Resp B/P (MAP) Pulse Ox O2 Delivery O2 Flow Rate FiO2 04/18/23 10:00 80 16 117/73 (88) 94 Room Air 04/18/23 09:00 79 15 116/76 (89) 93 Room Air 04/18/23 08:10 Room Air 04/18/23 08:00 92 Room Air 04/18/23 08:00 36.6 04/18/23 08:00 78 23 111/69 (83) 89 Nasal Cannula 2.00 04/18/23 07:17 75 04/18/23 07:00 75 15 98/70 (79) 95 Nasal Cannula 2.00 04/18/23 06:00 75 19 105/71 (82) 94 Nasal Cannula 2.00 04/18/23 05:00 87 26 115/77 (90) 93 Nasal Cannula 2.00 04/18/23 04:00 79 19 99/65 (76) 94 Nasal Cannula 2.00 04/18/23 03:10 94 Nasal Cannula 2.00 04/18/23 03:00 36.4 80 19 105/65 (78) 94 Nasal Cannula 2.00 04/18/23 02:00 81 20 101/66 (78) 94 Nasal Cannula 2.00 04/18/23 01:00 82 21 109/64 (79) 93 Nasal Cannula 2.00 04/18/23 01:00 82 04/18/23 00:00 79 21 108/68 (81) 95 Nasal Cannula 2.00 04/17/23 23:00 96 Nasal Cannula 2.00 04/17/23 23:00 36.6 83 20 100/63 (75) 96 Nasal Cannula 2.00 04/17/23 22:00 83 21 102/65 (77) 94 Nasal Cannula 2.00 04/17/23 21:00 87 120/78 (92) 93 Nasal Cannula 2.00 04/17/23 20:38 96 Nasal Cannula 2.00 04/17/23 20:00 75 20 118/73 (88) 96 Nasal Cannula 2.00 04/17/23 19:40 96 Nasal Cannula 2.00 04/17/23 19:38 36.5 04/17/23 19:00 79 18 122/71 (88) 96 Nasal Cannula 2.00 04/17/23 19:00 80 04/17/23 18:00 76 21 109/68 (82) 95 Nasal Cannula 2.00 04/17/23 17:00 81 16 106/76 (86) 95 Nasal Cannula 2.00 04/17/23 16:00 80 18 109/67 (81) 94 Nasal Cannula 2.00 04/17/23 15:45 36.3 04/17/23 15:10 94 Nasal Cannula 2.00 04/17/23 15:00 80 15 103/77 (86) 92 Nasal Cannula 2.00 04/17/23 14:39 96 Nasal Cannula 2.00 04/17/23 14:00 72 15 115/70 (85) 94 Nasal Cannula 2.00 04/17/23 13:32 Nasal Cannula 2.00 04/17/23 13:00 75 20 113/73 (86) 96 Nasal Cannula 2.00 04/17/23 12:48 Nasal Cannula 2.00 04/17/23 12:31 81 04/17/23 12:00 93 Room Air 04/17/23 12:00 79 14 108/78 (88) 96 Room Air 04/17/23 11:22 36.3 Room Air I & O 04/18/23 07:00 Intake Total 3845 ml Output Total 2075 ml Balance 1770 ml Capillary Refill : Less Than 3 Seconds General Appearance: No Apparent Distress, WD/WN HEENT: PERRL/EOMI, Moist Mucous Membranes Neck: Non Tender, Supple, Other (Right IJ central line in place) Respiratory: No Accessory Muscle Use, No Respiratory Distress; No Accessory Muscle Use, No Crackles, No Rhonci, No Stridor; Wheezing (expiratory) Cardiovascular: Regular Rate, Rhythm, No Murmur, Normal Peripheral Pulses Peripheral Pulses: 2+ Dorsalis Pedis (R), 2+ Left Dors-Pedis (L), 2+ Radial Pulses (R), 2+ Radial Pulses (L) Gastrointestinal: normal bowel sounds; No distended (patient and family state she is at baseline); tenderness (LLQ, 2/10 with deep palpation) Extremity: Non Tender, Pedal Edema (1+ bilateral pitting pedal edema) Neurologic/Psychiatric: Alert, Normal Mood/Affect, Other (bilateral lower extremity tremor, baseline) Skin: Normal Color, Warm/Dry, Other (healed laparoscopic scars on the abdomen) Lymphatic: No Adenopathy (cervical) Results Lab Laboratory Tests 04/17/23 11:21: Glucometer 85 04/17/23 13:20: Lab Scanned Report Transfusion Reaction Form 04/17/23 15:38: Glucometer 106 04/17/23 20:39: Glucometer 114H 04/18/23 02:25: White Blood Count 5.3, Red Blood Count 2.94L, Hemoglobin 8.2#L, Hematocrit 26L, Mean Corpuscular Volume 87, Mean Corpuscular Hemoglobin 28, Mean Corpuscular Hemoglobin Concent 32, Red Cell Distribution Width 15.5H, Platelet Count 266, Mean Platelet Volume 8.4L, Immature Granulocyte % (Auto) 0, Neutrophils (%) (Auto) 28L, Lymphocytes (%) (Auto) 58H, Monocytes (%) (Auto) 11, Eosinophils (%) (Auto) 2, Basophils (%) (Auto) 1, Neutrophils # (Auto) 1.5L, Lymphocytes # (Auto) 3.1, Monocytes # (Auto) 0.6, Eosinophils # (Auto) 0.1, Basophils # (Auto) 0.0, Immature Granulocyte # (Auto) 0.0, Sodium Level 137, Potassium Level 4.0, Chloride Level 108H, Carbon Dioxide Level 25, Anion Gap 4L, Blood Urea Nitrogen 6L, Creatinine 0.65, Estimat Glomerular Filtration Rate 95, BUN/Creatinine Ratio 9, Glucose Level 93, Calcium Level 7.1L, Corrected Calcium 8.8, Phosphorus Level 2.7, Magnesium Level 1.9, Total Bilirubin 0.4, Aspartate Amino Transf (AST/SGOT) 11, Alanine Aminotransferase (ALT/SGPT) 7, Alkaline Phosphatase 59, Total Protein 3.6L, Albumin 1.9L 04/18/23 10:55: Glucometer 104 Microbiology 04/16/23 MRSA Screen - Final, Complete MRSA not isolated 04/15/23 Urine Culture - Final, Complete Mixed Bacterial Jovita See Comments 04/15/23 Blood Culture - Preliminary, Resulted No growth Assessment/Plan Assessment/Plan Assessment/Plan A: 1. Colitis 2. Hypotension, improved to 110/70 on 04/17, continued to be improved through the morning of 04/18 3. Anemia: 6.5 on 04/17, improved to 8.2 on 04/18 post-transfusion 4. Loose stools 5. Hx Hepatic Cyst P: Continue IV antibiotics, fluids, and analgesia as needed for colitis; continue oral intake of fluids and food. Consider colonoscopy here for evaluation of new- onset colitis and anemia in the setting of known recent colonic ulcers. Continue gentle IV fluid resuscitation for hypotension. Patient continues to feel improved since 1 unit PRBCs was given yesterday, recheck HGB in the morning and continue monitoring for concerning signs of anemia. Continue monitoring stools for signs of GI bleed. BALJIT FOUNTAIN DO 04/18/23 1341: Subjective Time Seen by a Provider: 11:41 Subjective/Events-last exam Pt seen and examined, states she feel much stronger today and is eating. Her main concern is the diarrhea. Review of Systems General: No Chills, No Fatigue; Appetite (normal appetite) HEENT: No Head Aches Pulmonary: Dyspnea (secondary to asthma), Cough (secondary to asthma) Cardiovascular: Edema; No: Chest Pain Gastrointestinal: Diarrhea; No: Nausea, Vomiting, Abdominal Pain, Melena, Hematochezia Genitourinary: No Dysuria, No Incontinence Objective Exam General Appearance: No Apparent Distress, WD/WN HEENT: PERRL/EOMI, Moist Mucous Membranes Neck: Other (Right IJ central line in place) Respiratory: No Accessory Muscle Use, No Respiratory Distress; No Crackles; Wheezing (expiratory) Cardiovascular: Regular Rate, Rhythm, No Murmur Gastrointestinal: normal bowel sounds; No distended (patient and family state she is at baseline); tenderness (LLQ, 2/10 with deep palpation) Extremity: Non Tender, Pedal Edema (1+ bilateral pitting pedal edema) Assessment/Plan Assessment/Plan Assessment/Plan 1. Colitis 2. Hypotension, improved to 110/70 on 04/17, continued to be improved through the morning of 04/18 3. Anemia: 6.5 on 04/17, improved to 8.2 on 04/18 post-transfusion 4. Loose stools 5. Hx Hepatic Cyst Continue IV antibiotics, fluids, and analgesia as needed for colitis; continue oral intake of fluids and food. Consider colonoscopy here for evaluation of new- onset colitis and anemia in the setting of known recent colonic ulcers. Continue gentle IV fluid resuscitation for hypotension. Patient continues to feel improved since 1 unit PRBCs was given yesterday, recheck HGB in the morning and continue monitoring for concerning signs of anemia. Continue monitoring stools for signs of GI bleed. Will probably need a colonoscopy as an outpt. Will monitor pain, labs to make sure she is not getting worse. Encourage PO and IS use. Supervisory-Addendum Brief Verification & Attestation Participated in pt care: history, MDM, physical Personally performed: exam, history, MDM, supervision of care Care discussed with: Medical Student Procedures: n/a Verification and Attestation of Medical Student E/M Service A medical student performed and documented this service. I then reviewed and verified all information documented by the medical student and made modifications to such information, when appropriate. I personally performed a physical exam, medical decision making and then discussed any differences between the notes and made revisions as necessary to create one note. Baljit Fountain , 04/18/23 , 13:41 MARGARITO ANGULO Apr 18, 2023 11:21 BALJIT FOUNTAIN DO Apr 18, 2023 13:41
--- NOTE | 2023-04-18 11:50 | Progress Note ---
DANYELL GIFFORD 04/18/23 1150: Subjective Date Seen by a Provider: Apr 18, 2023 Time Seen by a Provider: 08:15 Subjective/Events-last exam Patient is doing well and reports no pain. She is having a cough and says it is due to her asthma. Did have a BM yesterday and reported no blood. Was having breakfast and had no issues with eating. Denied any nausea or vomiting. Did have an asthma exacerbation after patient visit, but was treated with medication. Review of Systems General: No Chills, No Night Sweats, No Fatigue, No Malaise, No Appetite, No Other HEENT: No Head Aches, No Visual Changes, No Eye Pain, No Ear Pain, No Dysph wilber, No Sinus Congestion, No Post Nasal Drip, No Sore Throat, No Other Pulmonary: No Dyspnea; Cough (Due to asthma); No Pleuritic Chest Pain, No Other Cardiovascular: No: Chest Pain, Palpitations, Orthopnea, Paroxysmal Noc. Dyspnea, Edema, Lt Headedness, Other Gastrointestinal: No: Nausea, Vomiting, Abdominal Pain, Diarrhea, Constipation, Melena, Hematochezia, Other Genitourinary: No Dysuria, No Frequency, No Incontinence, No Hematuria, No Retention, No Other Musculoskeletal: No: other, neck pain, shoulder pain, arm pain, back pain, hand pain, leg pain, foot pain Neurological: No: Weakness, Numbness, Incoordination, Change in speech, Confusion, Seizures, Other Focused Exam Lactate Level 04/15/23 21:00: Lactic Acid Level 1.43 Objective Exam Last Set of Vital Signs Vital Signs Date Time Temp Pulse Resp B/P (MAP) Pulse Ox O2 Delivery O2 Flow Rate FiO2 04/18/23 11:00 86 17 115/85 (95) 93 Room Air 04/18/23 08:00 36.6 04/18/23 08:00 2.00 Capillary Refill : Less Than 3 Seconds I&O Intake and Output 04/18/23 00:00 Intake Total 4945 ml Output Total 1875 ml Balance 3070 ml Intake Oral 1010 ml IV Total 3935 ml Output Urine Total 1875 ml # Bowel Movements 4 General: Alert, Oriented X3, Cooperative, No Acute Distress HEENT: Atraumatic, PERRLA, EOMI Extremities: No Clubbing, No Cyanosis Neuro: Normal Speech Psych/Mental Status: Mental Status NL, Mood NL Results Lab Laboratory Tests 04/17/23 13:20: Lab Scanned Report Transfusion Reaction Form 04/17/23 15:38: Glucometer 106 04/17/23 20:39: Glucometer 114H 04/18/23 02:25: White Blood Count 5.3, Red Blood Count 2.94L, Hemoglobin 8.2#L, Hematocrit 26L, Mean Corpuscular Volume 87, Mean Corpuscular Hemoglobin 28, Mean Corpuscular Hemoglobin Concent 32, Red Cell Distribution Width 15.5H, Platelet Count 266, Mean Platelet Volume 8.4L, Immature Granulocyte % (Auto) 0, Neutrophils (%) (Auto) 28L, Lymphocytes (%) (Auto) 58H, Monocytes (%) (Auto) 11, Eosinophils (%) (Auto) 2, Basophils (%) (Auto) 1, Neutrophils # (Auto) 1.5L, Lymphocytes # (Auto) 3.1, Monocytes # (Auto) 0.6, Eosinophils # (Auto) 0.1, Basophils # (Auto) 0.0, Immature Granulocyte # (Auto) 0.0, Sodium Level 137, Potassium Level 4.0, Chloride Level 108H, Carbon Dioxide Level 25, Anion Gap 4L, Blood Urea Nitrogen 6L, Creatinine 0.65, Estimat Glomerular Filtration Rate 95, BUN/Creatinine Ratio 9, Glucose Level 93, Calcium Level 7.1L, Corrected Calcium 8.8, Phosphorus Level 2.7, Magnesium Level 1.9, Total Bilirubin 0.4, Aspartate Amino Transf (AST/SGOT) 11, Alanine Aminotransferase (ALT/SGPT) 7, Alkaline Phosphatase 59, Total Prot ein 3.6L, Albumin 1.9L 04/18/23 10:55: Glucometer 104 Microbiology 04/16/23 MRSA Screen - Final, Complete MRSA not isolated 04/15/23 Urine Culture - Final, Complete Mixed Bacterial Kimberly See Comments 04/15/23 Blood Culture - Preliminary, Resulted No growth Assessment/Plan Assessment/Plan Assess & Plan/Chief Complaint Assessment: Shock Left-sided colitis UTI with mixed bacterial kimberly Colonic ulcers found on GI workup [facility]IE resolved Hx of hepatic cyst Hx of HTN Hypothyroidsim GERD Asthma Anemia treated with blood Iron deficiency treated with Ferrous sulfate Plan: Iron IV Continue antibiotics Continue IVF Move to 4th floor Therapy & ambulation Monitor BP & blood work LARISA GONZALEZ DO 04/18/236: Supervisory-Addendum Brief Verification & Attestation Participated in pt care: history, MDM, physical Personally performed: exam, history, MDM, supervision of care Care discussed with: Medical Student Procedures: n/a Results interpretation: Verified all documentation Verification and Attestation of Medical Student E/M Service A medical student performed and documented this service in my presence. I reviewed and verified all information documented by the medical student and made modifications to such information, when appropriate. I personally performed the physical exam and medical decision making. Larisa Gonzalez, Apr 18, 2023,19:26 DANYELL GIFFORD Apr 18, 2023 11:50 LARISA GONZALEZ DO Apr 18, 2023 19:26
--- NOTE | 2023-04-18 12:44 | Occupational Therapy Eval ---
OT Evaluation-General/PLF Medical Diagnosis Admission Date Apr 16, 2023 at 01:56 Medical Diagnosis: shock, low BP, UTI Onset Date: Apr 15, 2023 Therapy Diagnosis Therapy Diagnosis: decr self care, decr act mark, decr funct mobility, weakness Height/Weight Height (Feet): 5 Height (Inches): 4.00 Weight (Pounds): 127 Weight (Ounces): 4.0 Precautions Precautions/Isolations: Fall Prevention, Standard Precautions, Pressure Ulcer Referral Physician: Pee Referral Reason: Evaluation/Treatment Medical History Pertinent Medical History: Arthritis, GERD, HTN, Hypothroidism Additional Medical History Asthma. Nocturnal hypoxia. Hepatic cyst. Colitis. Osteopenia. Chronic back pain.Multiple surgeries. Current History Recent ICU stay here, then transferred to [facility]. Short stay on rehab unit in [place]. Discharged home on April 01. She said the first week went well but she noticed she was weaker the second week. Reviewed History: Yes Social History Current Living Status: Spouse ADL-Prior Level of Function SCALE: Activities may be completed with or without assistive devices. 8-Lanqqqehzy-peclzbg completes the activity by him/herself with no assistance from a helper. 5-Set-up or Clean-up Assistance-helper sets up or cleans up; patient completes activity. Dixon assists only prior to or following the activity. 4-Supervision or Touching Assistance-helper provides verbal cues and/or touching/steadying and/or contact guard assistance as patient completes activity. Assistance may be provided throughout the activity or intermittently. 3-Partial/Moderate Assistance-helper does LESS THAN HALF the effort. Dixon lifts, holds or supports trunk or limbs, but provides less than half the effort. 2-Substantial/Maximal Assistance-helper does MORE THAN HALF the effort. Dixon lifts or holds trunk or limbs and provides more than half the effort. 0-Frlltwpgh-bkklao does ALL the effort. Patient does none of the effort to complete the activity. Or, the assistance of 2 or more helpers is required for the patient to complete the activity. If activity was not attempted, code reason: 7-Patient Refused. 9-Not Applicable-not attempted and the patient did not perform the activity before the current illness, exacerbation or injury. 10-Not Attempted due to Environmental Limitations-(lack of equipment, weather restraints, etc.). 88-Not Attempted due to Medical Conditions or Safety Concerns. ADL PLOF Comments Pt was previously independent with all self care activities and was driving. On discharge from the rehab unit, she was independent with basic ADLs and walked briefly with a walker. 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 Pt reported pain 0/10 Appearance Alert, cooperative Mental Status/Objective Patient Orientation: Person, Place, Time, Situation Attachments: Central Line, IV, Oxygen (available) Current Glasses/Contacts: Yes Hearing Aids: No Dentures/Partials: No Hand Dominance: Right Upper Extremity ROM Grossly WFL bilat Upper Extremity Coordination Grossly WFL. Some difficulty putting socks on Upper Extremity Sensation No problems reported. Upper Extremity Strength Grossly 4/5 bilat ADL-Treatment ADL-Current Pt fed herself lunch. She transitioned from supine to sit EOB without assistance. Put slipper socks on with setup, with a little difficulty due to LE edema. She reported that she has been walking to and using the toilet with stand-by assist, due in part to many attachments. Further ADLs not done due to active transfer to Room 422. Left in care of nursing staff. Eating (QC): 6 On/Off Footwear (QC): 5 Toileting Hygiene (QC): 5 (Pt report) Education OT Patient Education: Purpose of tx/functional activities, Rehab process Teaching Recipient: Patient Teaching Methods: Discussion Response to Teaching: Verbalize Understanding OT Batter Out Goals Longterm Goals Time Frame: Apr 25, 2023 Eating (QC): 6 Oral Hygiene (QC): 6 Toileting Hygiene (QC): 6 Shower/Bathe Self (QC): 5 Upper Body Dressing (QC): 5 Lower Body Dressing (QC): 5 On/Off Footwear (QC): 6 Additional Goals: 1-Demonstrate ADL Tasks, 2-Verbalize Understanding, 3- ImproveStrength/Amber 1=Demonstrate adherence to instructed precautions during ADL tasks. 2=Patient will verbalize/demonstrate understanding of assistive devices/modifications for ADL. 3=Patient will improve strength/tolerance for activity to enable patient to perform ADL's. OT Education/Plan Problem List/Assessment Assessment: Decreased UE Strength, Dependent Transfers, Impaired Funct Balance, Impaired Self-Care Skills Pt would benefit from skilled OT to increase her independence in basic self care and decrease caregiver burden Discharge Recommendations Plan/Recommendations: Continue POC Treatment Plan/Plan of Care Treatment,Training & Education: Yes Patient would benefit from OT for education, treatment and training to promote independence in ADL's, mobility, safety and/or upper extremity function for ADL's. Plan of Care: ADL Retraining, Functional Mobility, UE Funct Exercise/Act, UE Neuromus Re-Ed/Coord Treatment Duration: Apr 25, 2023 Frequency: 3 times per week (3-5 times a week) Agreement: Yes Rehab Potential: Good Time Start Time: 12:18 Stop Time: 12:35 DATE: Apr 18, 2023 Total Time Billed (hr/min): 17 Billed Treatment Time visit, 17 minutes evaluation moderate intensity ARIAN MARTINEZ OT Apr 18, 2023 12:44
[2023-04-18 12:56] VITALS: BP 115/74
--- NOTE | 2023-04-18 13:39 | Physical Therapy Evaluation ---
PT Evaluation-General Medical Diagnosis Admission Date Apr 16, 2023 at 01:56 Medical Diagnosis: shock, low BP, UTI Onset Date: Apr 15, 2023 Therapy Diagnosis Therapy Diagnosis: debility Height/Weight Height (Feet): 5 Height (Inches): 4.00 Weight (Pounds): 127 Weight (Ounces): 4.0 Precautions Precautions/Isolations: Standard Precautions Referral Physician: Pee Reason for Referral: Evaluation/Treatment Medical History Pertinent Medical History: Arthritis, GERD, HTN, Hypothroidism Current History ER secondary to vomiting (recent [facility] stay) Reviewed History: Yes Social History Home: Single Level Current Living Status: Spouse Entry Into Home: Stairs With Railing PT Steps Into Home: 2 Prior Prior Level of Function SCALE: Activities may be completed with or without assistive devices. 4-Iwnpyzjqmf-yansoqo completes the activity by him/herself with no assistance from a helper. 5-Set-up or Clean-up Assistance-helper sets up or cleans up; patient completes activity. Reubens assists only prior to or following the activity. 4-Supervision or Touching Assistance-helper provides verbal cues and/or touching/steadying and/or contact guard assistance as patient completes activity. Assistance may be provided throughout the activity or intermittently. 3-Partial/Moderate Assistance-helper does LESS THAN HALF the effort. Reubens lifts, holds or supports trunk or limbs, but provides less than half the effort. 2-Substantial/Maximal Assistance-helper does MORE THAN HALF the effort. Reubens lifts or holds trunk or limbs and provides more than half the effort. 7-Sclhiqotd-xrstzx does ALL the effort. Patient does none of the effort to complete the activity. Or, the assistance of 2 or more helpers is required for the patient to complete the activity. If activity was not attempted, code reason: 7-Patient Refused. 9-Not Applicable-not attempted and the patient did not perform the activity before the current illness, exacerbation or injury. 10-Not Attempted due to Environmental Limitations-(lack of equipment, weather restraints, etc.). 88-Not Attempted due to Medical Conditions or Safety Concerns. Bed Mobility: 6 Transfers (B,C,W/C): 6 Gait: 6 Stairs: 6 Indoor Mobility (Ambulation): Independent Stairs: Independent Prior Devices Use: None PT Evaluation-Current Subjective Patient agrees to PT. Objective Patient Orientation: Normal For Age Attachments: IV ROM/Strength ROM Lower Extremities bilateral LE WFL (noted edema bilaterally) Strength Lower Extremities 4/5 grossly bilateral LE all planes Integumentary/Posture Bowel Incontinence: No Bladder Incontinence: No Posture WFL Neuromuscular (Tone, Coordination, Reflexes) slightly diminished coordination with ambulation with improvement with distance Sensory Vision: Functional Hearing: Functional Hand Dominance: Right Transfers Sit to Lying (QC): 6 Lying to Sitting/Side of Bed(Q: 6 Sit to Stand (QC): 4 Toilet Transfer (QC): 4 Gait Mode of Locomotion: Walk Anticipated Mode of Locomotion: Walk Walk 10 feet (QC): 4 Walk 50 ft with 2 Turns(QC): 4 Walk 150 ft (QC): 4 Distance: 225' Gait Assistive Device: FWW Comments/Gait Description safe and functional gait sequence Balance Sitting Static: Normal Sitting Dynamic: Normal Standing Static: Fair Standing Dynamic: Fair Assessment/Needs Patient will be seen short term by skilled PT to address functional strength and mobility to improve current LOF to safely return to home at maximum LOF. Rehab Potential: Fair PT Short Term Goals Short Term Goals Time Frame: Apr 22, 2023 Roll Left & Right: 6 Sit to lyin Lying to sitting on side of be: 6 Sit to stand: 6 Chair/bmr-hf-sxhpd transfer: 6 Toilet transfer: 6 Walk 10 feet: 6 Walk 50 feet with two turns: 6 Walk 150 feet: 6 PT Plan Problem List Problem List: Activity Tolerance, Functional Strength Treatment/Plan Treatment Plan: Continue Plan of Care Treatment Plan: Education, Functional Activity Amber, Functional Strength, Gait, Safety, Therapeutic Exercise, Transfers Treatment Duration: Apr 22, 2023 Frequency: 5 times per week Estimated Hrs Per Day: .25 hour per day Patient and/or Family Agrees t: Yes Time Time In: 1310 Time Out: 1326 DATE: Apr 18, 2023 Total Billed Treatment Time: 16 Total Billed Treatment 1 visit EVMod 16 min SEBASTIEN WEINSTEIN PT Apr 18, 2023 13:39
[2023-04-18] MEDS: ENOXAPARIN 40 MG/0.4 ML SYRINGE SC SCH (14:29)
--- NOTE | 2023-04-18 14:56 | Physician Query-Final Dx ---
ADRIANA ARMAS 04/18/23 1456: Final Diagnosis Give Final Diagnosis Please give Final Diagnosis The medical record reflects the following clinical scenario: The patient, in the setting of History/Risk factors Documentation of admission for UTI and Colitis admission with shock Clinical indicators: Admission vital signs and labs HR 96, RR 16, BP 108/60, SpO2 88% sat on 2 L T 37.8, WBC 8.7, lactic acid 1.43, Treatment ER: normal saline 1 L, lactated Ringer's 2 L, meropenem IV, (Had a total of 4 L lactated Ringer's on the and 3 L on the in addition to 1 L normal saline on the ) Question: Do you agree with the impression of Sepsis with septic shock per Dr. Khalif Khoury note (Consulting physician)? Yes; will document Sepsis with septic shock, present on admission in the Progress Notes No; will continue current documentation in the Progress Notes Other; will document explanation of clinical findings Clinically undetermined; no explanation for clinical findings Please clarify and document your clinical opinion in the Progress Notes and Discharge Summary including the definitive and/or presumptive diagnosis, (suspected or probable), related to the above clinical findings. Please include clinical findings supporting your diagnosis. In responding to this query, please exercise your independent professional judgment. The purpose of this communication is to more accurately reflect the complexity of your patients condition. The fact that a question is asked does not imply that any particular answer is desired or expected. Thank you for timely response to this clarification. Adriana Armas, MSN, RN Clinical Helicopter Officer [phone] [email or web address] LARISA GONZALEZ DO 04/18/23 1552: Final Diagnosis Give Final Diagnosis Yes; will document Sepsis with septic shock, present on admission in the Progress Notes ADRIANA ARMAS Apr 18, 2023 14:56 LARISA GONZALEZ DO Apr 18, 2023 15:52
[2023-04-18] MEDS ORDERED: CALCIUM CARBONATE 500 MG CHEW TABLET PO PRN (15:45)
[2023-04-18 16:25] VITALS: BP 119/72
[2023-04-18] MEDS: LACTATED RINGERS 1,000 ML 1,000 ML IV SCH (17:27)
[2023-04-18 19:58] VITALS: BP 106/60
[2023-04-18] MEDS: MELATONIN 3 MG TABLET PO SCH (20:12)
[2023-04-18] MEDS: LOSARTAN 100 MG TABLET PO SCH (20:12)
[2023-04-18] MEDS ORDERED: TIOTROPIUM INH 4 GM (SPIRIVA Respimat) IH SCH (21:00)
[2023-04-18] MEDS ORDERED: FLUTICASONE/VILANTEROL 200/25 MCG (7 DOSES) IH SCH (21:00)
[2023-04-18 23:39] VITALS: BP 102/63
[2023-04-19] MEDS: MEROPENEM 500 MG/NS 100 ML IVPB IV SCH ×4 (02:45→09:09)
[2023-04-19 03:51] VITALS: BP 110/66
[2023-04-19] MEDS: LEVOTHYROXINE 25 MCG TABLET PO SCH (05:54)
[2023-04-19 06:12] LABS: BASOPHILS % (AUTO) 1 % (0-10); EOSINOPHILS # (AUTO) 0.1 10^3/uL (0.0-0.3); EOSINOPHILS % (AUTO) 1 % (0-10); HEMATOCRIT 26 % (35-52); HEMOGLOBIN 8.4 g/dL (11.5-16.0); LYMPHOCYTES # (AUTO) 3.5 10^3/uL (1.0-4.0); LYMPHOCYTES % (AUTO) 67 % (12-44); MEAN CORPUSCULAR HEMOGLOBIN 28 pg (25-34); MEAN CORPUSCULAR HGB CONC 32 g/dL (32-36); MEAN CORPUSCULAR VOLUME 87 fL (80-99); MEAN PLATELET VOLUME 8.4 fL (9.0-12.2); MONOCYTES # (AUTO) 0.4 10^3/uL (0.0-1.0); MONOCYTES % (AUTO) 8 % (0-12); NEUTROPHILS # (AUTO) 1.2 10^3/uL (1.8-7.8); NEUTROPHILS % (AUTO) 23 % (42-75); PLATELET COUNT 263 10^3/uL (130-400); WHITE BLOOD COUNT 5.2 10^3/uL (4.3-11.0)
[2023-04-19 06:37] LABS: ALBUMIN 1.9 GM/DL (3.2-4.5); BILIRUBIN,TOTAL 0.4 MG/DL (0.1-1.0); CALCIUM 7.2 MG/DL (8.5-10.1); CREATININE SERUM 0.63 MG/DL (0.60-1.30); MAGNESIUM 1.7 MG/DL (1.6-2.4); POTASSIUM 4.1 MMOL/L (3.6-5.0); TOTAL PROTEIN 3.6 GM/DL (6.4-8.2)
--- NOTE | 2023-04-19 07:36 | Progress Note - Surgery ---
MARGARITO ANGULO 04/19/23 0736: Subjective Date Seen by a Provider: Apr 19, 2023 Time Seen by a Provider: 07:05 Subjective/Events-last exam Patient is sleeping in comfortably bed at time of evaluation. The patient reports she continues to feel improved since yesterday, with increased energy and only a small amount of abdominal pain. The patient states her pain has not changed since yesterday. She states she has been tolerating food well, though she had some heartburn after last night's dinner. She notes she has been using incentive spirometry. She has had two bowel movements since last evaluation, one loose, one diarrhea, no hematochezia or melena. She endorses pedal edema. The patient denies any fever, chills, chest pain, shortness of breath, headache, sore throat, or urinary symptoms. Review of Systems General: No Chills, No Fatigue, No Appetite (normal) HEENT: No Head Aches Pulmonary: No Dyspnea Cardiovascular: No: Chest Pain Gastrointestinal: Abdominal Pain (LLQ), Diarrhea; No: Nausea, Vomiting, Constipation, Melena, Hematochezia Genitourinary: No Dysuria, No Frequency, No Hematuria, No Retention Musculoskeletal: No: leg pain Neurological: No: Weakness Objective Exam Vital Signs Date Time Temp Pulse Resp B/P (MAP) Pulse Ox O2 Delivery O2 Flow Rate FiO2 04/19/23 03:51 36.3 75 16 110/66 (81) 92 Room Air 2.00 2.00 04/18/23 23:39 36.4 85 16 102/63 (76) 93 Room Air 04/18/23 20:10 Room Air 04/18/23 19:58 37.0 95 20 106/60 (75) 93 Room Air 04/18/23 18:58 97 Room Air 04/18/23 17:38 92 Room Air 04/18/23 16:25 36.8 84 16 119/72 (88) 90 Room Air 04/18/23 15:24 96 Room Air 04/18/23 12:56 37.0 63 18 115/74 (88) 95 Room Air 04/18/23 12:00 36.9 04/18/23 11:00 86 17 115/85 (95) 93 Room Air 04/18/23 10:00 80 16 117/73 (88) 94 Room Air 04/18/23 09:00 79 15 116/76 (89) 93 Room Air 04/18/23 08:10 Room Air 04/18/23 08:00 92 Room Air 04/18/23 08:00 36.6 04/18/23 08:00 78 23 111/69 (83) 89 Nasal Cannula 2.00 I & O 04/19/23 06:59 Intake Total 2140 ml Output Total 2551 ml Balance -411 ml Capillary Refill : Less Than 3 Seconds General Appearance: No Apparent Distress, WD/WN HEENT: PERRL/EOMI, Moist Mucous Membranes Neck: Other (Right IJ central line in place) Respiratory: No Accessory Muscle Use, No Respiratory Distress; No Crackles; Wheezing (end-expiratory) Cardiovascular: Regular Rate, Rhythm, No Murmur Peripheral Pulses: 2+ Dorsalis Pedis (R), 2+ Left Dors-Pedis (L), 2+ Radial Pulses (R), 2+ Radial Pulses (L) Gastrointestinal: normal bowel sounds; No distended (patient and family state she is at baseline), No guarding; tenderness (LLQ, 2/10 with deep palpation) Extremity: Non Tender, Pedal Edema (1+ bilateral pitting pedal edema) Neurologic/Psychiatric: Alert, Normal Mood/Affect, Other (bilateral lower extremity tremor, baseline) Skin: Normal Color, Warm/Dry, Other (healed laparoscopic scars on the abdomen) Lymphatic: No Adenopathy (cervical) Results Lab Laboratory Tests 04/18/23 10:55: Glucometer 104 04/18/23 16:29: Glucometer 93 04/18/23 20:17: Glucometer 114H 04/19/23 05:23: Glucometer 74 04/19/23 06:00: White Blood Count 5.2, Red Blood Count 3.00L, Hemoglobin 8.4L, Hematocrit 26L, Mean Corpuscular Volume 87, Mean Corpuscular Hemoglobin 28, Mean Corpuscular Hemoglobin Concent 32, Red Cell Distribution Width 15.2H, Platelet Count 263, Mean Platelet Volume 8.4L, Immature Granulocyte % (Auto) 0, Neutrophils (%) (Auto) 23L, Lymphocytes (%) (Auto) 67H, Monocytes (%) (Auto) 8, Eosinophils (%) (Auto) 1, Basophils (%) (Auto) 1, Neutrophils # (Auto) 1.2L, Lymphocytes # (Auto) 3.5, Monocytes # (Auto) 0.4, Eosinophils # (Auto) 0.1, Basophils # (Auto) 0.0, Immature Granulocyte # (Auto) 0.0, Sodium Level 136, Potassium Level 4.1, Chloride Level 109H, Carbon Dioxide Level 25, Anion Gap 2L, Blood Urea Nitrogen 3L, Creatinine 0.63, Estimat Glomerular Filtration Rate 95, BUN/Creatinine Ratio 5, Glucose Level 66L, Calcium Level 7.2L, Corrected Calcium 8.9, Magnesium Level 1.7, Total Bilirubin 0.4, Aspartate Amino Transf (AST/SGOT) 13, Alanine Aminotransferase (ALT/SGPT) 7, Alkaline Phosphatase 59, Total Protein 3.6L, Albumin 1.9L Microbiology 04/16/23 MRSA Screen - Final, Complete MRSA not isolated 04/15/23 Urine Culture - Final, Complete Mixed Bacterial Jovita See Comments 04/15/23 Blood Culture - Preliminary, Resulted No growth Assessment/Plan Assessment/Plan Assessment/Plan 1. Colitis 2. Hypotension, improved to 110/70 on 04/17, continued to be improved through the morning of 04/19 3. Anemia: HGB 6.5 on 04/17, improved to 8.2 on 04/18 post-transfusion, 8.4 on 04/19 4. Loose stools 5. Diarrhea 6. Hx Hepatic Cyst Continue IV antibiotics, fluids, and analgesia as needed for colitis; continue oral intake of fluids and food. Consider colonoscopy here for evaluation of new- onset colitis and anemia in the setting of known recent colonic ulcers. Continue gentle IV fluid resuscitation for hypotension. Patient continues to feel improved since 1 unit PRBCs was given yesterday, recheck HGB in the morning and continue monitoring for concerning signs of anemia. Continue monitoring stools for signs of GI bleed. Will probably need a colonoscopy as an outpt. Will monitor pain, labs to make sure she is not getting worse. Encourage PO and IS use. BALJIT FOUNTAIN DO 04/19/23 1031: Subjective Time Seen by a Provider: 10:19 Subjective/Events-last exam Pt seen and examined, sitting up in chair in no distress. She denies abdominal pain, melena or hematochezia and states she feels stronger. Review of Systems Pulmonary: No Dyspnea Cardiovascular: No: Chest Pain Gastrointestinal: Diarrhea; No: Nausea, Vomiting, Abdominal Pain (LLQ), Melena, Hematochezia Objective Exam General Appearance: No Apparent Distress, WD/WN HEENT: PERRL/EOMI, Moist Mucous Membranes Respiratory: No Accessory Muscle Use, No Respiratory Distress, Wheezing (end- expiratory) Cardiovascular: Regular Rate, Rhythm, No Murmur Gastrointestinal: normal bowel sounds, tenderness (LLQ, 2/10 with deep palpation) Extremity: Non Tender, Pedal Edema (1+ bilateral pitting pedal edema) Assessment/Plan Assessment/Plan Assessment/Plan 1. Colitis 2. Hypotension, improved to 110/70 on 04/17, continued to be improved through the morning of 04/19 3. Anemia: HGB 6.5 on 04/17, improved to 8.2 on 04/18 post-transfusion, 8.4 on 04/19 4. Loose stools 5. Diarrhea 6. Hx Hepatic Cyst Continue IV antibiotics, fluids, and analgesia as needed for colitis; continue oral intake of fluids and food. Plan colonoscopy as outpt for colonic ulcers and colitis seen on CT. Will sign off and can see as outpt if needed. Supervisory-Addendum Brief Verification & Attestation Participated in pt care: history, MDM, physical Personally performed: exam, history, MDM, supervision of care Care discussed with: Medical Student Procedures: n/a Verification and Attestation of Medical Student E/M Service A medical student performed and documented this service. I then reviewed and verified all information documented by the medical student and made modifications to such information, when appropriate. I personally performed a physical exam, medical decision making and then discussed any differences betwee n the notes and made revisions as necessary to create one note. Baljit Fountain , 04/19/23 , 10:30 MARGARITO ANGULO Apr 19, 2023 07:36 BALJIT FOUNTAIN DO Apr 19, 2023 10:31
[2023-04-19 07:42] VITALS: BP 110/72
[2023-04-19] MEDS: RT-Ipratropium/Albuterol NEB 3 ML VIAL INH SCH ×2 (07:56→15:12)
[2023-04-19] MEDS ORDERED: TIOTROPIUM INH 4 GM (SPIRIVA Respimat) IH SCH (08:00)
[2023-04-19] MEDS ORDERED: FLUTICASONE/VILANTEROL 200/25 MCG (7 DOSES) IH SCH (08:00)
[2023-04-19] MEDS: SERTRALINE 50 MG TABLET PO SCH (09:04)
[2023-04-19] MEDS: dilTIAZem ER 120 MG CAPSULE PO SCH (09:04)
[2023-04-19] MEDS: FERROUS SULFATE 325 MG (IRON) TABLET PO SCH (09:04)
[2023-04-19] MEDS: LACTATED RINGERS 1,000 ML 1,000 ML IV SCH (09:05)
[2023-04-19] MEDS: PANTOPRAZOLE INJECTION 40 MG VIAL IV SCH (09:08)
[2023-04-19] MEDS: IRON SUCROSE 200 MG/10 ML VIAL IV SCH (09:08)
--- NOTE | 2023-04-19 10:47 | Occupational Ther Daily Note ---
OT Current Status-Daily Note Subjective resting peaceful in bed, agreeable to OT. visitor changed from recliner to standard chair to allow patient availability to sit in recliner Pain Numeric Pain Scale: 0-No Pain Mental Status/Objective Patient Orientation: Person, Place, Time, Situation Attachments: Central Line ADL-Treatment Change hospital gown and socks, port is on right clavicle area. Patient prefers IV tubes to be behind her. Therapy Code Descriptions/Definitions Functional [place] Measure: 0=Not Assessed/NA 4=Minimal Assistance 1=Total Assistance 5=Supervision or Setup 2=Maximal Assistance 6=Modified [place] 3=Moderate Assistance 7=Complete IndependenceSCALE: Activities may be completed with or without assistive devices. 0-[id number] completes the activity by him/herself with no assistance from a helper. 5-Set-up or Clean-up Assistance-helper sets up or cleans up; patient completes activity. [place] assists only prior to or following the activity. 4-Supervision or Touching Assistance-helper provides verbal cues and/or touching/steadying and/or contact guard assistance as patient completes activity. Assistance may be provided throughout the activity or intermittently. 3-Partial/Moderate Assistance-helper does LESS THAN HALF the effort. [place] lifts, holds or supports trunk or limbs, but provides less than half the effort. 2-Substantial/Maximal Assistance-helper does MORE THAN HALF the effort. [place] lifts or holds trunk or limbs and provides more than half the effort. 5-Fshnvvaua-opwjcq does ALL the effort. Patient does none of the effort to complete the activity. Or, the assistance of 2 or more helpers is required for the patient to complete the activity. If activity was not attempted, code reason: 7-Patient Refused. 9-Not Applicable-not attempted and the patient did not perform the activity before the current illness, exacerbation or injury. 10-Not Attempted due to Environmental Limitations-(lack of equipment, weather restraints, etc.). 88-Not Attempted due to Medical Conditions or Safety Concerns. Eating (QC): 6 Oral Hygiene (QC): 5 On/Off Footwear: 5 Education OT Patient Education: Correct positioning, Exercise program, Modified ADL techniques, Progress toward Goal/Update tx plan, Purpose of tx/functional activities, Reviewed precautions, Safety issues, Transfer techniques Teaching Recipient: Patient ( used hand held assit, no ADs, patieny declined use of FWW), Family Teaching Methods: Demonstration, Discussion Response to Teaching: Return Demonstration OT Long-Term Goals Geriatric Personal Care Aide Goals Time Frame: Apr 25, 2023 Eating (QC): 6 Oral Hygiene (QC): 6 Toileting Hygiene (QC): 6 Shower/Bathe Self (QC): 5 Upper Body Dressing (QC): 5 Lower Body Dressing (QC): 5 On/Off Footwear (QC): 6 Additional Goals: 1-Demonstrate ADL Tasks, 2-Verbalize Understanding, 3- ImproveStrength/Amber 1=Demonstrate adherence to instructed precautions during ADL tasks. 2=Patient will verbalize/demonstrate understanding of assistive devices/modifications for ADL. 3=Patient will improve strength/tolerance for activity to enable patient to perform ADL's. OT Education/Plan Problem List/Assessment Assessment: Decreased Activ Tolerance, Decreased Safety Aware, Impaired Self- Care Skills Pt would benefit from skilled OT to increase her independence in basic self care and decrease caregiver burden Discharge Recommendations Plan/Recommendations: Continue POC Treatment Plan/Plan of Care Patient would benefit from OT for education, treatment and training to promote independence in ADL's, mobility, safety and/or upper extremity function for ADL's. Plan of Care: ADL Retraining, Functional Mobility, UE Funct Exercise/Act, UE Neuromus Re-Ed/Coord Treatment Duration: Apr 25, 2023 Frequency: 3 times per week (3-5 times a week) Agreement: Yes Rehab Potential: Fair Time Start Time: 10:00 Stop Time: 10:10 DATE: Apr 19, 2023 Total Time Billed (hr/min): 10 Billed Treatment Time ADL 10 min LYNDA PAYAN OT Apr 19, 2023 10:47
[2023-04-19] MEDS: FLUTICASONE NASAL SPRAY (120 SPRAYS) NS SCH (11:05)
[2023-04-19 11:18] VITALS: BP 116/76
--- NOTE | 2023-04-19 12:37 | Discharge Summary ---
Diagnosis/Chief Complaint Date of Admission Apr 16, 2023 at 01:56 Date of Discharge Discharge Date: Apr 19, 2023 Discharge Diagnosis Assessment: Shock Left-sided colitis UTI with mixed bacterial kimberly Colonic ulcers found on GI workup [facility] EDDIE resolved Hx of hepatic cyst Hx of HTN Hypothyroidsim GERD Asthma Anemia treated with blood Iron deficiency treated with Ferrous sulfate Plan: Iron IV Continue antibiotics Continue IVF Move to 4th floor Therapy & ambulation Monitor BP & blood work Discharge Summary Discharge Physical Examination Allergies: Coded Allergies: ciprofloxacin (Verified Allergy, Mild, 05/10/22) clarithromycin (Verified Allergy, Mild, 05/10/22) codeine (Verified Allergy, Mild, 05/10/22) Penicillins (Verified Allergy, Unknown, 05/10/22) iodine (Verified Allergy, Unknown, 05/10/22) facial swelling meperidine HCl (Verified Allergy, Unknown, 05/10/22) Nitrofurantoin Macrocrystal (Verified Adverse Reaction, Mild, N/V, 05/10/22) chlorthalidone (Verified Adverse Reaction, Unknown, BODY ACHES;MUSCLE ACHES;JOINT ACHES;SOA;COULDN'T MOVE ARMS, 05/10/22) tramadol (Verified Adverse Reaction, Unknown, 05/10/22) Vitals & I&Os Vital Signs Date Time Temp Pulse Resp B/P (MAP) Pulse Ox O2 Delivery O2 Flow Rate FiO2 04/19/23 15:30 36.1 71 19 117/75 (89) 92 Room Air 04/19/23 08:00 2.00 General Appearance: Alert, Oriented X3, Cooperative Respiratory: Clear to Auscultation Cardiovascular: Regular Rate Hospital Course Was the Problem List Reviewed?: Yes Hospital course: 72-year-old female with history of GERD, asthma, and HTN presented to the ED with with vomiting and left-sided abdominal pain. She had been to the hospital prior (03/08/23 & 03/09/23) for left-sided abdominal pain with nausea & nonbilious vomiting, and was found to have colitis and hepatic cyst rupture. In addition, patient had GI endoscopy at [facility] which found uclers in her colon. BP was 92/55, lactic acid was 2.22, and blood work showed hyponatremia and evidence of an EDDIE. An abdominal CT showed concerns for colitis in the sigmoid colon and a medium hepatic cyst. Urine culture showed growth for mixed bacterial kimberly. Patient was admitted to ICU on 04/15/23 and was found to have shock, left sided colitis, UTI, EDDIE, and anemia. During her hospital stay, she was started on IV fluids, IV pressors, and IV meropenem. Her Hgb reached a low of 6.5 and was given 1 unit PRBC, bringing her Hgb back up to 8.4. She had an iron deficiency and was given IV ferrous sulfate. Once her BP was stable, she was transferred to [facility] floor where she received PT & OT and was able to tolerate a regular diet. Her EDDIE resolved and her BP sat in the 110's. She was discharged on 04/19/23. DANYELL GIFFORD Labs (last 24 hrs) Laboratory Tests 04/15/23 21:00: White Blood Count 8.7, Red Blood Count 2.85L, Hemoglobin 8.2L, Hematocrit 26L, Mean Corpuscular Volume 90, Mean Corpuscular Hemoglobin 29, Mean Corpuscular Hemoglobin Concent 32, Red Cell Distribution Width 14.5, Platelet Count 299, Mean Platelet Volume 9.4, Immature Granulocyte % (Auto) 0, Neutrophils (%) (Auto) 40L, Lymphocytes (%) (Auto) 48H, Monocytes (%) (Auto) 10, Eosinophils (%) (Auto) 1, Basophils (%) (Auto) 1, Neutrophils # (Auto) 3.5, Lymphocytes # (Auto) 4.2H, Monocytes # (Auto) 0.9, Eosinophils # (Auto) 0.1, Basophils # (Auto) 0.0, Immature Granulocyte # (Auto) 0.0, Prothrombin Time 14.4, INR Comment 1.1, Activated Partial Thromboplast Time 33, Sodium Level 132L, Potassium Level 3.6, Chloride Level 100, Carbon Dioxide Level 22, Anion Gap 10, Blood Urea Nitrogen 19H, Creatinine 1.08, Estimat Glomerular Filtration Rate 55, BUN/Creatinine Ratio 18, Glucose Level 98, Lactic Acid Level 1.43, Calcium Level 7.6L, Corrected Calcium 9.0, Total Bilirubin 0.4, Aspartate Amino Transf (AST/SGOT) 14, Alanine Aminotransferase (ALT/SGPT) 12, Alkaline Phosphatase 79, C-Reactive Protein High Sensitivity 28.16H, Total Protein 5.0L, Albumin 2.2L, Lipase 25, Thyroid Stimulating Hormone (TSH) 6.99H, Free Thyroxine 0.82 04/15/23 21:08: Influenza Type A (RT-PCR) Not Detected, Influenza Type B (RT-PCR) Not Detected, SARS-CoV-2 RNA (RT-PCR) Not Detected 04/15/23 21:30: Urine Color YELLOW, Urine Clarity CLEAR, Urine pH 5.5, Urine Specific [place] 1.010L, Urine Protein NEGATIVE, Urine Glucose (UA) NEGATIVE, Urine Ketones NEGATIVE, Urine Nitrite NEGATIVE, Urine Bilirubin NEGATIVE, Urine Urobilinogen 0.2, Urine Leukocyte Esterase 1+H, Urine RBC (Auto) 2+H, Urine RBC 10-25H, Urine WBC 5-10H, Urine Squamous Epithelial Cells 25-50H, Urine Crystals NONE, Urine Bacteria FEWH, Urine Casts NONE, Urine Mucus NEGATIVE, Urine Other TRANS EPI 25- 50, Urine Culture Indicated YES 04/16/23 02:40: Total Cortisol 2.4L 04/16/23 03:44: Iron Level 7L, Total Iron Binding Capacity 128L, Unsaturated Iron Binding Capacity 121, Transferrin % Saturation 5L, Ferritin 338.2H, C-Reactive Protein High Sensitivity 20.03H, Vitamin B12 Level >2000H, Folate 12.2 04/16/23 09:00: White Blood Count 5.5, Red Blood Count 2.51L, Hemoglobin 7.2L, Hematocrit 22L, Mean Corpuscular Volume 89, Mean Corpuscular Hemoglobin 29, Mean Corpuscular Hemoglobin Concent 32, Red Cell Distribution Width 14.5, Platelet Count 259, Mean Platelet Volume 8.9L, Immature Granulocyte % (Auto) 0, Neutrophils (%) (Auto) 38L, Lymphocytes (%) (Auto) 49H, Monocytes (%) (Auto) 11, Eosinophils (%) (Auto) 1, Basophils (%) (Auto) 1, Neutrophils # (Auto) 2.1, Lymphocytes # (Auto) 2.7, Monocytes # (Auto) 0.6, Eosinophils # (Auto) 0.1, Basophils # (Auto) 0.0, Immature Granulocyte # (Auto) 0.0, Sodium Level 138, Potassium Level 3.5L, Chloride Level 108H, Carbon Dioxide Level 23, Anion Gap 7, Blood Urea Nitrogen 14, Creatinine 0.78, Estimat Glomerular Filtration Rate 82, BUN/Creatinine Ratio 18, Glucose Level 73, Calcium Level 7.2L, Corrected Calcium 9.0, Total Bilirubin 0.4, Aspartate Amino Transf (AST/SGOT) 12, Alanine Aminotransferase (ALT/SGPT) 10, Alkaline Phosphatase 59, Total Protein 3.9L, Albumin 1.8L 04/16/23 11:33: Glucometer 103 04/16/23 18:07: Glucometer 73 04/16/23 23:45: Glucometer 90 04/17/23 02:40: White Blood Count 5.0, Red Blood Count 2.28L, Hemoglobin 6.5*L, Hematocrit 20*L, Mean Corpuscular Volume 89, Mean Corpuscular Hemoglobin 29, Mean Corpuscular Hemoglobin Concent 32, Red Cell Distribution Width 14.6H, Platelet Count 232, Mean Platelet Volume 8.5L, Immature Granulocyte % (Auto) 0, Neutrophils (%) (Auto) 29L, Lymphocytes (%) (Auto) 60H, Monocytes (%) (Auto) 10, Eosinophils (%) (Auto) 1, Basophils (%) (Auto) 1, Neutrophils # (Auto) 1.5L, Lymphocytes # (Auto) 3.0, Monocytes # (Auto) 0.5, Eosinophils # (Auto) 0.0, Basophils # (Auto) 0.0, Immature Granulocyte # (Auto) 0.0, Sodium Level 137, Potassium Level 3.8, Chloride Level 109H, Carbon Dioxide Level 25, Anion Gap 3L, Blood Urea Nitrogen 9, Creatinine 0.70, Estimat Glomerular Filtration Rate 93, BUN/Creatinine Ratio 13, Glucose Level 79, Calcium Level 7.1L, Corrected Calcium 8.8, Phosphorus Level 3.3, Magnesium Level 1.6, Total Bilirubin 0.3, Aspartate Amino Transf (AST/SGOT) 10, Alanine Aminotransferase (ALT/SGPT) 6, Alkaline Phosphatase 53, Total Protein 3.6L, Albumin 1.9L 04/17/23 05:25: Glucometer 103 04/17/23 11:21: Glucometer 85 04/17/23 13:20: Lab Scanned Report Transfusion Reaction Form 04/17/23 15:38: Glucometer 106 04/17/23 20:39: Glucometer 114H 04/18/23 02:25: White Blood Count 5.3, Red Blood Count 2.94L, Hemoglobin 8.2#L, Hematocrit 26L, Mean Corpuscular Volume 87, Mean Corpuscular Hemoglobin 28, Mean Corpuscular Hemoglobin Concent 32, Red Cell Distribution Width 15.5H, Platelet Count 266, Mean Platelet Volume 8.4L, Immature Granulocyte % (Auto) 0, Neutrophils (%) (Auto) 28L, Lymphocytes (%) (Auto) 58H, Monocytes (%) (Auto) 11, Eosinophils (%) (Auto) 2, Basophils (%) (Auto) 1, Neutrophils # (Auto) 1.5L, Lymphocytes # (Auto) 3.1, Monocytes # (Auto) 0.6, Eosinophils # (Auto) 0.1, Basophils # (Auto) 0.0, Immature Granulocyte # (Auto) 0.0, Sodium Level 137, Potassium Level 4.0, Chloride Level 108H, Carbon Dioxide Level 25, Anion Gap 4L, Blood Urea Nitrogen 6L, Creatinine 0.65, Estimat Glomerular Filtration Rate 95, BUN/Creatinine Ratio 9, Glucose Level 93, Calcium Level 7.1L, Corrected Calcium 8.8, Phosphorus Level 2.7, Magnesium Level 1.9, Total Bilirubin 0.4, Aspartate Amino Transf (AST/SGOT) 11, Alanine Aminotransferase (ALT/SGPT) 7, Alkaline Phosphatase 59, Total Protein 3.6L, Albumin 1.9L 04/18/23 10:55: Glucometer 104 04/18/23 16:29: Glucometer 93 04/18/23 20:17: Glucometer 114H 04/19/23 05:23: Glucometer 74 04/19/23 06:00: White Blood Count 5.2, Red Blood Count 3.00L, Hemoglobin 8.4L, Hematocrit 26L, Mean Corpuscular Volume 87, Mean Corpuscular Hemoglobin 28, Mean Corpuscular Hemoglobin Concent 32, Red Cell Distribution Width 15.2H, Platelet Count 263, Mean Platelet Volume 8.4L, Immature Granulocyte % (Auto) 0, Neutrophils (%) (Auto) 23L, Lymphocytes (%) (Auto) 67H, Monocytes (%) (Auto) 8, Eosinophils (%) (Auto) 1, Basophils (%) (Auto) 1, Neutrophils # (Auto) 1.2L, Lymphocytes # (Auto) 3.5, Monocytes # (Auto) 0.4, Eosinophils # (Auto) 0.1, Basophils # (Auto) 0.0, Immature Granulocyte # (Auto) 0.0, Sodium Level 136, Potassium Level 4.1, Chloride Level 109H, Carbon Dioxide Level 25, Anion Gap 2L, Blood Urea Nitrogen 3L, Creatinine 0.63, Estimat Glomerular Filtration Rate 95, BUN/Creatinine Ratio 5, Glucose Level 66L, Calcium Level 7.2L, Corrected Calcium 8.9, Magnesium Level 1.7, Total Bilirubin 0.4, Aspartate Amino Transf (AST/SGOT) 13, Alanine Aminotransferase (ALT/SGPT) 7, Alkaline Phosphatase 59, Total Protein 3.6L, Albumin 1.9L 04/19/23 10:47: Glucometer 106 Microbiology 04/16/23 MRSA Screen - Final, Complete MRSA not isolated 04/15/23 Urine Culture - Final, Complete Mixed Bacterial Kimberly See Comments 04/15/23 Blood Culture - Preliminary, Resulted No growth Pending Labs Microbiology Date/Time Source Procedure Growth Status 04/16/23 02:41 Nasal MRSA Screen - Final MRSA not isolated Complete 04/15/23 21:30 Urine Clean Catch Urine Culture - Final Mixed Bacterial Kimberly See Comments Complete 04/15/23 21:05 Peripheral Rt Ac Blood Culture - Preliminary No growth Resulted 04/15/23 21:00 Peripheral Rt Ac Blood Culture - Preliminary No growth Resulted Laboratory Tests 04/15/23 21:00: White Blood Count 8.7, Red Blood Count 2.85, Hemoglobin 8.2, Hematocrit 26, Mean Corpuscular Volume 90, Mean Corpuscular Hemoglobin 29, Mean Corpuscular Hemoglobin Concent 32, Red Cell Distribution Width 14.5, Platelet Count 299, Mean Platelet Volume 9.4, Immature Granulocyte % (Auto) 0, Neutrophils (%) (Auto) 40, Lymphocytes (%) (Auto) 48, Monocytes (%) (Auto) 10, Eosinophils (%) (Auto) 1, Basophils (%) (Auto) 1, Neutrophils # (Auto) 3.5, Lymphocytes # (Auto) 4.2, Monocytes # (Auto) 0.9, Eosinophils # (Auto) 0.1, Basophils # (Auto) 0.0, Immature Granulocyte # (Auto) 0.0, Prothrombin Time 14.4, INR Comment 1.1, Activated Partial Thromboplast Time 33, Sodium Level 132, Potassium Level 3.6, Chloride Level 100, Carbon Dioxide Level 22, Anion Gap 10, Blood Urea Nitrogen 19, Creatinine 1.08, Estimat Glomerular Filtration Rate 55, BUN/Creatinine Ratio 18, Glucose Level 98, Lactic Acid Level 1.43, Calcium Level 7.6, Corrected Calcium 9.0, Total Bilirubin 0.4, Aspartate Amino Transf (AST/SGOT) 14, Alanine Aminotransferase (ALT/SGPT) 12, Alkaline Phosphatase 79, C-Reactive Protein High Sensitivity 28.16, Total Protein 5.0, Albumin 2.2, Lipase 25, Thyroid Stimulating Hormone (TSH) 6.99, Free Thyroxine 0.82 04/15/23 21:08: Influenza Type A (RT-PCR) Not Detected, Influenza Type B (RT-PCR) Not Detected, SARS-CoV-2 RNA (RT-PCR) Not Detected 04/15/23 21:30: Urine Color YELLOW, Urine Clarity CLEAR, Urine pH 5.5, Urine Specific [place] 1.010, Urine Protein NEGATIVE, Urine Glucose (UA) NEGATIVE, Urine Ketones NEGATIVE, Urine Nitrite NEGATIVE, Urine Bilirubin NEGATIVE, Urine Urobilinogen 0.2, Urine Leukocyte Esterase 1+, Urine RBC (Auto) 2+, Urine RBC 10-25, Urine WBC 5-10, Urine Squamous Epithelial Cells 25-50, Urine Crystals NONE, Urine Bacteria FEW, Urine Casts NONE, Urine Mucus NEGATIVE, Urine Other TRANS EPI 25- 50, Urine Culture Indicated YES 04/16/23 02:40: Total Cortisol 2.4 04/16/23 03:44: Iron Level 7, Total Iron Binding Capacity 128, Unsaturated Iron Binding Capacity 121, Transferrin % Saturation 5, Ferritin 338.2, C-Reactive Protein High Sensitivity 20.03, Vitamin B12 Level >2000, Folate 12.2 04/16/23 09:00: White Blood Count 5.5, Red Blood Count 2.51, Hemoglobin 7.2, Hematocrit 22, Mean Corpuscular Volume 89, Mean Corpuscular Hemoglobin 29, Mean Corpuscular Hemog lobin Concent 32, Red Cell Distribution Width 14.5, Platelet Count 259, Mean Platelet Volume 8.9, Immature Granulocyte % (Auto) 0, Neutrophils (%) (Auto) 38, Lymphocytes (%) (Auto) 49, Monocytes (%) (Auto) 11, Eosinophils (%) (Auto) 1, Basophils (%) (Auto) 1, Neutrophils # (Auto) 2.1, Lymphocytes # (Auto) 2.7, Monocytes # (Auto) 0.6, Eosinophils # (Auto) 0.1, Basophils # (Auto) 0.0, Immature Granulocyte # (Auto) 0.0, Sodium Level 138, Potassium Level 3.5, Chloride Level 108, Carbon Dioxide Level 23, Anion Gap 7, Blood Urea Nitrogen 14, Creatinine 0.78, Estimat Glomerular Filtration Rate 82, BUN/Creatinine Ratio 18, Glucose Level 73, Calcium Level 7.2, Corrected Calcium 9.0, Total Bilirubin 0.4, Aspartate Amino Transf (AST/SGOT) 12, Alanine Aminotransferase (ALT/SGPT) 10, Alkaline Phosphatase 59, Total Protein 3.9, Albumin 1.8 04/16/23 11:33: Glucometer 103 04/16/23 18:07: Glucometer 73 04/16/23 23:45: Glucometer 90 04/17/23 02:40: White Blood Count 5.0, Red Blood Count 2.28, Hemoglobin 6.5, Hematocrit 20, Mean Corpuscular Volume 89, Mean Corpuscular Hemoglobin 29, Mean Corpuscular Hemoglobin Concent 32, Red Cell Distribution Width 14.6, Platelet Count 232, Mean Platelet Volume 8.5, Immature Granulocyte % (Auto) 0, Neutrophils (%) (Auto) 29, Lymphocytes (%) (Auto) 60, Monocytes (%) (Auto) 10, Eosinophils (%) (Auto) 1, Basophils (%) (Auto) 1, Neutrophils # (Auto) 1.5, Lymphocytes # (Auto) 3.0, Monocytes # (Auto) 0.5, Eosinophils # (Auto) 0.0, Basophils # (Auto) 0.0, Immature Granulocyte # (Auto) 0.0, Sodium Level 137, Potassium Level 3.8, Chloride Level 109, Carbon Dioxide Level 25, Anion Gap 3, Blood Urea Nitrogen 9, Creatinine 0.70, Estimat Glomerular Filtration Rate 93, BUN/Creatinine Ratio 13, Glucose Level 79, Calcium Level 7.1, Corrected Calcium 8.8, Phosphorus Level 3.3, Magnesium Level 1.6, Total Bilirubin 0.3, Aspartate Amino Transf (AST/SGOT) 10, Alanine Aminotransferase (ALT/SGPT) 6, Alkaline Phosphatase 53, Total Protein 3.6, Albumin 1.9 04/17/23 05:25: Glucometer 103 04/17/23 11:21: Glucometer 85 04/17/23 13:20: Lab Scanned Report Transfusion Reaction Form 04/17/23 15:38: Glucometer 106 04/17/23 20:39: Glucometer 114 04/18/23 02:25: White Blood Count 5.3, Red Blood Count 2.94, Hemoglobin 8.2, Hematocrit 26, Mean Corpuscular Volume 87, Mean Corpuscular Hemoglobin 28, Mean Corpuscular Hemoglobin Concent 32, Red Cell Distribution Width 15.5, Platelet Count 266, Mean Platelet Volume 8.4, Immature Granulocyte % (Auto) 0, Neutrophils (%) (Auto) 28, Lymphocytes (%) (Auto) 58, Monocytes (%) (Auto) 11, Eosinophils (%) (Auto) 2, Basophils (%) (Auto) 1, Neutrophils # (Auto) 1.5, Lymphocytes # (Auto) 3.1, Monocytes # (Auto) 0.6, Eosinophils # (Auto) 0.1, Basophils # (Auto) 0.0, Immature Granulocyte # (Auto) 0.0, Sodium Level 137, Potassium Level 4.0, Chloride Level 108, Carbon Dioxide Level 25, Anion Gap 4, Blood Urea Nitrogen 6, Creatinine 0.65, Estimat Glomerular Filtration Rate 95, BUN/Creatinine Ratio 9, Glucose Level 93, Calcium Level 7.1, Corrected Calcium 8.8, Phosphorus Level 2.7, Magnesium Level 1.9, Total Bilirubin 0.4, Aspartate Amino Transf (AST/SGOT) 11, Alanine Aminotransferase (ALT/SGPT) 7, Alkaline Phosphatase 59, Total Protein 3.6, Albumin 1.9 04/18/23 10:55: Glucometer 104 04/18/23 16:29: Glucometer 93 04/18/23 20:17: Glucometer 114 04/19/23 05:23: Glucometer 74 04/19/23 06:00: White Blood Count 5.2, Red Blood Count 3.00, Hemoglobin 8.4, Hematocrit 26, Mean Corpuscular Volume 87, Mean Corpuscular Hemoglobin 28, Mean Corpuscular Hemoglobin Concent 32, Red Cell Distribution Width 15.2, Platelet Count 263, Mean Platelet Volume 8.4, Immature Granulocyte % (Auto) 0, Neutrophils (%) (Aut o) 23, Lymphocytes (%) (Auto) 67, Monocytes (%) (Auto) 8, Eosinophils (%) (Auto) 1, Basophils (%) (Auto) 1, Neutrophils # (Auto) 1.2, Lymphocytes # (Auto) 3.5, Monocytes # (Auto) 0.4, Eosinophils # (Auto) 0.1, Basophils # (Auto) 0.0, Immature Granulocyte # (Auto) 0.0, Sodium Level 136, Potassium Level 4.1, Chloride Level 109, Carbon Dioxide Level 25, Anion Gap 2, Blood Urea Nitrogen 3, Creatinine 0.63, Estimat Glomerular Filtration Rate 95, BUN/Creatinine Ratio 5, Glucose Level 66, Calcium Level 7.2, Corrected Calcium 8.9, Magnesium Level 1.7, Total Bilirubin 0.4, Aspartate Amino Transf (AST/SGOT) 13, Alanine Aminotransferase (ALT/SGPT) 7, Alkaline Phosphatase 59, Total Protein 3.6, Albumin 1.9 04/19/23 10:47: Glucometer 106 Discharge Home Medications: Active Scripts Active Reported Melatonin 3 Mg Tablet 3 Mg PO HS Loperamide (Loperamide HCl) 2 Mg Capsule 2 Mg PO BID PRN Mucinex (Guaifenesin) 600 Mg Tab.er.12h 600 Mg PO BID PRN Ventolin Hfa (Albuterol Sulfate) 90 Mcg Hfa.aer.ad 1-2 Puff INH Q4H PRN Levalbuterol HCl 1.25 Mg/3 Ml Vial.neb 3 Ml NEB QID PRN Klor-Con 8 (Potassium Chloride) 8 Meq Tablet.er 8 Meq PO DAILY PRN Ferosul (Ferrous Sulfate) 325 Mg (65 Mg Iron) Tablet 325 Mg PO DAILY Loratadine 10 Mg Tablet 10 Mg PO DAILY PRN Pantoprazole Sodium 40 Mg Tablet.dr 40 Mg PO DAILY Fluticasone Propionate 50 Mcg/Actuation [place].susp 1 [place] NSEACH DAILY Raloxifene HCl 60 Mg Tablet 60 Mg PO DAILY Furosemide 20 Mg Tablet 20 Mg PO DAILY PRN Sertraline HCl 50 Mg Tablet 50 Mg PO DAILY Diltiazem 24Hr ER (Diltiazem HCl) 120 Mg Cap.er.24h 120 Mg PO DAILY Pravastatin Sodium 20 Mg Tablet 20 Mg PO HS Trelegy Ellipta 200-62.5-25 (Fluticasone/Umeclidin/Vilanter) 200-62.5 Blst.w.dev 1 Puff INH DAILY Alprazolam 0.5 Mg Tablet 0.5 Mg PO HS PRN Levothyroxine Sodium 25 Mcg Tablet 25 Mcg PO DAILY Losartan Potassium 100 Mg Tablet 100 Mg PO HS Instructions to patient/family Please see electronic discharge instructions given to patient. LARISA GONZALEZ DO Apr 19, 2023 12:37
--- NOTE | 2023-04-19 12:37 | D/C HH Face to Face Order ---
D/C HH Face to Face Orders Reconcile Patient Problems Problems Reviewed?: Yes Instructions for Patient HH Patient Instructions/FollowUp: PCP as scheduled Physician to follow Patient: Wendy Discharge Diet for Home: No Restrictions Patient Problems: Colitis Septic shock Patient Data-Allergies,Ht & Wt Patient Allergies: Coded Allergies: ciprofloxacin (Verified Allergy, Mild, 05/10/22) clarithromycin (Verified Allergy, Mild, 05/10/22) codeine (Verified Allergy, Mild, 05/10/22) Penicillins (Verified Allergy, Unknown, 05/10/22) iodine (Verified Allergy, Unknown, 05/10/22) facial swelling meperidine HCl (Verified Allergy, Unknown, 05/10/22) Nitrofurantoin Macrocrystal (Verified Adverse Reaction, Mild, N/V, 05/10/22) chlorthalidone (Verified Adverse Reaction, Unknown, BODY ACHES;MUSCLE ACHES;JOINT ACHES;SOA;COULDN'T MOVE ARMS, 05/10/22) tramadol (Verified Adverse Reaction, Unknown, 05/10/22) Height (Feet): 5 Height (Inches): 4.00 Weight (Pounds): 127 Weight (Ounces): 4.0 Home Health Need/Face to Face Date of Face to Face: Apr 19, 2023 Clinical Findings: Generalized weakness and fatigue, Instability, Muscle weakness I have seen Pt [id number]: Yes Discharged To: Home Diagnosis/Conditions: Debility Patient is Homebound due to: Andrew fall risk due to instabilty, Muscle weakness Homebound Status Due to the above stated illness, injury or surgical procedure (medical condition or diagnosis) and associated clinical findings, the patient is homebound because of his/her inability to leave home except with aid of a rae pportive device and/or person AND leaving the home requires a considerable and taxing effort or is medically contraindicated. Pt req the following assistanc: [facility] Nursing Orders Home Health Services Order: Nursing Services, Tie Knitter Helper-Evaluate & Treat, Physical Therapy-Evaluate & Treat Home Health Infusion Therapy Line Start Date: Apr 15, 2023 Certify Stmt I certify that this patient is under my care and that I, a nurse practitioner or a physician; a life enrichment assistant working with me, had a face to face encounter that - meets the physician face to face encounter requirements with this patient as dated. LARISA GONZALEZ DO Apr 19, 2023 12:36
--- NOTE | 2023-04-19 15:04 | Progress Note ---
DANYELL GIFFORD 04/19/23 1504: Progress Note Hospital course: 72-year-old female with history of GERD, asthma, and HTN presented to the ED with with vomiting and left-sided abdominal pain. She had been to the hospital prior (03/08/23 & 03/09/23) for left-sided abdominal pain with nausea & nonbilious vomiting, and was found to have colitis and hepatic c yst rupture. In addition, patient had GI endoscopy at [facility] which found uclers in her colon. BP was 92/55, lactic acid was 2.22, and blood work showed hyponatremia and evidence of an EDDIE. An abdominal CT showed concerns for colitis in the sigmoid colon and a medium hepatic cyst. Urine culture showed growth for mixed bacterial kimberly. Patient was admitted to ICU on 04/15/23 and was found to have shock, left sided colitis, UTI, EDDIE, and anemia. During her hospital stay, she was started on IV fluids, IV pressors, and IV meropenem. Her Hgb reached a low of 6.5 and was given 1 unit PRBC, bringing her Hgb back up to 8.4. She had an iron deficiency and was given IV ferrous sulfate. Once her BP was stable, she was transferred to med-surg floor where she received PT & OT and was able to tolerate a regular diet. Her EDDIE resolved and her BP sat in the 110's. She was discharged on 04/19/23. AZALEA GONZALEZ DO 04/19/23 2019: Supervisory-Addendum Brief Verification & Attestation Participated in pt care: history, MDM, physical Personally performed: exam, history, MDM, supervision of care Care discussed with: Medical Student Procedures: n/a Results interpretation: Verified all documentation Verification and Attestation of Medical Student E/M Service A medical student performed and documented this service in my presence. I reviewed and verified all information documented by the medical student and made modifications to such information, when appropriate. I personally performed the physical exam and medical decision making. Azalea Gonzalez, Apr 19, 2023,20:19 DANYELL GIFFORD Apr 19, 2023 15:04 AZALEA GONZALEZ DO Apr 19, 2023 20:19
--- NOTE | 2023-04-19 15:12 | Physical Therapy Daily Note ---
PT Daily Note-Current Subjective Patient sitting in chair upon PT arrival, agreeable to treatment. Patient rates pain at 0/10 currently. Pain Section J - Health Conditions 1. Rarely or not at all 2. Occasionally 3. Frequently 4. Almost constantly 8. Unable to answer Pain Effect on Sleep: 1 Pain Interference with Therapy: 1 Pain Interference w/Day-to-Day: 1 Transfers SCALE: Activities may be completed with or without assistive devices. 3-Cuhwhkdxtj-navbvqf completes the activity by him/herself with no assistance from a helper. 5-Set-up or Clean-up Assistance-helper sets up or cleans up; patient completes a ctivity. [place] assists only prior to or following the activity. 4-Supervision or Touching Assistance-helper provides verbal cues and/or touching/steadying and/or contact guard assistance as patient completes activity. Assistance may be provided throughout the activity or intermittently. 3-Partial/Moderate Assistance-helper does LESS THAN HALF the effort. [place] lifts, holds or supports trunk or limbs, but provides less than half the effort. 2-Substantial/Maximal Assistance-helper does MORE THAN HALF the effort. [place] lifts or holds trunk or limbs and provides more than half the effort. 7-Zokfiqjeg-dazgub does ALL the effort. Patient does none of the effort to complete the activity. Or, the assistance of 2 or more helpers is required for the patient to complete the activity. If activity was not attempted, code reason: 7-Patient Refused. 9-Not Applicable-not attempted and the patient did not perform the activity before the current illness, exacerbation or injury. 10-Not Attempted due to Environmental Limitations-(lack of equipment, weather restraints, etc.). 88-Not Attempted due to Medical Conditions or Safety Concerns. Sit to Stand (QC): 4 Chair/Dfy-mf-Yxsne Xfer(QC): 4 Weight Bearing Right Lower Extremity: Right Full Weight Bearing Left Lower Extremity: Left Full Weight Bearing Gait Training Does the Patient Walk?: Yes Distance: 400' Walk 10 feet (QC): 4 Walk 50 ft with 2 Turns(QC): 4 Walk 150 ft (QC): 4 Gait Assistive Device: FWW Assessment Current Status: Fair Progress Patient tolerated treatment well. Patient demonstrates SBA for all transfers. Patient ambulates 400' with FWW, with SBA and verbal cues for safety, progression, conservation of energy. Patient in chair post treatment with all needs met, nursing notified, call light in reach and in the room. PT Short Term Goals Short Term Goals Time Frame: Apr 22, 2023 Roll Left & Right: 6 Sit to lyin Lying to sitting on side of be: 6 Sit to stand: 6 Chair/lsb-pi-yspwb transfer: 6 Toilet transfer: 6 Walk 10 feet: 6 Walk 50 feet with two turns: 6 Walk 150 feet: 6 PT Plan Treatment/Plan Treatment Plan: Continue Plan of Care Treatment Plan: Education, Functional Activity Amber, Functional Strength, Gait, Safety, Therapeutic Exercise, Transfers Treatment Duration: Apr 22, 2023 Frequency: 5 times per week Estimated Hrs Per Day: .25 hour per day Patient and/or Family Agrees t: Yes Safety Risks/Education Patient Education: Gait Training, Transfer Techniques Teaching Recipient: Patient Teaching Methods: Demonstration, Discussion Response to Teaching: Verbalize Understanding, Return Demonstration Time Time In: 1054 Time Out: 1105 DATE: Apr 19, 2023 Total Billed Treatment Time: 11 Total Billed Treatment Visit, GT JACQUELYN CHUNG PT Apr 19, 2023 15:12
[2023-04-19 15:30] VITALS: BP 117/75
== END 2023-04-19 16:21 | disposition home health service (06) | DRG 871 ==
LOC: EDUNIT# 20:30 → ER 20:33 → ICU 04-16 01:56 → 4TH 04-18 12:33
PROVIDERS: ADMIT Internal Medicine; ATTEND Internal Medicine
DX: A41.9 Sepsis, unspecified organism (principal); R65.21 Severe sepsis with septic shock; N39.0 Urinary tract infection, site not specified; N17.9 Acute kidney failure, unspecified; K52.9 Noninfective gastroenteritis and colitis, unspecified; Z79.01 Long term (current) use of anticoagulants; Z79.899 Other long term (current) drug therapy; I10 Essential (primary) hypertension; K21.9 Gastro-esophageal reflux disease without esophagitis; M81.0 Age-related osteoporosis without current pathological fracture; M19.90 Unspecified osteoarthritis, unspecified site; G89.29 Other chronic pain; M54.9 Dorsalgia, unspecified; E03.9 Hypothyroidism, unspecified; Z20.822 Contact with and (suspected) exposure to COVID-19; D64.9 Anemia, unspecified; K76.89 Other specified diseases of liver; R09.02 Hypoxemia; J30.9 Allergic rhinitis, unspecified; R91.1 Solitary pulmonary nodule
CPT/HCPCS: 36415; 71045; 74176; 76705; 80053; 81000; 82274; 82533; 82607; 82728; 82746; 82947; 83540; 83550; 83605; 83690; 83735; 84100; 84439; 84443; 85025; 85610; 85730; 86141; 86850; 86900; 86901; 86920; 87040; 87081; 87088; 87636; 94640; 94760

== ENCOUNTER 2023-05-22 10:00 | Outpatient (RCR) | payer MEDICARE ==
[~2023-05-22 10:00] MED LIST changes: +ALBU18HF2 INH; +CETI10TA17 PO; +FERR325T24 PO; +LEVA1.2543 NEB; +LOPE2CAP PO; +MELA3TAB39 PO; +POTA8TAB64 PO
== END 2023-05-27 | disposition home or self-care (01) ==
PROVIDERS: ATTEND Nurse Practitioner Family
DX: R53.1 Weakness (principal); D50.9 Iron deficiency anemia, unspecified; R25.1 Tremor, unspecified

== ENCOUNTER 2023-06-26 13:01 | Outpatient (RCR) | payer MEDICARE | END 2023-06-27 | disposition home or self-care (01) | PROVIDERS: ATTEND Nurse Practitioner Family | DX: R53.1 Weakness (principal); D50.9 Iron deficiency anemia, unspecified; R25.1 Tremor, unspecified ==

== ENCOUNTER 2023-06-29 10:39 | Outpatient (RCR) | payer MEDICARE | END 2023-06-29 11:32 | disposition home or self-care (01) | PROVIDERS: ATTEND Nurse Practitioner Family | DX: R53.1 Weakness (principal); I10 Essential (primary) hypertension ==

== ENCOUNTER → 2023-07-15 | Outpatient (CLI) | payer MEDICARE ==
--- NOTE | 2023-07-15 16:43 | Diagnostic Imaging Report ---
EXAMINATION: Thoracic spine radiographs, 3 views. COMPARISON: None. HISTORY: 72-year-old female, fall. Mid back pain. FINDINGS: There is a mild thoracolumbar levocurvature. There is a compression deformity at the level of L1. 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 There is approximately 25% height loss. The disc heights are well preserved. IMPRESSION: L1 compression fracture which is new since April 15, 2023 and may be acute in age. Dictated by: Dictated on workstation # [id number]
--- NOTE | 2023-07-15 16:43 | Diagnostic Imaging Report ---
EXAMINATION: Lumbar spine radiographs, 3 views. COMPARISON: CT abdomen and pelvis April 15, 2023. HISTORY: 72-year-old female, fall. FINDINGS: There is a compression fracture of L1 with approximately 25% height loss. This is new since April 15, 2023 and likely acute. There is posterior spinal fusion hardware at L4-L5. 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 There is partial sacralization of L5. There are laminectomy changes of L4 and L5. IMPRESSION: New compression fracture of L1 with approximately 25% height loss which is most likely acute in age. Dictated by: Dictated on workstation # [id number]
--- NOTE | 2023-07-15 16:44 | Diagnostic Imaging Report ---
EXAMINATION: Left hip radiographs, 2 views. COMPARISON: None. HISTORY: 72-year-old female, left hip pain. FINDINGS: The left hip is not dislocated. There is no joint space loss of the left hip. There is no identified acute fracture. IMPRESSION: Unremarkable radiographs of the left hip. Dictated by: Dictated on workstation # [id number]
--- NOTE | 2023-07-15 16:44 | Diagnostic Imaging Report ---
EXAMINATION: Right forearm radiographs, 2 views. COMPARISON: None. HISTORY: 12-year-old female, fall. Right forearm pain. FINDINGS: There is no acute fracture. There is no radiopaque foreign body. Bone mineralization and alignment is unremarkable. IMPRESSION: No acute bony abnormality in the right forearm. Dictated by: Dictated on workstation # [id number]
== END ==
LOC: RAD 15:25
PROVIDERS: ATTEND Registered Nurse Critical Care Medicine
DX: S32.010A Wedge compression fracture of first lumbar vertebra, initial encounter for closed fracture (principal); S33.8XXA Sprain of other parts of lumbar spine and pelvis, initial encounter; S50.11XA Contusion of right forearm, initial encounter; M25.552 Pain in left hip; W18.39XA Other fall on same level, initial encounter; Y92.091 Bathroom in other non-institutional residence as the place of occurrence of the external cause; I10 Essential (primary) hypertension; J45.998 Other asthma; E78.49 Other hyperlipidemia
CPT/HCPCS: 72072; 72100; 73090; 73502

== ENCOUNTER → 2023-07-31 | Outpatient (CLI) | payer MEDICARE ==
--- NOTE | 2023-07-31 15:25 | Diagnostic Imaging Report ---
EXAMINATION: 3D bilateral screening mammogram with CAD. INDICATION: Screening. COMPARISON: This study was compared to the prior exams of 07/04/2022 and 05/17/2017. PERSONAL HISTORY: At this time, there are no current complaints. FINDINGS: The fibroglandular tissue in both breasts is heterogeneously dense. This does limit the sensitivity of this exam. Overall, there does not appear to have been any significant change when compared to the prior study. No primary or secondary sign of malignancy is noted. IMPRESSION: There is no radiographic evidence for malignancy. ACR BI-RADS Category 1: Negative. Result letter will be mailed to the patient. Note: At least 10% of breast cancer is not imaged by mammography. Dictated by: Dictated on workstation # [id number]
== END ==
LOC: RAD 09:53
PROVIDERS: ATTEND Nurse Practitioner Family
DX: Z12.31 Encounter for screening mammogram for malignant neoplasm of breast (principal)
CPT/HCPCS: 77063; 77067